=== PATIENT | male | born 1985 | race Caucasian/White ===

== ENCOUNTER 2023-02-24 07:27 | Outpatient (OUT) | payer MEDICAID, SELFPAY ==
[2023-02-24 08:08] LABS: Basophils Percent Auto 0.3 % (0.2-2.0); Eosinophils Absolute Auto 0.1 10^3/uL (0.0-0.7); Eosinophils Percent Auto 0.9 % (0.9-7.0); Hematocrit 47.4 % (42.0-54.0); Hemoglobin 15.7 g/dL (14.0-18.0); Immature Granulocytes Abs Auto 0.05 10^3/uL (0.00-0.03); Immature Granulocytes Pct Auto 0.5 % (0.0-0.5); Lymphocytes Absolute Auto 2.7 10^3/uL (1.2-3.8); Lymphocytes Percent Auto 25.6 % (20.5-60.0); Mean Corpuscular HGB Conc 33.1 g/dL (29.9-35.2); Mean Corpuscular Hemoglobin 29.2 pg (25.9-34.0); Mean Corpuscular Volume 88.3 fL (80.0-94.0); Mean Platelet Volume 9.2 fL (9.5-13.5); Monocytes Percent Auto 9.5 % (1.7-12.0); Neutrophils Absolute Auto 6.8 10^3/uL (1.4-6.5); Neutrophils Percent Auto 63.2 % (43.0-75.0); Platelet Count 420 10^3/uL (150-450); Red Blood Count 5.37 10^6/uL (4.70-6.10); White Blood Count 10.7 10^3/uL (4.0-11.0)
[2023-02-24 08:31] LABS: Estimated Average Glucose 183 mg/dL
[2023-02-24 08:49] LABS: Alanine Aminotransferase 56 U/L (16-63); Albumin Globulin Ratio 0.9; Albumin Level 3.7 g/dL (3.4-5.0); Alkaline Phosphatase 110 U/L (46-116); Anion Gap 10.1; Aspartate Amino Transferase 22 U/L (15-37); BUN Creatinine Ratio 10.9; Bilirubin Total 0.4 mg/dL (0.2-1.0); Carbon Dioxide 29.2 mmol/L (21.0-32.0); Chloride 100 mmol/L (98-107); Chol HDL Ratio 4.1; Cholesterol 218 mg/dL (<=200); Estimated GFR (African America >60 (>=60); Estimated GFR (Non-African Ame >60 (>=60); Free T3 3.12 pg/mL (2.18-3.98); Globulin 4.3 g/dL; Glucose 50 mg/dL (74-106); HDL Cholesterol 53 mg/dL (40-60); Potassium 3.3 mmol/L (3.5-5.1); Sodium 136 mmol/L (136-145); Thyroid Stimulating Hormone 2.456 uIU/mL (0.358-3.740); Triglycerides 91 mg/dL (<=150); VLDL CHOLESTEROL 18.2 mg/dL
[2023-02-24 09:54] LABS: Prostate Specific Antigen Scrn 0.89 ng/mL (<=4.00)
== END 2023-02-24 07:28 | disposition home or self-care (01) ==
LOC: LAB 07:30
PROVIDERS: PCP Family Medicine; Visit Provider Family Medicine
DX: Z00.00 Encounter for general adult medical examination without abnormal findings (principal); Z12.5 Encounter for screening for malignant neoplasm of prostate
CPT/HCPCS: 36415; 80053; 80061; 83036; 84436; 84443; 84481; 85025; G0103

== ENCOUNTER 2024-01-12 07:28 | Outpatient (OUT) | payer MEDICAID, SELFPAY ==
--- NOTE | 2024-01-12 07:30 | CA_ITS ---
Patient Name: ARIEL XIONG MR#: [id number] : 1985 Exam Date: 01/12/2024 Ordering Doctor: DR Erick Maldonado . ECHOCARDIOGRAM REPORT PROCEDURE: CA ECHO DOPPLER COMPLETE INDICATIONS: Cardiomyopathy COMPARISON: None. DESCRIPTION: COMPLETE ECHOCARDIOGRAM Real-time transthoracic echocardiography with 2D, M-mode, spectral and color flow Doppler performed. QUALITY: Technical quality was good. LEFT VENTRICLE: Normal chamber size. Normal left ventricular wall thickness. LV EF: Global left ventricular systolic function is hyperdynamic; visually estimated ejection fraction is 65 to 70%. No wall motion abnormalities. DIASTOLIC: Normal diastolic function. ATRIAL SEPTUM: Inadequately seen. LEFT ATRIUM: Normal chamber size. RIGHT ATRIUM: Normal chamber size. RIGHT VENTRICLE: Normal chamber size. Normal right ventricular systolic function. TRICUSPID VALVE: Normal mobility and thickness. No stenosis with trivial regurgitation. No evidence of pulmonary hypertension. RVSP 26mmHg MITRAL VALVE: Normal mobility and thickness. No evidence of mitral valve stenosis. There is no mitral annular calcification. No mitral regurgitation. AORTIC VALVE: Normal trileaflet appearance. No visible sclerosis. Normal leaflet mobility. No evidence of aortic valve stenosis. No aortic regurgitation. AORTIC ROOT: Normal diameter and appearance. PULMONIC VALVE: Normal thickness and mobility. No stenosis. No regurgitation. PERICARDIUM: Anterior free space; trivial effusion versus fat pad. IVC: Collapses with inspirations. Normal size. CONCLUSION: 1. Global left ventricular systolic function is hyperdynamic; visually estimated ejection fraction is 65 to 70% 2. Normal right ventricular size and systolic function 3. Normal diastolic function 4. The left atrium is normal in size 5. No significant valvular abnormalities 6. Anterior free space; trivial effusion versus fat pad Adult Echocardiography Procedure Report Left Ventricle LVEDD (3.7 - 5.6 cm): 3.98 cm LVESD (2.2 - 4.0 cm): 2.65 cm LVIVS thickness (0.6 - 1.2 cm): 1.17 cm LVPW thickness (0.5 - 1.0 cm): 1.19 cm e': 0.09 m/s E - e': 8.44 LVOT Max Gradient: 3.04 mm[Hg], 2.82 mm[Hg] LVOT Area (cm2): 0.86 m/s Peak Velocity (LVOT): 0.87 m/s, 0.84 m/s Mean Velocity (LVOT): 0.60 m/s LVOT Diameter 1.88 cm Left Ventricular Ejection Fraction: 65.31 % Left Atrium LA Volume Index (2D A2C): 13.60 ml/m2 Left Atrium Systolic Dimension: 3.29 cm Mitral Valve MV E to A Ratio: 0.78 Mitral Valve A-Wave Peak Velocity: 0.99 m/s Mitral Valve E-Wave Peak Velocity: 0.78 m/s Right Ventricle RV Internal Diastolic Dimension: 2.30 cm Aorta AO Root Diam: 2.64 cm Ascending Ao Diam: 2.38 cm Aortic Valve AoV Area (Peak Umer): 2.08 cm2, 2.06 cm2, 2.07 cm2 AoV Area (VTI): 1.96 cm2, 2.00 cm2, 1.89 cm2 Peak Velocity(Antegrade Flow): 1.17 m/s, 1.13 m/s, 1.13 m/s Peak Gradient(Antegrade Flow): 5.49 mm[Hg], 5.08 mm[Hg], 5.08 mm[Hg] Mean Velocity(Antegrade Flow): 0.83 m/s, 0.79 m/s, 0.81 m/s Mean Gradient(Antegrade Flow): 3.14 mm[Hg], 2.86 mm[Hg], 2.92 mm[Hg] Velocity Time Integral: 19.85 cm, 19.36 cm, 19.02 cm Tricuspid Valve Peak Velocity (Regurgitant Flow): 2.40 m/s, 1.87 m/s Pulmonic Valve Mean Gradient: 3.14 mm[Hg], 2.84 mm[Hg] Mean Velocity: 0.86 m/s, 0.79 m/s Peak Velocity: 1.09 m/s Peak Gradient: 4.76 mm[Hg], 4.76 mm[Hg] Right Atrium Right Atrium Systolic Pressure: 21.79 ml, 21.79 ml Dictated by: Pablito Rodgers M.D. on 01/12/2024 at 17:21 Approved by: Pablito Rodgers M.D. on 01/12/2024 at 17:25
== END 2024-01-12 07:29 | disposition home or self-care (01) ==
LOC: CARD 07:28
PROVIDERS: PCP Family Medicine; Visit Provider Family Medicine
DX: I42.9 Cardiomyopathy, unspecified (principal)
CPT/HCPCS: 93306

== ENCOUNTER 2024-02-19 12:06 | Outpatient (OUT) | payer MEDICAID, SELFPAY ==
--- OUTSIDE RECORDS SUMMARY | 2024-02-19 12:14 | XMS_ITS | CCD ---
Author Organization [facility] Care Team Providers Care Surgical Consultant Name Role Phone MD Irish Maldonado Primary Care Provider DO Ariel Perry Emergency Provider MD Bonilla Luke Admit Provider MD Bonilla Hall Attending Provider MD Charles Owen Other Provider [phone] MAURICIO, DR COBURN Primary Care Unavailable HOY, DR COBURN Admitting Unavailable HOY, DR COBURN Attending Unavailable HOY, DR COBURN Consulting Unavailable HOY, DR COBURN Consulting Unavailable HOY, DR COBURN Primary Care Unavailable HOY, DR COBURN Admitting Unavailable HOY, DR COBURN Attending Unavailable HOY, DR COBURN Primary Care Unavailable REQUEST, DR MASON LISTED Attending Unavaila ble REQUEST, DR MASON LISTED Consulting Unavaila ble REQUEST, DR MASON LISTED Admitting Unavaila ble HOY, DR COBURN Primary Care Unavailable SUZANNEY, DR COBURN Admitting Unavailable MAURICIO, DR COBURN Attending Unavailable MAURICIO, DR COBURN Consulting Unavailable Irish Maldonado Primary Care Unavailable Ariel Perry Admitting Unavailable Ariel Perry Attending Unavailable Irish Maldonado Primary Care Unavailable Charles Owen Consulting Unavailable Bonilla Hall Attending Unavailable Bonilla Hall Admitting Unavailable Medications Current Medications Medication Drug Class(es) Dates Sig (Normalized) Sig (Original) aspirin 325 mg delayed release oral tablet (2 sources) Platelet Aggregation Inhibitor, Nonsteroidal Anti-inflammatory Drug Start: 06-19-2018 take 325 mg by mouth once daily Aspirin Active 325 MG PO Daily June 19, 2018 1:00am citalopram 20 mg oral tablet (2 sources) Serotonin Reuptake Inhibitor Start: 06-19-2018 take 1 tablet by mouth once daily at bedtime Citalopram (Celexa) 20 mg tablet Active 20 MG PO Daily at bedtime June 19, 2018 1:00am insulin aspart, human (2 sources) Insulin Analog Start: 06-19-2018 Insulin Aspart U-100 Active 0 .ROUTE .COMPLEX June 19, 2018 1:00am SLIDING SCALE 3 ml insulin glargine 100 unt/ml pen injector (2 sources) Insulin Analog Start: 06-19-2018 inject 45 [IU] by subcutaneous injection once daily at bedtime Insulin Glargine Active 45 UNIT SUBCUT Daily at bedtime June 19, 2018 1:00am nitroglycerin 0.4 mg sublingual tablet (2 sources) Nitrate Vasodilator Start: 06-22-2018 Nitroglycerin Active 0.4 MG SUBLINGUAL Q5M June 22, 2018 1:00am Completed/Discontinued Medications Medication Drug Class(es) Dates Sig (Normalized) Sig (Original) atorvastatin 20 mg oral tablet (2 sources) HMG-CoA Reductase Inhibitor Start: 06-22-2018 End: 06-17-2019 take 20 mg by mouth once daily in the evening Atorvastatin Discontinued 20 MG PO Every evening June 22, 2018 1:00am June 17, 2019 1:07am ergocalciferol 1.25 mg oral capsule (2 sources) Provitamin D2 Compound Start: 06-20-2018 End: 01-26-2022 take 1 capsule by mouth every week, then take 1 capsule by mouth every month Ergocalciferol (Vitamin D2) Discontinued 77126 UNIT PO As Directed June 20, 2018 1:00am January 26, 2022 1:04pm take one cap every week for 8 weeks, then one cap every months after that. lisinopril 5 mg oral tablet (2 sources) Angiotensin Converting Enzyme Inhibitor Start: 06-22-2018 End: 06-17-2019 take 5 mg by mouth once daily Lisinopril Discontinued 5 MG PO Daily June 22, 2018 1:00am June 17, 2019 1:03am 24 hr nicotine 0.875 mg/hr transdermal system (2 sources) Cholinergic Nicotinic Agonist Start: 06-22-2018 End: 09-14-2018 apply 1 dose transdermal route every twenty-four hours Nicotine Discontinued 1 PATCH TRANSDERML Q24H 21 42 June 22, 2018 1:00am September 14, 2018 12:02am Problems Active Problems Problem Classification Problem Date Documented Da te Episodic/Chronic Coronary atherosclerosis and other heart disease (6 sources) Preinfarction syndrome; Translations: [Unstable angina] 01-26-2022 Chronic Diabetes mellitus with complications (2 sources) Retinopathy due to diabetes mellitus; Translations: [Type 2 diabetes mellitus with unspecified diabetic retinopathy without macular edema] 06-20-2018 Chronic Diabetes mellitus without complication (7 sources) Latent autoimmune diabetes mellitus in adult; Translations: [Other specified diabetes mellitus without complications] Onset: 01-26-2022 06-20-2018 Chronic Disorders of lipid metabolism (2 sources) Dyslipidemia; Translations: [Hyperlipidemia, unspecified] 06-20-2018 Chronic Mood disorders (2 sources) Depressive disorder; Translations: [Depressive disorder] 06-20-2018 Chronic Nutritional deficiencies (2 sources) Vitamin D deficiency; Translations: [Vitamin D deficiency, unspecified] 06-20-2018 Chronic Other lower respiratory disease (3 sources) Dyspnea; Translations: [Shortness of breath] Onset: 02-25-2022 06-20-2018 Episodic Other lower respiratory disease (3 sources) Shortness of breath; Translations: [SHORTNESS OF BREATH] Onset: 03-02-2022 Episodic Other screening for suspected conditions (not mental disorders or infectious disease) (1 source) Abnormal result of other cardiovascular function study; Translations: [ABNORM RESULT OTH CV FUNCTION STUDY] Onset: 03-02-2022 Episodic Residual codes; unclassified (2 sources) Tobacco user; Translations: [Tobacco use] 06-20-2018 Episodic Unclassified (3 sources) CONTACT W/AND (SUSP) EXPOS COVID-19; Translations: [CONTACT W/AND (SUSP) EXPOS COVID-19] Onset: 07-19-2021 Past or Other Problems Problem Classification Problem Date Documented Da te Episodic/Chronic Abdominal pain (1 source) Unspecified abdominal pain; Translations: [Unspecified abdominal pain] Onset: 08-02-2022 Episodic Nonspecific chest pain (13 sources) Chest pain; Translations: [Chest pain, unspecified] Onset: 01-26-2022 06-20-2018 Episodic Other upper respiratory infections (1 source) Acute recurrent frontal sinusitis; Translations: [ACUTE RECURRENT FRONTAL SINUSITIS] Onset: 05-24-2021 Episodic Unclassified (1 source) CONTACT W/AND (SUSP) EXPOS COVID-19; Translations: [CONTACT W/AND (SUSP) EXPOS COVID-19] Onset: 07-14-2021 Results Test Name Value Interpretation Reference Range Facility Blood Cultureon 08-03-2022 Bacteria identified Cx Nom (Bld) NO GROWTH 5 DAYS PERFORMED BY: [place] [address] PATHOLOGIST VACUUM WORKER ED FONSECA M.D. [facility] Comment on above: Performed By: #### S OFFRITZ, COVID-19 ASTON #### [address] abdomen pelvis w conon CT abdomen pelvis w con [facility] Main [place] [address] [place] [address] CT Scan Report Signed Patient: Ariel Ruvalcaba MR#: [id number] : 1985 Acct:[id number] Age/Sex: 37 / M ADM Date: 08/02/22 Loc: ER Room: Type: [facility] ER Attending Dr: Copies to: DO Ariel Mcfadden Mehreen DO Vicky Ordering Provider: Serge Barnes DO Date of Service: 08/02/22 CT/CT abdomen pelvis w con: Abdominal Pain CT ABDOMEN AND PELVIS WITH INTRAVENOUS CONTRAST: CLINICAL HISTORY: Right flank/right lower quadrant pain with nausea and vomiting COMPARISON: None TECHNIQUE: Spiral images were obtained through the abdomen and pelvis following the administration of intravenous contrast. This CT exam was performed using one or more following dose reduction techniques: Automated exposure control, adjustment of the mA and/or kV according to patient size, or use of iterative reconstruction technique. FINDINGS: Lung Bases: [No acute process.] Organs:Hepatic steatosis. Gallbladder spleen pancreas adrenal glands kidneys and aorta all appear unremarkable.[ GI: Stomach is grossly unremarkable. Small bowel appears nondilated. No acute colonic abnormality.[Append ix is normal. Pelvis:[Urinary bladder is grossly unremarkable. Prostate gland is normal size.] Peritoneum/Retroper itoneum:No free air, free fluid or lymphadenopathy.[ Abd wall/Bones:Abdomina l wall demonstrates no acute findings. Osseous structures demonstrates no acute findings.[ CT/CT abdomen pelvis w con IMPRESSION: No acute process. Impression dictated by: Nathen Saavedra Jr., D.O.08/03/2022 12:24 PM Dictation Location: [place] [address] Transcribed By: [facility] 08/03/22 1224 Dictated By: Nathen Saavedra Jr, DO 08/03/22 1210 Signed By: 08/03/22 1224 Normal [facility] Lactic Acidon 08-03-2022 Lactate [Moles/Vol] 1.4 mmol/L Normal 0.5-2.2 [facility] Comment on above: Result Comment: PERF ORMED BY: [facility] [address] [place] [address] PATHOLOGIST VACUUM WORKER ED FONSECA M.D. Performed By: #### S OFFRITZ COVID-19 ASTON #### [facility] [address] Basic Metabolic Panelon 07-17 Anion gap [Moles/Vol] 14.7 mmol/L Normal 6.0-15.0 [facility] Comment on above: Performed By: #### S OFFRITZ COVID-19 ASTON #### [facility] [address] [place] [address] [place] Calcium [Mass/Vol] 8.9 mg/dL Normal 8.2-10.2 [facility] Comment on above: Performed By: #### S OFFRITZ COVID-19 ASTON #### [facility] [address] [place] [address] [place] Chloride [Moles/Vol] 96 mmol/L Normal 95-114 [facility] Comment on above: Performed By: #### S OFFRITZ COVID-19 ASTON #### [facility] [address] [place] [address] [place] CO2 [Moles/Vol] 25.2 mmol/L Normal 22.0-30.0 [facility] Comment on above: Performed By: #### S OFIANEG COVID-19 ASTON #### [facility] [address] [place] [address] [place] Creatinine [Mass/Vol] 1.00 mg/dL Normal 0.64-1.27 [facility] Comment on above: Performed By: #### S CASPER FOX- ASTON #### [facility] [address] Creatinine Clr Calc Pharmacy 112.09 [facility] Comment on above: Performed By: #### S CASPER FOX- ASTON #### [facility] [address] [place] [address] Estimated GFR ( Yoselin > 60 [facility] Comment on above: Result Comment: GFR estimated reference range: According to KDOQI guidelines, <60 ml/min/1.73m2 is sufficient to diagnose a patient with chronic kidney disease. Performed By: #### S CASPER FOX- ASTON #### [address] Estimated GFR (Non- Am > 60 [facility] Comment on above: Performed By: #### S CASPER FOX- ASTON #### [address] Glucose [Mass/Vol] 297 mg/dL High 70-100 [facility] Comment on above: Result Comment: [place] om Glucose Reference Range is dependent on time and content of last meal. Glucose of more than 200 mg/dL in a nonstressed, ambulatory subject supports the diagnosis of Diabetes Mellitus. ADA recommended reference range Performed By: #### S CASPER FOX- ASTON #### [address] Potassium [Moles/Vol] 3.9 mmol/L Normal 3.5-5.1 [facility] Comment on above: Performed By: #### S CASPER FOX- ASTON #### [address] Sodium [Moles/Vol] 132 mmol/L Low 136-146 [facility] Comment on above: Performed By: #### S CASPER FOX- ASTON #### [facility] [address] [place] [address] Urea nitrogen [Mass/Vol] 10 mg/dL Normal 9-23 [facility] Comment on above: Performed By: #### S SHIMA FOXID-19 ASTON #### [address] Blood Cultureon 08-02-2022 Bacteria identified Cx Nom (Bld) NO GROWTH 5 DAYS PERFORMED BY: [place] [address] PATHOLOGIST VACUUM WORKER ED FONSECA M.D. Normal [facility] Comment on above: Performed By: #### S CASPER FOX-19 ASTON #### [address] Complete Blood Count Auto Di ffon 08-02-2022 Basophils (Bld) [#/Vol] 0.1 10*3/uL Normal 0.0-0.2 [facility] Comment on above: Result Comment: PERF ORMED BY: [place] [address] PATHOLOGIST VACUUM WORKER ED FONSECA M.D. Performed By: #### S SHIMA FOXID-19 ASTON #### [address] Basophils/100 WBC (Bld) 0.9 % Normal . [facility] Comment on above: Performed By: #### S SHIMA FOXID-19 ASTON #### [facility] [address] [place] [address] Eosinophils (Bld) [#/Vol] 0.1 10*3/uL Normal 0.0-0.45 [facility] Comment on above: Performed By: #### S SHIMA FOXID-19 ASTON #### [place] [address] [place] Eosinophils/100 WBC (Bld) 1.0 % Normal . [facility] Comment on above: Performed By: #### S SHIMA FOXID-19 ASTON #### [address] Erythrocyte distribution width (RBC) [Ratio] 13.3 % Normal 12.0-14.8 [facility] Comment on above: Performed By: #### S SCARLETTFRITZ COVID-19 ASTON #### [address] Hematocrit (Bld) [Volume fraction] 45.3 % Normal 38.8-50.0 [facility] Comment on above: Performed By: #### S OFFRITZ COVID-19 ASTON #### [address] Hemoglobin (Bld) [Mass/Vol] 15.0 g/dL Normal 13.0-17.0 [facility] Comment on above: Performed By: #### S OFFRITZ COVID-19 ASTON #### [address] Lymphocytes (Bld) [#/Vol] 2.8 10*3/uL Normal 1.00-4.8 [facility] Comment on above: Performed By: #### S OFFRITZ COVID-19 ASTON #### [address] Lymphocytes/100 WBC (Bld) 24.0 % Normal . [facility] Comment on above: Performed By: #### S OFFRITZ COVID-19 ASTON #### [address] MCH (RBC) [Entitic mass] 29.4 pg Normal 27.5-35.2 [facility] Comment on above: Performed By: #### S OFFRITZ COVID-19 ASTON #### [address] MCV (RBC) [Entitic vol] 89.0 fL Normal 83.5-101 F [facility] Comment on above: Performed By: #### S OFFRITZ COVID-19 ASTON #### [address] Mean Corpuscular HGB Conc 33.0 g/dL Normal 32.5-35.6 [facility] Comment on above: Performed By: #### S SCARLETTFRITZ COVID-19 ASTON #### [facility] [address] Monocytes (Bld) [#/Vol] 1.1 10*3/uL High 0.0-0.8 [facility] Comment on above: Performed By: #### S RUDDY COVID-19 ASTON #### [facility] [address] Monocytes/100 WBC (Bld) 17.09 % Normal 0.00-20.00 F [facility] Comment on above: Performed By: #### S OFFRITZ COVID-19 ASTON #### [facility] [address] Monocytes/100 WBC (Bld) 9.2 % Normal . F [facility] Comment on above: Performed By: #### S RUDDY COVID-19 ASTON #### [facility] [address] Neutrophils (Bld) [#/Vol] 7.7 10*3/uL Normal 1.8-7.7 [facility] Comment on above: Performed By: #### S SCARLETTFRITZ COVID-19 ASTON #### [facility] [address] [place] [address] [place] Neutrophils/100 WBC (Bld) 64.9 % Normal . [facility] Comment on above: Performed By: #### S RUDDY COVID-19 ASTON #### [facility] [address] [place] [address] [place] NRBC% 0.1 /100{WBC} Normal 0-0.5 [facility] Comment on above: Performed By: #### S OFFRITZ COVID-19 ASTON #### [facility] [address] Platelet mean volume (Bld) [Entitic vol] 7.6 fL Normal 6.6-10.1 [facility] Comment on above: Performed By: #### S JAMESJOHN COVID-19 ASTON #### [facility] [address] [place] [address] [place] Platelets (Bld) [#/Vol] 373 10*3/uL Normal 150-450 [facility] Comment on above: Performed By: #### S JAMESJOHN COVID-19 ASTON #### [facility] [address] [place] [address] [place] RBC (Bld) [#/Vol] 5.09 10*6/uL Normal 3.90-5.60 [facility] Comment on above: Performed By: #### S JAMESJOHN COVID-19 ASTON #### [facility] [address] [place] [address] [place] WBC (Bld) [#/Vol] 11.8 10*3/uL High 4.1-10.5 [facility] Comment on above: Performed By: #### S JAMESJOHN COVID-19 ASTON #### [facility] [address] [place] [address] [place] Dipstick and Microscopicon 0 08-02-2022 Appearance (U) Cloudy Critically abnormal Clear [facility] Comment on above: Order Comment: Name Collection Type:: Clean-Voided Midstream Performed By: #### A DDONUAPLUS #### [facility] [address] [place] [address] [place] Bacteria,Urine None Seen Normal None Seen [facility] Comment on above: Order Comment: Name Collection Type:: Clean-Voided Midstream Performed By: #### A DDONUAPLUS #### [facility] [address] [place] [address] [place] Bilirubin,Urine Negative Normal Negative [facility] Comment on above: Order Comment: Name Collection Type:: Clean-Voided Midstream Performed By: #### A DDONUAPLUS #### [facility] [address] [place] [address] [place] Color (U) Yellow Normal Yellow [facility] Comment on above: Order Comment: Name Collection Type:: Clean-Voided Midstream Performed By: #### A DDONUAPLUS #### [facility] [address] [place] [address] [place] Glucose Ql (U) >=1000 High Normal [facility] Comment on above: Order Comment: Name Collection Type:: Clean-Voided Midstream Performed By: #### A DDONUAPLUS #### [facility] [address] [place] [address] [place] Hyaline Casts,Urine 0-8 Normal 0-8 [facility] Comment on above: Order Comment: Name Collection Type:: Clean-Voided Midstream Result Comment: PERF ORMED BY: [place] [address] PATHOLOGIST VACUUM WORKER ED FONSECA M.D. Performed By: #### A DDONUAPLUS #### [facility] [address] [place] [address] Ketones Ql (U) Negative Normal Negative [facility] Comment on above: Order Comment: Name Collection Type:: Clean-Voided Midstream Performed By: #### A DDONUAPLUS #### [facility] [address] [place] [address] [place] Leukocyte esterase Test strip Ql (U) Negative Normal Negative [facility] Comment on above: Order Comment: Name Collection Type:: Clean-Voided Midstream Performed By: #### A DDONUAPLUS #### [facility] [address] [place] [address] [place] Nitrite,Urine Negative Normal Negative [facility] Comment on above: Order Comment: Name Collection Type:: Clean-Voided Midstream Performed By: #### A DDONUAPLUS #### [facility] [address] [place] [address] [place] Occult Blood,Urine Negative Normal Negative [facility] Comment on above: Order Comment: Name Collection Type:: Clean-Voided Midstream Result Comment: PERF ORMED BY: [place] [address] PATHOLOGIST VACUUM WORKER ED FONSECA M.D. Performed By: #### A DDONUAPLUS #### [address] pH (U) 5.5 [pH] Normal 5.0-9.0 [facility] Comment on above: Order Comment: Name Collection Type:: Clean-Voided Midstream Performed By: #### A DDONUAPLUS #### [address] Protein (U) [Mass/Vol] 30 mg/dL High Negative [facility] Comment on above: Order Comment: Name Collection Type:: Clean-Voided Midstream Performed By: #### A DDONUAPLUS #### [address] RBC LM.HPF (Urine sed) [#/Area] 0 /[HPF] Normal 0-4 [facility] Comment on above: Order Comment: Name Collection Type:: Clean-Voided Midstream Performed By: #### A DDONUAPLUS #### [address] Specificy [place],Urine 1.017 Normal 1.001-1.030 [facility] Comment on above: Order Comment: Name Collection Type:: Clean-Voided Midstream Performed By: #### A DDONUAPLUS #### [address] Squamous Epithelial Cell,Urine None Seen Normal 0-2 [facility] Comment on above: Order Comment: Name Collection Type:: Clean-Voided Midstream Performed By: #### A DDONUAPLUS #### [address] Urobilinogen,Urine Normal Normal Normal [facility] Comment on above: Order Comment: Name Collection Type:: Clean-Voided Midstream Performed By: #### A DDONUAPLUS #### [address] WBC,Urine None Seen Normal 0-4 [facility] Comment on above: Order Comment: Name Collection Type:: Clean-Voided Midstream Performed By: #### A DDONUAPLUS #### [address] [place] [address] [place] ECG 12 lead ECGon 08-02-2022 ECG 12 lead ECG [facility] [address] [place] [address] Electrocardiograph Report Signed Patient: Ariel Ruvalcaba MR#: [id number] : 1985 Acct:[id number] Age/Sex: 37 / M ADM Date: 08/02/22 Loc: ER Room: Type: [facility] ER Attending Dr: Ordering Provider: Serge Barnes DO Date of Service: 08/02/22 ECG/ECG 12 lead ECG: Abdominal Pain Copies to: Test Reason : Blood Pressure : 140/087 mmHG Vent. Rate : 121 BPM Atrial Rate : 121 BPM P-R Int : 132 ms QRS Dur : 084 ms QT Int : 320 ms P-R-T Axes : 075 098 040 degrees QTc Int : 454 ms Sinus tachycardia Rightward axis Confirmed by Serge BARNES DO ([id number]) on 08/03/2022 12:04:41 AM Referred By: Electronically Signed By:Serge BARENS DO Transcribed By: MUS Signed By Serge Barnes DO 0 08/03/22 0004 Normal [facility] Hepatic Panelon 08-02-2022 Albumin [Mass/Vol] 3.4 g/dL Normal 3.2-5.5 [facility] Comment on above: Performed By: #### S CASPER FOX-Kannan ASTON #### [facility] [address] [place] [address] [place] Albumin/Globulin [Mass ratio] 1.0 {ratio} Normal [facility] Comment on above: Performed By: #### S CASPER FOX-Kannan ASTON #### [facility] [address] [place] [id number] [place] ALP [Catalytic activity/Vol] 105 U/L High 32-92 [facility] Comment on above: Performed By: #### S SHIMA FOXID-19 ASTON #### [facility] [address] [place] [id number] [place] ALT [Catalytic activity/Vol] 28 U/L Normal 10-60 [facility] Comment on above: Performed By: #### S OFIANEG, COVID-19 ASTON #### [facility] [address] AST [Catalytic activity/Vol] 19 U/L Normal 10-42 [facility] Comment on above: Performed By: #### S OFIANEG, COVID-19 ASTON #### [facility] [address] Bilirubin [Mass/Vol] 0.4 mg/dL Normal 0.3-1.2 [facility] Comment on above: Performed By: #### S OFIANEG, COVID-19 ASTON #### [facility] [address] Bilirubin,Indirect Not performed Normal [facility] Comment on above: Performed By: #### S OFIANEG, COVID-19 ASTON #### [facility] [address] Bilirubin.indirect [Mass/Vol] mg/dL Normal 0.0-0.4 [facility] Comment on above: Performed By: #### S OFIANEG, COVID-19 ASTON #### [facility] [address] Globulin (S) [Mass/Vol] 3.4 g/dL Normal F [facility] Comment on above: Performed By: #### S OFIANEG, COVID-19 ASTON #### [facility] [address] [place] [address] Protein [Mass/Vol] 6.8 g/dL Normal 6.1-7.9 [facility] Comment on above: Performed By: #### S OFIANEG, COVID-19 ASTON #### [facility] [address] Lactic Acidon 08-02-2022 Lactate [Moles/Vol] 2.0 mmol/L Off scale high 0.5-2.2 F [facility] Comment on above: Result Comment: Resu lts called at 2225 on 08/02/22 PERFORMED BY: [place] [address] PATHOLOGIST VACUUM WORKER ED FONSECA M.D. Performed By: #### S CASPER FOX-19 ASTON #### [address] Lipaseon 08-02-2022 Lipase [Catalytic activity/Vol] 66.0 U/L High 22-51 [facility] Comment on above: Result Comment: PERF ORMED BY: [place] [address] PATHOLOGIST VACUUM WORKER ED FONSECA M.D. Performed By: #### S CASPER FOX-Kannan CLANCY #### [address] Partial Thromboplastin Timeo n 08-02-2022 aPTT Coag (Bld) [Time] 30.6 s Normal 25.1-36.5 [facility] Comment on above: Result Comment: PERF ORMED BY: [place] [address] PATHOLOGIST VACUUM WORKER ED FONSECA M.D. Performed By: #### S CASPER FOX-19 ASTON #### [address] Prothrombin Time INRon 08-02 INR Coag (PPP) [Relative time] 1.0 {INR} Normal [facility] Comment on above: Result Comment: INR Therapeutic Range A) Pre- and Peroperative OAT started two weeks before surgery. NOT HIP SURGERY: 1.5 - 2.5 HIP SURGERY: 2 - 3 B) Primary and secondary prevention of venous THROMBOSIS: 2 - 3 C) Active venous thrombosis, pulmonary embolism and prevention of recurrent venous thrombosis: 2 - 3 D) Prevention of arterial thromboembolism including patients with mechanical heart valves: 3 - 4.5 Performed By: #### S SHIMA FOXID-19 ASTON #### [facility] [address] [place] [address] PT Coag (PPP) [Time] 11.3 s Normal 9.0-12.9 [facility] Comment on above: Performed By: #### S CASPER FOX-19 ASTON #### [facility] [address] ECHOCARDIO M/2D COMPLETEon 0 02-25-2022 ECHOCARDIO M/2D COMPLETE Patient: ARIEL ALONZO Exam Date: 02/25/2022 : 1985 Gender:M Ordering : DR IRISH MALDONADO . Admission #: [id number] Family : Order #: [id number] CLICK HERE TO VIEW EXAM ECHOCARDIOGRAM REPORT PROCEDURE: CARDIO PULMONARY ECHOCARDIO M/2D COMP INDICATIONS: Shortness of breath, abnormal stress test COMPARISON: None. DESCRIPTION: COMPLETE ECHOCARDIOGRAM Real-time transthoracic echocardiography with 2D, M-mode, spectral and color flow Doppler performed. QUALITY: Technical quality was good. LEFT VENTRICLE: Normal chamber size. Normal left ventricular wall thickness. LV EF: Global left ventricular systolic function is normal. Calculated left ventricular ejection fraction is 64% DIASTOLIC: Normal diastolic function. ATRIAL SEPTUM: Inadequately seen. LEFT ATRIUM: Normal chamber size. RIGHT ATRIUM: Normal chamber size. RIGHT VENTRICLE: Normal chamber size. Normal right ventricular systolic function. TRICUSPID VALVE: Normal mobility and thickness. No stenosis with trivial regurgitation. Unable to assess right-sided pressures due to lack of measurable tricuspid regurgitation. MITRAL VALVE: Normal mobility and thickness. No mitral valve prolapse. No evidence of mitral valve stenosis. There is no mitral annular calcification. No mitral regurgitation. AORTIC VALVE: Normal trileaflet appearance. No visible sclerosis. Normal leaflet mobility. No evidence of aortic valve stenosis. No aortic regurgitation. AORTIC ROOT: Normal diameter and appearance. PULMONIC VALVE: Normal thickness and mobility. No stenosis. PERICARDIUM: Anterior free space; trivial effusion versus fat pad. IVC: Collapses with inspirations. Normal size CONCLUSION: Global left ventricular systolic function is normal; visually estimated ejection fraction 60 to 65%. No significant wall motion abnormalities. Normal diastolic function. The right ventricle is normal in size and systolic function. No significant valvular abnormalities. Anterior free space; trivial effusion versus fat pad. Adult Echocardiography Procedure Report Left Ventricle LVEDD (3.7 - 5.6 cm): 3.76 cm LVESD (2.2 - 4.0 cm): 2.56 cm LVIVS thickness (0.6 - 1.2 cm): 0.81 cm LVPW thickness (0.5 - 1.0 cm): 0.90 cm LVOT Max Umer (1.5 m per sec): 0.87 m/s Left Ventricular Ejection Fraction: 60.76 %, 60.76 % Left Ventricular Ejection Fraction (A2C): 60.60 % Left Ventricular Ejection Fraction (A4C): 68.39 % Left Atrium Mitral Valve MV E to A Ratio: 0.80 Right Ventricle RV Internal Diastolic Dimension: 2.66 cm Aorta Aorta (2.1 - 3.5 cm): 2.41 cm AO Root Diam: 2.55 cm Ascending Ao Diam: 2.24 cm Aortic Valve Peak Velocity (Antegrade Flow): 0.98 m/s, 0.98 m/s Tricuspid Valve Pulmonic Valve Mean Gradient: 2.69 mm[Hg] Mean Velocity: 0.80 m/s Right Atrium Dictated by: Pablito Rodgers M.D. on 02/26/2022 at 12:53 Approved by: Pablito Rodgers M.D. on 02/26/2022 at 12:57 Normal [facility] STRESS/REST MULTIon 02-07 MT STRESS/REST MULTI Patient: ARIEL RUVALCABA Exam Date: 02/07/2022 : 1985 Gender:M Ordering : DR IRISH MALDONADO . Admission #: [id number] Family : Order #: [id number] CLICK HERE TO VIEW EXAM RADIOLOGY REPORT PROCEDURE: RADIONUCLIDE IMAGING STRESS/REST MULTI COMPARISON: MT STRESS/REST MULTI, 06/18/2018. INDICATIONS: Chest pain TECHNIQUE: Exam Description: Stress/Rest one day protocol gated SPECT Rest Imagin.8 mCi Tc-99m Cardiolite IV on 02/07/2022 Stress Imaging 30.6 mCi Tc-99m Cardiolite IV on 02/07/2022 Exercise Protocol: 0.4 mg Lexiscan given IV Heart Rate (bpm): Rest: 121 Max: 144 PMHR: 78 Blood Pressure: Rest: 148/96 Max: 184/98 Symptoms: Rest and peak stress ECG findings were non-diagnostic and the exercise portion of the study was Non-diagnostic per attending physician Dr. Mercado . For more details please see separate cardiac stress test report. FINDINGS: QUALITY OF STUDY: Excellent. PERFUSION DEFECT: None. LOCATION: N/A SIZE: N/A. SEVERITY: N/A. TYPE: N/A. WALL MOTION: Normal. LV SIZE: Normal. 65 mL. TID / TCD: None; 0.9 LVEF: Abnormal. Calculated EF 54%. SUMMARY: Myocardial perfusion imaging study has ABNORMAL findings. CONCLUSION: 1. No acute or reversible ischemia. 2. Left ventricle ejection fraction falls just below lower limits of normal (below 55%). 3. Normal wall motion. Dictated by: Cruzito Ward M.D. on 02/08/2022 at 12:09 Approved by: Cruzito Ward M.D. on 02/08/2022 at 12:[address] [facility] Activated partial thrombopla stin time (aPTT) in platelet poor plasma by coagulation aOrdered By: Ariel Perry on 01-26-2022 aPTT Coag (PPP) [Time] 29.9 s 25.1-36.5 [facility] B-Type Natriuretic Peptideon 01-26-2022 Natriuretic peptide B (Bld) [Mass/Vol] pg/mL Low 5-100 [facility] Comment on above: Result Comment: PERF ORMED BY: [place] [address] PATHOLOGIST VACUUM WORKER ED FONSECA M.D. Performed By: #### S SHIMA FOXID-19 ASTON #### [address] Basic Metabolic Panelon 01-14 Calcium [Mass/Vol] 9.4 mg/dL Normal 8.2-10.2 [facility] Comment on above: Performed By: #### P TT, CBC, BNP, BMP, CK, CKMB, HS TROP, PT #### [address] Chloride [Moles/Vol] 100 mmol/L Normal 95-114 [facility] Comment on above: Performed By: #### P TT, CBC, BNP, BMP, CK, CKMB, HS TROP, PT #### [place] [address] [place] CO2 [Moles/Vol] 25.9 mmol/L Normal 22.0-30.0 [facility] Comment on above: Performed By: #### P TT, CBC, BNP, BMP, CK, CKMB, HS TROP, PT #### [facility] [address] Creatinine [Mass/Vol] 0.81 mg/dL Normal 0.64-1.27 [facility] Comment on above: Performed By: #### P TT, CBC, BNP, BMP, CK, CKMB, HS TROP, PT #### [facility] [address] Creatinine Clr Calc Pharmacy 139.01 [facility] Comment on above: Result Comment: PERF ORMED BY: [place] [address] PATHOLOGIST VACUUM WORKER ED FONSECA M.D. Performed By: #### P TT, CBC, BNP, BMP, CK, CKMB, HS TROP, PT #### [facility] [address] Estimated GFR ( Yoselin > 60 [facility] Comment on above: Result Comment: GFR estimated reference range: According to KDOQI guidelines, <60 ml/min/1.73m2 is sufficient to diagnose a patient with chronic kidney disease. Performed By: #### P TT, CBC, BNP, BMP, CK, CKMB, HS TROP, PT #### [facility] [address] Estimated GFR (Non- Am > 60 [facility] Comment on above: Performed By: #### P TT, CBC, BNP, BMP, CK, CKMB, HS TROP, PT #### [facility] [address] Glucose [Mass/Vol] 287 mg/dL High 70-100 [facility] Comment on above: Result Comment: [place] om Glucose Reference Range is dependent on time and content of last meal. Glucose of more than 200 mg/dL in a nonstressed, ambulatory subject supports the diagnosis of Diabetes Mellitus. ADA recommended reference range Performed By: #### P TT, CBC, BNP, BMP, CK, CKMB, HS TROP, PT #### [facility] [address] Potassium [Moles/Vol] 4.0 mmol/L Normal 3.5-5.1 [facility] Comment on above: Performed By: #### P TT, CBC, BNP, BMP, CK, CKMB, HS TROP, PT #### [facility] [address] Sodium [Moles/Vol] 137 mmol/L Normal 136-146 [facility] Comment on above: Performed By: #### P TT, CBC, BNP, BMP, CK, CKMB, HS TROP, PT #### [facility] [address] Urea nitrogen [Mass/Vol] 13 mg/dL Normal 9-23 [facility] Comment on above: Performed By: #### P TT, CBC, BNP, BMP, CK, CKMB, HS TROP, PT #### [facility] [address] Basophils Auto (Bld) [#/Vol] Ordered By: Ariel Perry on 01-26-2022 Basophils (Bld) [#/Vol] 0.1 10*3/uL 0.0-0.2 [facility] Basophils/100 WBC Auto (Bld) Ordered By: Ariel Perry on 01-26-2022 Basophils/100 WBC (Bld) 0.7 % . F [facility] Blood hemoglobin measurement (mass/volume)Ordered By: Ariel Perry on 01-26-2022 Hemoglobin (Bld) [Mass/Vol] 14.8 g/dL 13.0-17.0 [facility] Blood leukocytes automated c ount (number/volume)Ordered By: Ariel Perry on 01-26-2022 WBC (Bld) [#/Vol] 7.5 10*3/uL 4.5-11.0 [facility] COVID-19 Antigenon 2 COVID-19 Antigen Healthcare Worker?: N Reference Range: Negative Negative results, from patients with symptom onset beyond five days, should be treated as presumptive and confirmation with a molecular assay, if necessary, for patient management, may be performed. Negative results do not rule out COVID-19 and should not be used as the sole basis for treatment or patient management decisions, including infection control decisions. Negative results should be considered in the context of a patient's recent exposures, history and the presence of clinical signs and symptoms consistent with COVID-19. The Aston SARS Antigen VIKTOR does not differentiate between SARS-CoV and SARS-CoV-2. This test was developed and its performance characteristic determined by [employer] and validated at [facility]. This test has not been FDA cleared or approved. This test has been authorized by FDA under an Emergency Use Authorization (EUA). This test has been validated in accordance with the FDA's Guidance Document (Policy for Diagnostics Testing in Laboratories Certified to Perform High Complexity Testing under CLIA prior to Emergency Use Authorization for Coronavirus Disease-2019 during the Public Health Emergency) issued on September 16, 2019. This test is only authorized for the duration of time the declaration that circumstances exist justifying the authorization of the emergency use of in vitro diagnostic tests for detection of SARS-CoV-2 virus and/or diagnosis of COVID-19 infection under section 564(b)(1) of the Act, 21 U.S.C. 360bbb-3(b)(1), unless the authorization is terminated or revoked sooner. SARS-CoV+SARS-CoV-2 (COVID-19) Ag [Presence] in Respiratory specimen by Rapid immunoassay Negative for SARS Antigen by VIKTOR PERFORMED BY: [place] [address] PATHOLOGIST VACUUM WORKER ED FONSECA M.D. Normal [facility] Comment on above: Performed By: #### S RUDDY, COVID-19 ASTON #### [address] COVID-19 [facility] 01-26-2022 SARS-CoV-2 (COVID-19) RNA NIKKI+probe Ql (Unsp spec) Negative Normal Negative [facility] Comment on above: Order Comment: Healt hcare Worker?: N Result Comment: Testing for SARS-CoV-2 by RT-PCR This test was developed and its performance characteristics determined by [employer] ([employer] and validated at the [facility]. This test has not been FDA cleared or approved. This test has been authorized by FDA under an Emergency Use Authorization (EUA). This test has been validated in accordance with the FDA's Guidance Document (Policy for Diagnostics Testing in Laboratories Certified to Perform High Complexity Testing under CLIA prior to Emergency Use Authorization for Coronavirus Disease-2019 during the Public Health Emergency) issued on September 16, 2019. This test is only authorized for the duration of time the declaration that circumstances exist justifying the authorization of the emergency use of in vitro diagnostic tests for detection of SARS-CoV-2 virus and/or diagnosis of COVID-19 infection under section 564(b)(1) of the Act, 21 U.S.C. 360bbb-3(b)(1), unless the authorization is terminated or revoked sooner. PERFORMED BY: [facility] [address] [place] [address] PATHOLOGIST VACUUM WORKER ED FONSECA M.D. Performed By: #### S OFJEFFERY, COVID-19 ASTON #### [facility] [address] COVID-19 Positive/NegativeOr dered By: Ariel Perry on 01-26-2022 SARS-CoV-2 (COVID-19) N gene NIKKI+probe Ql (Resp) Negative Negative [facility] Comment on above: Testing for SARS-CoV -2 by RT-PCR This test was developed and its performance characteristics determined by [employer] ([employer] and validated at the [facility]. This test has not been FDA cleared or approved. This test has been authorized by FDA under an Emergency Use Authorization (EUA). This test has been validated in accordance with the FDA's Guidance Document (Policy for Diagnostics Testing in Laboratories Certified to Perform High Complexity Testing under CLIA prior to Emergency Use Authorization for Coronavirus Disease-2019 during the Public Health Emergency) issued on September 16, 2019. This test is only authorized for the duration of time the declaration that circumstances exist justifying the authorization of the emergency use of in vitro diagnostic tests for detection of SARS-CoV-2 virus and/or diagnosis of COVID-19 infection under section 564(b)(1) of the Act, 21 U.S.C. 360bbb-3(b)(1), unless the authorization is terminated or revoked sooner. COVID-19 SOFIAOrdered By: Kelli chidi Perry on 01-26-2022 SARS-CoV+SARS-CoV-2 (COVID-19) Ag IA.rapid Ql (Resp) Negative Negative [facility] Comment on above: This is a duplicate Aston SARS Antigen (VIKTOR) result to be used for statistical tracking purpose only. Complete Blood Count Auto Di ffon 01-26-2022 Basophils (Bld) [#/Vol] 0.1 10*3/uL Normal 0.0-0.2 [facility] Comment on above: Result Comment: PERF ORMED BY: [place] [address] PATHOLOGIST VACUUM WORKER ED FONSECA M.D. Performed By: #### P TT, CBC, BNP, BMP, CK, CKMB, HS TROP, PT #### [address] Basophils/100 WBC (Bld) 0.7 % Normal . [facility] Comment on above: Performed By: #### P TT, CBC, BNP, BMP, CK, CKMB, HS TROP, PT #### [address] Eosinophils (Bld) [#/Vol] 0.2 10*3/uL Normal 0.0-0.45 [facility] Comment on above: Performed By: #### P TT, CBC, BNP, BMP, CK, CKMB, HS TROP, PT #### [place] [address] [place] Eosinophils/100 WBC (Bld) 2.0 % Normal . [facility] Comment on above: Performed By: #### P TT, CBC, BNP, BMP, CK, CKMB, HS TROP, PT #### [address] Erythrocyte distribution width (RBC) [Ratio] 13.0 % Normal 12.0-14.8 [facility] Comment on above: Performed By: #### P TT, CBC, BNP, BMP, CK, CKMB, HS TROP, PT #### [address] Hematocrit (Bld) [Volume fraction] 44.3 % Normal 38.8-50.0 [facility] Comment on above: Performed By: #### P TT, CBC, BNP, BMP, CK, CKMB, HS TROP, PT #### [address] Hemoglobin (Bld) [Mass/Vol] 14.8 g/dL Normal 13.0-17.0 [facility] Comment on above: Performed By: #### P TT, CBC, BNP, BMP, CK, CKMB, HS TROP, PT #### [address] Lymphocytes (Bld) [#/Vol] 2.6 10*3/uL Normal 1.00-4.8 [facility] Comment on above: Performed By: #### P TT, CBC, BNP, BMP, CK, CKMB, HS TROP, PT #### [address] Lymphocytes/100 WBC (Bld) 34.4 % Normal . [facility] Comment on above: Performed By: #### P TT, CBC, BNP, BMP, CK, CKMB, HS TROP, PT #### [address] MCH (RBC) [Entitic mass] 30.2 pg Normal 27.5-35.2 [facility] Comment on above: Performed By: #### P TT, CBC, BNP, BMP, CK, CKMB, HS TROP, PT #### [address] MCV (RBC) [Entitic vol] 90.4 fL Normal 83.5-101 F [facility] Comment on above: Performed By: #### P TT, CBC, BNP, BMP, CK, CKMB, HS TROP, PT #### [facility] [address] Mean Corpuscular HGB Conc 33.4 g/dL Normal 32.5-35.6 [facility] Comment on above: Performed By: #### P TT, CBC, BNP, BMP, CK, CKMB, HS TROP, PT #### [facility] [address] [place] [address] [place] Monocytes (Bld) [#/Vol] 0.5 10*3/uL Normal 0.0-0.8 [facility] Comment on above: Performed By: #### P TT, CBC, BNP, BMP, CK, CKMB, HS TROP, PT #### [address] Monocytes/100 WBC (Bld) 6.7 % Normal . [facility] Comment on above: Performed By: #### P TT, CBC, BNP, BMP, CK, CKMB, HS TROP, PT #### [address] Neutrophils (Bld) [#/Vol] 4.2 10*3/uL Normal 1.8-7.7 [facility] Comment on above: Performed By: #### P TT, CBC, BNP, BMP, CK, CKMB, HS TROP, PT #### [address] Neutrophils/100 WBC (Bld) 56.2 % Normal . [facility] Comment on above: Performed By: #### P TT, CBC, BNP, BMP, CK, CKMB, HS TROP, PT #### [facility] [address] [place] [address] [place] Nucleated RBC/100 WBC (Bld) [Ratio] 0.0 % Normal 0-0.5 [facility] Comment on above: Performed By: #### P TT, CBC, BNP, BMP, CK, CKMB, HS TROP, PT #### [place] [address] [place] Platelet mean volume (Bld) [Entitic vol] 8.2 fL Normal 6.6-10.1 [facility] Comment on above: Performed By: #### P TT, CBC, BNP, BMP, CK, CKMB, HS TROP, PT #### [facility] [address] Platelets (Bld) [#/Vol] 358 10*3/uL Normal 150-450 [facility] Comment on above: Performed By: #### P TT, CBC, BNP, BMP, CK, CKMB, HS TROP, PT #### [facility] [address] RBC (Bld) [#/Vol] 4.90 10*6/uL Normal 3.90-5.60 [facility] Comment on above: Performed By: #### P TT, CBC, BNP, BMP, CK, CKMB, HS TROP, PT #### [facility] [address] WBC (Bld) [#/Vol] 7.5 10*3/uL Normal 4.5-11.0 [facility] Comment on above: Performed By: #### P TT, CBC, BNP, BMP, CK, CKMB, HS TROP, PT #### [facility] [address] [place] [address] Creatine Kinaseon 01-26-2022 CK [Catalytic activity/Vol] 108 U/L Normal 22-269 [facility] Comment on above: Performed By: #### P TT, CBC, BNP, BMP, CK, CKMB, HS TROP, PT #### [address] Creatine kinase [Enzymatic a ctivity/volume] in Serum or PlasmaOrdered By: Ariel Perry on 01-26-2022 CK [Catalytic activity/Vol] 108 U/L 22-269 [facility] Creatinine Kinase MBon 01-26 CK.MB [Mass/Vol] 1.9 ng/mL Normal 0.6-6.3 [facility] Comment on above: Performed By: #### S CASPER FOX-Kannan CLANCY #### [facility] [address] CKMB Relative Index 1.7 % Normal 0.00-2.50 [facility] Comment on above: Performed By: #### S CASPER FOX-19 ASTON #### [facility] [address] [place] [address] [place] Creatinine and Glomerular fi ltration rate.predicted panel (S/P/Bld)Ordered By: Ariel Perry on 01-26-2022 Creatinine [Mass/Vol] 0.81 mg/dL 0.64-1.27 [facility] ECG 12 lead ECGon 01-26-2022 ECG 12 lead ECG [facility] [address] [place] [address] [place] [address] Electrocardiograph Report Signed Patient: Ariel Ruvalcaba MR#: [id number] : 1985 Acct:[id number] Age/Sex: 36 / M ADM Date: 01/26/22 Loc: Room: [address] [place] [address] Type: DIS INOo Attending Dr: Bonilla Hall MD Ordering Provider: Ariel Perry DO Date of Service: 01/26/22 ECG/ECG 12 lead ECG: Chest Pain Copies to: Test Reason : Blood Pressure : 159/089 mmHG Vent. Rate : 101 BPM Atrial Rate : 101 BPM P-R Int : 138 ms QRS Dur : 082 ms QT Int : 342 ms P-R-T Axes : 081 097 061 degrees QTc Int : 443 ms Sinus tachycardia Confirmed by Ariel Perry DO ([id number]) on 01/26/2022 3:45:53 PM Referred By: Electronically Signed By:Ariel Perry DO Transcribed By: MUS Signed By Ariel Perry DO [id number] Normal [facility] Eosinophils Auto (Bld) [#/Vo l]Ordered By: Ariel Perry on 01-26-2022 Eosinophils (Bld) [#/Vol] 0.2 10*3/uL 0.0-0.45 [facility] Eosinophils/100 WBC Auto (Bl d)Ordered By: Ariel Perry on 01-26-2022 Eosinophils/100 WBC (Bld) 2.0 % . [facility] Erythrocyte distribution wid th Auto (RBC) [Ratio]Ordered By: Ariel Perry on 01-26-2022 Erythrocyte distribution width (RBC) [Ratio] 13.0 % 12.0-14.8 [facility] Estimated glomerular filtrat ion rate (GFR) non- AmericanOrdered By: Ariel Perry on 01-26-2022 GFR/1.73 sq M.predicted among non-blacks MDRD (S/P/Bld) [Vol rate/Area] > 60 mL/Min [facility] Glucose Glucometer (BldC) [M ass/Vol]Ordered By: Bonilla Hall on 01-26-2022 Glucose [Mass/Vol] 342 mg/dL [facility] Comment on above: Random Glucose Refer ence Range is dependent on time and content of last meal. Glucose of more than 200 mg/dL in a nonstressed, ambulatory subject supports the diagnosis of Diabetes Mellitus. Glucose Poct Glucometerson 0 01-26-2022 Glucose [Mass/Vol] 342 mg/dL Normal [facility] Comment on above: Result Comment: [place] om Glucose Reference Range is dependent on time and content of last meal. Glucose of more than 200 mg/dL in a nonstressed, ambulatory subject supports the diagnosis of Diabetes Mellitus. PERFORMED BY: [address] [place] [address] PATHOLOGIST VACUUM WORKER ED FONSECA M.D. Performed By: #### G MANNY #### Point of Care testing , Hematocrit Auto (Bld) [Volum e fraction]Ordered By: Ariel Perry on 01-26-2022 Hematocrit (Bld) [Volume fraction] 44.3 % 38.8-50.0 [facility] - Chemistry and C hemistry - challengeOrdered By: Ariel Perry on 01-26-2022 Natriuretic peptide B (Bld) [Mass/Vol] pg/mL 5-100 [facility] - CoagulationOrde red By: Ariel Perry on 01-26-2022 PT Coag (PPP) [Time] 9.3 s 9.0-12.9 [facility] - Hematology and Cell countsOrdered By: Ariel Perry on 01-26-2022 Nucleated RBC/100 WBC (Bld) [Ratio] 0.0 % 0-0.5 [facility] - Microbiology an d Antimicrobial susceptibilityOrdered By: Ariel Perry on 01-26-2022 SARS-CoV-2 (COVID-19) RNA NIKKI+probe Ql (Unsp spec) N/A [facility] Lymphocytes Auto (Bld) [#/Vo l]Ordered By: Ariel Perry on 01-26-2022 Lymphocytes (Bld) [#/Vol] 2.6 10*3/uL 1.00-4.8 [facility] Lymphocytes/100 WBC Auto (Bl d)Ordered By: Ariel Perry on 01-26-2022 Lymphocytes/100 WBC (Bld) 34.4 % . [facility] MCH Auto (RBC) [Entitic mass ]Ordered By: Ariel Perry on 01-26-2022 MCH (RBC) [Entitic mass] 30.2 pg 27.5-35.2 [facility] MCHC Auto (RBC) [Mass/Vol]Or dered By: Ariel Perry on 01-26-2022 MCHC (RBC) [Mass/Vol] 33.4 g/dL 32.5-35.6 [facility] MCV Auto (RBC) [Entitic vol] Ordered By: Ariel Perry on 01-26-2022 MCV (RBC) [Entitic vol] 90.4 fL 83.5-101 F [facility] Monocytes Auto (Bld) [#/Vol] Ordered By: Ariel Perry on 01-26-2022 Monocytes (Bld) [#/Vol] 0.5 10*3/uL 0.0-0.8 [facility] Monocytes/100 WBC Auto (Bld) Ordered By: Ariel Perry on 01-26-2022 Monocytes/100 WBC (Bld) 6.7 % . F [facility] Neutrophils Auto (Bld) [#/Vo l]Ordered By: Ariel Perry on 01-26-2022 Neutrophils (Bld) [#/Vol] 4.2 10*3/uL 1.8-7.7 [facility] Neutrophils/100 WBC Auto (Bl d)Ordered By: Ariel Perry on 01-26-2022 Neutrophils/100 WBC (Bld) 56.2 % . [facility] No Panel InformationOrdered By: Ariel Perry on 01-26-2022 Estimated GFR () > 60 mL/Min [facility] Comment on above: GFR estimated refere nce range: According to KDOQI guidelines, <60 ml/min/1.73m2 is sufficient to diagnose a patient with chronic kidney disease. Pharmacy Creatinine Clearance (Chem 139.01 [facility] SARS Antigen (LFIA) [facility] Partial Thromboplastin Timeo n 01-26-2022 aPTT Coag (Bld) [Time] 29.9 s Normal 25.1-36.5 [facility] Comment on above: Result Comment: PERF ORMED BY: [place] [address] PATHOLOGIST VACUUM WORKER ED FONSECA M.D. Performed By: #### P TT, CBC, BNP, BMP, CK, CKMB, HS TROP, PT #### [address] Platelet mean volume Auto (B ld) [Entitic vol]Ordered By: Ariel Perry on 01-26-2022 Platelet mean volume (Bld) [Entitic vol] 8.2 fL 6.6-10.1 [facility] Platelet poor plasma interna tional normalized ratio (INR) by coagulation assay (relatOrdered By: Ariel Perry on 01-26-2022 INR Coag (PPP) [Relative time] 0.8 {INR} [facility] Comment on above: INR Therapeutic Rang e A) Pre- and Peroperative OAT started two weeks before surgery. NOT HIP SURGERY: 1.5 - 2.5 HIP SURGERY: 2 - 3 B) Primary and secondary prevention of venous THROMBOSIS: 2 - 3 C) Active venous thrombosis, pulmonary embolism and prevention of recurrent venous thrombosis: 2 - 3 D) Prevention of arterial thromboembolism including patients with mechanical heart valves: 3 - 4.5 Platelets Auto (Bld) [#/Vol] Ordered By: Ariel Perry on 01-26-2022 Platelets (Bld) [#/Vol] 358 10*3/uL 150-450 [facility] Prothrombin Time INRon 01-26 INR Coag (PPP) [Relative time] 0.8 {INR} Normal [facility] Comment on above: Result Comment: INR Therapeutic Range A) Pre- and Peroperative OAT started two weeks before surgery. NOT HIP SURGERY: 1.5 - 2.5 HIP SURGERY: 2 - 3 B) Primary and secondary prevention of venous THROMBOSIS: 2 - 3 C) Active venous thrombosis, pulmonary embolism and prevention of recurrent venous thrombosis: 2 - 3 D) Prevention of arterial thromboembolism including patients with mechanical heart valves: 3 - 4.5 Performed By: #### P TT, CBC, BNP, BMP, CK, CKMB, HS TROP, PT #### [facility] [address] PT Coag (PPP) [Time] 9.3 s Normal 9.0-12.9 [facility] Comment on above: Performed By: #### P TT, CBC, BNP, BMP, CK, CKMB, HS TROP, PT #### [facility] [address] RBC Auto (Bld) [#/Vol]Ordere d By: Ariel Perry on 01-26-2022 RBC (Bld) [#/Vol] 4.90 10*6/uL 3.90-5.60 [facility] Serum or plasma calcium kelly urement (mass/volume)Ordered By: Ariel Perry on 01-26-2022 Calcium [Mass/Vol] 9.4 mg/dL 8.2-10.2 [facility] Serum or plasma chloride nancy surement (moles/volume)Ordered By: Ariel Perry on 01-26-2022 Chloride [Moles/Vol] 100 mmol/L 95-114 [facility] Serum or plasma creatine kin ase MB (CKMB)/total creatine kinase (CK) ratio by calculaOrdered By: Ariel Perry on 08-13-2022 CK.MB Calc [Catalytic fraction] 1.7 % 0.00-2.50 [facility] Serum or plasma creatine kin ase MB measurement (mass/volume)Ordered By: Ariel Perry on 01-26-2022 CK.MB [Mass/Vol] 1.9 ng/mL 0.6-6.3 [facility] Serum or plasma glucose kelly urement (mass/volume)Ordered By: Ariel Perry on 01-26-2022 Glucose [Mass/Vol] 287 mg/dL 70-100 [facility] Comment on above: ADA recommended refe rence range Random Glucose Reference Range is dependent on time and content of last meal. Glucose of more than 200 mg/dL in a nonstressed, ambulatory subject supports the diagnosis of Diabetes Mellitus. Serum or plasma potassium me asurement (moles/volume)Ordered By: Ariel Perry on 01-26-2022 Potassium [Moles/Vol] 4.0 mmol/L 3.5-5.1 [facility] Serum or plasma sodium measu rement (moles/volume)Ordered By: Ariel Perry on 01-26-2022 Sodium [Moles/Vol] 137 mmol/L 136-146 [facility] Serum or plasma total carbon dioxide measurement (moles/volume)Ordered By: Ariel Perry on 01-26-2022 CO2 [Moles/Vol] 25.9 mmol/L 22.0-30.0 [facility] Serum or plasma urea nitroge n measurement (mass/volume)Ordered By: Ariel Perry on 01-26-2022 Urea nitrogen [Mass/Vol] 13 mg/dL 9- [facility] Aston Ag Negativeon 01-27-20 22 Aston Ag Negative Negative Normal Negative [facility] Comment on above: Result Comment: This is a duplicate [place]ston SARS Antigen (VIKTOR) result to be used for statistical tracking purpose only. PERFORMED BY: [address] [id number] PATHOLOGIST VACUUM WORKER ED FONSECA M.D. Performed By: #### S CASPER FOX-19 ASTON #### [place] [id number] [place] Troponin I High Sensitivityo n 01-26-2022 Troponin I High Sensitivity 3 pg/mL Normal 0-20 [facility] Comment on above: Order Comment: PT GO ING TO 3T16 IN ER 1805 Result Comment: PERF ORMED BY: [place] [address] PATHOLOGIST VACUUM WORKER ED FONSECA M.D. Performed By: #### H S TROP #### [facility] [address] [place] [address] Troponin I High Sensitivity 3 pg/mL Normal 0-20 [facility] Comment on above: Result Comment: PERF ORMED BY: [place] [address] PATHOLOGIST VACUUM WORKER ED FONSECA M.D. Performed By: #### S OFIANEG, COVID-19 ASTON #### [facility] [address] [place] [address] Troponin I.cardiac [Mass/vol ume] in Serum or Plasma by High sensitivity methodOrdered By: Bonilla Hall on 01-26-2022 Troponin I.cardiac High sensitivity method [Mass/Vol] 3 pg/mL 0-20 [facility] XR chest 2V*on 01-26-2022 XR chest 2V* [facility] [place] [address] XRay Report Signed Patient: Ariel Ruvalcaba MR#: [id number] : 1985 Acct:[id number] Age/Sex: 36 / M ADM Date: 01/26/22 Loc: ER Room: Type: [facility] ER Attending Dr: Copies to: Ariel Perry DO Ordering Provider: Ariel Perry DO Date of Service: 01/26/22 XR/XR chest 2V*: Chest Pain PA AND LATERAL CHEST: CLINICAL HISTORY: Left-sided chest pain since yesterday and cough COMPARISON: 06/19/2018 There is no focal parenchymal consolidation, effusion or pneumothorax. The cardiac, hilar and mediastinal silhouettes are within normal limits. There is no vascular congestion. The visualized bony thorax is intact. XR/XR chest 2V* IMPRESSION: NO ACUTE CARDIOPULMONARY ABNORMALITY. Impression dictated by: Bernice Smith M.D.01/26/2022 2:20 PM Dictation Location: [place] [address] Transcribed By: [facility] 01/26/22 1420 Dictated By: Bernice Smith MD 01/26/22 1419 Signed By: 01/26/22 1420 [facility] COVID-19 ANTIGENon 2 EUA Statement SEE BELOW Normal [facility] Comment on above: Result Comment: This test has not been FDA cleared or approved, but has been authorized by the FDA under an Emergency Use Authorization (EUA) for use by authorized laboratories certified under CLIA that meet the requirements to perform moderate or high complexity testing. This test has been authorized only for the detection of proteins from SARS-CoV-2, not for any other viruses or pathogens. The emergency use of this test is authorized for the duration of the declaration that circumstances exist justifying the authorization of emergency use of in vitro diagnostic tests for detection and/or diagnosis of Covid-19 under section 564(b)(1) of the Act, 21 U.S.C. 360bbb-3(b)(1), unless the declaration is terminated or authorization is revoked sooner. Performed By: #### D ATCVAG #### [facility] [address] [place] [address] Dr. Kaylen Hall SARS-CoV-2 (COVID-19) RNA NIKKI+probe Ql (Unsp spec) Negative Normal NEGATIVE [facility] Comment on above: Result Comment: Nega tive results are presumptive. They do not preclude infection and should not be used as the sole basis for treatment decisions. Additional confirmatory testing by a molecular method should be considered. Performed By: #### D ATCVAG #### [facility] [address] [place] [address] Dr. Kaylen Hall [facility] SARS-CoV-2 (COVID-19) RNA NIKKI+probe Ql (Unsp spec) Not detected Normal NOT DETECTED [facility] Comment on above: Result Comment: This test is not yet approved or cleared by the [place] FDA. When there are no FDA-approved or cleared tests available, and other criteria are met, FDA can make tests available under an emergency access mechanism called an Emergency Use Authorization (EUA). The EUA for this test is supported by the [place] of Health and Human Service's (HHS's) declaration that circumstances exist to justify the emergency use of in vitro diagnostics for the detection and/or diagnosis of the virus that causes COVID-19. This EUA will remain in effect (meaning this test can be used) for the duration of the COVID-19 declaration justifying emergency of IVDs, unless it is terminated or revoked by FDA (after which the test may no longer be used). When diagnostic testing is negative, the possibility of a false negative should be considered in the context of a patient's recent exposures and the presence of clinical signs and symptoms consistent with SARS-CoV-2. Performed By: #### [facility] #### [facility] [address] [place] [address] Dr. Kaylen Hall Vital Signs Date Time Vital Sign Value Performing Clinician Faci lity 01-26-2022 19:50-0400 Body temperature 97.9 [degF] MD Irish Maldonado Work Phone: [facility] 01-26-2022 19:50-0400 Diastolic blood pressure 85 mm[Hg] MD Irish Maldonado Work Phone: [facility] 01-26-2022 19:50-0400 Heart rate 90 /min MD Irish Maldonado Work Phone: [facility] 01-26-2022 19:50-0400 Respiratory rate 16 /min MD Irish Maldonado Work Phone: [facility] 01-26-2022 19:50-0400 SaO2% (BldA) [Mass fraction] 96 % MD Irish Maldonado Work Phone: [facility] 01-26-2022 19:50-0400 Systolic blood pressure 140 mm[Hg] MD Irish Maldonado Work Phone: [facility] 01-26-2022 18:43-0400 Body height 170.18 cm MD Irish Maldonado Work Phone: [facility] 01-26-2022 18:43-0400 Body weight 90.5 kg MD Irish Maldonado Work Phone: [facility] Encounters Encounter Date Encounter Type Care Provider Facility Start: 08-02-2022 End: 08-03-2022 Emergency department patient visit Irish Maldonado Facility:[facility] Start: 02-25-2022 End: 02-26-[address] IRISH MALDONADO Facility:[facility] Start: 02-07-2022 End: 02-08-[address] IRISH MALDONADO Facility:[facility] Start: 01-26-2022 End: 01-26-2022 ambulatory Irish Maldonado Facility:[facility] Start: 01-26-2022 End: 01-26-2022 Evaluation and management of inpatient MD Irish Maldonado Work Phone: [facility] Start: 07-14-2021 End: 07-15-[address] IRISH MALDONADO Facility:[facility] Start: 05-18-2021 End: 05-18-[address] IRISH MALDONADO Facility:[facility] Procedures Date Procedure Procedure Detail Performing Clinician Start: 01-26-2022 Plain chest X-ray MD [place] Work Phone: SARS Antigen (LFIA) MD Tal Maldonado Work Phone: Plan of Treatment Date Care Activity Detail Author Start: 01-26-2022 Hospital admission [facility] Work Phone: Start: 01-26-2022 Referral to filler wiper [facility] Work Phone: Patient referral [facility] Work Phone: Payers Date Payer Category Payer Self-pay [id number] 2022 Unknown [id number] 2019 Unknown [id number] 1984 Unknown [id number] 1984 Unknown [id number] 1984 Unknown [id number] 1959 Self-pay [id number] 1959 Unknown [id number] Medicaid [facility] [id number] Unknown [id number] Unknown [id number] Unknown [id number] Social History Date Type Detail Facility Start: [facility] Start: 1985 Sex Assigned At Male F [facility] Goals Date Patient Goal Desired Activity /State History and physical note 01-26-2022 Note Date & Type Note Facility 01-26-2022 History and physical note Note Date/Time January 26, 2022 4:27pm [facility] [address] [place] [address] Hospitalist H&P Signed Patient: Ariel Ruvalcaba MR#: [id number] : 1985 Acct:[id number] Age/Sex: 36 / M Adm Date: 2 Loc: ER Room: Type: [facility] ER Attending Dr: Copies to: MD Ariel Sunshine DO Mazhar Rahman, MD~ HPI DATE OF EXAMINATION: 01/26/22 CHIEF COMPLAINT: Chest pain. HISTORY OF PRESENT ILLNESS: Patient is a pleasant 36-year-old male with history of type 1 diabetes being managed by his primary care provider and mild coronary disease as per cardiac cath done in 07/04 which showed mild plaque involving anterior descending artery not exceeding 20% normal LV function. Patient presented to ER with complaint ofchest pain. He mentioned having exertional chest pain for last couple of years mostly relieved by nitroglycerin. He mentioned after mowing or doing strenuous he gets chest pain but get relief after taking nitroglycerin. Yesterday after mowing the lawn he developed chest pain which was left-sided but got relief after taking nitroglycerin. This morning he woke up having left-sided chest pressure and tightness which continued to worsen while at work. He noticed the pain radiating to left arm and decided to call EMS. In the ER his labs did not show any significant abnormality with EKG negative for acute ischemic changes. Patient denies recent infection, fever, chills but mentioned having cough which is dry. He also mentioned having increased heartburn recently but denies weightloss, dysphagia and never had EGD done in the past. Review of Systems Review of Systems All other systems reviewed & are negative unless noted below or in HPI PMFSH Vaccinated for COVID-19?: No Medical History Heart disease Type 1 diabetes Surgical History No pertinent past surgical history Family History Other Cancer Social History Smoking Status: Former smoker Tobacco Type: cigarettes Substance Use Type: Alcohol Substance Abuse Comment: SOCIALLY Meds Medications and Allergies Allergies No Known Allergies Allergy (Verified 01/26/22 13:04) Home Medications aspirin 325 mg tablet,delayed release 325 mg PO DAILY 06/19/18 [History Confirmed 01/26/22] citalopram 20 mg tablet (Celexa) 20 mg PO DAILY 06/19/18 [History Confirmed 01/26/22] insulin aspart U-100 100 unit/mL (3 mL) subcutaneous pen See Rx Instructions .Route .COMPLEX 06/19/18 [History Confirmed 01/26/22] insulin glargine 100 unit/mL (3 mL) subcutaneous pen 45 unit subcut QHS 06/19/18[History Confirmed 01/26/22] nitroglycerin 0.4 mg sublingual tablet 0.4 mg sublingual Q5M PRN Chest Pain #30 tabs 06/22/18 [Rx Confirmed 01/26/22] Exam Physical Exam Vital Signs: Temp Pulse Resp BP Pulse Ox O2 Del Method 98.5 F 90 16 144/84 H 98 Room Air 01/26/22 13:05 01/26/22 16:20 01/26/22 16:20 01/26/22 16:20 01/26/22 16:20 01/26/22 16:20 Const General: cooperative Orientation: alert, awake and oriented x3 HEENT Head: normal to inspection, no palpable skull fracture, normocephalic and atraumatic Ears: hearing grossly normal bilaterally Nose: external nose normal Face and sinus: normal facial exam Eyes Pupils: PERRL EOM: EOM intact bilaterally and No nystagmus Neck Neck: normal visual inspection and full ROM Resp Effort & Inspection: normal respiratory effort and able to speak in complete sentences Auscultation: no rales, no rhonchi and no wheezes Cardio Rate: regular rate Rhythm: regular rhythm Heart Sounds: S1 normal and S2 normal GI Palpation: soft, not firm, no guarding and nontender Auscultation: normal bowel sounds Musc Cervical Spine: normal cervical lordosis Neuro General: patient alert, patient awake, patient oriented x3, moves all extremities and no focal motor deficits Cranial Nerves: CN's II-XII intact bilaterally Cognition: normal cognition Speech: speech normal Motor: muscle tone normal throughout and strength 5/5 throughout Extrem General: no clubbing, cyanosis or edema and no calf tenderness Psych Appearance: grossly normal SIMI Risk Score SIMI Risk Score Predictor Historical: 3 or more Risk Factors: FHx,HTN,elevated cholesterol,DM,active smoker and ASA use in Past 7 Days Presentation: Recent (>/=24hr) Angina Score Risk Score (0-7): 3 Results Lab Results Labs: Laboratory Last Values Corrected WBC 7.5 X10E3/uL (4.1-10.5) 01/26/22 13:08 Uncorrected WBC Count 7.5 x10E3/uL (4.5-11.0) 01/26/22 13:08 RBC 4.90 x10E6/uL (3.90-5.60) 01/26/22 13:08 Hgb 14.8 g/dL (13.0-17.0) 01/26/22 13:08 Hct 44.3 % (38.8-50.0) 01/26/22 13:08 MCV 90.4 fl (83.5-101) 01/26/22 13:08 MCH 30.2 pg (27.5-35.2) 01/26/22 13:08 MCHC 33.4 g/dL (32.5-35.6) 01/26/22 13:08 RDW 13.0 % (12.0-14.8) 01/26/22 13:08 Plt Count 358 x10E3/uL (150-450) 01/26/22 13:08 MPV 8.2 fl (6.6-10.1) 01/26/22 13:08 Neut % (Auto) 56.2 % (.) 01/26/22 13:08 Lymph % (Auto) 34.4 % (.) 01/26/22 13:08 Young % (Auto) 6.7 % (.) 01/26/22 13:08 Eos % (Auto) 2.0 % (.) 01/26/22 13:08 Baso % (Auto) 0.7 % (.) 01/26/22 13:08 Neut # (Auto) 4.2 x10E3/uL (1.8-7.7) 01/26/22 13:08 Lymph # (Auto) 2.6 x10E3/uL (1.00-4.8) 01/26/22 13:08 Young # (Auto) 0.5 x10E3/uL (0.0-0.8) 01/26/22 13:08 Eos # (Auto) 0.2 x10E3/uL (0.0-0.45) 01/26/22 13:08 Baso # (Auto) 0.1 x10E3/uL (0.0-0.2) 01/26/22 13:08 Nucleated RBC % (auto) 0.0 % (0-0.5) 01/26/22 13:08 PT 9.3 Seconds (9.0-12.9) 01/26/22 13:08 INR 0.8 01/26/22 13:08 APTT 29.9 Seconds (25.1-36.5) 01/26/22 13:08 PHA Creatinine Clear 139.01 01/26/22 13:08 Sodium 137 mmol/L (136-146) 01/26/22 13:08 Potassium 4.0 mmol/L (3.5-5.1) 01/26/22 13:08 Chloride 100 mmol/L (95-114) 01/26/22 13:08 Carbon Dioxide 25.9 mmol/L (22.0-30.0) 01/26/22 13:08 BUN 13 mg/dL (9-23) 01/26/22 13:08 Creatinine 0.81 mg/dL (0.64-1.27) 01/26/22 13:08 Est GFR ( Amer) > 60 mL/Min 01/26/22 13:08 Est GFR (Non-Af Amer) > 60 mL/Min 01/26/22 13:08 Glucose 287 mg/dL (70-100) H 01/26/22 13:08 Calcium 9.4 mg/dL (8.2-10.2) 01/26/22 13:08 Total Creatine Kinase 108 U/L (22-269) 01/26/22 13:08 CK-MB (CK-2) 1.9 ng/mL (0.6-6.3) 01/26/22 13:08 CK-MB (CK-2) Rel Index 1.7 % (0.00-2.50) 01/26/22 13:08 Troponin I High Sens 3 pg/mL (0-20) 01/26/22 13:08 B-Natriuretic Peptide < 5.0 pg/mL (5-100) L 01/26/22 13:08 SARS Antigen (LFIA) Negative (Negative) 01/26/22 13:55 Microbiology Results Micro: Microbiology - Results from entire visit 01/26/22 13:55 Nasal SARS Antigen (LFIA) - Final A&P - Hospitalist Assessment/Plan (1) Chest pain: (2) Diabetes mellitus: Plan Patient with history of type 1 diabetes and mild coronary disease as per cath done in 2019 presented to ER with current chest pain concerning for unstable angina. He mentioned having chronic exertional chest pain relieved by nitroglycerin but this morning he developed chest pain at rest which was left-sided and pressure-like feeling. He did mention having increased heartburn as well. Given his symptoms and history patient will be kept under observation to rule out acute coronary syndrome. Will consult cardiology. Obtain serial cardiac enzymes. Continue aspirin and will add KATEY inhibitor given his blood pressure on the higher side. DVT prophylaxis. Continue insulin with sliding scale coverage. Also add PPI Documented By: Bonilla Hall MD 01/26/22 1626 Signed By: <Electronically signed by Bonilla Hall MD> 01/26/22 1641 [facility] Work Phone: Evaluation note Note Date & Type Note Facility Evaluation note Diagnosis Onset Date Angina pectoris, unstable [place] Chest pain acute Diabetes mellitus chronic [facility] Work Phone: History and physical note Note Date & Type Note Facility History and physical note Note Date/Time January 26, 2022 4:27pm [facility] [address] [place] [address] Hospitalist H&P Signed Patient: Ariel Ruvalcaba MR#: [id number] : 1985 Acct:[id number] Age/Sex: 36 / M Adm Date: 2 Loc: ER Room: Type: [facility] ER Attending Dr: Copies to: MD Ariel Sunshine DO Mazhar Rahman, MD~ HPI DATE OF EXAMINATION: 01/26/22 CHIEF COMPLAINT: Chest pain. HISTORY OF PRESENT ILLNESS: Patient is a pleasant 36-year-old male with history of type 1 diabetes being managed by his primary care provider and mild coronary disease as per cardiac cath done in 07/04 which showed mild plaque involving anterior descending artery not exceeding 20% normal LV function. Patient presented to ER with complaint ofchest pain. He mentioned having exertional chest pain for last couple of years mostly relieved by nitroglycerin. He mentioned after mowing or doing strenuous he gets chest pain but get relief after taking nitroglycerin. Yesterday after mowing the lawn he developed chest pain which was left-sided but got relief after taking nitroglycerin. This morning he woke up having left-sided chest pressure and tightness which continued to worsen while at work. He noticed the pain radiating to left arm and decided to call EMS. In the ER his labs did not show any significant abnormality with EKG negative for acute ischemic changes. Patient denies recent infection, fever, chills but mentioned having cough which is dry. He also mentioned having increased heartburn recently but denies weightloss, dysphagia and never had EGD done in the past. Review of Systems Review of Systems All other systems reviewed & are negative unless noted below or in HPI PMFSH Vaccinated for COVID-19?: No Medical History Heart disease Type 1 diabetes Surgical History No pertinent past surgical history Family History Other Cancer Social History Smoking Status: Former smoker Tobacco Type: cigarettes Substance Use Type: Alcohol Substance Abuse Comment: SOCIALLY Meds Medications and Allergies Allergies No Known Allergies Allergy (Verified 01/26/22 13:04) Home Medications aspirin 325 mg tablet,delayed release 325 mg PO DAILY 06/19/18 [History Confirmed 01/26/22] citalopram 20 mg tablet (Celexa) 20 mg PO DAILY 06/19/18 [History Confirmed 01/26/22] insulin aspart U-100 100 unit/mL (3 mL) subcutaneous pen See Rx Instructions .Route .COMPLEX 06/19/18 [History Confirmed 01/26/22] insulin glargine 100 unit/mL (3 mL) subcutaneous pen 45 unit subcut QHS 06/19/18[History Confirmed 01/26/22] nitroglycerin 0.4 mg sublingual tablet 0.4 mg sublingual Q5M PRN Chest Pain #30 tabs 06/22/18 [Rx Confirmed 01/26/22] Exam Physical Exam Vital Signs: Temp Pulse Resp BP Pulse Ox O2 Del Method 98.5 F 90 16 144/84 H 98 Room Air 01/26/22 13:05 01/26/22 16:20 01/26/22 16:20 01/26/22 16:20 01/26/22 16:20 01/26/22 16:20 Const General: cooperative Orientation: alert, awake and oriented x3 HEENT Head: normal to inspection, no palpable skull fracture, normocephalic and atraumatic Ears: hearing grossly normal bilaterally Nose: external nose normal Face and sinus: normal facial exam Eyes Pupils: PERRL EOM: EOM intact bilaterally and No nystagmus Neck Neck: normal visual inspection and full ROM Resp Effort & Inspection: normal respiratory effort and able to speak in complete sentences Auscultation: no rales, no rhonchi and no wheezes Cardio Rate: regular rate Rhythm: regular rhythm Heart Sounds: S1 normal and S2 normal GI Palpation: soft, not firm, no guarding and nontender Auscultation: normal bowel sounds Musc Cervical Spine: normal cervical lordosis Neuro General: patient alert, patient awake, patient oriented x3, moves all extremities and no focal motor deficits Cranial Nerves: CN's II-XII intact bilaterally Cognition: normal cognition Speech: speech normal Motor: muscle tone normal throughout and strength 5/5 throughout Extrem General: no clubbing, cyanosis or edema and no calf tenderness Psych Appearance: grossly normal SIMI Risk Score SIMI Risk Score Predictor Historical: 3 or more Risk Factors: FHx,HTN,elevated cholesterol,DM,active smoker and ASA use in Past 7 Days Presentation: Recent (>/=24hr) Angina Score Risk Score (0-7): 3 Results Lab Results Labs: Laboratory Last Values Corrected WBC 7.5 X10E3/uL (4.1-10.5) 01/26/22 13:08 Uncorrected WBC Count 7.5 x10E3/uL (4.5-11.0) 01/26/22 13:08 RBC 4.90 x10E6/uL (3.90-5.60) 01/26/22 13:08 Hgb 14.8 g/dL (13.0-17.0) 01/26/22 13:08 Hct 44.3 % (38.8-50.0) 01/26/22 13:08 MCV 90.4 fl (83.5-101) 01/26/22 13:08 MCH 30.2 pg (27.5-35.2) 01/26/22 13:08 MCHC 33.4 g/dL (32.5-35.6) 01/26/22 13:08 RDW 13.0 % (12.0-14.8) 01/26/22 13:08 Plt Count 358 x10E3/uL (150-450) 01/26/22 13:08 MPV 8.2 fl (6.6-10.1) 01/26/22 13:08 Neut % (Auto) 56.2 % (.) 01/26/22 13:08 Lymph % (Auto) 34.4 % (.) 01/26/22 13:08 Young % (Auto) 6.7 % (.) 01/26/22 13:08 Eos % (Auto) 2.0 % (.) 01/26/22 13:08 Baso % (Auto) 0.7 % (.) 01/26/22 13:08 Neut # (Auto) 4.2 x10E3/uL (1.8-7.7) 01/26/22 13:08 Lymph # (Auto) 2.6 x10E3/uL (1.00-4.8) 01/26/22 13:08 Young # (Auto) 0.5 x10E3/uL (0.0-0.8) 01/26/22 13:08 Eos # (Auto) 0.2 x10E3/uL (0.0-0.45) 01/26/22 13:08 Baso # (Auto) 0.1 x10E3/uL (0.0-0.2) 01/26/22 13:08 Nucleated RBC % (auto) 0.0 % (0-0.5) 01/26/22 13:08 PT 9.3 Seconds (9.0-12.9) 01/26/22 13:08 INR 0.8 01/26/22 13:08 APTT 29.9 Seconds (25.1-36.5) 01/26/22 13:08 PHA Creatinine Clear 139.01 01/26/22 13:08 Sodium 137 mmol/L (136-146) 01/26/22 13:08 Potassium 4.0 mmol/L (3.5-5.1) 01/26/22 13:08 Chloride 100 mmol/L (95-114) 01/26/22 13:08 Carbon Dioxide 25.9 mmol/L (22.0-30.0) 01/26/22 13:08 BUN 13 mg/dL (9-23) 01/26/22 13:08 Creatinine 0.81 mg/dL (0.64-1.27) 01/26/22 13:08 Est GFR ( Amer) > 60 mL/Min 01/26/22 13:08 Est GFR (Non-Af Amer) > 60 mL/Min 01/26/22 13:08 Glucose 287 mg/dL (70-100) H 01/26/22 13:08 Calcium 9.4 mg/dL (8.2-10.2) 01/26/22 13:08 Total Creatine Kinase 108 U/L (22-269) 01/26/22 13:08 CK-MB (CK-2) 1.9 ng/mL (0.6-6.3) 01/26/22 13:08 CK-MB (CK-2) Rel Index 1.7 % (0.00-2.50) 01/26/22 13:08 Troponin I High Sens 3 pg/mL (0-20) 01/26/22 13:08 B-Natriuretic Peptide < 5.0 pg/mL (5-100) L 01/26/22 13:08 SARS Antigen (LFIA) Negative (Negative) 01/26/22 13:55 Microbiology Results Micro: Microbiology - Results from entire visit 01/26/22 13:55 Nasal SARS Antigen (LFIA) - Final A&P - Hospitalist Assessment/Plan (1) Chest pain: (2) Diabetes mellitus: Plan Patient with history of type 1 diabetes and mild coronary disease as per cath done in 2019 presented to ER with current chest pain concerning for unstable angina. He mentioned having chronic exertional chest pain relieved by nitroglycerin but this morning he developed chest pain at rest which was left-sided and pressure-like feeling. He did mention having increased heartburn as well. Given his symptoms and history patient will be kept under observation to rule out acute coronary syndrome. Will consult cardiology. Obtain serial cardiac enzymes. Continue aspirin and will add KATEY inhibitor given his blood pressure on the higher side. DVT prophylaxis. Continue insulin with sliding scale coverage. Also add PPI Documented By: Bonilla Hall MD 01/26/22 1626 Signed By: <Electronically signed by Bonilla Hall MD> 01/26/22 1641 [facility] Work Phone: Chief Complaint and Reason for Visit Chief Complaint chest pain Reason for Visit Angina pectoris, uns table Chest pain Diabetes mellitus Advance Directives No Advanced Directives Records Found Advance Directive Response Recorded Date/ Time Advance Directives No June 19, 2018 8:25pm Summary Purpose Family History No Family History Records Found Additional Source Comments Care Teams (unrecognized sec tion and content) Team Status: Inactive Member Role Status Dates Irish Maldonado MD Primary Care Provider Active Ariel Perry DO Emergency Provider Active Bonilla Hall MD Admit Provider, Attending Provider Active Charles Owen MD Other Provider Active Team Status: Active Member Role Status Dates Irish Maldonado MD Primary Care Provider Active (unrecognized sect ion and content) No Status Records FoundNo Status Records Found INFORMATION SOURCE (unrecogn ized section and content) DATE CREATED AUTHOR 03/16/2022 [facility] DATE CREATED AUTHOR AUTHOR'S ORGANIZ ATION 12/03/2022 [facility] FOR RECORDS PERTAINING TO PATIENTS WHO ARE OR HAVE BEEN ENROLLED IN A CHEMICAL DEPENDENCY/SUBSTANCEABUSE PROGRAM, SOME INFORMATION MAY BE OMITTED. This clinical summary was aggregated from multiple sources. Caution should be exercised in using it in the provision of clinical care. This summary normalizes information from multiple sources, and as a consequence, information in this document may materially change the coding, format and clinical context of patient data. In addition, data may be omitted in some cases. CLINICAL DECISIONS SHOULD BE BASED ON THE PRIMARY CLINICAL RECORDS. [employer] provides no warranty or guarantee of the accuracy or completeness of information in this document.
[2024-02-19 13:52] LABS: Thyroid Stimulating Hormone 1.516 uIU/mL (0.358-3.740)
[2024-02-20 11:10] LABS: Vitamin B12 590 pg/mL (232-1245)
[2024-02-20 14:09] LABS: Albumin 3.4 g/dL (2.9-4.4); Alpha-1-Globulin 0.2 g/dL (0.0-0.4); Alpha-2-Globulin 0.7 g/dL (0.4-1.0); Gamma Globulin 0.9 g/dL (0.4-1.8); Protein, Total 6.4 g/dL (6.0-8.5)
== END 2024-02-19 12:07 | disposition home or self-care (01) ==
LOC: LAB 12:07
PROVIDERS: PCP Family Medicine; Visit Provider Psychiatry & Neurology Neurology
DX: R20.0 Anesthesia of skin (principal); R20.2 Paresthesia of skin; M79.603 Pain in arm, unspecified
CPT/HCPCS: 36415; 82607; 82746; 84155; 84165; 84443

== ENCOUNTER 2024-02-19 16:31 | Outpatient (OUT) | payer MEDICAID, SELFPAY ==
--- OUTSIDE RECORDS SUMMARY | 2024-02-19 16:37 | XMS_ITS | CCD ---
Author Organization [facility] Care Team Providers Care Real Estate Subagent Name Role Phone MD Irish Maldonado Primary Care Provider DO Ariel Perry Emergency Provider MD Bonilla Luke Admit Provider MD Bonilla Hall Attending Provider [phone] MD Charles Owen Other Provider [phone] MAURICIO, DR COBURN Primary Care Unavailable [...] mouth every month Ergocalciferol (Vitamin D2) Discontinued [address] UNIT PO As Directed June 20, 2018 [...] (Bld) NO GROWTH 5 DAYS PERFORMED BY: [place] [address] PATHOLOGIST SHANK BURNISHER ED FONSECA M.D. [facility] Comment on above: Performed By: #### S OFFRITZ, COVID-19 ASTON #### [address] abdomen pelvis w conon CT abdomen pelvis w con [facility] Main [place] [address] [place] [address] CT Scan Report Signed Patient: Ariel Ruvalcaba MR#: [id number] : 1985 Acct:[id number] Age/Sex: 37 / M ADM Date: 08/02/22 Loc: ER Room: Type: [facility] ER Attending Dr: Copies to: DO [...] Saavedra Jr., D.O.08/03/2022 12:24 PM Dictation Location: [place] [address] Transcribed By: [facility] 08/03/22 1224 Dictated By: Nathen Saavedra Jr, DO 08/03/22 1210 Signed By: 08/03/22 1224 Normal [facility] Lactic Acidon 08-03-2022 Lactate [Moles/Vol] 1.4 mmol/L Normal 0.5-2.2 [facility] Comment on above: Result Comment: PERF ORMED BY: [facility] [address] [place] [address] PATHOLOGIST SHANK BURNISHER ED FONSECA M.D. Performed By: #### S OFFRITZ COVID-19 ASTON #### [facility] [address] Basic Metabolic Panelon 07-17 Anion gap [Moles/Vol] 14.7 mmol/L Normal 6.0-15.0 [facility] Comment on above: Performed By: #### S OFFRITZ COVID-19 ASTON #### [facility] [address] [place] [address] [place] Calcium [Mass/Vol] 8.9 mg/dL Normal 8.2-10.2 [facility] Comment on above: Performed By: #### S OFFRITZ COVID-19 ASTON #### [facility] [address] [place] [address] [place] Chloride [Moles/Vol] 96 mmol/L Normal 95-114 [facility] Comment on above: Performed By: #### S OFFRITZ COVID-19 ASTON #### [facility] [address] [place] [address] [place] CO2 [Moles/Vol] 25.2 mmol/L Normal 22.0-30.0 [facility] Comment on above: Performed By: #### S OFIANEG COVID-19 ASTON #### [facility] [address] [place] [address] [place] Creatinine [Mass/Vol] 1.00 mg/dL Normal 0.64-1.27 [facility] Comment on above: Performed By: #### S CASPER FOX- ASTON #### [facility] [address] Creatinine Clr Calc Pharmacy 112.09 [facility] Comment on above: Performed By: #### S CASPER FOX- ASTON #### [facility] [address] [place] [address] Estimated GFR ( Yoselin > 60 [facility] Comment on above: Result Comment: GFR estimated reference range: According to KDOQI guidelines, <60 ml/min/1.73m2 is sufficient to diagnose a patient with chronic kidney disease. Performed By: #### S CASPER FOX- ASTON #### [address] Estimated GFR (Non- Am > 60 [facility] Comment on above: Performed By: #### S CASPER FOX- ASTON #### [address] Glucose [Mass/Vol] 297 mg/dL High 70-100 [facility] Comment on above: Result Comment: [place] om Glucose Reference Range is dependent on time and content of last meal. Glucose of more than 200 mg/dL in a nonstressed, ambulatory subject supports the diagnosis of Diabetes Mellitus. ADA recommended reference range Performed By: #### S CASPER FOX- ASTON #### [address] Potassium [Moles/Vol] 3.9 mmol/L Normal 3.5-5.1 [facility] Comment on above: Performed By: #### S CASPER FOX- ASTON #### [address] Sodium [Moles/Vol] 132 mmol/L Low 136-146 [facility] Comment on above: Performed By: #### S CASPER FOX- ASTON #### [facility] [address] [place] [address] Urea nitrogen [Mass/Vol] 10 mg/dL Normal 9-23 [facility] Comment on above: Performed By: #### S SHIMA FOXID-19 ASTON #### [address] Blood Cultureon 08-02-2022 Bacteria identified Cx Nom (Bld) NO GROWTH 5 DAYS PERFORMED BY: [place] [address] PATHOLOGIST SHANK BURNISHER ED FONSECA M.D. Normal [facility] Comment on above: Performed By: #### S CASPER FOX-19 ASTON #### [address] Complete Blood Count Auto Di ffon 08-02-2022 Basophils (Bld) [#/Vol] 0.1 10*3/uL Normal 0.0-0.2 [facility] Comment on above: Result Comment: PERF ORMED BY: [place] [address] PATHOLOGIST SHANK BURNISHER ED FONSECA M.D. Performed By: #### S SHIMA FOXID-19 ASTON #### [address] Basophils/100 WBC (Bld) 0.9 % Normal . [facility] Comment on above: Performed By: #### S SHIMA FOXID-19 ASTON #### [facility] [address] [place] [address] Eosinophils (Bld) [#/Vol] 0.1 10*3/uL Normal 0.0-0.45 [facility] Comment on above: Performed By: #### S SHIMA FOXID-19 ASTON #### [place] [address] [place] Eosinophils/100 WBC (Bld) 1.0 % Normal . [facility] Comment on above: Performed By: #### S SHIMA FOXID-19 ASTON #### [address] Erythrocyte distribution width (RBC) [Ratio] 13.3 % Normal 12.0-14.8 [facility] Comment on above: Performed By: #### S SCARLETTFRITZ COVID-19 ASTON #### [address] Hematocrit (Bld) [Volume fraction] 45.3 % Normal 38.8-50.0 [facility] Comment on above: Performed By: #### S OFFRITZ COVID-19 ASTON #### [address] Hemoglobin (Bld) [Mass/Vol] 15.0 g/dL Normal 13.0-17.0 [facility] Comment on above: Performed By: #### S OFFRITZ COVID-19 ASTON #### [address] Lymphocytes (Bld) [#/Vol] 2.8 10*3/uL Normal 1.00-4.8 [facility] Comment on above: Performed By: #### S OFFRITZ COVID-19 ASTON #### [address] Lymphocytes/100 WBC (Bld) 24.0 % Normal . [facility] Comment on above: Performed By: #### S OFFRITZ COVID-19 ASTON #### [address] MCH (RBC) [Entitic mass] 29.4 pg Normal 27.5-35.2 [facility] Comment on above: Performed By: #### S OFFRITZ COVID-19 ASTON #### [address] MCV (RBC) [Entitic vol] 89.0 fL Normal 83.5-101 [facility] Comment on above: Performed By: #### S OFFRITZ COVID-19 ASTON #### [address] Mean Corpuscular HGB Conc 33.0 g/dL Normal 32.5-35.6 [facility] Comment on above: Performed By: #### S SCARLETTFRITZ COVID-19 ASTON #### [facility] [address] Monocytes (Bld) [#/Vol] 1.1 10*3/uL High 0.0-0.8 [facility] Comment on above: Performed By: #### S RUDDY COVID-19 ASTON #### [facility] [address] Monocytes/100 WBC (Bld) 17.09 % Normal 0.00-20.00 [facility] Comment on above: Performed By: #### S OFFRITZ COVID-19 ASTON #### [facility] [address] Monocytes/100 WBC (Bld) 9.2 % Normal . [facility] Comment on above: Performed By: #### S RUDDY COVID-19 ASTON #### [facility] [address] Neutrophils (Bld) [#/Vol] 7.7 10*3/uL Normal 1.8-7.7 [facility] Comment on above: Performed By: #### S SCARLETTFRITZ COVID-19 ASTON #### [facility] [address] [place] [address] [place] Neutrophils/100 WBC (Bld) 64.9 % Normal . [facility] Comment on above: Performed By: #### S RUDDY COVID-19 ASTON #### [facility] [address] [place] [address] [place] NRBC% 0.1 /100{WBC} Normal 0-0.5 [facility] Comment on above: Performed By: #### S OFFRITZ COVID-19 ASTON #### [facility] [address] Platelet mean volume (Bld) [Entitic vol] 7.6 fL Normal 6.6-10.1 [facility] Comment on above: Performed By: #### S JAMESJOHN COVID-19 ASTON #### [facility] [address] [place] [address] [place] Platelets (Bld) [#/Vol] 373 10*3/uL Normal 150-450 [facility] Comment on above: Performed By: #### S JAMESJOHN COVID-19 ASTON #### [facility] [address] [place] [address] [place] RBC (Bld) [#/Vol] 5.09 10*6/uL Normal 3.90-5.60 [facility] Comment on above: Performed By: #### S JAMESJOHN COVID-19 ASTON #### [facility] [address] [place] [address] [place] WBC (Bld) [#/Vol] 11.8 10*3/uL High 4.1-10.5 [facility] Comment on above: Performed By: #### S JAMESJOHN COVID-19 ASTON #### [facility] [address] [place] [address] [place] Dipstick and Microscopicon 0 08-02-2022 Appearance (U) Cloudy Critically abnormal Clear [facility] Comment on above: Order Comment: Name Collection Type:: Clean-Voided Midstream Performed By: #### A DDONUAPLUS #### [facility] [address] [place] [address] [place] Bacteria,Urine None Seen Normal None Seen [facility] Comment on above: Order Comment: Name Collection Type:: Clean-Voided Midstream Performed By: #### A DDONUAPLUS #### [facility] [address] [place] [address] [place] Bilirubin,Urine Negative Normal Negative [facility] Comment on above: Order Comment: Name Collection Type:: Clean-Voided Midstream Performed By: #### A DDONUAPLUS #### [facility] [address] [place] [address] [place] Color (U) Yellow Normal Yellow [facility] Comment on above: Order Comment: Name Collection Type:: Clean-Voided Midstream Performed By: #### A DDONUAPLUS #### [facility] [address] [place] [address] [place] Glucose Ql (U) >=1000 High Normal [facility] Comment on above: Order Comment: Name Collection Type:: Clean-Voided Midstream Performed By: #### A DDONUAPLUS #### [facility] [address] [place] [address] [place] Hyaline Casts,Urine 0-8 Normal 0-8 [facility] Comment on above: Order Comment: Name Collection Type:: Clean-Voided Midstream Result Comment: PERF ORMED BY: [place] [address] PATHOLOGIST SHANK BURNISHER ED FONSECA M.D. Performed By: #### A DDONUAPLUS #### [facility] [address] [place] [address] Ketones Ql (U) Negative Normal Negative [facility] Comment on above: Order Comment: Name Collection Type:: Clean-Voided Midstream Performed By: #### A DDONUAPLUS #### [facility] [address] [place] [address] [place] Leukocyte esterase Test strip Ql (U) Negative Normal Negative [facility] Comment on above: Order Comment: Name Collection Type:: Clean-Voided Midstream Performed By: #### A DDONUAPLUS #### [facility] [address] [place] [address] [place] Nitrite,Urine Negative Normal Negative [facility] Comment on above: Order Comment: Name Collection Type:: Clean-Voided Midstream Performed By: #### A DDONUAPLUS #### [facility] [address] [place] [address] [place] Occult Blood,Urine Negative Normal Negative [facility] Comment on above: Order Comment: Name Collection Type:: Clean-Voided Midstream Result Comment: PERF ORMED BY: [place] [address] PATHOLOGIST SHANK BURNISHER ED FONSECA M.D. Performed By: #### A DDONUAPLUS #### [address] pH (U) 5.5 [pH] Normal 5.0-9.0 [facility] Comment on above: Order Comment: Name Collection Type:: Clean-Voided Midstream Performed By: #### A DDONUAPLUS #### [address] Protein (U) [Mass/Vol] 30 mg/dL High Negative [facility] Comment on above: Order Comment: Name Collection Type:: Clean-Voided Midstream Performed By: #### A DDONUAPLUS #### [address] RBC LM.HPF (Urine sed) [#/Area] 0 /[HPF] Normal 0-4 [facility] Comment on above: Order Comment: Name Collection Type:: Clean-Voided Midstream Performed By: #### A DDONUAPLUS #### [address] Specificy [place],Urine 1.017 Normal 1.001-1.030 [facility] Comment on above: Order Comment: Name Collection Type:: Clean-Voided Midstream Performed By: #### A DDONUAPLUS #### [address] Squamous Epithelial Cell,Urine None Seen Normal 0-2 [facility] Comment on above: Order Comment: Name Collection Type:: Clean-Voided Midstream Performed By: #### A DDONUAPLUS #### [address] Urobilinogen,Urine Normal Normal Normal [facility] Comment on above: Order Comment: Name Collection Type:: Clean-Voided Midstream Performed By: #### A DDONUAPLUS #### [address] WBC,Urine None Seen Normal 0-4 [facility] Comment on above: Order Comment: Name Collection Type:: Clean-Voided Midstream Performed By: #### A DDONUAPLUS #### [address] [place] [address] [place] ECG 12 lead ECGon 08-02-2022 ECG 12 lead ECG [facility] Main [place] [address] [place] [address] Electrocardiograph Report Signed Patient: Ariel Ruvalcaba MR#: [id number] : 1985 Acct:[id number] Age/Sex: 37 / M ADM Date: 08/02/22 Loc: ER Room: Type: [facility] ER Attending Dr: Ordering Provider: Serge [...] Rightward axis Confirmed by Serge BARNES DO ([id number]) on 08/03/2022 12:04:41 AM Referred By: Electronically Signed By:Serge BARNES DO Transcribed By: MUS Signed By Serge Barnes DO 0 08/03/22 0004 Normal [facility] Hepatic Panelon 08-02-2022 Albumin [Mass/Vol] 3.4 g/dL Normal 3.2-5.5 [facility] Comment on above: Performed By: #### S CASPER FOX-Kannan ASTON #### [facility] [address] [place] [address] [place] Albumin/Globulin [Mass ratio] 1.0 {ratio} Normal [facility] Comment on above: Performed By: #### S CASPER FOX-Kannan ASTON #### [facility] [address] [place] [id number] [place] ALP [Catalytic activity/Vol] 105 U/L High 32-92 [facility] Comment on above: Performed By: #### S SHIMA FOXID-19 ASTON #### [facility] [address] [place] [id number] [place] ALT [Catalytic activity/Vol] 28 U/L Normal 10-60 [facility] Comment on above: Performed By: #### S OFIANEG, COVID-19 ASTON #### [facility] [address] AST [Catalytic activity/Vol] 19 U/L Normal 10-42 [facility] Comment on above: Performed By: #### S OFIANEG, COVID-19 ASTON #### [facility] [address] Bilirubin [Mass/Vol] 0.4 mg/dL Normal 0.3-1.2 [facility] Comment on above: Performed By: #### S OFIANEG, COVID-19 ASTON #### [facility] [address] Bilirubin,Indirect Not performed Normal [facility] Comment on above: Performed By: #### S OFIANEG, COVID-19 ASTON #### [facility] [address] Bilirubin.indirect [Mass/Vol] mg/dL Normal 0.0-0.4 [facility] Comment on above: Performed By: #### S OFIANEG, COVID-19 ASTON #### [facility] [address] Globulin (S) [Mass/Vol] 3.4 g/dL Normal [facility] Comment on above: Performed By: #### S OFIANEG, COVID-19 ASTON #### [facility] [address] [place] [address] Protein [Mass/Vol] 6.8 g/dL Normal 6.1-7.9 [facility] Comment on above: Performed By: #### S OFIANEG, COVID-19 ASTON #### [facility] [address] Lactic Acidon 08-02-2022 Lactate [Moles/Vol] 2.0 mmol/L Off scale high 0.5-2.2 [facility] Comment on above: Result Comment: Resu lts called at 2225 on 08/02/22 PERFORMED BY: [place] [address] PATHOLOGIST SHANK BURNISHER ED FONSECA M.D. Performed By: #### S CASPER FOX-19 ASTON #### [address] Lipaseon 08-02-2022 Lipase [Catalytic activity/Vol] 66.0 U/L High 22-51 [facility] Comment on above: Result Comment: PERF ORMED BY: [place] [address] PATHOLOGIST SHANK BURNISHER ED FONSECA M.D. Performed By: #### S CASPER FOX-Kannan CLANCY #### [address] Partial Thromboplastin Timeo n 08-02-2022 aPTT Coag (Bld) [Time] 30.6 s Normal 25.1-36.5 [facility] Comment on above: Result Comment: PERF ORMED BY: [place] [address] PATHOLOGIST SHANK BURNISHER ED FONSECA M.D. Performed By: #### S CASPER FOX-19 ASTON #### [address] Prothrombin Time INRon 08-02 INR Coag (PPP) [Relative time] 1.0 {INR} Normal [facility] Comment on above: Result Comment: INR Therapeutic [...] By: #### S SHIMA FOXID-19 ASTON #### [facility] [address] [place] [address] PT Coag (PPP) [Time] 11.3 s Normal 9.0-12.9 [facility] Comment on above: Performed By: #### S CASPER FOX-19 ASTON #### [facility] [address] ECHOCARDIO M/2D COMPLETEon 0 02-25-2022 ECHOCARDIO M/2D COMPLETE Patient: ARIEL ALONZO Exam Date: 02/25/2022 : 1985 Gender:M Ordering : DR IRISH MALDONADO . Admission #: [id number] Family : Order #: [id number] CLICK HERE TO VIEW EXAM ECHOCARDIOGRAM REPORT [...] on 02/26/2022 at 12:57 Normal [facility] STRESS/REST MULTIon 02-07 [place] STRESS/REST MULTI Patient: ARIEL RUVALCABA Exam Date: 02/07/2022 : 1985 Gender:M Ordering : DR IRISH MALDONADO . Admission #: [id number] Family : Order #: [id number] CLICK HERE TO VIEW EXAM RADIOLOGY REPORT PROCEDURE: RADIONUCLIDE IMAGING STRESS/REST MULTI COMPARISON: [place] STRESS/REST MULTI, 06/18/2018. INDICATIONS: Chest pain TECHNIQUE: [...] M.D. on 02/08/2022 at 12:12 Normal [facility] Activated partial thrombopla stin time (aPTT) in platelet poor plasma by coagulation aOrdered By: Ariel Perry on 01-26-2022 aPTT Coag (PPP) [Time] 29.9 s 25.1-36.5 [facility] B-Type Natriuretic Peptideon 01-26-2022 Natriuretic peptide B (Bld) [Mass/Vol] pg/mL Low 5-100 [facility] Comment on above: Result Comment: PERF ORMED BY: [place] [address] PATHOLOGIST SHANK BURNISHER ED FONSECA M.D. Performed By: #### S SHIMA FOXID-19 ASTON #### [address] Basic Metabolic Panelon 01-14 Calcium [Mass/Vol] 9.4 mg/dL Normal 8.2-10.2 [facility] Comment on above: Performed By: #### P TT, CBC, BNP, BMP, CK, CKMB, HS TROP, PT #### [address] Chloride [Moles/Vol] 100 mmol/L Normal 95-114 [facility] Comment on above: Performed By: #### P TT, CBC, BNP, BMP, CK, CKMB, HS TROP, PT #### [place] [address] [place] CO2 [Moles/Vol] 25.9 mmol/L Normal 22.0-30.0 [facility] Comment on above: Performed By: #### P TT, CBC, BNP, BMP, CK, CKMB, HS TROP, PT #### [facility] [address] Creatinine [Mass/Vol] 0.81 mg/dL Normal 0.64-1.27 [facility] Comment on above: Performed By: #### P TT, CBC, BNP, BMP, CK, CKMB, HS TROP, PT #### [facility] [address] Creatinine Clr Calc Pharmacy 139.01 [facility] Comment on above: Result Comment: PERF ORMED BY: [place] [address] PATHOLOGIST SHANK BURNISHER ED FONSECA M.D. Performed By: #### P TT, CBC, BNP, BMP, CK, CKMB, HS TROP, PT #### [facility] [address] Estimated GFR ( Yoselin > 60 [facility] Comment on above: Result Comment: GFR estimated reference range: According to KDOQI guidelines, <60 ml/min/1.73m2 is sufficient to diagnose a patient with chronic kidney disease. Performed By: #### P TT, CBC, BNP, BMP, CK, CKMB, HS TROP, PT #### [facility] [address] Estimated GFR (Non- Am > 60 [facility] Comment on above: Performed By: #### P TT, CBC, BNP, BMP, CK, CKMB, HS TROP, PT #### [facility] [address] Glucose [Mass/Vol] 287 mg/dL High 70-100 [facility] Comment on above: Result Comment: [place] om Glucose Reference Range is dependent on time and content of last meal. Glucose of more than 200 mg/dL in a nonstressed, ambulatory subject supports the diagnosis of Diabetes Mellitus. ADA recommended reference range Performed By: #### P TT, CBC, BNP, BMP, CK, CKMB, HS TROP, PT #### [facility] [address] Potassium [Moles/Vol] 4.0 mmol/L Normal 3.5-5.1 [facility] Comment on above: Performed By: #### P TT, CBC, BNP, BMP, CK, CKMB, HS TROP, PT #### [facility] [address] Sodium [Moles/Vol] 137 mmol/L Normal 136-146 [facility] Comment on above: Performed By: #### P TT, CBC, BNP, BMP, CK, CKMB, HS TROP, PT #### [facility] [address] Urea nitrogen [Mass/Vol] 13 mg/dL Normal 9-23 [facility] Comment on above: Performed By: #### P TT, CBC, BNP, BMP, CK, CKMB, HS TROP, PT #### [facility] [address] Basophils Auto (Bld) [#/Vol] Ordered By: Ariel Perry on 01-26-2022 Basophils (Bld) [#/Vol] 0.1 10*3/uL 0.0-0.2 [facility] Basophils/100 WBC Auto (Bld) Ordered By: Ariel Perry on 01-26-2022 Basophils/100 WBC (Bld) 0.7 % . [facility] Blood hemoglobin measurement (mass/volume)Ordered By: Ariel Perry on 01-26-2022 Hemoglobin (Bld) [Mass/Vol] 14.8 g/dL 13.0-17.0 [facility] Blood leukocytes automated c ount (number/volume)Ordered By: Ariel Perry on 01-26-2022 WBC (Bld) [#/Vol] 7.5 10*3/uL 4.5-11.0 [facility] COVID-19 Antigenon 2 COVID-19 Antigen Healthcare Worker?: [...] developed and its performance characteristic determined by [employer] and validated at [facility]. This test has not been FDA cleared [...] for SARS Antigen by [employer] PERFORMED BY: [place] [address] PATHOLOGIST SHANK BURNISHER ED FONSECA M.D. Normal [facility] Comment on above: Performed By: #### S RUDDY, COVID-19 ASTON #### [address] COVID-19 [facility] 01-26-2022 SARS-CoV-2 (COVID-19) RNA NIKKI+probe Ql (Unsp spec) Negative Normal Negative [facility] Comment on above: Order Comment: Healt hcare Worker?: N Result Comment: Testing for SARS-CoV-2 by RT-PCR This test was developed and its performance characteristics determined by [employer] and validated at the [facility]. This test has not been FDA cleared [...] is terminated or revoked sooner. PERFORMED BY: [facility] [address] [place] [address] PATHOLOGIST SHANK BURNISHER ED FONSECA M.D. Performed By: #### S OFJEFFERY, COVID-19 ASTON #### [facility] [address] COVID-19 Positive/NegativeOr dered By: Ariel Perry on 01-26-2022 SARS-CoV-2 (COVID-19) N gene NIKKI+probe Ql (Resp) Negative Negative [facility] Comment on above: Testing for SARS-CoV -2 by RT-PCR This test was developed and its performance characteristics determined by [employer] ([employer] and validated at the [facility]. This test has not been FDA cleared [...] (COVID-19) Ag IA.rapid Ql (Resp) Negative Negative [facility] Comment on above: This is a duplicate [place] SARS Antigen ([employer]) result to be used for statistical tracking purpose only. Complete Blood Count Auto Di ffon 01-26-2022 Basophils (Bld) [#/Vol] 0.1 10*3/uL Normal 0.0-0.2 [facility] Comment on above: Result Comment: PERF ORMED BY: [place] [address] PATHOLOGIST SHANK BURNISHER ED FONSECA M.D. Performed By: #### P TT, CBC, BNP, BMP, CK, CKMB, HS TROP, PT #### [address] Basophils/100 WBC (Bld) 0.7 % Normal . [facility] Comment on above: Performed By: #### P TT, CBC, BNP, BMP, CK, CKMB, HS TROP, PT #### [address] Eosinophils (Bld) [#/Vol] 0.2 10*3/uL Normal 0.0-0.45 [facility] Comment on above: Performed By: #### P TT, CBC, BNP, BMP, CK, CKMB, HS TROP, PT #### [place] [address] [place] Eosinophils/100 WBC (Bld) 2.0 % Normal . [facility] Comment on above: Performed By: #### P TT, CBC, BNP, BMP, CK, CKMB, HS TROP, PT #### [address] Erythrocyte distribution width (RBC) [Ratio] 13.0 % Normal 12.0-14.8 [facility] Comment on above: Performed By: #### P TT, CBC, BNP, BMP, CK, CKMB, HS TROP, PT #### [address] Hematocrit (Bld) [Volume fraction] 44.3 % Normal 38.8-50.0 [facility] Comment on above: Performed By: #### P TT, CBC, BNP, BMP, CK, CKMB, HS TROP, PT #### [address] Hemoglobin (Bld) [Mass/Vol] 14.8 g/dL Normal 13.0-17.0 [facility] Comment on above: Performed By: #### P TT, CBC, BNP, BMP, CK, CKMB, HS TROP, PT #### [address] Lymphocytes (Bld) [#/Vol] 2.6 10*3/uL Normal 1.00-4.8 [facility] Comment on above: Performed By: #### P TT, CBC, BNP, BMP, CK, CKMB, HS TROP, PT #### [address] Lymphocytes/100 WBC (Bld) 34.4 % Normal . [facility] Comment on above: Performed By: #### P TT, CBC, BNP, BMP, CK, CKMB, HS TROP, PT #### [address] MCH (RBC) [Entitic mass] 30.2 pg Normal 27.5-35.2 [facility] Comment on above: Performed By: #### P TT, CBC, BNP, BMP, CK, CKMB, HS TROP, PT #### [address] MCV (RBC) [Entitic vol] 90.4 fL Normal 83.5-101 [facility] Comment on above: Performed By: #### P TT, CBC, BNP, BMP, CK, CKMB, HS TROP, PT #### [facility] [address] Mean Corpuscular HGB Conc 33.4 g/dL Normal 32.5-35.6 [facility] Comment on above: Performed By: #### P TT, CBC, BNP, BMP, CK, CKMB, HS TROP, PT #### [facility] [address] [place] [address] [place] Monocytes (Bld) [#/Vol] 0.5 10*3/uL Normal 0.0-0.8 [facility] Comment on above: Performed By: #### P TT, CBC, BNP, BMP, CK, CKMB, HS TROP, PT #### [address] Monocytes/100 WBC (Bld) 6.7 % Normal . [facility] Comment on above: Performed By: #### P TT, CBC, BNP, BMP, CK, CKMB, HS TROP, PT #### [address] Neutrophils (Bld) [#/Vol] 4.2 10*3/uL Normal 1.8-7.7 [facility] Comment on above: Performed By: #### P TT, CBC, BNP, BMP, CK, CKMB, HS TROP, PT #### [address] Neutrophils/100 WBC (Bld) 56.2 % Normal . [facility] Comment on above: Performed By: #### P TT, CBC, BNP, BMP, CK, CKMB, HS TROP, PT #### [facility] [address] [place] [address] [place] Nucleated RBC/100 WBC (Bld) [Ratio] 0.0 % Normal 0-0.5 [facility] Comment on above: Performed By: #### P TT, CBC, BNP, BMP, CK, CKMB, HS TROP, PT #### [place] [address] [place] Platelet mean volume (Bld) [Entitic vol] 8.2 fL Normal 6.6-10.1 [facility] Comment on above: Performed By: #### P TT, CBC, BNP, BMP, CK, CKMB, HS TROP, PT #### [facility] [address] Platelets (Bld) [#/Vol] 358 10*3/uL Normal 150-450 [facility] Comment on above: Performed By: #### P TT, CBC, BNP, BMP, CK, CKMB, HS TROP, PT #### [facility] [address] RBC (Bld) [#/Vol] 4.90 10*6/uL Normal 3.90-5.60 [facility] Comment on above: Performed By: #### P TT, CBC, BNP, BMP, CK, CKMB, HS TROP, PT #### [facility] [address] WBC (Bld) [#/Vol] 7.5 10*3/uL Normal 4.5-11.0 [facility] Comment on above: Performed By: #### P TT, CBC, BNP, BMP, CK, CKMB, HS TROP, PT #### [facility] [address] [place] [address] Creatine Kinaseon 01-26-2022 CK [Catalytic activity/Vol] 108 U/L Normal 22-269 [facility] Comment on above: Performed By: #### P TT, CBC, BNP, BMP, CK, CKMB, HS TROP, PT #### [address] Creatine kinase [Enzymatic a ctivity/volume] in Serum or PlasmaOrdered By: Ariel Perry on 01-26-2022 CK [Catalytic activity/Vol] 108 U/L 22-269 [facility] Creatinine Kinase MBon 01-26 CK.MB [Mass/Vol] 1.9 ng/mL Normal 0.6-6.3 [facility] Comment on above: Performed By: #### S CASPER FOX-Kannan CLANCY #### [facility] [address] CKMB Relative Index 1.7 % Normal 0.00-2.50 [facility] Comment on above: Performed By: #### S CASPER FOX-19 ASTON #### [facility] [address] [place] [address] [place] Creatinine and Glomerular fi ltration rate.predicted panel (S/P/Bld)Ordered By: Ariel Perry on 01-26-2022 Creatinine [Mass/Vol] 0.81 mg/dL 0.64-1.27 [facility] ECG 12 lead ECGon 01-26-2022 ECG 12 lead ECG [facility] [place] [address] [place] [address] Electrocardiograph Report Signed Patient: Ariel Ruvalcaba MR#: [id number] : 1985 Acct:[id number] Age/Sex: 36 / M ADM Date: 01/26/22 Loc: Room: [address] [place] [address] Type: DIS INOo Attending Dr: Bonilla Hall [...] Sinus tachycardia Confirmed by Ariel Perry DO ([id number]) on 01/26/2022 3:45:53 PM Referred By: Electronically Signed By:Ariel Perry DO Transcribed By: MUS Signed By Ariel Perry DO 1545 Normal [facility] Eosinophils Auto (Bld) [#/Vo l]Ordered By: Ariel Perry on 01-26-2022 Eosinophils (Bld) [#/Vol] 0.2 10*3/uL 0.0-0.45 [facility] Eosinophils/100 WBC Auto (Bl d)Ordered By: Ariel Perry on 01-26-2022 Eosinophils/100 WBC (Bld) 2.0 % . [facility] Erythrocyte distribution wid th Auto (RBC) [Ratio]Ordered By: Ariel Perry on 01-26-2022 Erythrocyte distribution width (RBC) [Ratio] 13.0 % 12.0-14.8 [facility] Estimated glomerular filtrat ion rate (GFR) non- AmericanOrdered By: Ariel Perry on 01-26-2022 GFR/1.73 sq M.predicted among non-blacks MDRD (S/P/Bld) [Vol rate/Area] > 60 mL/Min [facility] Glucose Glucometer (BldC) [M ass/Vol]Ordered By: Bonilla Hall on 01-26-2022 Glucose [Mass/Vol] 342 mg/dL [facility] Comment on above: Random Glucose Refer ence Range is dependent on time and content of last meal. Glucose of more than 200 mg/dL in a nonstressed, ambulatory subject supports the diagnosis of Diabetes Mellitus. Glucose Poct Glucometerson 0 01-26-2022 Glucose [Mass/Vol] 342 mg/dL Normal [facility] Comment on above: Result Comment: [place] om Glucose Reference Range is dependent on time and content of last meal. Glucose of more than 200 mg/dL in a nonstressed, ambulatory subject supports the diagnosis of Diabetes Mellitus. PERFORMED BY: [address] [place] [address] PATHOLOGIST SHANK BURNISHER ED FONSECA M.D. Performed By: #### G MANNY #### Point of Care testing , Hematocrit Auto (Bld) [Volum e fraction]Ordered By: Ariel Perry on 01-26-2022 Hematocrit (Bld) [Volume fraction] 44.3 % 38.8-50.0 [facility] Laboratory - Chemistry and C hemistry - challengeOrdered By: Ariel Perry on 01-26-2022 Natriuretic peptide B (Bld) [Mass/Vol] pg/mL 5-100 [facility] Laboratory - CoagulationOrde red By: Ariel Perry on 01-26-2022 PT Coag (PPP) [Time] 9.3 s 9.0-12.9 [facility] Laboratory - Hematology and Cell countsOrdered By: Ariel Perry on 01-26-2022 Nucleated RBC/100 WBC (Bld) [Ratio] 0.0 % 0-0.5 [facility] - Microbiology an d Antimicrobial susceptibilityOrdered By: Ariel Perry on 01-26-2022 SARS-CoV-2 (COVID-19) RNA NIKKI+probe Ql (Unsp spec) N/A [facility] Lymphocytes Auto (Bld) [#/Vo l]Ordered By: Ariel Perry on 01-26-2022 Lymphocytes (Bld) [#/Vol] 2.6 10*3/uL 1.00-4.8 [facility] Lymphocytes/100 WBC Auto (Bl d)Ordered By: Ariel Perry on 01-26-2022 Lymphocytes/100 WBC (Bld) 34.4 % . [facility] MCH Auto (RBC) [Entitic mass ]Ordered By: Ariel Perry on 01-26-2022 MCH (RBC) [Entitic mass] 30.2 pg 27.5-35.2 [facility] MCHC Auto (RBC) [Mass/Vol]Or dered By: Ariel Perry on 01-26-2022 MCHC (RBC) [Mass/Vol] 33.4 g/dL 32.5-35.6 [facility] MCV Auto (RBC) [Entitic vol] Ordered By: Ariel Perry on 01-26-2022 MCV (RBC) [Entitic vol] 90.4 fL 83.5-101 [facility] Monocytes Auto (Bld) [#/Vol] Ordered By: Ariel Perry on 01-26-2022 Monocytes (Bld) [#/Vol] 0.5 10*3/uL 0.0-0.8 [facility] Monocytes/100 WBC Auto (Bld) Ordered By: Ariel Perry on 01-26-2022 Monocytes/100 WBC (Bld) 6.7 % . [facility] Neutrophils Auto (Bld) [#/Vo l]Ordered By: Ariel Perry on 01-26-2022 Neutrophils (Bld) [#/Vol] 4.2 10*3/uL 1.8-7.7 [facility] Neutrophils/100 WBC Auto (Bl d)Ordered By: Ariel Perry on 01-26-2022 Neutrophils/100 WBC (Bld) 56.2 % . [facility] No Panel InformationOrdered By: Ariel Perry on 01-26-2022 Estimated GFR () > 60 mL/Min [facility] Comment on above: GFR estimated refere nce range: According to KDOQI guidelines, <60 ml/min/1.73m2 is sufficient to diagnose a patient with chronic kidney disease. Pharmacy Creatinine Clearance (Chem 139.01 [facility] SARS Antigen (LFIA) [facility] Partial Thromboplastin Timeo n 01-26-2022 aPTT Coag (Bld) [Time] 29.9 s Normal 25.1-36.5 Fi [facility] Comment on above: Result Comment: PERF ORMED BY: [place] [address] PATHOLOGIST SHANK BURNISHER ED FONSECA M.D. Performed By: #### P TT, CBC, BNP, BMP, CK, CKMB, HS TROP, PT #### [address] Platelet mean volume Auto (B ld) [Entitic vol]Ordered By: Ariel Perry on 01-26-2022 Platelet mean volume (Bld) [Entitic vol] 8.2 fL 6.6-10.1 [facility] Platelet poor plasma interna tional normalized ratio (INR) by coagulation assay (relatOrdered By: Ariel Perry on 01-26-2022 INR Coag (PPP) [Relative time] 0.8 {INR} [facility] Comment on above: INR Therapeutic Rang e [...] 01-26-2022 Platelets (Bld) [#/Vol] 358 10*3/uL 150-450 [facility] Prothrombin Time INRon 01-26 INR Coag (PPP) [Relative time] 0.8 {INR} Normal [facility] Comment on above: Result Comment: INR Therapeutic [...] BMP, CK, CKMB, HS TROP, PT #### [facility] [address] PT Coag (PPP) [Time] 9.3 s Normal 9.0-12.9 [facility] Comment on above: Performed By: #### P TT, CBC, BNP, BMP, CK, CKMB, HS TROP, PT #### [facility] [address] RBC Auto (Bld) [#/Vol]Ordere d By: Ariel Perry on 01-26-2022 RBC (Bld) [#/Vol] 4.90 10*6/uL 3.90-5.60 [facility] Serum or plasma calcium kelly urement (mass/volume)Ordered By: Ariel Perry on 01-26-2022 Calcium [Mass/Vol] 9.4 mg/dL 8.2-10.2 [facility] Serum or plasma chloride nancy surement (moles/volume)Ordered By: Ariel Perry on 01-26-2022 Chloride [Moles/Vol] 100 mmol/L 95-114 [facility] Serum or plasma creatine kin ase MB (CKMB)/total creatine kinase (CK) ratio by calculaOrdered By: Ariel Perry on 08-13-2022 CK.MB Calc [Catalytic fraction] 1.7 % 0.00-2.50 [facility] Serum or plasma creatine kin ase MB measurement (mass/volume)Ordered By: Ariel Perry on 01-26-2022 CK.MB [Mass/Vol] 1.9 ng/mL 0.6-6.3 [facility] Serum or plasma glucose kelly urement (mass/volume)Ordered By: Ariel Perry on 01-26-2022 Glucose [Mass/Vol] 287 mg/dL 70-100 [facility] Comment on above: ADA recommended refe rence range Random Glucose Reference Range is dependent on time and content of last meal. Glucose of more than 200 mg/dL in a nonstressed, ambulatory subject supports the diagnosis of Diabetes Mellitus. Serum or plasma potassium me asurement (moles/volume)Ordered By: Ariel Perry on 01-26-2022 Potassium [Moles/Vol] 4.0 mmol/L 3.5-5.1 [facility] Serum or plasma sodium measu rement (moles/volume)Ordered By: Ariel Perry on 01-26-2022 Sodium [Moles/Vol] 137 mmol/L 136-146 [facility] Serum or plasma total carbon dioxide measurement (moles/volume)Ordered By: Ariel Perry on 01-26-2022 CO2 [Moles/Vol] 25.9 mmol/L 22.0-30.0 [facility] Serum or plasma urea nitroge n measurement (mass/volume)Ordered By: Ariel Perry on 01-26-2022 Urea nitrogen [Mass/Vol] 13 mg/dL 9- [facility] Aston Ag Negativeon 01-27-20 22 [place] Ag Negative Negative Normal Negative [facility] Comment on above: Result Comment: This is a duplicate [place] SARS Antigen (VIKTOR) result to be used for statistical tracking purpose only. PERFORMED BY: [address] [address] PATHOLOGIST SHANK BURNISHER ED FONSECA M.D. Performed By: #### S CASPER FOX-19 ASTON #### [place] [id number] [place] Troponin I High Sensitivityo n 01-26-2022 Troponin I High Sensitivity 3 pg/mL Normal 0-20 [facility] Comment on above: Order Comment: PT GO ING TO 3T16 IN ER 1805 Result Comment: PERF ORMED BY: [place] [address] PATHOLOGIST SHANK BURNISHER ED FONSECA M.D. Performed By: #### H S TROP #### [facility] [address] [place] [address] Troponin I High Sensitivity 3 pg/mL Normal 0-20 [facility] Comment on above: Result Comment: PERF ORMED BY: [place] [address] PATHOLOGIST SHANK BURNISHER ED FONSECA M.D. Performed By: #### S OFIANEG, COVID-19 ASTON #### [facility] [address] [place] [address] Troponin I.cardiac [Mass/vol ume] in Serum or Plasma by High sensitivity methodOrdered By: Bonilla Hall on 01-26-2022 Troponin I.cardiac High sensitivity method [Mass/Vol] 3 pg/mL 0-20 [facility] XR chest 2V*on 01-26-2022 XR chest 2V* [place] [address] XRay Report Signed Patient: Ariel Ruvalcaba MR#: [id number] : 1985 Acct:[id number] Age/Sex: 36 / M ADM Date: 01/26/22 Loc: ER Room: Type: [facility] ER Attending Dr: Copies to: Ariel [...] Bernice Smith M.D.01/26/2022 2:20 PM Dictation Location: [place] [address] Transcribed By: [facility] 01/26/22 1420 Dictated By: Bernice Smith MD 01/26/22 1419 Signed By: 01/26/22 1420 [facility] COVID-19 ANTIGENon 2 EUA Statement SEE BELOW Normal [facility] Comment on above: Result Comment: This test [...] sooner. Performed By: #### D ATCVAG #### [facility] [address] [place] [address] Dr. Kaylen Hall SARS-CoV-2 (COVID-19) RNA NIKKI+probe Ql (Unsp spec) Negative Normal NEGATIVE [facility] Comment on above: Result Comment: Nega tive results are presumptive. They do not preclude infection and should not be used as the sole basis for treatment decisions. Additional confirmatory testing by a molecular method should be considered. Performed By: #### D ATCVAG #### [facility] [address] [place] [address] Dr. Kaylen Hall [facility]on SARS-CoV-2 (COVID-19) RNA NIKKI+probe Ql (Unsp spec) Not detected Normal NOT DETECTED [facility] Comment on above: Result Comment: This test is not yet approved or cleared by the [place] FDA. When there are no FDA-approved or cleared tests available, and other criteria are met, FDA can make tests available under an emergency access mechanism called an Emergency Use Authorization (EUA). The EUA for this test is supported by the [place] of Health and Human Service's (HHS's) declaration [...] consistent with SARS-CoV-2. Performed By: #### C [facility] #### [facility] [address] [place] [address] Dr. Kaylen Hall Vital Signs Date Time Vital Sign Value Performing Clinician Faci lity 01-26-2022 19:50-0400 Body temperature 97.9 [degF] MD Irish Maldonado Work Phone: [facility] 01-26-2022 19:50-0400 Diastolic blood pressure 85 mm[Hg] MD Irish Maldonado Work Phone: [facility] 01-26-2022 19:50-0400 Heart rate 90 /min MD Irish Maldonado Work Phone: [facility] 01-26-2022 19:50-0400 Respiratory rate 16 /min MD Irish Maldonado Work Phone: [facility] 01-26-2022 19:50-0400 SaO2% (BldA) [Mass fraction] 96 % MD Irish Maldonado Work Phone: [facility] 01-26-2022 19:50-0400 Systolic blood pressure 140 mm[Hg] MD Irish Maldonado Work Phone: [facility] 01-26-2022 18:43-0400 Body height 170.18 cm MD Irish Maldonado Work Phone: [facility] 01-26-2022 18:43-0400 Body weight 90.5 kg MD Irish Maldonado Work Phone: [facility] Encounters Encounter Date Encounter Type Care Provider Facility Start: 08-02-2022 End: 08-03-2022 Emergency department patient visit Irish Maldonado Facility:[facility] Start: 02-25-2022 End: 02-26-[address] IRISH MALDONADO Facility:[facility] Start: 02-07-2022 End: 02-08-[address] IRISH MALDONADO Facility:[facility] Start: 01-26-2022 End: 01-26-2022 ambulatory Irish Maldonado Facility:[facility] Start: 01-26-2022 End: 01-26-2022 Evaluation and management of inpatient MD Irish Maldonado Work Phone: [facility] Start: 07-14-2021 End: 07-15-[address] IRISH MALDONADO Facility:[facility] Start: 05-18-2021 End: 05-18-[address] IRSIH MALDONADO Facility:[facility] Procedures Date Procedure Procedure Detail Performing Clinician Start: 01-26-2022 Plain chest X-ray MD [place] Work Phone: SARS Antigen (LFIA) MD Tal Maldonado Work Phone: Plan of Treatment Date Care Activity Detail Author Start: 01-26-2022 Hospital admission [facility] Work Phone: Start: 01-26-2022 Referral to shellfish manager [facility] Work Phone: Patient referral [facility] Work Phone: Payers Date Payer Category Payer Self-pay [id number] 2022 Unknown [id number] 2019 Unknown [id number] 1985 Unknown [id number] 1984 Unknown [id number] 1984 Unknown [id number] 1959 Self-pay [id number] 1959 Unknown [id number] Medicaid [facility] 102 [id number] Unknown [id number] Unknown [id number] Unknown [id number] Social History Date Type Detail Facility Start: 01-26-2022 [facility] Start: 1985 Sex Assigned At Male [facility] Goals Date Patient Goal Desired Activity /State History and physical note 01-26-2022 Note Date & Type Note Facility 01-26-2022 History and physical note Note Date/Time January 26, 2022 4:27pm [facility] [address] [place] [address] Hospitalist H&P Signed Patient: Ariel Ruvalcaba MR#: [id number] : 1985 Acct:[id number] Age/Sex: 36 / M Adm Date: 2 Loc: ER Room: Type: [facility] ER Attending Dr: Copies to: MD [...] % (Auto) 34.4 % (.) 01/26/22 13:08 [place] % (Auto) 6.7 % (.) 01/26/22 13:08 Eos % (Auto) 2.0 % (.) 01/26/22 13:08 Baso % (Auto) 0.7 % (.) 01/26/22 13:08 Neut # (Auto) 4.2 x10E3/uL (1.8-7.7) 01/26/22 13:08 Lymph # (Auto) 2.6 x10E3/uL (1.00-4.8) 01/26/22 13:08 [place] # (Auto) 0.5 x10E3/uL (0.0-0.8) 01/26/22 13:08 [...] signed by Bonilla Hall MD> 01/26/22 1641 [facility] Work Phone: Evaluation note Note Date & Type Note Facility Evaluation note Diagnosis Onset Date Angina pectoris, unstable ac [place] Chest pain acute Diabetes mellitus chronic [facility] Work Phone: History and physical note Note Date & Type Note Facility History and physical note Note Date/Time January 26, 2022 4:27pm [facility] [address] [place] [address] Hospitalist H&P Signed Patient: Ariel Ruvalcaba MR#: [id number] : 1985 Acct:[id number] Age/Sex: 36 / M Adm Date: 2 Loc: ER Room: Type: [facility] ER Attending Dr: Copies to: MD [...] % (Auto) 34.4 % (.) 01/26/22 13:08 [place] % (Auto) 6.7 % (.) 01/26/22 13:08 Eos % (Auto) 2.0 % (.) 01/26/22 13:08 Baso % (Auto) 0.7 % (.) 01/26/22 13:08 Neut # (Auto) 4.2 x10E3/uL (1.8-7.7) 01/26/22 13:08 Lymph # (Auto) 2.6 x10E3/uL (1.00-4.8) 01/26/22 13:08 [place] # (Auto) 0.5 x10E3/uL (0.0-0.8) 01/26/22 13:08 [...] signed by Bonilla Hall MD> 01/26/22 1641 [facility] Work Phone: Chief Complaint and [...] and content) DATE CREATED AUTHOR 03/16/2022 [facility] DATE CREATED AUTHOR AUTHOR'S ORGANIZ ATION 12/03/2022 [facility] FOR RECORDS PERTAINING TO PATIENTS WHO ARE [...] BE BASED ON THE PRIMARY CLINICAL RECORDS. [employer] provides no warranty or guarantee of the accuracy or completeness of information in this document.
[2024-02-19 17:21] LABS: Basophils Absolute Auto 0.1 10^3/uL (0.0-0.1); Basophils Percent Auto 0.5 % (0.2-2.0); Eosinophils Absolute Auto 0.3 10^3/uL (0.0-0.7); Eosinophils Percent Auto 2.7 % (0.9-7.0); Hemoglobin 13.8 g/dL (14.0-18.0); Immature Granulocytes Abs Auto 0.03 10^3/uL (0.00-0.03); Immature Granulocytes Pct Auto 0.3 % (0.0-0.5); Lymphocytes Absolute Auto 3.5 10^3/uL (1.2-3.8); Mean Corpuscular HGB Conc 34.5 g/dL (29.9-35.2); Mean Corpuscular Hemoglobin 29.8 pg (25.9-34.0); Mean Corpuscular Volume 86.4 fL (80.0-94.0); Mean Platelet Volume 9.9 fL (9.5-13.5); Monocytes Absolute Auto 0.8 10^3/uL (0.3-0.8); Monocytes Percent Auto 8.2 % (1.7-12.0); Neutrophils Absolute Auto 4.8 10^3/uL (1.4-6.5); Neutrophils Percent Auto 51.3 % (43.0-75.0); Platelet Count 404 10^3/uL (150-450); Red Blood Count 4.63 10^6/uL (4.70-6.10); Red Cell Distribution Width 12.6 % (11.0-15.0); White Blood Count 9.4 10^3/uL (4.0-11.0)
[2024-02-19 17:56] LABS: Alanine Aminotransferase 74 U/L (16-63); Albumin Globulin Ratio 0.9; Albumin Level 3.4 g/dL (3.4-5.0); Alkaline Phosphatase 103 U/L (46-116); Amylase 37 U/L (25-115); Anion Gap 11.6; Aspartate Amino Transferase 25 U/L (15-37); BUN Creatinine Ratio 20.4; Bilirubin Total 0.3 mg/dL (0.2-1.0); C Reactive Protein 0.89 mg/dL (<=0.50); Calcium 9.1 mg/dL (8.5-10.1); Carbon Dioxide 30.2 mmol/L (21.0-32.0); Chloride 98 mmol/L (98-107); Estimated GFR (African America >60 (>=60); Estimated GFR (Non-African Ame >60 (>=60); Globulin 3.7 g/dL; Glucose 123 mg/dL (74-106); Potassium 3.8 mmol/L (3.5-5.1); Sodium 136 mmol/L (136-145); Total Protein 7.1 g/dL (6.4-8.2)
[2024-02-19 18:27] LABS: Erythrocyte Sedimentation Rate 48 mm/hr (<=15)
== END 2024-02-19 16:32 | disposition home or self-care (01) ==
PROVIDERS: PCP Family Medicine; Visit Provider Family Medicine
DX: R20.0 Anesthesia of skin (principal); R20.2 Paresthesia of skin; M79.603 Pain in arm, unspecified; R10.9 Unspecified abdominal pain
CPT/HCPCS: 36415; 80053; 82150; 82607; 82746; 83690; 84155; 84165; 84443; 85025; 85652; 86140

== ENCOUNTER 2024-02-24 15:23 | Emergency (ER) | payer MEDICAID, SELFPAY ==
[2024-02-24 15:42] VITALS: BP 156/97; PULSE 108; TEMP 36.7; O2SAT 97; BMI 33.7
--- OUTSIDE RECORDS SUMMARY | 2024-02-24 16:31 | XMS_ITS | CCD ---
Author Organization [facility] Care Team Providers Care Retail Loan Originator Assistant Name Role Phone MD Irish Maldonado Primary Care Provider [phone] DO Ariel Perry Emergency Provider MD Bonilla Luke Admit Provider MD Bonilla Hall Attending Provider MD Charles Owen Other Provider [phone] MAURICIO, DR COBURN Primary Care Unavailable [...] mouth every month Ergocalciferol (Vitamin D2) Discontinued 50803 UNIT PO As Directed June 20, 2018 [...] (Bld) NO GROWTH 5 DAYS PERFORMED BY: [place] [address] PATHOLOGIST PRODUCT ADVISOR ED FONSECA M.D. [facility] Comment on above: Performed By: #### S OFFRITZ, COVID-19 ASTON #### [address] abdomen pelvis w conon CT abdomen pelvis w con [facility] Main [place] [address] [place] [address] CT Scan Report Signed Patient: Ariel Ruvalcaba MR#: [id number] : 1985 Acct:[id number] Age/Sex: 37 / M ADM Date: 08/02/22 Loc: ER Room: Type: [facility] ER Attending Dr: Copies to: DO Ariel [...] Saavedra Jr., D.O.08/03/2022 12:24 PM Dictation Location: [place] [address] Transcribed By: [facility] 08/03/22 1224 Dictated By: Nathen Saavedra Jr, DO 08/03/22 1210 Signed By: 08/03/22 1224 Normal [facility] Lactic Acidon 08-03-2022 Lactate [Moles/Vol] 1.4 mmol/L Normal 0.5-2.2 [facility] Comment on above: Result Comment: PERF ORMED BY: [facility] [address] [place] [address] PATHOLOGIST PRODUCT ADVISOR ED FONSECA M.D. Performed By: #### S OFFRITZ COVID-19 ASTON #### [facility] [address] Basic Metabolic Panelon 07-17 Anion gap [Moles/Vol] 14.7 mmol/L Normal 6.0-15.0 [facility] Comment on above: Performed By: #### S OFFRITZ COVID-19 ASTON #### [facility] [address] [place] [address] [place] Calcium [Mass/Vol] 8.9 mg/dL Normal 8.2-10.2 [facility] Comment on above: Performed By: #### S OFFRITZ COVID-19 ASTON #### [facility] [address] [place] [address] [place] Chloride [Moles/Vol] 96 mmol/L Normal 95-114 [facility] Comment on above: Performed By: #### S OFFRITZ COVID-19 ASTON #### [facility] [address] [place] [address] [place] CO2 [Moles/Vol] 25.2 mmol/L Normal 22.0-30.0 [facility] Comment on above: Performed By: #### S OFIANEG COVID-19 ASTON #### [facility] [address] [place] [address] [place] Creatinine [Mass/Vol] 1.00 mg/dL Normal 0.64-1.27 [facility] Comment on above: Performed By: #### S CASPER FOX- ASTON #### [facility] [address] Creatinine Clr Calc Pharmacy 112.09 [facility] Comment on above: Performed By: #### S CASPER FOX- ASTON #### [facility] [address] [place] [address] Estimated GFR ( Yoselin > 60 [facility] Comment on above: Result Comment: GFR estimated reference range: According to KDOQI guidelines, <60 ml/min/1.73m2 is sufficient to diagnose a patient with chronic kidney disease. Performed By: #### S CASPER FOX- ASTON #### [address] Estimated GFR (Non- Am > 60 [facility] Comment on above: Performed By: #### S CASPER FOX- ASTON #### [address] Glucose [Mass/Vol] 297 mg/dL High 70-100 [facility] Comment on above: Result Comment: [place] om Glucose Reference Range is dependent on time and content of last meal. Glucose of more than 200 mg/dL in a nonstressed, ambulatory subject supports the diagnosis of Diabetes Mellitus. ADA recommended reference range Performed By: #### S CASPER FOX- ASTON #### [address] Potassium [Moles/Vol] 3.9 mmol/L Normal 3.5-5.1 [facility] Comment on above: Performed By: #### S CASPER FOX- ASTON #### [address] Sodium [Moles/Vol] 132 mmol/L Low 136-146 [facility] Comment on above: Performed By: #### S CASPER FOX- ASTON #### [facility] [address] [place] [address] Urea nitrogen [Mass/Vol] 10 mg/dL Normal 9-23 [facility] Comment on above: Performed By: #### S SHIMA FOXID-19 ASTON #### [address] Blood Cultureon 08-02-2022 Bacteria identified Cx Nom (Bld) NO GROWTH 5 DAYS PERFORMED BY: [place] [address] PATHOLOGIST PRODUCT ADVISOR ED FONSECA M.D. Normal [facility] Comment on above: Performed By: #### S CASPER FOX-19 ASTON #### [address] Complete Blood Count Auto Di ffon 08-02-2022 Basophils (Bld) [#/Vol] 0.1 10*3/uL Normal 0.0-0.2 [facility] Comment on above: Result Comment: PERF ORMED BY: [place] [address] PATHOLOGIST PRODUCT ADVISOR ED FONSECA M.D. Performed By: #### S SHIMA FOXID-19 ASTON #### [address] Basophils/100 WBC (Bld) 0.9 % Normal . [facility] Comment on above: Performed By: #### S SHIMA FOXID-19 ASTON #### [facility] [address] [place] [address] Eosinophils (Bld) [#/Vol] 0.1 10*3/uL Normal 0.0-0.45 [facility] Comment on above: Performed By: #### S SHIMA FOXID-19 ASTON #### [place] [address] [place] Eosinophils/100 WBC (Bld) 1.0 % Normal . [facility] Comment on above: Performed By: #### S SHIMA FOXID-19 ASTON #### [address] Erythrocyte distribution width (RBC) [Ratio] 13.3 % Normal 12.0-14.8 [facility] Comment on above: Performed By: #### S SCARLETTFRITZ COVID-19 ASTON #### [address] Hematocrit (Bld) [Volume fraction] 45.3 % Normal 38.8-50.0 [facility] Comment on above: Performed By: #### S OFFRITZ COVID-19 ASTON #### [address] Hemoglobin (Bld) [Mass/Vol] 15.0 g/dL Normal 13.0-17.0 [facility] Comment on above: Performed By: #### S OFFRITZ COVID-19 ASTON #### [address] Lymphocytes (Bld) [#/Vol] 2.8 10*3/uL Normal 1.00-4.8 [facility] Comment on above: Performed By: #### S OFFRITZ COVID-19 ASTON #### [address] Lymphocytes/100 WBC (Bld) 24.0 % Normal . [facility] Comment on above: Performed By: #### S OFFRITZ COVID-19 ASTON #### [address] MCH (RBC) [Entitic mass] 29.4 pg Normal 27.5-35.2 [facility] Comment on above: Performed By: #### S OFFRITZ COVID-19 ASTON #### [address] MCV (RBC) [Entitic vol] 89.0 fL Normal 83.5-101 [facility] Comment on above: Performed By: #### S OFFRITZ COVID-19 ASTON #### [address] Mean Corpuscular HGB Conc 33.0 g/dL Normal 32.5-35.6 [facility] Comment on above: Performed By: #### S SCARLETTFRITZ COVID-19 ATSON #### [facility] [address] Monocytes (Bld) [#/Vol] 1.1 10*3/uL High 0.0-0.8 [facility] Comment on above: Performed By: #### S RUDDY COVID-19 ASTON #### [facility] [address] Monocytes/100 WBC (Bld) 17.09 % Normal 0.00-20.00 [facility] Comment on above: Performed By: #### S OFFRITZ COVID-19 ASTON #### [facility] [address] Monocytes/100 WBC (Bld) 9.2 % Normal . [facility] Comment on above: Performed By: #### S RUDDY COVID-19 ASTON #### [facility] [address] Neutrophils (Bld) [#/Vol] 7.7 10*3/uL Normal 1.8-7.7 [facility] Comment on above: Performed By: #### S SCARLETTFRITZ COVID-19 ASTON #### [facility] [address] [place] [address] [place] Neutrophils/100 WBC (Bld) 64.9 % Normal . [facility] Comment on above: Performed By: #### S RUDDY COVID-19 ASTON #### [facility] [address] [place] [address] [place] NRBC% 0.1 /100{WBC} Normal 0-0.5 [facility] Comment on above: Performed By: #### S OFFRITZ COVID-19 ASTON #### [facility] [address] Platelet mean volume (Bld) [Entitic vol] 7.6 fL Normal 6.6-10.1 [facility] Comment on above: Performed By: #### S JAMESJOHN COVID-19 ASTON #### [facility] [address] [place] [address] [place] Platelets (Bld) [#/Vol] 373 10*3/uL Normal 150-450 [facility] Comment on above: Performed By: #### S JAMESJOHN COVID-19 ASTON #### [facility] [address] [place] [address] [place] RBC (Bld) [#/Vol] 5.09 10*6/uL Normal 3.90-5.60 [facility] Comment on above: Performed By: #### S JAMESJOHN COVID-19 ASTON #### [facility] [address] [place] [address] [place] WBC (Bld) [#/Vol] 11.8 10*3/uL High 4.1-10.5 [facility] Comment on above: Performed By: #### S JAMESJOHN COVID-19 ASTON #### [facility] [address] [place] [address] [place] Dipstick and Microscopicon 0 08-02-2022 Appearance (U) Cloudy Critically abnormal Clear [facility] Comment on above: Order Comment: Name Collection Type:: Clean-Voided Midstream Performed By: #### A DDONUAPLUS #### [facility] [address] [place] [address] [place] Bacteria,Urine None Seen Normal None Seen [facility] Comment on above: Order Comment: Name Collection Type:: Clean-Voided Midstream Performed By: #### A DDONUAPLUS #### [facility] [address] [place] [address] [place] Bilirubin,Urine Negative Normal Negative [facility] Comment on above: Order Comment: Name Collection Type:: Clean-Voided Midstream Performed By: #### A DDONUAPLUS #### [facility] [address] [place] [address] [place] Color (U) Yellow Normal Yellow [facility] Comment on above: Order Comment: Name Collection Type:: Clean-Voided Midstream Performed By: #### A DDONUAPLUS #### [facility] [address] [place] [address] [place] Glucose Ql (U) >=1000 High Normal [facility] Comment on above: Order Comment: Name Collection Type:: Clean-Voided Midstream Performed By: #### A DDONUAPLUS #### [facility] [address] [place] [address] [place] Hyaline Casts,Urine 0-8 Normal 0-8 [facility] Comment on above: Order Comment: Name Collection Type:: Clean-Voided Midstream Result Comment: PERF ORMED BY: [place] [address] PATHOLOGIST PRODUCT ADVISOR ED FONSECA M.D. Performed By: #### A DDONUAPLUS #### [facility] [address] [place] [address] Ketones Ql (U) Negative Normal Negative [facility] Comment on above: Order Comment: Name Collection Type:: Clean-Voided Midstream Performed By: #### A DDONUAPLUS #### [facility] [address] [place] [address] [place] Leukocyte esterase Test strip Ql (U) Negative Normal Negative [facility] Comment on above: Order Comment: Name Collection Type:: Clean-Voided Midstream Performed By: #### A DDONUAPLUS #### [facility] [address] [place] [address] [place] Nitrite,Urine Negative Normal Negative [facility] Comment on above: Order Comment: Name Collection Type:: Clean-Voided Midstream Performed By: #### A DDONUAPLUS #### [facility] [address] [place] [address] [place] Occult Blood,Urine Negative Normal Negative [facility] Comment on above: Order Comment: Name Collection Type:: Clean-Voided Midstream Result Comment: PERF ORMED BY: [place] [address] PATHOLOGIST PRODUCT ADVISOR ED FONSECA M.D. Performed By: #### A DDONUAPLUS #### [address] pH (U) 5.5 [pH] Normal 5.0-9.0 [facility] Comment on above: Order Comment: Name Collection Type:: Clean-Voided Midstream Performed By: #### A DDONUAPLUS #### [address] Protein (U) [Mass/Vol] 30 mg/dL High Negative [facility] Comment on above: Order Comment: Name Collection Type:: Clean-Voided Midstream Performed By: #### A DDONUAPLUS #### [address] RBC LM.HPF (Urine sed) [#/Area] 0 /[HPF] Normal 0-4 [facility] Comment on above: Order Comment: Name Collection Type:: Clean-Voided Midstream Performed By: #### A DDONUAPLUS #### [address] Specificy [place],Urine 1.017 Normal 1.001-1.030 [facility] Comment on above: Order Comment: Name Collection Type:: Clean-Voided Midstream Performed By: #### A DDONUAPLUS #### [address] Squamous Epithelial Cell,Urine None Seen Normal 0-2 [facility] Comment on above: Order Comment: Name Collection Type:: Clean-Voided Midstream Performed By: #### A DDONUAPLUS #### [address] Urobilinogen,Urine Normal Normal Normal [facility] Comment on above: Order Comment: Name Collection Type:: Clean-Voided Midstream Performed By: #### A DDONUAPLUS #### [address] WBC,Urine None Seen Normal 0-4 [facility] Comment on above: Order Comment: Name Collection Type:: Clean-Voided Midstream Performed By: #### A DDONUAPLUS #### [address] [place] [address] [place] ECG 12 lead ECGon 08-02-2022 ECG 12 lead ECG [facility] Main [place] [address] [place] [address] Electrocardiograph Report Signed Patient: Ariel Ruvalcaba MR#: [id number] : 1985 Acct:[id number] Age/Sex: 37 / M ADM Date: 08/02/22 Loc: ER Room: Type: [facility] ER Attending Dr: Ordering Provider: Serge Barnes [...] Rightward axis Confirmed by Serge BARNES DO ([id number]) on 08/03/2022 12:04:41 AM Referred By: Electronically Signed By:Serge BARNES DO Transcribed By: MUS Signed By Serge Barnes DO 0 08/03/22 0004 Normal [facility] Hepatic Panelon 08-02-2022 Albumin [Mass/Vol] 3.4 g/dL Normal 3.2-5.5 [facility] Comment on above: Performed By: #### S CASPER FOX-Kannan ASTON #### [facility] [address] [place] [address] [place] Albumin/Globulin [Mass ratio] 1.0 {ratio} Normal [facility] Comment on above: Performed By: #### S CASPER FOX-Kannan ASTON #### [facility] [address] [place] [id number] [place] ALP [Catalytic activity/Vol] 105 U/L High 32-92 [facility] Comment on above: Performed By: #### S SHIMA FOXID-19 ASTON #### [facility] [address] [place] [id number] [place] ALT [Catalytic activity/Vol] 28 U/L Normal 10-60 [facility] Comment on above: Performed By: #### S OFIANEG, COVID-19 ASTON #### [facility] [address] AST [Catalytic activity/Vol] 19 U/L Normal 10-42 [facility] Comment on above: Performed By: #### S OFIANEG, COVID-19 ASTON #### [facility] [address] Bilirubin [Mass/Vol] 0.4 mg/dL Normal 0.3-1.2 [facility] Comment on above: Performed By: #### S OFIANEG, COVID-19 ASTON #### [facility] [address] Bilirubin,Indirect Not performed Normal [facility] Comment on above: Performed By: #### S OFIANEG, COVID-19 ASTON #### [facility] [address] Bilirubin.indirect [Mass/Vol] mg/dL Normal 0.0-0.4 [facility] Comment on above: Performed By: #### S OFIANEG, COVID-19 ASTON #### [facility] [address] Globulin (S) [Mass/Vol] 3.4 g/dL Normal [facility] Comment on above: Performed By: #### S OFIANEG, COVID-19 ASTON #### [facility] [address] [place] [address] Protein [Mass/Vol] 6.8 g/dL Normal 6.1-7.9 [facility] Comment on above: Performed By: #### S OFIANEG, COVID-19 ASTON #### [facility] [address] Lactic Acidon 08-02-2022 Lactate [Moles/Vol] 2.0 mmol/L Off scale high 0.5-2.2 [facility] Comment on above: Result Comment: Resu lts called at 2225 on 08/02/22 PERFORMED BY: [place] [address] PATHOLOGIST PRODUCT ADVISOR ED FONSECA M.D. Performed By: #### S CASPER FOX-19 ASTON #### [address] Lipaseon 08-02-2022 Lipase [Catalytic activity/Vol] 66.0 U/L High 22-51 [facility] Comment on above: Result Comment: PERF ORMED BY: [place] [address] PATHOLOGIST PRODUCT ADVISOR ED FONSECA M.D. Performed By: #### S CASPER FOX-Kannan CLANCY #### [address] Partial Thromboplastin Timeo n 08-02-2022 aPTT Coag (Bld) [Time] 30.6 s Normal 25.1-36.5 [facility] Comment on above: Result Comment: PERF ORMED BY: [place] [address] PATHOLOGIST PRODUCT ADVISOR ED FONSECA M.D. Performed By: #### S CASPER FOX-19 ASTON #### [address] Prothrombin Time INRon 08-02 INR Coag (PPP) [Relative time] 1.0 {INR} Normal [facility] Comment on above: Result Comment: INR Therapeutic [...] By: #### S SHIMA FOXID-19 ASTON #### [facility] [address] [place] [address] PT Coag (PPP) [Time] 11.3 s Normal 9.0-12.9 [facility] Comment on above: Performed By: #### S CASPER FOX-19 ASTON #### [facility] [address] ECHOCARDIO M/2D COMPLETEon 0 02-25-2022 ECHOCARDIO M/2D COMPLETE Patient: ARIEL ALONZO Exam Date: 02/25/2022 : 1985 Gender:M Ordering : DR IRISH MALDONADO . Admission #: [id number] Family : Order #: [id number] CLICK HERE TO VIEW EXAM ECHOCARDIOGRAM REPORT [...] Rodgers M.D. on 02/26/2022 at 12:57 Normal [facility] STRESS/REST MULTIon 02-07 [place] STRESS/REST MULTI Patient: ARIEL RUVALCABA Exam Date: 02/07/2022 : 1985 Gender:M Ordering : DR IRISH MALDONADO . Admission #: [id number] Family : Order #: [id number] CLICK HERE TO VIEW EXAM RADIOLOGY REPORT PROCEDURE: RADIONUCLIDE IMAGING STRESS/REST MULTI COMPARISON: [place] STRESS/REST MULTI, 06/18/2018. INDICATIONS: Chest pain TECHNIQUE: [...] M.D. on 02/08/2022 at 12:12 Normal [facility] Activated partial thrombopla stin time (aPTT) in platelet poor plasma by coagulation aOrdered By: Ariel Perry on 01-26-2022 aPTT Coag (PPP) [Time] 29.9 s 25.1-36.5 [facility] B-Type Natriuretic Peptideon 01-26-2022 Natriuretic peptide B (Bld) [Mass/Vol] pg/mL Low 5-100 [facility] Comment on above: Result Comment: PERF ORMED BY: [place] [address] PATHOLOGIST PRODUCT ADVISOR ED FONSECA M.D. Performed By: #### S SHIMA FOXID-19 ASTON #### [address] Basic Metabolic Panelon 01-14 Calcium [Mass/Vol] 9.4 mg/dL Normal 8.2-10.2 [facility] Comment on above: Performed By: #### P TT, CBC, BNP, BMP, CK, CKMB, HS TROP, PT #### [address] Chloride [Moles/Vol] 100 mmol/L Normal 95-114 [facility] Comment on above: Performed By: #### P TT, CBC, BNP, BMP, CK, CKMB, HS TROP, PT #### [place] [address] [place] CO2 [Moles/Vol] 25.9 mmol/L Normal 22.0-30.0 [facility] Comment on above: Performed By: #### P TT, CBC, BNP, BMP, CK, CKMB, HS TROP, PT #### [facility] [address] Creatinine [Mass/Vol] 0.81 mg/dL Normal 0.64-1.27 [facility] Comment on above: Performed By: #### P TT, CBC, BNP, BMP, CK, CKMB, HS TROP, PT #### [facility] [address] Creatinine Clr Calc Pharmacy 139.01 [facility] Comment on above: Result Comment: PERF ORMED BY: [place] [address] PATHOLOGIST PRODUCT ADVISOR ED FONSECA M.D. Performed By: #### P TT, CBC, BNP, BMP, CK, CKMB, HS TROP, PT #### [facility] [address] Estimated GFR ( Yoselin > 60 [facility] Comment on above: Result Comment: GFR estimated reference range: According to KDOQI guidelines, <60 ml/min/1.73m2 is sufficient to diagnose a patient with chronic kidney disease. Performed By: #### P TT, CBC, BNP, BMP, CK, CKMB, HS TROP, PT #### [facility] [address] Estimated GFR (Non- Am > 60 [facility] Comment on above: Performed By: #### P TT, CBC, BNP, BMP, CK, CKMB, HS TROP, PT #### [facility] [address] Glucose [Mass/Vol] 287 mg/dL High 70-100 [facility] Comment on above: Result Comment: [place] om Glucose Reference Range is dependent on time and content of last meal. Glucose of more than 200 mg/dL in a nonstressed, ambulatory subject supports the diagnosis of Diabetes Mellitus. ADA recommended reference range Performed By: #### P TT, CBC, BNP, BMP, CK, CKMB, HS TROP, PT #### [facility] [address] Potassium [Moles/Vol] 4.0 mmol/L Normal 3.5-5.1 [facility] Comment on above: Performed By: #### P TT, CBC, BNP, BMP, CK, CKMB, HS TROP, PT #### [facility] [address] Sodium [Moles/Vol] 137 mmol/L Normal 136-146 [facility] Comment on above: Performed By: #### P TT, CBC, BNP, BMP, CK, CKMB, HS TROP, PT #### [facility] [address] Urea nitrogen [Mass/Vol] 13 mg/dL Normal 9-23 [facility] Comment on above: Performed By: #### P TT, CBC, BNP, BMP, CK, CKMB, HS TROP, PT #### [facility] [address] Basophils Auto (Bld) [#/Vol] Ordered By: Ariel Perry on 01-26-2022 Basophils (Bld) [#/Vol] 0.1 10*3/uL 0.0-0.2 [facility] Basophils/100 WBC Auto (Bld) Ordered By: Ariel Perry on 01-26-2022 Basophils/100 WBC (Bld) 0.7 % . [facility] Blood hemoglobin measurement (mass/volume)Ordered By: Ariel Perry on 01-26-2022 Hemoglobin (Bld) [Mass/Vol] 14.8 g/dL 13.0-17.0 [facility] Blood leukocytes automated c ount (number/volume)Ordered By: Ariel Perry on 01-26-2022 WBC (Bld) [#/Vol] 7.5 10*3/uL 4.5-11.0 [facility] COVID-19 Antigenon 2 COVID-19 Antigen Healthcare Worker?: [...] developed and its performance characteristic determined by [employer] and validated at [facility]. This test has not been FDA cleared [...] for SARS Antigen by [employer] PERFORMED BY: [place] [address] PATHOLOGIST PRODUCT ADVISOR ED FONSECA M.D. Normal [facility] Comment on above: Performed By: #### S RUDDY, COVID-19 ASTON #### [address] COVID-19 [facility] 01-26-2022 SARS-CoV-2 (COVID-19) RNA NIKKI+probe Ql (Unsp spec) Negative Normal Negative [facility] Comment on above: Order Comment: Healt hcare Worker?: N Result Comment: Testing for SARS-CoV-2 by RT-PCR This test was developed and its performance characteristics determined by [employer] and validated at the [facility]. This test has not been FDA cleared [...] is terminated or revoked sooner. PERFORMED BY: [facility] [address] [place] [address] PATHOLOGIST PRODUCT ADVISOR ED FONSECA M.D. Performed By: #### S OFJEFFERY, COVID-19 ASTON #### [facility] [address] COVID-19 Positive/NegativeOr dered By: Ariel Perry on 01-26-2022 SARS-CoV-2 (COVID-19) N gene NIKKI+probe Ql (Resp) Negative Negative [facility] Comment on above: Testing for SARS-CoV -2 by RT-PCR This test was developed and its performance characteristics determined by [employer] ([employer]) and validated at the [facility]. This test has not been FDA cleared [...] (COVID-19) Ag IA.rapid Ql (Resp) Negative Negative [facility] Comment on above: This is a duplicate [place] SARS Antigen ([employer]) result to be used for statistical tracking purpose only. Complete Blood Count Auto Di ffon 01-26-2022 Basophils (Bld) [#/Vol] 0.1 10*3/uL Normal 0.0-0.2 [facility] Comment on above: Result Comment: PERF ORMED BY: [place] [address] PATHOLOGIST PRODUCT ADVISOR ED FONSECA M.D. Performed By: #### P TT, CBC, BNP, BMP, CK, CKMB, HS TROP, PT #### [address] Basophils/100 WBC (Bld) 0.7 % Normal . [facility] Comment on above: Performed By: #### P TT, CBC, BNP, BMP, CK, CKMB, HS TROP, PT #### [address] Eosinophils (Bld) [#/Vol] 0.2 10*3/uL Normal 0.0-0.45 [facility] Comment on above: Performed By: #### P TT, CBC, BNP, BMP, CK, CKMB, HS TROP, PT #### [place] [address] [place] Eosinophils/100 WBC (Bld) 2.0 % Normal . [facility] Comment on above: Performed By: #### P TT, CBC, BNP, BMP, CK, CKMB, HS TROP, PT #### [address] Erythrocyte distribution width (RBC) [Ratio] 13.0 % Normal 12.0-14.8 [facility] Comment on above: Performed By: #### P TT, CBC, BNP, BMP, CK, CKMB, HS TROP, PT #### [address] Hematocrit (Bld) [Volume fraction] 44.3 % Normal 38.8-50.0 [facility] Comment on above: Performed By: #### P TT, CBC, BNP, BMP, CK, CKMB, HS TROP, PT #### [address] Hemoglobin (Bld) [Mass/Vol] 14.8 g/dL Normal 13.0-17.0 [facility] Comment on above: Performed By: #### P TT, CBC, BNP, BMP, CK, CKMB, HS TROP, PT #### [address] Lymphocytes (Bld) [#/Vol] 2.6 10*3/uL Normal 1.00-4.8 [facility] Comment on above: Performed By: #### P TT, CBC, BNP, BMP, CK, CKMB, HS TROP, PT #### [address] Lymphocytes/100 WBC (Bld) 34.4 % Normal . [facility] Comment on above: Performed By: #### P TT, CBC, BNP, BMP, CK, CKMB, HS TROP, PT #### [address] MCH (RBC) [Entitic mass] 30.2 pg Normal 27.5-35.2 [facility] Comment on above: Performed By: #### P TT, CBC, BNP, BMP, CK, CKMB, HS TROP, PT #### [address] MCV (RBC) [Entitic vol] 90.4 fL Normal 83.5-101 [facility] Comment on above: Performed By: #### P TT, CBC, BNP, BMP, CK, CKMB, HS TROP, PT #### [facility] [address] Mean Corpuscular HGB Conc 33.4 g/dL Normal 32.5-35.6 [facility] Comment on above: Performed By: #### P TT, CBC, BNP, BMP, CK, CKMB, HS TROP, PT #### [facility] [address] [place] [address] [place] Monocytes (Bld) [#/Vol] 0.5 10*3/uL Normal 0.0-0.8 [facility] Comment on above: Performed By: #### P TT, CBC, BNP, BMP, CK, CKMB, HS TROP, PT #### [address] Monocytes/100 WBC (Bld) 6.7 % Normal . [facility] Comment on above: Performed By: #### P TT, CBC, BNP, BMP, CK, CKMB, HS TROP, PT #### [address] Neutrophils (Bld) [#/Vol] 4.2 10*3/uL Normal 1.8-7.7 [facility] Comment on above: Performed By: #### P TT, CBC, BNP, BMP, CK, CKMB, HS TROP, PT #### [address] Neutrophils/100 WBC (Bld) 56.2 % Normal . [facility] Comment on above: Performed By: #### P TT, CBC, BNP, BMP, CK, CKMB, HS TROP, PT #### [facility] [address] [place] [address] [place] Nucleated RBC/100 WBC (Bld) [Ratio] 0.0 % Normal 0-0.5 [facility] Comment on above: Performed By: #### P TT, CBC, BNP, BMP, CK, CKMB, HS TROP, PT #### [place] [address] [place] Platelet mean volume (Bld) [Entitic vol] 8.2 fL Normal 6.6-10.1 [facility] Comment on above: Performed By: #### P TT, CBC, BNP, BMP, CK, CKMB, HS TROP, PT #### [facility] [address] Platelets (Bld) [#/Vol] 358 10*3/uL Normal 150-450 [facility] Comment on above: Performed By: #### P TT, CBC, BNP, BMP, CK, CKMB, HS TROP, PT #### [facility] [address] RBC (Bld) [#/Vol] 4.90 10*6/uL Normal 3.90-5.60 [facility] Comment on above: Performed By: #### P TT, CBC, BNP, BMP, CK, CKMB, HS TROP, PT #### [facility] [address] WBC (Bld) [#/Vol] 7.5 10*3/uL Normal 4.5-11.0 [facility] Comment on above: Performed By: #### P TT, CBC, BNP, BMP, CK, CKMB, HS TROP, PT #### [facility] [address] [place] [address] Creatine Kinaseon 01-26-2022 CK [Catalytic activity/Vol] 108 U/L Normal 22-269 [facility] Comment on above: Performed By: #### P TT, CBC, BNP, BMP, CK, CKMB, HS TROP, PT #### [address] Creatine kinase [Enzymatic a ctivity/volume] in Serum or PlasmaOrdered By: Ariel Perry on 01-26-2022 CK [Catalytic activity/Vol] 108 U/L 22-269 [facility] Creatinine Kinase MBon 01-26 CK.MB [Mass/Vol] 1.9 ng/mL Normal 0.6-6.3 [facility] Comment on above: Performed By: #### S CASPER FOX-Kannan CLANCY #### [facility] [address] CKMB Relative Index 1.7 % Normal 0.00-2.50 [facility] Comment on above: Performed By: #### S CASPER FOX-19 ASTON #### [facility] [address] [place] [address] [place] Creatinine and Glomerular fi ltration rate.predicted panel (S/P/Bld)Ordered By: Ariel Perry on 01-26-2022 Creatinine [Mass/Vol] 0.81 mg/dL 0.64-1.27 [facility] ECG 12 lead ECGon 01-26-2022 ECG 12 lead ECG [facility] Main [place] [address] [place] [address] Electrocardiograph Report Signed Patient: Ariel Ruvalcaba MR#: [id number] : 1985 Acct:[id number] Age/Sex: 36 / M ADM Date: 01/26/22 Loc: Room: [address] [place] [address] Type: DIS INOo Attending Dr: Bonilla Hall [...] Sinus tachycardia Confirmed by Ariel Perry DO ([id number]) on 01/26/2022 3:45:53 PM Referred By: Electronically Signed By:Ariel Perry DO Transcribed By: MUS Signed By Ariel Perry DO 1545 Normal [facility] Eosinophils Auto (Bld) [#/Vo l]Ordered By: Ariel Perry on 01-26-2022 Eosinophils (Bld) [#/Vol] 0.2 10*3/uL 0.0-0.45 [facility] Eosinophils/100 WBC Auto (Bl d)Ordered By: Ariel Perry on 01-26-2022 Eosinophils/100 WBC (Bld) 2.0 % . [facility] Erythrocyte distribution wid th Auto (RBC) [Ratio]Ordered By: Ariel Perry on 01-26-2022 Erythrocyte distribution width (RBC) [Ratio] 13.0 % 12.0-14.8 [facility] Estimated glomerular filtrat ion rate (GFR) non- AmericanOrdered By: Ariel Perry on 01-26-2022 GFR/1.73 sq M.predicted among non-blacks MDRD (S/P/Bld) [Vol rate/Area] > 60 mL/Min [facility] Glucose Glucometer (BldC) [M ass/Vol]Ordered By: Bonilla Hall on 01-26-2022 Glucose [Mass/Vol] 342 mg/dL [facility] Comment on above: Random Glucose Refer ence Range is dependent on time and content of last meal. Glucose of more than 200 mg/dL in a nonstressed, ambulatory subject supports the diagnosis of Diabetes Mellitus. Glucose Poct Glucometerson 0 01-26-2022 Glucose [Mass/Vol] 342 mg/dL Normal [facility] Comment on above: Result Comment: [place] om Glucose Reference Range is dependent on time and content of last meal. Glucose of more than 200 mg/dL in a nonstressed, ambulatory subject supports the diagnosis of Diabetes Mellitus. PERFORMED BY: [address] [place] [address] PATHOLOGIST PRODUCT ADVISOR ED FONSECA M.D. Performed By: #### G MANNY #### Point of Care testing , Hematocrit Auto (Bld) [Volum e fraction]Ordered By: Ariel Perry on 01-26-2022 Hematocrit (Bld) [Volume fraction] 44.3 % 38.8-50.0 [facility] - Chemistry and C hemistry - challengeOrdered By: Ariel Perry on 01-26-2022 Natriuretic peptide B (Bld) [Mass/Vol] pg/mL 5-100 [facility] Laboratory - CoagulationOrde red By: Ariel Perry on 01-26-2022 PT Coag (PPP) [Time] 9.3 s 9.0-12.9 [facility] Laboratory - Hematology and Cell countsOrdered By: Ariel Perry on 01-26-2022 Nucleated RBC/100 WBC (Bld) [Ratio] 0.0 % 0-0.5 [facility] - Microbiology an d Antimicrobial susceptibilityOrdered By: Ariel Perry on 01-26-2022 SARS-CoV-2 (COVID-19) RNA NIKKI+probe Ql (Unsp spec) N/A [facility] Lymphocytes Auto (Bld) [#/Vo l]Ordered By: Ariel Perry on 01-26-2022 Lymphocytes (Bld) [#/Vol] 2.6 10*3/uL 1.00-4.8 [facility] Lymphocytes/100 WBC Auto (Bl d)Ordered By: Ariel Perry on 01-26-2022 Lymphocytes/100 WBC (Bld) 34.4 % . [facility] MCH Auto (RBC) [Entitic mass ]Ordered By: Ariel Perry on 01-26-2022 MCH (RBC) [Entitic mass] 30.2 pg 27.5-35.2 [facility] MCHC Auto (RBC) [Mass/Vol]Or dered By: Ariel Perry on 01-26-2022 MCHC (RBC) [Mass/Vol] 33.4 g/dL 32.5-35.6 [facility] MCV Auto (RBC) [Entitic vol] Ordered By: Ariel Perry on 01-26-2022 MCV (RBC) [Entitic vol] 90.4 fL 83.5-101 [facility] Monocytes Auto (Bld) [#/Vol] Ordered By: Ariel Perry on 01-26-2022 Monocytes (Bld) [#/Vol] 0.5 10*3/uL 0.0-0.8 [facility] Monocytes/100 WBC Auto (Bld) Ordered By: Ariel Perry on 01-26-2022 Monocytes/100 WBC (Bld) 6.7 % . [facility] Neutrophils Auto (Bld) [#/Vo l]Ordered By: Ariel Perry on 01-26-2022 Neutrophils (Bld) [#/Vol] 4.2 10*3/uL 1.8-7.7 [facility] Neutrophils/100 WBC Auto (Bl d)Ordered By: Ariel Perry on 01-26-2022 Neutrophils/100 WBC (Bld) 56.2 % . [facility] No Panel InformationOrdered By: Ariel Perry on 01-26-2022 Estimated GFR () > 60 mL/Min [facility] Comment on above: GFR estimated refere nce range: According to KDOQI guidelines, <60 ml/min/1.73m2 is sufficient to diagnose a patient with chronic kidney disease. Pharmacy Creatinine Clearance (Chem 139.01 [facility] SARS Antigen (LFIA) [facility] Partial Thromboplastin Timeo n 01-26-2022 aPTT Coag (Bld) [Time] 29.9 s Normal 25.1-36.5 [facility] Comment on above: Result Comment: PERF ORMED BY: [place] [address] PATHOLOGIST PRODUCT ADVISOR ED FONSECA M.D. Performed By: #### P TT, CBC, BNP, BMP, CK, CKMB, HS TROP, PT #### [address] Platelet mean volume Auto (B ld) [Entitic vol]Ordered By: Ariel Perry on 01-26-2022 Platelet mean volume (Bld) [Entitic vol] 8.2 fL 6.6-10.1 [facility] Platelet poor plasma interna tional normalized ratio (INR) by coagulation assay (relatOrdered By: Ariel Perry on 01-26-2022 INR Coag (PPP) [Relative time] 0.8 {INR} [facility] Comment on above: INR Therapeutic Rang e [...] 01-26-2022 Platelets (Bld) [#/Vol] 358 10*3/uL 150-450 [facility] Prothrombin Time INRon 01-26 INR Coag (PPP) [Relative time] 0.8 {INR} Normal [facility] Comment on above: Result Comment: INR Therapeutic [...] BMP, CK, CKMB, HS TROP, PT #### [facility] [address] PT Coag (PPP) [Time] 9.3 s Normal 9.0-12.9 [facility] Comment on above: Performed By: #### P TT, CBC, BNP, BMP, CK, CKMB, HS TROP, PT #### [facility] [address] RBC Auto (Bld) [#/Vol]Ordere d By: Ariel Perry on 01-26-2022 RBC (Bld) [#/Vol] 4.90 10*6/uL 3.90-5.60 [facility] Serum or plasma calcium kelly urement (mass/volume)Ordered By: Ariel Perry on 01-26-2022 Calcium [Mass/Vol] 9.4 mg/dL 8.2-10.2 [facility] Serum or plasma chloride nancy surement (moles/volume)Ordered By: Ariel Perry on 01-26-2022 Chloride [Moles/Vol] 100 mmol/L 95-114 [facility] Serum or plasma creatine kin ase MB (CKMB)/total creatine kinase (CK) ratio by calculaOrdered By: Ariel Perry on 08-13-2022 CK.MB Calc [Catalytic fraction] 1.7 % 0.00-2.50 [facility] Serum or plasma creatine kin ase MB measurement (mass/volume)Ordered By: Ariel Perry on 01-26-2022 CK.MB [Mass/Vol] 1.9 ng/mL 0.6-6.3 [facility] Serum or plasma glucose kelly urement (mass/volume)Ordered By: Ariel Perry on 01-26-2022 Glucose [Mass/Vol] 287 mg/dL 70-100 [facility] Comment on above: ADA recommended refe rence range Random Glucose Reference Range is dependent on time and content of last meal. Glucose of more than 200 mg/dL in a nonstressed, ambulatory subject supports the diagnosis of Diabetes Mellitus. Serum or plasma potassium me asurement (moles/volume)Ordered By: Ariel Perry on 01-26-2022 Potassium [Moles/Vol] 4.0 mmol/L 3.5-5.1 [facility] Serum or plasma sodium measu rement (moles/volume)Ordered By: Ariel Perry on 01-26-2022 Sodium [Moles/Vol] 137 mmol/L 136-146 [facility] Serum or plasma total carbon dioxide measurement (moles/volume)Ordered By: Ariel Perry on 01-26-2022 CO2 [Moles/Vol] 25.9 mmol/L 22.0-30.0 [facility] Serum or plasma urea nitroge n measurement (mass/volume)Ordered By: Ariel Perry on 01-26-2022 Urea nitrogen [Mass/Vol] 13 mg/dL 9- [facility] [place] Ag Negativeon 01-27-20 22 [place] Ag Negative Negative Normal Negative [facility] Comment on above: Result Comment: This is a duplicate [place] SARS Antigen (VIKTOR) result to be used for statistical tracking purpose only. PERFORMED BY: [address] [address] PATHOLOGIST PRODUCT ADVISOR ED FONSECA M.D. Performed By: #### S CASPER FOX-19 ASTON #### [place] [id number] [place] Troponin I High Sensitivityo n 01-26-2022 Troponin I High Sensitivity 3 pg/mL Normal 0-20 [facility] Comment on above: Order Comment: PT GO ING TO 3T16 IN ER 1805 Result Comment: PERF ORMED BY: [place] [address] PATHOLOGIST PRODUCT ADVISOR ED FONSECA M.D. Performed By: #### H S TROP #### [facility] [address] [place] [address] Troponin I High Sensitivity 3 pg/mL Normal 0-20 [facility] Comment on above: Result Comment: PERF ORMED BY: [place] [address] PATHOLOGIST PRODUCT ADVISOR ED FONSECA M.D. Performed By: #### S OFIANEG, COVID-19 ASTON #### [facility] [address] [place] [address] Troponin I.cardiac [Mass/vol ume] in Serum or Plasma by High sensitivity methodOrdered By: Bonilla Hall on 01-26-2022 Troponin I.cardiac High sensitivity method [Mass/Vol] 3 pg/mL 0-20 [facility] XR chest 2V*on 01-26-2022 XR chest 2V* [facility] [place] [place] [address] XRay Report Signed Patient: Ariel Ruvalcaba MR#: [id number] : 1985 Acct:[id number] Age/Sex: 36 / M ADM Date: 01/26/22 Loc: ER Room: Type: [facility] ER Attending Dr: Copies to: Ariel Perry [...] Bernice Smith M.D.01/26/2022 2:20 PM Dictation Location: [place] [address] Transcribed By: [facility] 01/26/22 1420 Dictated By: Bernice Smith MD 01/26/22 1419 Signed By: 01/26/22 1420 [facility] COVID-19 ANTIGENon 2 EUA Statement SEE BELOW Normal [facility] Comment on above: Result Comment: This [...] sooner. Performed By: #### D ATCVAG #### [facility] [address] [place] [address] Dr. Kaylen Hall SARS-CoV-2 (COVID-19) RNA NIKKI+probe Ql (Unsp spec) Negative Normal NEGATIVE [facility] Comment on above: Result Comment: Nega tive results are presumptive. They do not preclude infection and should not be used as the sole basis for treatment decisions. Additional confirmatory testing by a molecular method should be considered. Performed By: #### D ATCVAG #### [facility] [address] [place] [address] Dr. Kaylen Hall [facility]on SARS-CoV-2 (COVID-19) RNA NIKKI+probe Ql (Unsp spec) Not detected Normal NOT DETECTED [facility] Comment on above: Result Comment: This test is not yet approved or cleared by the [place] FDA. When there are no FDA-approved or cleared tests available, and other criteria are met, FDA can make tests available under an emergency access mechanism called an Emergency Use Authorization (EUA). The EUA for this test is supported by the [employer] Analyst of Health and Human Service's (HHS's) declaration [...] consistent with SARS-CoV-2. Performed By: #### C [facility] #### [facility] [address] [place] [address] Dr. Kaylen Hall Vital Signs Date Time Vital Sign Value Performing Clinician Faci lity 01-26-2022 19:50-0400 Body temperature 97.9 [degF] MD Irish Maldonado Work Phone: [facility] 01-26-2022 19:50-0400 Diastolic blood pressure 85 mm[Hg] MD Irish Maldonado Work Phone: [facility] 01-26-2022 19:50-0400 Heart rate 90 /min MD Irish Maldonado Work Phone: [facility] 01-26-2022 19:50-0400 Respiratory rate 16 /min MD Irish Maldonado Work Phone: [facility] 01-26-2022 19:50-0400 SaO2% (BldA) [Mass fraction] 96 % MD Irish Maldonado Work Phone: [facility] 01-26-2022 19:50-0400 Systolic blood pressure 140 mm[Hg] MD Irish Maldonado Work Phone: [facility] 01-26-2022 18:43-0400 Body height 170.18 cm MD Irish Maldonado Work Phone: [facility] 01-26-2022 18:43-0400 Body weight 90.5 kg MD Irish Maldonado Work Phone: [facility] Encounters Encounter Date Encounter Type Care Provider Facility Start: 08-02-2022 End: 08-03-2022 Emergency department patient visit Irish Maldonado Facility:[facility] Start: 02-25-2022 End: 02-26-[address] IRISH MALDONADO Facility:[facility] Start: 02-07-2022 End: 02-08-[address] IRISH MALDONADO Facility:[facility] Start: 01-26-2022 End: 01-26-2022 ambulatory Irish Maldonado Facility:[facility] Start: 01-26-2022 End: 01-26-2022 Evaluation and management of inpatient MD Irish Maldonado Work Phone: [facility] [place] [facility] Start: 07-14-2021 End: 07-15-[address] IRISH MALDONADO Facility:[facility] Start: 05-18-2021 End: 05-18-[address] IRISH MALDONADO Facility:[facility] Procedures Date Procedure Procedure Detail Performing Clinician Start: 01-26-2022 Plain chest X-ray MD [place] Work Phone: SARS Antigen (LFIA) MD Tal Maldonado Work Phone: Plan of Treatment Date Care Activity Detail Author Start: 01-26-2022 Hospital admission [facility] Work Phone: Start: 01-26-2022 Referral to cook frozen dessert [facility] Work Phone: Patient referral [facility] Work Phone: Payers Date Payer Category Payer Self-pay [id number] 2022 Unknown [id number] 2019 Unknown [id number] 1985 Unknown [id number] 1985 Unknown [id number] 1984 Unknown [id number] 1960 Self-pay [id number] 1959 Unknown [id number] Medicaid [facility] [id number] Unknown [id number] Unknown [id number] Unknown [id number] Social History Date Type Detail Facility Start: 01-26-2022 Tobacco smoking stat RUSTIS Ex-smoker (finding) [facility] Start: 1985 Sex Assigned At Male [facility] Goals Date Patient Goal Desired Activity /State History and physical note 01-26-2022 Note Date & Type Note Facility 01-26-2022 History and physical note Note Date/Time January 26, 2022 4:27pm [facility] [address] [place] [address] Hospitalist H&P Signed Patient: Ariel Ruvalcaba MR#: [id number] : 1985 Acct:[id number] Age/Sex: 36 / M Adm Date: 2 Loc: ER Room: Type: [facility] ER Attending Dr: Copies to: MD Ariel [...] % (Auto) 34.4 % (.) 01/26/22 13:08 [place] % (Auto) 6.7 % (.) 01/26/22 13:08 Eos % (Auto) 2.0 % (.) 01/26/22 13:08 Baso % (Auto) 0.7 % (.) 01/26/22 13:08 Neut # (Auto) 4.2 x10E3/uL (1.8-7.7) 01/26/22 13:08 Lymph # (Auto) 2.6 x10E3/uL (1.00-4.8) 01/26/22 13:08 [place] # (Auto) 0.5 x10E3/uL (0.0-0.8) 01/26/22 13:08 [...] signed by Bonilla Hall MD> 01/26/22 1641 [facility] Work Phone: Evaluation note Note Date & Type Note Facility Evaluation note Diagnosis Onset Date Angina pectoris, unstable ac rhianna Chest pain acute Diabetes mellitus chronic [facility] Work Phone: History and physical note Note Date & Type Note Facility History and physical note Note Date/Time January 26, 2022 4:27pm [facility] [address] [place] [address] Hospitalist H&P Signed Patient: Ariel Ruvalcaba MR#: [id number] : 1985 Acct:[id number] Age/Sex: 36 / M Adm Date: 2 Loc: ER Room: Type: [facility] ER Attending Dr: Copies to: MD Ariel [...] % (Auto) 34.4 % (.) 01/26/22 13:08 [place] % (Auto) 6.7 % (.) 01/26/22 13:08 Eos % (Auto) 2.0 % (.) 01/26/22 13:08 Baso % (Auto) 0.7 % (.) 01/26/22 13:08 Neut # (Auto) 4.2 x10E3/uL (1.8-7.7) 01/26/22 13:08 Lymph # (Auto) 2.6 x10E3/uL (1.00-4.8) 01/26/22 13:08 [place] # (Auto) 0.5 x10E3/uL (0.0-0.8) 01/26/22 13:08 [...] signed by Bonilla Hall MD> 01/26/22 1641 [facility] Work Phone: Chief Complaint and [...] and content) DATE CREATED AUTHOR 03/16/2022 [facility] DATE CREATED AUTHOR AUTHOR'S ORGANIZ ATION 12/03/2022 [facility] FOR RECORDS PERTAINING TO PATIENTS [...] BE BASED ON THE PRIMARY CLINICAL RECORDS. [employer] provides no warranty or guarantee of the accuracy or completeness of information in this document.
--- NOTE | 2024-02-24 16:50 | ED.ABDPAIN1 ---
HPI - Abdominal Pain General Chief Complaint: Abdominal Pain Stated Complaint: Abdominal Pain Time Seen by Provider: 02/24/24 16:33 Source: patient and family Mode of arrival: walk-in Limitations: no limitations History of Present Illness HPI narrative: This patient is here complaining of abdominal pain. He started having it last week and actually saw his primary care doctor. He was scheduled to have a CT scan but did not get a chance to follow-up on that. Currently his bowel movements are not black or bloody. He took a stool softener yesterday and had a bowel movement today. He is not had any vomiting but he does have some nausea. Sometimes shortly after or even during meals he develops discomfort. He states that his mother had her gallbladder out. He has never had any previous diagnostic studies. His bowel movements are normal color and the stool is normal color. He is not fever. He has no history of peptic ulcer disease pancreatitis are all negative. He uses small amounts of alcohol. He has never had a colonoscopy or upper endoscopy or any previous surgery. Sometimes the pain radiates between his back area. He has no urinary symptoms such as frequency urgency or dysuria. The pain is not in the lower abdomen. Related Data Home Medications ?Medication ?Instructions ?Recorded ?Confirmed diclofenac sodium 75 mg mg PO 02/24/24 tablet,delayed release hydrochlorothiazide 25 mg tablet mg 02/24/24 insulin aspart U-100 100 unit/mL subcut 02/24/24 (3 mL) subcutaneous pen (Novolog FlexPen U-100 Insulin aspart) insulin glargine 100 unit/mL (3 unit subcut 02/24/24 mL) subcutaneous pen (Lantus Solostar U-100 Insulin) insulin lispro 100 unit/mL subcut 02/24/24 subcutaneous pen (Humalog KwikPen (U-100) Insulin) irbesartan 150 mg tablet mg 02/24/24 metformin 500 mg tablet mg 02/24/24 pantoprazole 40 mg tablet,delayed mg PO 02/24/24 release Allergies Allergy/AdvReac Type Severity Reaction Status Date / Time lisinopril AdvReac Mild Cough Verified 02/24/24 15:40 Exam Narrative Exam Narrative: 1 week pleasant states his pain at its worst is a 7 but is not quite that made bad at this time. HEENT shows no evidence of scleral icterus or jaundice or anemia. He is somewhat overweight. His bowel sounds shows mild tenderness in the epigastric to deep palpation and same in the right upper quadrant. There is no peritoneal findings noted. There is good bowel sounds noted. His extremities show no evidence of DVT phlebitis or edema. Heart and lung examination essentially normal. Constitutional Vital Signs, click to edit/add: Last Vital Signs Temp 98.1 F 02/24/24 15:42 Pulse 108 H 02/24/24 15:42 Resp 16 02/24/24 15:42 BP 156/97 H 02/24/24 15:42 Pulse Ox 97 02/24/24 15:42 O2 Del Method Room Air 02/24/24 15:42 Course Vital Signs Vital signs: Vital Signs Temperature 98.1 F 02/24/24 15:42 Pulse Rate 108 H 02/24/24 15:42 Respiratory Rate 16 02/24/24 15:42 Blood Pressure 156/97 H 02/24/24 15:42 Pulse Oximetry 97 02/24/24 15:42 Oxygen Delivery Method Room Air 02/24/24 15:42 Temperature 98.1 F 02/24/24 15:42 Pulse Rate 108 H 02/24/24 15:42 Respiratory Rate 16 02/24/24 15:42 Blood Pressure 156/97 H 02/24/24 15:42 Pulse Oximetry 97 02/24/24 15:42 Oxygen Delivery Method Room Air 02/24/24 15:42 MDM - Abdominal Pain MDM Narrative Medical decision making narrative: This patient had a salad at noon and the medical technician said that they should be out to get good studies. We want to get a right upper quadrant ultrasound and a CT scan. The cell phone repair technician tells me she does not see any inflammation or dilation on the ultrasound but did see multiple shadowing which is consistent with the CT study that shows stones. There is no elevation of the total bilirubin or lipase. His white count is normal. The family has a relationship with Dr. Marrufo the surgeon. They can speak with Dr. Maldonado for referral or call the surgeon directly for outpatient management. Dietary discretion was discussed in detail he will be given analgesics. He should return should he develop fever or worse pain Discharge Plan Discharge Chief Complaint: Abdominal Pain Clinical Impression: Cholelithiasis Patient Disposition: Home, Self-Care Time of Disposition Decision: 18:41 Prescriptions / Home Meds: No Action metformin 500 mg tablet pantoprazole 40 mg tablet,delayed release (DR/EC) PO diclofenac sodium 75 mg tablet,delayed release (DR/EC) PO hydrochlorothiazide 25 mg tablet irbesartan 150 mg tablet insulin lispro [Humalog KwikPen Insulin] 100 unit/mL insulin pen SUBCUT insulin aspart U-100 [Novolog FlexPen U-100 Insulin] 100 unit/mL (3 mL) insulin pen SUBCUT insulin glargine [Lantus Solostar U-100 Insulin] 100 unit/mL (3 mL) insulin pen SUBCUT Print Language: Hungarian Additional Instructions: Avoid fatty foods. Follow-up with surgery as discussed. [place] as needed for pain Referrals: Erick Maldonado MD [Primary Care Provider] - 1 week
--- NOTE | 2024-02-24 16:52 | CT_ITS ---
The [address] [address] Patient Name: ARIEL XIONG MRN: [id number] date: 1985 Sex: M Assigned Patient Location: ER Current Patient Location: ER Accession/Order Number: [id number] Exam Date: 02/24/2024 17:27 Report Date: 02/24/2024 18:13 At the request of: FRIDA LOPEZ Procedure: CT abdomen pelvis w con EXAM: CT abdomen pelvis w con HISTORY: Epigastric/right upper quadrant pain. Vomiting. Dizziness. COMPARISON: None. TECHNIQUE: Enhanced helical acquisition obtained through the abdomen and the pelvis. FINDINGS: The visualized lung bases and the pleural spaces are clear. Severe hepatic steatosis. Cholelithiasis. No significant biliary ductal dilatation. The spleen, pancreas, adrenal glands and the kidneys are unremarkable. No enlarged lymph nodes within the abdomen or the pelvis. Normal appendix. Moderate stool burden. No ascites or focal intraperitoneal fluid collections. CT/CT abdomen pelvis w con IMPRESSION: 1. Normal appendix. No inflammatory changes within the abdomen or the pelvis. 2. Cholelithiasis. No significant biliary ductal dilatation. 3. Severe hepatic steatosis. Electronically authenticated by: PARTICK ZHANG Date: 02/24/2024 18:13
--- NOTE | 2024-02-24 16:53 | US_ITS ---
The [address] [address] Patient Name: ARIEL XIONG MRN: [id number] date: 1985 Sex: M Assigned Patient Location: ED.MAIN Current Patient Location: Accession/Order Number: [id number] Exam Date: 02/24/2024 17:55 Report Date: 02/24/2024 19:27 At the request of: FRIDA LOPEZ Procedure: US right upper quadrant Ultrasound abdomen right upper quadrant HISTORY: Right upper quadrant pain COMPARISON: None. TECHNIQUE: Dedicated transabdominal right upper quadrant ultrasound was performed. FINDINGS: The gallbladder is nondistended and without focal wall abnormality. There are layering gallstones. Small amount of gallbladder sludge. The gallbladder wall measures 2 mm in thickness. No pericholecystic fluid is seen, and the sonographic Gasca's sign is negative. The proximal common bile duct measures 5 mm in diameter. There is no intrahepatic bile duct dilatation. Significant increased echogenicity and coarsened echotexture throughout the liver. Liver measures 18 cm. The pancreas is not well seen. The right kidney measures 11.8 x 6.7 x 6.5 cm. There is no hydronephrosis in the right kidney. There is no fluid in the right upper quadrant. US/US right upper quadrant IMPRESSION: 1. Cholelithiasis with small stones adnexa with sludge. No sonographic evidence of acute cholecystitis. 2. Borderline hepatomegaly with fatty infiltration of the liver. 3. Normal caliber common bile duct at 5 mm. 4. Right kidney without hydronephrosis. Electronically authenticated by: SAYRA SULLIVAN Date: 02/24/2024 19:27
[2024-02-24] MEDS: 0.9 % SODIUM CHLORIDE 1,000 ML 999 ML IV (17:19)
[2024-02-24 17:27] LABS: Basophils Percent Auto 0.3 % (0.2-2.0); Eosinophils Absolute Auto 0.3 10^3/uL (0.0-0.7); Eosinophils Percent Auto 3.1 % (0.9-7.0); Hematocrit 39.9 % (42.0-54.0); Hemoglobin 13.7 g/dL (14.0-18.0); Immature Granulocytes Abs Auto 0.04 10^3/uL (0.00-0.03); Immature Granulocytes Pct Auto 0.5 % (0.0-0.5); Lymphocytes Absolute Auto 2.4 10^3/uL (1.2-3.8); Lymphocytes Percent Auto 27.8 % (20.5-60.0); Mean Corpuscular HGB Conc 34.3 g/dL (29.9-35.2); Mean Corpuscular Hemoglobin 29.7 pg (25.9-34.0); Mean Corpuscular Volume 86.4 fL (80.0-94.0); Mean Platelet Volume 9.7 fL (9.5-13.5); Monocytes Absolute Auto 0.7 10^3/uL (0.3-0.8); Monocytes Percent Auto 7.8 % (1.7-12.0); Neutrophils Absolute Auto 5.3 10^3/uL (1.4-6.5); Neutrophils Percent Auto 60.5 % (43.0-75.0); Platelet Count 360 10^3/uL (150-450); Red Blood Count 4.62 10^6/uL (4.70-6.10); Red Cell Distribution Width 12.7 % (11.0-15.0); White Blood Count 8.7 10^3/uL (4.0-11.0)
[2024-02-24 17:52] LABS: Alanine Aminotransferase 75 U/L (16-63); Albumin Globulin Ratio 0.9; Albumin Level 3.1 g/dL (3.4-5.0); Alkaline Phosphatase 89 U/L (46-116); Anion Gap 11.9; Aspartate Amino Transferase 29 U/L (15-37); Bilirubin Total 0.3 mg/dL (0.2-1.0); Calcium 8.8 mg/dL (8.5-10.1); Carbon Dioxide 28.2 mmol/L (21.0-32.0); Chloride 99 mmol/L (98-107); Estimated GFR (African America >60 (>=60); Estimated GFR (Non-African Ame >60 (>=60); Globulin 3.5 g/dL; Glucose 198 mg/dL (74-106); Potassium 4.1 mmol/L (3.5-5.1); Sodium 135 mmol/L (136-145); Total Protein 6.6 g/dL (6.4-8.2)
[2024-02-24 18:58] VITALS: BP 157/84; PULSE 73; O2SAT 99
== END 2024-02-24 18:58 | disposition home or self-care (01) ==
PROVIDERS: Emergency Provider Emergency Medicine Emergency Medical Services; PCP Family Medicine
DX: K80.20 Calculus of gallbladder without cholecystitis without obstruction (principal)
CPT/HCPCS: 36415; 74177; 76705; 80053; 83690; 85025; 99285; Q9967

== ENCOUNTER 2024-03-02 15:24 | Emergency (ER) | payer MEDICAID, SELFPAY ==
[2024-03-02] VITALS (27 sets, daily range): BP systolic 103–145; BP diastolic 58–87; PULSE 100–147; TEMP 36.8; O2SAT 93–100; BMI 38.0
--- NOTE | 2024-03-02 15:48 | US_ITS ---
The [address] [address] Patient Name: ARIEL XIONG MRN: [id number] date: 1985 Sex: M Assigned Patient Location: ER Current Patient Location: Accession/Order Number: [id number] Exam Date: 03/02/2024 16:49 Report Date: 03/02/2024 19:21 At the request of: DENA CALVILLO Procedure: US right upper quadrant EXAM: US right upper quadrant HISTORY: 38 years old Male presenting with cholecystitis and vomiting. TECHNIQUE: Ultrasound of the right upper quadrant abdomen. COMPARISON: Prior quadrant ultrasound dated 02/24/2024. FINDINGS: Liver: There is severe diffuse hepatic steatosis. The contour the liver is within normal limits as is the size. No suspicious hepatic masses or intrahepatic ductal dilation is present. Gallbladder: Again noted is layering sludge in the gallbladder without stones, gallbladder wall thickening or pericholecystic fluid. The patient did not experience a positive sonographic Gasca's sign. Common bile duct: Normal in diameter, measuring 5.0 mm. Right kidney: Normal in size and echogenicity measuring 10.6 x 5.7 x 5.7 cm. No hydronephrosis or renal calculus. Miscellaneous:Pancreas is obscured from bowel gas interference. No free fluid is present in the right upper quadrant. US/US right upper quadrant IMPRESSION: 1. Similar layering sludge in the gallbladder without sonographic evidence of acute cholecystitis. 2. Similar severe diffuse hepatic steatosis. Electronically authenticated by: YAHIR WHYTE Date: 03/02/2024 19:21
--- NOTE | 2024-03-02 15:49 | ED_ITS ---
HPI - Abdominal Pain General Chief Complaint: Abdominal Pain Stated Complaint: vomiting Time Seen by Provider: 03/02/24 15:26 Source: patient Mode of arrival: walk-in Limitations: no limitations History of Present Illness HPI narrative: Patient is a 38-year-old male with a history of insulin-dependent diabetes who presents to the emergency department for a 1 day history of vomiting. He was seen in this emergency department 1 week ago related to abdominal pain, he had an ultrasound of the right upper quadrant and CT scan showing gallstones with no other acute process. He has an upcoming appointment next week with general surgery. He states he had 4 episodes of emesis this morning and his primary care office referred him to the emergency department for dehydration. He has had no objective fevers. He states his blood sugar this morning was 350. He has not had any diarrhea, he states he had 5 bowel movements today, however he has been constipated for the last 3 days. He reports diffuse pain in the epigastrium and bilateral upper quadrants of the abdomen, he states this has been ongoing pain for several weeks which prompted his visit last week. No flank or back pain. He denies any urinary symptoms. Related Data Home Medications ?Medication ?Instructions ?Recorded ?Confirmed diclofenac sodium 75 mg mg PO 02/24/24 tablet,delayed release hydrochlorothiazide 25 mg tablet mg 02/24/24 insulin aspart U-100 100 unit/mL subcut 02/24/24 (3 mL) subcutaneous pen (Novolog FlexPen U-100 Insulin aspart) insulin glargine 100 unit/mL (3 unit subcut 02/24/24 mL) subcutaneous pen (Lantus Solostar U-100 Insulin) insulin lispro 100 unit/mL subcut 02/24/24 subcutaneous pen (Humalog KwikPen (U-100) Insulin) irbesartan 150 mg tablet mg 02/24/24 metformin 500 mg tablet mg 02/24/24 pantoprazole 40 mg tablet,delayed mg PO 02/24/24 release Previous Rx's ?Medication ?Instructions ?Recorded dicyclomine 20 mg tablet 20 mg PO QID PRN abdominal pain 03/02/24 #12 tabs ondansetron 4 mg disintegrating 4 mg PO Q6H PRN nausea and 03/02/24 tablet vomiting #12 tabs ondansetron 4 mg disintegrating 4 mg PO Q6H PRN nausea and 03/02/24 tablet vomiting #12 tabs Allergies Allergy/AdvReac Type Severity Reaction Status Date / Time lisinopril AdvReac Mild Cough Verified 02/24/24 15:40 Review of Systems ROS Constitutional Denies: fever or chills Ears, nose, mouth, and throat Denies: throat pain or nasal congestion Respiratory Denies: shortness of breath Gastrointestinal Reports: abdominal pain, nausea and vomiting; Denies: diarrhea Musculoskeletal Denies: back pain Integumentary/Breast Denies: rash Hematologic/Lymphatic Denies: easy bruising or easy bleeding PFSH PFSH Social History Little interest or pleasure in doing things: not at all Feeling down, depressed, or hopeless: not at all Exam Narrative Exam Narrative: Gen.: Awake, alert, in no distress Head: Normocephalic, atraumatic ENT: Moist mucous membranes Respiratory: No respiratory distress, lungs clear bilaterally Cardio: Tachycardia Gastrointestinal: Abdomen is soft, nondistended and diffusely mild tenderness to palpation with no McBurney's tenderness, no guarding or rebound, no pain out of proportion on exam Extremities: Moves extremities equally Psych: Normal mood and affect Neuro: No focal neuro deficit Skin: Warm, dry, intact Constitutional Vital Signs, click to edit/add: Last Vital Signs Temp 98.2 F 03/02/24 15:31 Pulse 102 H 03/02/24 19:10 Resp 17 03/02/24 19:10 BP 134/83 03/02/24 19:00 Pulse Ox 98 03/02/24 19:10 O2 Del Method Room Air 03/02/24 15:31 Course Vital Signs Vital signs: Vital Signs Temperature 98.2 F 03/02/24 15:31 Pulse Rate 124 H 03/02/24 15:31 Respiratory Rate 18 03/02/24 15:31 Blood Pressure 135/82 03/02/24 15:31 Pulse Oximetry 98 03/02/24 15:31 Oxygen Delivery Method Room Air 03/02/24 15:31 Temperature 98.2 F 03/02/24 15:31 Pulse Rate 102 H 03/02/24 19:10 Respiratory Rate 17 03/02/24 19:10 Blood Pressure 134/83 03/02/24 19:00 Pulse Oximetry 98 03/02/24 19:10 Oxygen Delivery Method Room Air 03/02/24 15:31 MDM - Abdominal Pain MDM Narrative Medical decision making narrative: This patient was treated with IV fluids, 2 L. He was also given Zofran, Levsin, Pepcid. He had no episodes of emesis in the emergency department. Abdomen is soft and benign. Laboratory studies are stable although the patient has minimal leukocytosis today, no evidence of DKA. Repeat ultrasound of the right upper quadrant with stable gallbladder wall and common bile duct. I discussed the case with Dr. Marrufo who stated that the patient does not require any acute surgical intervention, however if the patient was unable to go home due to his symptoms that he could be seen as a surgical consult. This patient was reevaluated by Dr. Bradley who discussed admission versus outpatient management with the patient and his , the patient prefers to go home with outpatient management. He is discharged with Bentyl, Zofran, Pepcid. He has an appointment next week with general surgery and should follow closely with his [facility] care provider. Return to the ER if symptoms change or worsen. SHARED APC VISIT, PHYSICIAN ATTESTATION: [id number] I performed a substantive part of the MDM during the patient?s E/M visit. I personally evaluated and examined the patient. I personally made or approved the documented management plan and acknowledge its risk of complications. ? Medical Records Attestation: I reviewed the patient's medical records. Lab Data Attestation: I reviewed the patient's lab results. Labs: Lab Results 03/02/24 03/02/24 Range/Units 15:48 15:50 WBC 12.9 H (4.0-11.0) 10^3/uL RBC 5.19 (4.70-6.10) 10^6/uL Hgb 15.5 (14.0-18.0) g/dL Hct 44.5 (42.0-54.0) % MCV 85.7 (80.0-94.0) fL MCH 29.9 (25.9-34.0) pg MCHC 34.8 (29.9-35.2) g/dL RDW 12.6 (11.0-15.0) % Plt Count 379 (150-450) 10^3/uL MPV 9.9 (9.5-13.5) fL Neut % (Auto) 74.3 (43.0-75.0) % Lymph % (Auto) 15.6 L (20.5-60.0) % [place] % (Auto) 9.0 (1.7-12.0) % Eos % (Auto) 0.5 L (0.9-7.0) % Baso % (Auto) 0.3 (0.2-2.0) % Neut # (Auto) 9.6 H (1.4-6.5) 10^3/uL Lymph # (Auto) 2.0 (1.2-3.8) 10^3/uL [place] # (Auto) 1.2 H (0.3-0.8) 10^3/uL Eos # (Auto) 0.1 (0.0-0.7) 10^3/uL Baso # (Auto) 0.0 (0.0-0.1) 10^3/uL Abs Immat Gran (auto) 0.04 H (0.00-0.03) 10^3/uL Imm/Tot Granulo (auto) 0.3 (0.0-0.5) % VBG pH 7.420 (7.330-7.430) VBG pCO2 44.5 (40.0-52.0) mmHg Sodium 131 L (136-145) mmol/L Potassium 4.1 (3.5-5.1) mmol/L Chloride 96 L (98-107) mmol/L Carbon Dioxide 30.4 (21.0-32.0) mmol/L Anion Gap 8.7 BUN 25.0 H (7.0-18.0) mg/dL Creatinine 1.17 (0.70-1.30) mg/dL Est GFR ( Amer) >60 (>=60) Est GFR (Non-Af Amer) >60 (>=60) BUN/Creatinine Ratio 21.4 Glucose 155 H (74-106) mg/dL Lactate 1.2 (0.4-2.0) mmol/L Calcium 9.3 (8.5-10.1) mg/dL Total Bilirubin 1.0 (0.2-1.0) mg/dL AST 33 (15-37) U/L ALT 72 H (16-63) U/L Alkaline Phosphatase 97 (46-116) U/L Troponin I High Sens 7.0 (4.0-76.1) pg/mL Total Protein 7.5 (6.4-8.2) g/dL Albumin 3.5 (3.4-5.0) g/dL Globulin 4.0 g/dL Albumin/Globulin Ratio 0.9 Lipase 12.0 L (16.0-77.0) U/L Urine Color Yellow (YELLOW) Urine Clarity Clear (CLEAR) Urine pH 6.0 (5.0-9.0) Ur Specific [place] 1.015 (1.005-1.025) Urine Protein Trace (NEG/TRACE) mg/dL Urine Glucose (UA) 250 A (NEGATIVE) mg/dL Urine Ketones Trace A (NEGATIVE) mg/dL Urine Occult Blood Negative (NEGATIVE) Urine Nitrite Negative (NEGATIVE) Urine Bilirubin Negative (NEGATIVE) Urine Urobilinogen 1.0 (0.2-1.0) EU/dL Ur Leukocyte Esterase Negative (NEGATIVE) Acetone, Qual Negative (NEGATIVE) Imaging Data US - abdomen: Attestation: I have reviewed the pertinent imaging results. Radiologist's impression: ITS Impressions Upper Quadrant Ultrasound 03/02/24 15:48 IMPRESSION: 1. Similar layering sludge in the gallbladder without sonographic evidence of acute cholecystitis. 2. Similar severe diffuse hepatic steatosis. Electronically authenticated by: YAHIR WHYTE Date: 03/02/2024 19:21 ECG Data Attestation: I personally reviewed and interpreted this ECG as follows: (Sinus tachycardia at a rate of 117, no acute ST elevation or ectopy. EKG reviewed by attending physician) Discharge Plan Discharge Chief Complaint: Abdominal Pain Clinical Impression: Cholelithiasis, Abdominal pain, Nausea & vomiting Patient Disposition: Home, Self-Care Time of Disposition Decision: 18:59 Condition: Good Prescriptions / Home Meds: New dicyclomine 20 mg tablet 20 mg PO QID PRN (Reason: abdominal pain) Qty: 12 0RF ondansetron 4 mg tablet,disintegrating 4 mg PO Q6H PRN (Reason: nausea and vomiting) Qty: 12 0RF ondansetron 4 mg tablet,disintegrating 4 mg PO Q6H PRN (Reason: nausea and vomiting) Qty: 12 0RF No Action metformin 500 mg tablet pantoprazole 40 mg tablet,delayed release (DR/EC) PO diclofenac sodium 75 mg tablet,delayed release (DR/EC) PO hydrochlorothiazide 25 mg tablet irbesartan 150 mg tablet insulin lispro [Humalog KwikPen Insulin] 100 unit/mL insulin pen SUBCUT insulin aspart U-100 [Novolog FlexPen U-100 Insulin] 100 unit/mL (3 mL) insulin pen SUBCUT insulin glargine [Lantus Solostar U-100 Insulin] 100 unit/mL (3 mL) insulin pen SUBCUT Print Language: Martiniquais Instructions: Gallstones (ED), Acute Nausea and Vomiting (ED), Acute Abdominal Pain (ED) Referrals: Erick Maldonado MD [Primary Care Provider] - 1 week Judah Marrufo MD [Physician] - 1 week Discharge Date/Time: 03/02/24 19:16
--- NOTE | 2024-03-02 15:53 | ECG_ITS ---
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
[2024-03-02] MEDS: ONDANSETRON PF 4 MG/2 ML VIAL IV (15:57)
[2024-03-02] MEDS: HYOSCYAMINE SULFATE 0.125 MG TAB.SUBL SL (15:57)
[2024-03-02] MEDS: FAMOTIDINE/PF 20 MG/2 ML VIAL IV (15:57)
[2024-03-02] MEDS: 0.9 % SODIUM CHLORIDE 1,000 ML 1000 ML IV ×2 (15:57→18:09)
[2024-03-02 16:01] LABS: Basophils Percent Auto 0.3 % (0.2-2.0); Eosinophils Absolute Auto 0.1 10^3/uL (0.0-0.7); Eosinophils Percent Auto 0.5 % (0.9-7.0); Hematocrit 44.5 % (42.0-54.0); Hemoglobin 15.5 g/dL (14.0-18.0); Immature Granulocytes Abs Auto 0.04 10^3/uL (0.00-0.03); Immature Granulocytes Pct Auto 0.3 % (0.0-0.5); Lymphocytes Percent Auto 15.6 % (20.5-60.0); Mean Corpuscular HGB Conc 34.8 g/dL (29.9-35.2); Mean Corpuscular Hemoglobin 29.9 pg (25.9-34.0); Mean Corpuscular Volume 85.7 fL (80.0-94.0); Mean Platelet Volume 9.9 fL (9.5-13.5); Monocytes Absolute Auto 1.2 10^3/uL (0.3-0.8); Neutrophils Absolute Auto 9.6 10^3/uL (1.4-6.5); Neutrophils Percent Auto 74.3 % (43.0-75.0); Platelet Count 379 10^3/uL (150-450); Red Blood Count 5.19 10^6/uL (4.70-6.10); Red Cell Distribution Width 12.6 % (11.0-15.0); White Blood Count 12.9 10^3/uL (4.0-11.0)
[2024-03-02 16:02] LABS: PCO2 VBG 44.5 mmHg (40.0-52.0)
[2024-03-02 16:04] LABS: Bilirubin Urine NEGATIVE (NEGATIVE); Blood Urine NEGATIVE (NEGATIVE); Clarity Urine CLEAR (CLEAR); Color Urine YELLOW (YELLOW); Glucose Urine UA 250 mg/dL (NEGATIVE); Ketones Urine TRACE mg/dL (NEGATIVE); Leukocyte Esterase Urine NEGATIVE (NEGATIVE); Nitrite Urine NEGATIVE (NEGATIVE); Protein Urine TRACE mg/dL (NEG/TRACE); Specific Gravity Urine 1.015 (1.005-1.025)
[2024-03-02 16:05] LABS: Urine Microscopic Indicated NO
[2024-03-02 16:22] LABS: Acetone NEGATIVE (NEGATIVE)
[2024-03-02 16:24] LABS: Alanine Aminotransferase 72 U/L (16-63); Albumin Globulin Ratio 0.9; Albumin Level 3.5 g/dL (3.4-5.0); Alkaline Phosphatase 97 U/L (46-116); Anion Gap 8.7; Aspartate Amino Transferase 33 U/L (15-37); BUN Creatinine Ratio 21.4; Calcium 9.3 mg/dL (8.5-10.1); Carbon Dioxide 30.4 mmol/L (21.0-32.0); Chloride 96 mmol/L (98-107); Estimated GFR (African America >60 (>=60); Estimated GFR (Non-African Ame >60 (>=60); Glucose 155 mg/dL (74-106); Potassium 4.1 mmol/L (3.5-5.1); Sodium 131 mmol/L (136-145); Total Protein 7.5 g/dL (6.4-8.2)
[2024-03-02 16:26] LABS: Lactate/Lactic Acid 1.2 mmol/L (0.4-2.0)
== END 2024-03-02 19:16 | disposition home or self-care (01) ==
PROVIDERS: Physician Assistant; Emergency Provider Emergency Medicine; PCP Family Medicine
DX: R10.9 Unspecified abdominal pain (principal); R11.2 Nausea with vomiting, unspecified; K80.20 Calculus of gallbladder without cholecystitis without obstruction; E11.9 Type 2 diabetes mellitus without complications; Z79.4 Long term (current) use of insulin
CPT/HCPCS: 36415; 76705; 80053; 81003; 82009; 82800; 83605; 83690; 84484; 85025; 93005; 96361; 96374; 96375; 99285; J2405

== ENCOUNTER 2024-03-16 14:35 | Outpatient (OUT) | payer MEDICAID, SELFPAY ==
--- OUTSIDE RECORDS SUMMARY | 2024-03-16 14:41 | XMS_ITS | CCD ---
Author Organization [facility] Care Team Providers Care Mailhouse Operator Name Role Phone MD Irish Maldonado Primary Care Provider [phone] DO Ariel Perry Emergency Provider MD Bonilla Luke Admit Provider MD Bonilla Hall Attending Provider MD Charles Owen Other Provider MAURICIO, DR COBURN Primary Care Unavailable SUZANNEY, DR COBURN Admitting Unavailable HOY, DR COBURN [...] ble HOY, DR COBURN Primary Care Unavailable MAURICIO, DR COBURN Admitting Unavailable MAURICIO, DR COBURN Attending Unavailable MAURICIO, DR COBURN Consulting Unavailable Irish Maldonado Primary Care Physician Judah WHITAKER Attending Unavailable Irish Maldonado Referring Unavailable Ariel Perry Attending Unavailable Ariel Perry Admitting Unavailable Irish Maldonado Primary Care Unavailable Allergies Allergy Classification Reported Allergen(s) Allergy Type Date of Onset Reaction(s) Facility (2 sources) Lisinopril; Translations: [lisinopril] Drug Allergy Cough (finding) [facility] [place] Medications Current Medications Medication Drug Class(es) Dates [...] Daily at bedtime June 19, 2018 1:00am diclofenac sodium 75 mg delayed release oral tablet (1 source) Nonsteroidal Anti-inflammatory Drug Start: 03-03-2024 take 1 tablet by mouth twice daily diclofenac sodium 75 mg Oral EC Tab 75 mg = 1 tab(s), Oral, BID, Refills(s) 0 Start Date: 03/03/24 Status: Ordered duloxetine 60 mg Cap-DR (1 source) Start: 03-03-2024 take 1 capsule by mouth once daily duloxetine 60 mg Cap-DR = 1 cap(s), Oral, Daily, Refills(s) 0 Start Date: 03/03/24 Status: Ordered famotidine 40 mg oral tablet (1 source) Histamine-2 Receptor Antagonist Start: 03-03-2024 take 1 tablet by mouth once daily Pepcid 40 mg Tab 40 mg = 1 tab(s), Oral, Daily, Refills(s) 0 Start Date: 03/03/24 Status: Ordered insulin aspart, human 100 unt/ml injectable solution (3 sources) Insulin Analog Start: 03-03-2024 NovoLOG 100 units/mL injectable solution as directed, Refills(s) 0 Start Date: 03/03/24 Status: Ordered Start: 06-19-2018 Insulin Aspart U-100 Active 0 .ROUTE .COMPLEX June 19, 2018 1:00am SLIDING SCALE 3 ml insulin glargine 100 unt/ml pen injector (3 sources) Insulin Analog Start: 03-03-2024 Lantus Solosta r Pen 100 units/mL subcutaneous solution 36 unit(s), SubCutaneous, BID, Refills(s) 0 Start Date: 03/03/24 Status: Ordered Start: 06-19-2018 inject 45 [IU] by osman bcutaneous injection once daily at bedtime Insulin Glargine Active 45 UNIT SUBCUT Daily at bedtime June 19, 2018 1:00am irbesartan 150 mg oral tablet (1 source) Angiotensin 2 Receptor Kristin Start: 03-03-2024 take 1 tablet by mouth once daily irbesartan 150 mg Tab 150 mg = 1 tab(s), Oral, Daily, Refills(s) 0 Start Date: 03/03/24 Status: Ordered metFORMIN hydrochloride 500 mg oral tablet (1 source) Biguanide Start: 03-03-2024 take 1 tablet by mouth twice daily metformin 500 mg Tab 500 mg = 1 tab(s), Oral, BID, Refills(s) 0 Start Date: 03/03/24 Status: Ordered nitroglycerin 0.4 mg sublingual tablet (2 sources) Nitrate Vasodilator Start: 06-22-2018 Nitroglycerin Active 0.4 MG SUBLINGUAL Q5M June 22, 2018 1:00am ondansetron 4 mg disintegrating oral tablet (1 source) Serotonin-3 Receptor Antagonist Start: 03-03-2024 take 1 tablet by mouth every eight hours as needed for nausea ondansetron 4 mg Dis Tab 4 mg = 1 tab(s), Oral, q8hr, PRN Nausea/Vomiting, Refills(s) 0 Start Date: 03/03/24 Status: Ordered Completed/Discontinued Medications Medication Drug Class(es) Dates Sig [...] mouth every month Ergocalciferol (Vitamin D2) Discontinued 74730 UNIT PO As Directed June 20, 2018 [...] Active Problems Problem Classification Problem Date Documented Date Episodic/Chronic Anxiety disorders (1 source) Anxiety 03-03-2024 Chronic Biliary tract disease (2 sources) Cholelithiasis without obstruction; Translations: [Calculus of gallbladder without cholecystitis without obstruction] Onset: 03-09-2024 Episodic Cardiac dysrhythmias (2 sources) Tachyarrhythmia ; Translations: [Tachycardia, unspecified] Onset: 03-09-2024 Episodic Coronary atherosclerosis and other heart disease (6 sources) Preinfarction syndrome; Translations: [Unstable angina] 01-26-2022 Chronic Diabetes mellitus with complications (3 sources) Retinopathy due to diabetes mellitus; Translations: [Type 2 diabetes mellitus with unspecified diabetic retinopathy without macular edema] 06-20-2018 Chronic Diabetes mellitus without complication (7 sources) Latent autoimmune diabetes mellitus in adult; Translations: [Other specified diabetes mellitus without complications] 06-20-2018 Chronic Disorders of lipid metabolism (3 sources) Dyslipidemia; Translations: [Hyperlipidemia, unspecified] 06-20-2018 Chronic Esophageal disorders (3 sources) Gastroesophageal reflux disease without esophagitis; Translations: [Gastro-esophageal reflux disease without esophagitis] Onset: 03-09-2024 Chronic Essential hypertension (1 source) Hypertensive disorder 03-03-2024 Chronic Headache; including migraine (1 source) Migraine 03-03-2024 Chronic Mood disorders (3 sources) Depressive disorder; Translations: [Depressive disorder] 06-20-2018 Chronic Nausea and vomiting (2 sources) Nausea and vomiting; Translations: [Nausea with vomiting, unspecified] Onset: 03-09-2024 Episodic Nonspecific chest pain (12 sources) Chest pain; Translations: [Chest pain, unspecified] Onset: 02-07-2022 06-20-2018 Episodic Nutritional deficiencies (3 sources) Vitamin D deficiency; Translations: [Vitamin D deficiency, unspecified] 06-20-2018 Chronic Other liver diseases (1 source) Steatosis of liver 03-03-2024 Chronic Other lower respiratory disease (3 sources) Dyspnea; Translations: [Shortness of breath] Onset: 02-25-2022 06-20-2018 Episodic Other lower respiratory disease (3 sources) Shortness of breath; Translations: [SHORTNESS OF BREATH] Onset: 03-02-2022 Episodic Other nutritional; endocrine; and metabolic disorders (1 source) Body mass index 30+ - obesity 03-09-2024 Chronic Other nutritional; endocrine; and metabolic disorders (1 source) Obesity caused by energy imbalance 03-03-2024 Chronic Other screening for suspected conditions (not mental disorders or infectious disease) (1 source) Abnormal result of other cardiovascular function study; Translations: [ABNORM RESULT OT CV FUNCTION STUDY] Onset: 03-02-2022 Episodic Gisselle-; endo-; and myocarditis; cardiomyopathy (except that caused by tuberculosis or sexually transmitted disease) (2 sources) Cardiomyopathy; Translations: [Cardiomyopathy, unspecified] Onset: 03-09-2024 Chronic Residual codes; unclassified (2 sources) Tobacco user; Translations: [Tobacco use] 06-20-2018 Episodic Retinal detachments; defects; vascular occlusion; and retinopathy (1 source) 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 Unclassified (3 sources) CONTACT W/AND (SUSP) EXPOS COVID-19; Translations: [CONTACT W/AND (SUSP) EXPOS COVID-19] Onset: 07-19-2021 Past or Other Problems Problem Classification Problem Date Documented Da te Episodic/Chronic Abdominal pain (3 sources) Epigastric pain; Translations: [Epigastric pain] Onset: 08-02-2022 Episodic Other upper respiratory infections (1 source) Acute recurrent frontal sinusitis; Translations: [ACUTE RECURRENT FRONTAL SINUSITIS] Onset: 05-24-2021 Episodic Unclassified (1 source) CONTACT W/AND (SUSP) EXPOS COVID-19; Translations: [CONTACT W/AND (SUSP) EXPOS COVID-19] Onset: 07-14-2021 Results Test Name Value Interpretation Reference Range Facility Ambulatory Visit Summaryon 0 03-09-2024 Ambulatory Visit Summary Ambulatory Visi t Summary ARIEL RUVALCABA :1985 Visit Date:03/09/2024 Ambulatory Visit Instructions Your Care Team Attending Physician - JULIANNE MCARTHUR, Judah De La Fuente Primary Care Physician - Irish Maldonado MD Referring Physician - Irish Maldonado MD This Is Your Medications List Contact prescribing physician if questions or concerns diclofenac (diclofenac sodium 75 mg Oral EC Tab) duloxetine (duloxetine 60 mg Cap-DR) famotidine (Pepcid 40 mg Tab) insulin aspart (NovoLOG 100 units/mL injectable solution) insulin glargine (Lantus Solostar Pen 100 units/mL subcutaneous solution) irbesartan (irbesartan 150 mg Tab) metformin (metformin 500 mg Tab) ondansetron (ondansetron 4 mg Dis Tab) Procedures Performed Arthroscopy of knee, Cardiac catheterization, Eye surgery. Discharge Vitals Heart Rate (Peripheral) 120 Respiratory Rate 16 Blood Pressure 136/85 Height 175.2 cm Height 69 in Weight 100.6 kg Weight 221.32 lb BMI 32.77 Medications What How Much When Instructions Unchanged diclofenac (diclofenac sodium 75 mg Oral EC Tab) 1 Tablets By Mouth 2 times a day Contact prescribing physician if questions or concerns Unchanged duloxetine (duloxetine 60 mg Cap-DR) 1 Capsules By Mouth Every day Contact prescribing physician if questions or concerns Unchanged famotidine (Pepcid 40 mg Tab) 1 Tablets By Mouth Every day Contact prescribing physician if questions or concerns Unchanged insulin aspart (NovoLOG 100 units/ mL injectable solution) as directed Contact prescribing physician if questions or concerns Unchanged insulin glargine (Lantus Solostar Pen 100 units/ mL subcutaneous solution) 36 Units Subcutaneous 2 times a day Contact prescribing physician if questions or concerns Unchanged irbesartan (irbesartan 150 mg Tab) 1 Tablets By Mouth Every day Contact prescribing physician if questions or concerns Unchanged metformin (metformin 500 mg Tab) 1 Tablets By Mouth 2 times a day Contact prescribing physician if questions or concerns Unchanged ondansetron (ondansetron 4 mg Dis Tab) 1 Tablets By Mouth Every 8 hours as needed for Nausea/Vomiting Contact prescribing physician if questions or concerns Allergies lisinopril (Cough) Problems Ongoing - Any problem that you are currently receiving treatment for. Anxiety BMI 32.0-32.9,adult Cardiomyopathy Cholelithiasis Depressive disorder Dyslipidemia Fatty liver GERD (gastroesophageal reflux disease) Hypertension Macular edema Migraines Obesity due to excess calories Retinopathy due to diabetes mellitus Type 1 diabetes Vitamin D deficiency Patient Survey You may receive a survey via text or e-mail asking about your office visit. Please share your experience with us by completing your survey. We appreciate your feedback and thank you for choosing us for your care. Normal [facility] ECHOCARDIO M/2D COMPLETEon 0 02-25-2022 ECHOCARDIO M/2D COMPLETE Patient: ARIEL ALONZO Exam Date: 02/25/2022 : 1985 Gender:M Ordering : DR IRISH MALDONADO . Admission #: [id number] Family : Order #: [id number] CLICK HERE TO VIEW EXAM ECHOCARDIOGRAM REPORT [...] Rodgers M.D. on 02/26/2022 at 12:57 Normal [facility] NM STRESS/REST MULTIon 02-07 NM STRESS/REST MULTI Patient: ARIEL RUVALCABA Exam Date: 02/07/2022 : 1985 Gender:M Ordering : DR IRISH MALDONADO . Admission #: [id number] Family : Order #: [id number] CLICK HERE TO VIEW EXAM RADIOLOGY REPORT PROCEDURE: RADIONUCLIDE IMAGING STRESS/REST MULTI COMPARISON: [place] STRESS/REST MULTI, 06/18/2018. INDICATIONS: Chest pain TECHNIQUE: [...] M.D. on 02/08/2022 at 12:12 Normal [facility] Activated partial thrombopla stin time (aPTT) in platelet poor plasma by coagulation aOrdered By: Ariel Perry on 01-26-2022 aPTT Coag (PPP) [Time] 29.9 s 25.1-36.5 [facility] Basophils Auto (Bld) [#/Vol] Ordered By: Ariel Perry on 01-26-2022 Basophils (Bld) [#/Vol] 0.1 10*3/uL 0.0-0.2 [facility] Basophils/100 WBC Auto (Bld) Ordered By: Ariel Perry on 01-26-2022 Basophils/100 WBC (Bld) 0.7 % . [facility] Blood hemoglobin measurement (mass/volume)Ordered By: Ariel Perry on 01-26-2022 Hemoglobin (Bld) [Mass/Vol] 14.8 g/dL 13.0-17.0 [facility] Blood leukocytes automated c ount (number/volume)Ordered By: Ariel Perry on 01-26-2022 WBC (Bld) [#/Vol] 7.5 10*3/uL 4.5-11.[address] [facility] COVID-19 Positive/NegativeOr dered By: Ariel Perry on 01-26-2022 SARS-CoV-2 (COVID-19) N gene NIKKI+probe Ql (Resp) Negative Negative [facility] Comment on above: Testing for SARS-CoV -2 by RT-PCR This test was developed and its performance characteristics determined by [employer] ([employer]) and validated at the [facility]. This test has not been FDA [...] or revoked sooner. COVID-19 SOFIAOrdered By: Kelli Perry on 01-26-2022 SARS-CoV+SARS-CoV-2 (COVID-19) Ag IA.rapid Ql (Resp) Negative Negative [facility] Comment on above: This is a duplicate Shirley SARS Antigen (VIKTOR) result to be used for statistical tracking purpose only. Creatine kinase [Enzymatic a ctivity/volume] in Serum or PlasmaOrdered By: Ariel Perry on 01-26-2022 CK [Catalytic activity/Vol] 108 U/L 22-269 [facility] Creatinine and Glomerular fi ltration rate.predicted panel (S/P/Bld)Ordered By: Ariel Perry on 01-26-2022 Creatinine [Mass/Vol] 0.81 mg/dL 0.64-1.27 [facility] Eosinophils Auto (Bld) [#/Vo l]Ordered By: Ariel Perry on 01-26-2022 Eosinophils (Bld) [#/Vol] 0.2 10*3/uL 0.0-0.45 [facility] Eosinophils/100 WBC Auto (Bl d)Ordered By: Ariel Perry on 01-26-2022 Eosinophils/100 WBC (Bld) 2.0 % . [facility] Erythrocyte distribution wid th Auto (RBC) [Ratio]Ordered By: Ariel Perry on 01-26-2022 Erythrocyte distribution width (RBC) [Ratio] 13.0 % 12.0-14.8 [facility] Estimated glomerular filtrat ion rate (GFR) non- AmericanOrdered By: Ariel Perry on 01-26-2022 GFR/1.73 sq M.predicted among non-blacks MDRD (S/P/Bld) [Vol rate/Area] > 60 mL/Min [facility] Glucose Glucometer (BldC) [M ass/Vol]Ordered By: Bonilla Hall on 01-26-2022 Glucose [Mass/Vol] 342 mg/dL [facility] Comment on above: Random Glucose Refer ence Range is dependent on time and content of last meal. Glucose of more than 200 mg/dL in a nonstressed, ambulatory subject supports the diagnosis of Diabetes Mellitus. Hematocrit Auto (Bld) [Volum e fraction]Ordered By: Ariel Perry on 01-26-2022 Hematocrit (Bld) [Volume fraction] 44.3 % 38.8-50.0 [facility] - Chemistry and C hemistry - challengeOrdered By: Ariel Perry on 01-26-2022 Natriuretic peptide B (Bld) [Mass/Vol] pg/mL 5-100 [facility] - CoagulationOrde red By: Ariel Perry on 01-26-2022 PT Coag (PPP) [Time] 9.3 s 9.0-12.9 [facility] - Hematology and Cell countsOrdered By: Ariel Perry on 01-26-2022 Nucleated RBC/100 WBC (Bld) [Ratio] 0.0 % 0-0.5 [facility] - Microbiology an d Antimicrobial susceptibilityOrdered By: Ariel Perry on 01-26-2022 SARS-CoV-2 (COVID-19) RNA NIKKI+probe Ql (Unsp spec) N/A [facility] Lymphocytes Auto (Bld) [#/Vo l]Ordered By: Ariel Perry on 01-26-2022 Lymphocytes (Bld) [#/Vol] 2.6 10*3/uL 1.00-4.8 [facility] Lymphocytes/100 WBC Auto (Bl d)Ordered By: Ariel Perry on 01-26-2022 Lymphocytes/100 WBC (Bld) 34.4 % . [facility] MCH Auto (RBC) [Entitic mass ]Ordered By: Ariel Perry on 01-26-2022 MCH (RBC) [Entitic mass] 30.2 pg 27.5-35.2 [facility] MCHC Auto (RBC) [Mass/Vol]Or dered By: Ariel Perry on 01-26-2022 MCHC (RBC) [Mass/Vol] 33.4 g/dL 32.5-35.6 [facility] MCV Auto (RBC) [Entitic vol] Ordered By: Ariel Perry on 01-26-2022 MCV (RBC) [Entitic vol] 90.4 fL 83.5-101 [facility] Monocytes Auto (Bld) [#/Vol] Ordered By: Ariel Perry on 01-26-2022 Monocytes (Bld) [#/Vol] 0.5 10*3/uL 0.0-0.8 [facility] Monocytes/100 WBC Auto (Bld) Ordered By: Ariel Perry on 01-26-2022 Monocytes/100 WBC (Bld) 6.7 % . [facility] Neutrophils Auto (Bld) [#/Vo l]Ordered By: Ariel Perry on 01-26-2022 Neutrophils (Bld) [#/Vol] 4.2 10*3/uL 1.8-7.7 [facility] Neutrophils/100 WBC Auto (Bl d)Ordered By: Ariel Perry on 01-26-2022 Neutrophils/100 WBC (Bld) 56.2 % . [facility] No Panel InformationOrdered By: Ariel Perry on 01-26-2022 Estimated GFR () > 60 mL/Min [facility] Comment on above: GFR estimated refere nce range: According to KDOQI guidelines, <60 ml/min/1.73m2 is sufficient to diagnose a patient with chronic kidney disease. Pharmacy Creatinine Clearance (Chem 139.01 [facility] SARS Antigen (LFIA) [facility] Platelet mean volume Auto (B ld) [Entitic vol]Ordered By: Ariel Perry on 01-26-2022 Platelet mean volume (Bld) [Entitic vol] 8.2 fL 6.6-10.1 [facility] Platelet poor plasma interna tional normalized ratio (INR) by coagulation assay (relatOrdered By: Ariel Perry on 01-26-2022 INR Coag (PPP) [Relative time] 0.8 {INR} [facility] Comment on above: INR Therapeutic Rang [...] 01-26-2022 Platelets (Bld) [#/Vol] 358 10*3/uL 150-450 [facility] RBC Auto (Bld) [#/Vol]Ordere d By: Ariel Perry on 01-26-2022 RBC (Bld) [#/Vol] 4.90 10*6/uL 3.90-5.60 [facility] Serum or plasma calcium kelly urement (mass/volume)Ordered By: Ariel Perry on 01-26-2022 Calcium [Mass/Vol] 9.4 mg/dL 8.2-10.[address] [facility] Serum or plasma chloride nancy surement (moles/volume)Ordered By: Ariel Perry on 01-26-2022 Chloride [Moles/Vol] 100 mmol/L 95-114 [facility] Serum or plasma creatine kin ase MB (CKMB)/total creatine kinase (CK) ratio by calculaOrdered By: Ariel Perry on 01-26-2022 CK.MB Calc [Catalytic fraction] 1.7 % 0.00-2.50 [facility] Serum or plasma creatine kin ase MB measurement (mass/volume)Ordered By: Ariel ePrry on 01-26-2022 CK.MB [Mass/Vol] 1.9 ng/mL 0.6-6.3 [facility] Serum or plasma glucose kelly urement (mass/volume)Ordered By: Ariel Perry on 01-26-2022 Glucose [Mass/Vol] 287 mg/dL 70-[address] [facility] Comment on above: ADA recommended refe rence range Random Glucose Reference Range is dependent on time and content of last meal. Glucose of more than 200 mg/dL in a nonstressed, ambulatory subject supports the diagnosis of Diabetes Mellitus. Serum or plasma potassium me asurement (moles/volume)Ordered By: Ariel Perry on 01-26-2022 Potassium [Moles/Vol] 4.0 mmol/L 3.5-5.1 [facility] Serum or plasma sodium measu rement (moles/volume)Ordered By: Ariel Perry on 01-26-2022 Sodium [Moles/Vol] 137 mmol/L 136-[address] [facility] Serum or plasma total carbon dioxide measurement (moles/volume)Ordered By: Ariel Perry on 01-26-2022 CO2 [Moles/Vol] 25.9 mmol/L 22.0-30.0 [facility] Serum or plasma urea nitroge n measurement (mass/volume)Ordered By: Ariel Perry on 01-26-2022 Urea nitrogen [Mass/Vol] 13 mg/dL 9-23 [facility] Troponin I.cardiac [Mass/vol ume] in Serum or Plasma by High sensitivity methodOrdered By: Bonilla Hall on 01-26-2022 Troponin I.cardiac High sensitivity method [Mass/Vol] 3 pg/mL 0-20 [facility] COVID-19 ANTIGENon 2 EUA Statement SEE BELOW Normal [facility] Comment on above: Result Comment: This [...] sooner. Performed By: #### D ATCVAG #### [facility] [address] [place] [id number] Kaylen Hall SARS-CoV-2 (COVID-19) RNA NIKKI+probe Ql (Unsp spec) Negative Normal NEGATIVE [facility] Comment on above: Result Comment: Nega tive results are presumptive. They do not preclude infection and should not be used as the sole basis for treatment decisions. Additional confirmatory testing by a molecular method should be considered. Performed By: #### D ATCVAG #### [facility] [address] [place], [place] [address] Dr. Kaylen Hall Covid-19 PCR (CVDTB)on SARS-CoV-2 (COVID-19) RNA NIKKI+probe Ql (Unsp spec) Not detected Normal NOT DETECTED [facility] Comment on above: Result Comment: This test is not yet approved or cleared by the [place] FDA. When there are no FDA-approved or cleared tests available, and other criteria are met, FDA can make tests available under an emergency access mechanism called an Emergency Use Authorization (EUA). The EUA for this test is supported by the [place] of Health and Human Service's (HHS's) declaration [...] consistent with SARS-CoV-2. Performed By: #### C VDTBH #### [facility] [address] [place] [id number] Kaylen Hall Vital Signs Date Time Vital Sign Value Performing Clinician Rosalinda corral 03-09-2024 08:55-0400 Blood Pressure Location Judah GREGORYDesiree [facility] [place] 03-09-2024 08:55-0400 Diastolic blood pressure 85 mm[Hg] Judah NILL [facility] [place] 03-09-2024 08:55-0400 Heart rate 120 /min Judah NILL [facility] [place] 03-09-2024 08:55-0400 Respiratory rate 16 /min Judah NILL [facility] [place] 03-09-2024 08:55-0400 Systolic blood pressure 136 mm[Hg] Judah NILL [facility] [place] 01-26-2022 19:50-0400 Body temperature 97.9 [degF] MD Irish Maldonado Work Phone: [facility] 01-26-2022 19:50-0400 Diastolic blood pressure 85 mm[Hg] MD Irish Maldonado Work Phone: [facility] 01-26-2022 19:50-0400 Heart rate 90 /min MD Irish Maldonado Work Phone: [facility] 01-26-2022 19:50-0400 Respiratory rate 16 /min MD Irish Maldonado Work Phone: [facility] 01-26-2022 19:50-0400 SaO2% (BldA) [Mass fraction] 96 % MD Irish Maldonado Work Phone: [facility] 01-26-2022 19:50-0400 Systolic blood pressure 140 mm[Hg] MD Irish Maldonado Work Phone: [facility] 01-26-2022 18:43-0400 Body height 170.18 cm MD Irish Maldonado Work Phone: [facility] 01-26-2022 18:43-0400 Body weight 90.5 kg MD Irish Maldonado Work Phone: [facility] Encounters Encounter Date Encounter Type Care Provider Facility Start: 03-09-2024 End: 03-09-2024 ambulatory Judah De La Fuente BRIDesiree Facility:[facility] Start: 03-09-2024 End: 03-09-2024 Patient encounter procedure Judah De La Fuente JULIANNE [facility] [place] Start: 03-02-2024 ambulatory Judah JULIANNE Facility:[facility] Start: 02-27-2024 ambulatory Judah JULIANNE Facility:[facility] Start: 08-02-2022 End: 08-03-2022 Emergency department patient visit Ariel Mehreen Perry Facility:[facility] Start: 02-25-2022 End: 02-26-[address] IRISH MALDONADO Facility: Start: 02-07-2022 End: 02-08-[address] IRISH MALDONADO Facility:[facility] Start: 01-26-2022 End: 01-26-2022 Evaluation and management of inpatient MD Irish Maldonado Work Phone: [facility] [place] [facility] Start: 07-14-2021 End: 07-15-[address] IRISH MALDONADO Facility:[facility] Start: 05-18-2021 End: 05-18-[address] IRISH MALDONADO Facility: Procedures Date Procedure Procedure Detail Performing Clinician Start: 01-26-2022 Plain chest X-ray MD [place] Work Phone: Arthroscopy of knee Judah WHITAKER Cardiac catheterization Russ WHITAKER Ophthalmic surgery (qualifier value) Judah WHITAKER SARS Antigen (LFIA) MD Tal Maldonado Work Phone: Plan of Treatment Date Care Activity Detail Author Start: 01-26-2022 Hospital admission [facility] Work Phone: Start: 01-26-2022 Referral to skein yarn dyer [facility] Work Phone: Patient referral [facility] Work Phone: Payers Date Payer Category Payer Medicaid [id number] 2022 Self-pay [id number] 2019 Unknown [id number] 1985 Unknown [id number] 2.16.84 [id number] 1985 Unknown [id number] 2.16.84 [id number] 1985 Unknown [id number] 2.16.84 [id number] 1985 Unknown [id number] 2.16.8 [id number] 1960 Self-pay [id number] 1960 Unknown [id number] Unknown [place] [employer]/[place] [id number] Unknown [id number] 2.16.84 [id number] Unknown [id number] 2.16.8 [id number] Social History Date Type Detail Facility Start: 01-26-2022 End: 03-09-2024 Tobacco smoking status NHIS Ex-smoker (finding) [facility] Start: 1985 Sex Assigned At Male [facility] Tobacco smoking status Former sm okeless tobacco user, quit more than 30 days ago [facility] [place] Sex Assigned At Male [facility] Goals Date Patient Goal Desired Activity /State Functional Status Date Assessment Result Facility 03-09-2024 Functional Status N/A [facility] [place] Evaluation + Plan note 03-09-2024 Radiology Note Date & Type Note Facility 03-09-2024 Evaluation + Plan note Future Scheduled TestsMRI Cholangiogram Pancreatography (mrcp) 03/09/24 [facility] [place] Clinical Note 03-09-2024 Note Date & Type Note Facility 03-09-2024 Note General Surgery Offi ce/Clinic Note Chief Complaint consultation for abdominal pain, N/V HPI Staff 38 year old male presents on consultation from Dr. Maldonado for epigastric pain, nausea and vomiting. Reports 2 month history of generalized abdominal pain with intermittent nausea and vomiting as well as bloating. Reports symptoms are primarily postprandial. Denies bowel changes. Denies rectal pain or bleeding. Presented to [facility] 02/23 with complaint of ABD pain. RUQ US with cholelithiasis. CT ABD/pelvis with cholelithiasis and hepatic steatosis. Patient is taking Pepcid. Tried Protonix and Carafate without relief. History of Present Illness 38 yo male with h/o type I DM, htn, hyperlipidemia, GERD, cardiomyopathy, depression/anxiety, migraines, referred for upper abd pain; patient reports 2 month h/o intermittent epigastric pain, bloating, nausea, worse with eating, can occur at time of eating, any foods; seen in ED 02/24/24, abd/pelvic ct scan negative for acute problems, normal labs; RUQ US with sludge/small stones, fatty liver; back to ED 03/02/24 due to frequent nausea and vomiting; US unchanged, labs wnl; emesis now improved, no fevers, no h/o jaundice or pancreatitis; no wt loss; pain improved with lying down; also some intermittent lower abd pain; started on Duloxetine 3 weeks ago; no abd operations, no previous EGD; on Diclofenac daily, no asa; no tobacco or marijuana use; no fmhx of GI malignancy or IBD. Review of Systems PHQ Score Initial Depression Screen Score: 0 SCORE ROS - Provider Constitutional: no fever, no sweats, no weight loss. Eyes: no glasses, no blurred vision, no visual loss. ENMT: no dentures, no hoarseness, no swallowing difficulties, no hearing loss, no ear infection(s), no nose bleeds. Cardiovascular: normal blood pressure, no chest pain, regular heartbeat, no heart murmur. Respiratory: no shortness of breath, no cough, no asthma, no wheezing. Gastrointestinal: no nausea, no vomiting, no diarrhea, no constipation, no blood in stool, no change in bowel habits, no abdominal pain, no hepatitis. Genitourinary: no kidney stones, no urine infection, no dysuria. Musculoskeletal: no pain, no weakness. Skin: no changing moles, no rash, no skin lumps. Neurologic: no seizures, no epilepsy, no headache. Psychiatric: no emotional or psychiatric problem. Heme/Lymph: no bleeding problems, no anemia, no blood clots, no transfusions. Allergy/Immunologic: no swollen lymph nodes/glands, no IV drug abuse. Other: Additional ROS info: Except as noted in the above Review of Systems and in the History of Present Illness, all other systems have been reviewed and are negative or noncontributory. Physical Exam Vitals & Measurements HR: 120(Peripheral) RR: 16 BP: 136/85 HT: 69 in HT: 175.2 cm WT: 100.6 kg WT: 221.32 lb BMI: 32.77 HEENT: normal conjunctiva, sclera clear, no scleral icterus, EOM intact, PERRLA, oral mucosa moist without lesions. Neck: trachea midline, no mass, symmetric, no thyromegaly or nodules, no adenopathy Respiratory: lungs CTA, respirations non labored. Cardiovascular: regular rate and rhythm, no murmur, no pedal edema or varicosities. Gastrointestinal: obese, soft, non distended, mild tenderness, epigastrium and mid abd, no peritoneal signs no masses, no palpable hernias, diastasis recti no, no hepatosplenomegaly; normal bs Lymphatic: no cervical adenopathy, no supraclavicular adenopathy. Musculoskeletal: normal gait, digits and nails without infection, nodes, cyanosis, clubbing. Skin: no rashes, no lesions, no ulcers, no subcutaneous nodules, induration. Psychiatric/Neuro: oriented to time, place, person, judgement normal, affect appropriate for age, insight intact, no focal deficits. Tests: labs reviewed, x-rays reviewed, review of old records completed , Discussed surgical options, risks, and possible complications with patient. Assessment/Plan 1. Epigastric pain (R10.13: Epigastric pain) plan EGD under anesthesia for further evaluation, recommend low fat diet; will need cardiac evaluation prior to anesthesia due to h/o cardiomyopathy and long standing tachycardia; obtain MRCP to evaluate for choledocholithiasis, further evaluate gallbladder; will call patient with results; call sooner if problems/questions. Ordered: MRI Cholangiogram Pancreatography (mrcp) 2. Nausea and vomiting in adult (R11.2: Nausea with vomiting, unspecified) see # 1 Ordered: MRI Cholangiogram Pancreatography (mrcp) 3. Chronic GERD (K21.9: Gastro-esophageal reflux disease without esophagitis) see # 1 Ordered: MRI Cholangiogram Pancreatography (mrcp) 4. Cholelithiasis (K80.20: Calculus of gallbladder without cholecystitis without obstruction) see # 1 Ordered: MRI Cholangiogram Pancreatography (mrcp) 5. Cardiomyopathy (I42.9: Cardiomyopathy, unspecified) cardiology evaluation Ordered: [facility] External Ambulatory Referral 6. Tachycardia (R00.0: Tachycardia, unspecified) cardiology eval (more content not included)... [facility] Comment on above: Result Comment: Elec tronically Signed By: JULIANNE MCARTHUR, Judah De La Fuente\.jammie\Date and Time Signed: 03/09/24 09:44 EDT History and physical note 01-26-2022 Note Date & Type Note Facility 01-26-2022 History and physical note Note Date/Time January 26, 2022 4:27pm [facility] [address] [place] [address] Hospitalist H&P Signed Patient: Ariel Ruvalcaba MR#: [id number] : 1985 Acct:[id number] Age/Sex: 36 / M Adm Date: 2 Loc: ER Room: Type: [facility] ER Attending Dr: Copies to: MD [...] % (Auto) 34.4 % (.) 01/26/22 13:08 Norton % (Auto) 6.7 % (.) 01/26/22 13:08 Eos % (Auto) 2.0 % (.) 01/26/22 13:08 Baso % (Auto) 0.7 % (.) 01/26/22 13:08 Neut # (Auto) 4.2 x10E3/uL (1.8-7.7) 01/26/22 13:08 Lymph # (Auto) 2.6 x10E3/uL (1.00-4.8) 01/26/22 13:08 Norton # (Auto) 0.5 x10E3/uL (0.0-0.8) 01/26/22 13:08 [...] signed by Bonilla Hall MD> 01/26/22 1641 [facility] Work Phone: Evaluation note Note Date & Type Note Facility Evaluation note Diagnosis Onset Date Angina pectoris, unstable ac rhianna Chest pain acute Diabetes mellitus chronic [facility] Work Phone: History and physical note Note Date & Type Note Facility History and physical note Note Date/Time January 26, 2022 4:27pm [facility] [address] [place] [address] Hospitalist H&P Signed Patient: Ariel Ruvalcaba MR#: [id number] : 1985 Acct:[id number] Age/Sex: 36 / M Adm Date: 2 Loc: ER Room: Type: [facility] ER Attending Dr: Copies to: MD [...] % (Auto) 34.4 % (.) 01/26/22 13:08 Norton % (Auto) 6.7 % (.) 01/26/22 13:08 Eos % (Auto) 2.0 % (.) 01/26/22 13:08 Baso % (Auto) 0.7 % (.) 01/26/22 13:08 Neut # (Auto) 4.2 x10E3/uL (1.8-7.7) 01/26/22 13:08 Lymph # (Auto) 2.6 x10E3/uL (1.00-4.8) 01/26/22 13:08 Norton # (Auto) 0.5 x10E3/uL (0.0-0.8) 01/26/22 13:08 [...] scale coverage. Also add PPI Documented By: Bonlila Hall MD 01/26/22 1626 Signed By: <Electronically signed by Bonilla Hall MD> 01/26/22 1641 [facility] Work Phone: Hospital course Narrative Note Date & Type Note Facility Hospital course Narrative No data available for this section [facility] [place] [facility] Discharge instructions Note Date & Type Note Facility Hospital Discharge instructions No data available for this section [facility] [place] Progress note Note Date & Type Note Facility Progress note No data available for this section [facility] [place] Reason for referral (narrative) Note Date & Type Note Facility Reason for referral (narrative) Referred by: JULIANNE MCARTHUR, Judah De La Fuente [facility] [place] Chief Complaint and Reason for Visit Chief [...] content) No Status Records FoundNo Status Records FoundNo Status Records Found INFORMATION SOURCE (unrecogn ized section and content) DATE CREATED AUTHOR 03/16/2022 [facility] DATE CREATED AUTHOR AUTHOR'S ORGANIZ ATION 03/11/2024 [facility] DATE CREATED AUTHOR AUTHOR'S ORGANIZ ATION 03/13/2024 [facility] FOR RECORDS PERTAINING TO PATIENTS WHO ARE [...] BE BASED ON THE PRIMARY CLINICAL RECORDS. [employer] provides no warranty or guarantee of the accuracy or completeness of information in this document.
== END 2024-03-16 14:36 | disposition home or self-care (01) ==
LOC: PST 14:36
PROVIDERS: PCP Family Medicine; Visit Provider Surgery
DX: Z01.818 Encounter for other preprocedural examination (principal); K21.9 Gastro-esophageal reflux disease without esophagitis; R11.10 Vomiting, unspecified; R10.13 Epigastric pain

== ENCOUNTER 2024-04-14 08:51 | Outpatient (OUT) | payer MEDICAID, SELFPAY ==
--- NOTE | 2024-04-14 | NM_ITS ---
Patient Name: ARIEL XIONG MR#: [id number] : 1985 Exam Date: 04/14/2024 Ordering Doctor: TREMAINE ROUSE M.D. RADIOLOGY REPORT PROCEDURE: NM JUAN PERF SPECT REST STR COMPARISON: None. INDICATIONS: Chest pain, atherosclerotic heart disease TECHNIQUE: Exam Description: Stress/Rest one day protocol gated SPECT Rest Imagin.5 mCi Tc-99m Cardiolite IV on 04/14/2024 Stress Imaging 31.5 mCi Tc-99m Cardiolite IV on 04/14/2024 Exercise Protocol: 0.4 mg Lexiscan given IV Heart Rate (bpm): Rest: 115 Max: 134 PMHR: 74 Blood Pressure: Rest: 132/78 Max: 132/78 Symptoms: Rest and peak stress ECG findings were pending and the exercise portion of the study was pending per attending physician Dr. PEDERSON . For more details please see separate cardiac stress test report. FINDINGS: QUALITY OF STUDY: Good. PERFUSION DEFECT: None. LOCATION: N/A SIZE: N/A. SEVERITY: N/A. TYPE: N/A. WALL MOTION: Normal. LV SIZE: Normal. 65 mL. TID / TCD: None; 1.1 LVEF: Normal. Calculated EF 58%. SUMMARY: Myocardial perfusion imaging study is NORMAL. CONCLUSION: 1. Normal myocardial perfusion scan 2. Pending exercise test results Dictated by: Aníbal Coyle MD on 04/15/2024 at 12:57 Approved by: Aníbal Coyle MD on 04/15/2024 at 13:01
--- NOTE | 2024-04-14 | PCN_ITS ---
CARDIAC STRESS TEST Requesting Physician: Candis Guzmán M.D. Procedure Date: 04/14/2024 LEXISCAN STRESS TEST INDICATION FOR THE TEST: Chest pain. Patient?s resting heart rate 115 beats per minute. Resting blood pressure 132/78 mm/Hg. Patient received 0.4 mg of IV Lexiscan injection. His vital signs and EKG were monitored. Patient did not report any symptoms. Max heart rate 134 beats per minute, representing 74% of age predicted maximum heart rate. Peak blood pressure 132/78 mm/Hg. Resting EKG showed sinus tachycardia, heart rate 113 beats per minute, right axis deviation, no significant T or ST changes. EKG during and after Lexiscan injection did not show significant ST changes. No specific T-wave abnormalities were noted. No arrhythmia. CONCLUSION: 1. Negative Lexiscan EKG stress test for ischemia. 2. The nuclear perfusion images results will be reported separately by Radiology. [facility]
--- OUTSIDE RECORDS SUMMARY | 2024-04-14 09:12 | XMS_ITS | CCD ---
Author Organization [facility] Care Team Providers Care Document 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 Name Role Phone MD Irish Maldonado Primary Care Provider [phone] DO Ariel Perry Emergency Provider MD Bonilla Luke Admit Provider MD Bonilla Hall Attending Provider MD Charles Owen Other Provider MAURICIO, DR COBURN Primary Care Unavailable SUZANNEY, DR COBURN Admitting Unavailable HOY, DR COBURN Attending Unavailable HOY, DR COBURN Consulting Unavailable HOY, DR COBURN Consulting Unavailable SUZANNEY, DR COBURN Primary Care Unavailable HOY, DR [...] Admitting Unavailable Irish Maldonado Primary Care Unavailable TREMAINE ROUSE Attending Unavailable Irish Maldonado MD Primary Care Provider [phone] Allergies Allergy Classification Reported Allergen(s) Allergy Type Date of Onset Reaction(s) Facility (4 sources) Lisinopril; Translations: [lisinopril] Drug Allergy 4 Cough (finding) [facility] [place] (2 sources) Lisinopril Propensity to adverse reactions Cough [facility] Medications Current Medications Medication Drug Class(es) Dates Sig (Normalized) Sig (Original) aspirin 81 mg chewable tablet (4 sources) Platelet Aggregation Inhibitor, Nonsteroidal Anti-inflammatory Drug Start: 03-15-2024 End: 03-15-2025 aspirin 81 MG chewable tablet Chew 81 mg 03/15/2024 03/15/2025 Active Start: 06-19-2018 take 325 mg by mouth once brett y Aspirin Active 325 MG PO Daily June 19, 2018 1:00am diclofenac sodium 75 mg delayed release oral tablet (5 sources) Nonsteroidal Anti-inflammatory Drug Start: 02-18-2024 End: 04-06-2024 take 1 tablet by mouth twice daily diclofenac sodium 75 mg Oral EC Tab 75 mg = 1 tab(s), Oral, BID, Refills(s) 0 Start Date: 03/03/24 Status: Ordered DULoxetine 60 mg delayed release oral capsule (2 sources) Serotonin and Norepinephrine Reuptake Inhibitor take 2 capsules by mouth once daily DULoxetine (Cymbalta) [address] capsule Take 120 mg by mouth Daily Active duloxetine 60 mg Cap-DR (2 sources) Start: 03-03-2024 take 1 capsule by mouth once daily duloxetine 60 mg Cap-DR = 1 cap(s), Oral, Daily, Refills(s) 0 Start Date: 03/03/24 Status: Ordered famotidine 40 mg oral tablet (4 sources) Histamine-2 Receptor Antagonist Start: 03-03-2024 take 1 tablet by mouth once daily Pepcid 40 mg Tab 40 mg = 1 tab(s), Oral, Daily, Refills(s) 0 Start Date: 03/03/24 Status: Ordered gabapentin 100 mg oral capsule (2 sources) Anti-epileptic Agent Start: 04-06-2024 End: 04-06-2025 take 1 capsule by mouth in the morning, then take 1 capsule by mouth in the evening, then take 1 capsule by mouth at bedtime gabapentin (Neurontin) 100 MG capsule Indications: Polyneuropathy Take 1 capsule (100 mg) by mouth in the morning and 1 capsule (100 mg) in the evening and 1 capsule (100 mg) before bedtime. 30 capsule 2 04/06/2024 04/06/2025 Active hydroCHLOROthiazide 25 mg oral tablet (2 sources) Thiazide Diuretic take 1 tablet by mouth in the morning hydroCHLOROthiazide (HYDRODiuril) 25 MG tablet Take 25 mg by mouth in the morning. Active insulin aspart, human 100 unt/ml injectable solution (7 sources) Insulin Analog Start: 03-03-2024 NovoLOG 100 units/mL injectable solution as directed, Refills(s) 0 Start Date: 03/03/24 Status: Ordered Start: 02-09-2024 NovoLOG FlexPe n ReliOn 100 UNIT/ML pen INJECT 15 UNITS SUBCUTANEOUSLY 4 TIMES DAILY, 1 UNIT PER 15 CARBS PLUS 1 UNIT FOR EVERY 50 OVER 150. MAX DAILY USE OF 120 UNITS PER DAY 02/09/2024 Active Start: 06-19-2018 Insulin Aspart U-100 Active 0 .ROUTE .COMPLEX June 19, 2018 1:00am SLIDING SCALE 3 ml insulin glargine 100 unt/ml pen injector (7 sources) Insulin Analog Start: 03-03-2024 Lantus Solosta r Pen 100 units/mL subcutaneous solution 36 unit(s), SubCutaneous, BID, Refills(s) 0 Start Date: 03/03/24 Status: Ordered Start: 02-25-2023 Lantus SoloSta r 100 UNIT/ML pen every 12 (twelve) hours 02/25/2023 Active Start: 06-19-2018 inject 45 [IU] by osman bcutaneous injection once daily at bedtime Insulin Glargine Active 45 UNIT SUBCUT Daily at bedtime June 19, 2018 1:00am irbesartan 150 mg oral tablet (5 sources) Angiotensin 2 Receptor Kristin Start: 02-08-2024 take 1 tablet by mouth once daily irbesartan 150 mg Tab 150 mg = 1 tab(s), Oral, Daily, Refills(s) 0 Start Date: 03/03/24 Status: Ordered metFORMIN hydrochloride 500 mg oral tablet (5 sources) Biguanide Start: 01-28-2024 take 1 tablet by mouth twice daily metformin 500 mg Tab 500 mg = 1 tab(s), Oral, BID, Refills(s) 0 Start Date: 03/03/24 Status: Ordered 24 hr metoprolol succinate 50 mg extended release oral tablet (2 sources) beta-Adrenergic Kristin Start: 03-15-2024 End: 03-15-2025 take 1 tablet by mouth every twenty-four hours metoprolol succinate XL (Toprol-XL) 50 MG 24 hr tablet Take 50 mg by mouth 03/15/2024 03/15/2025 Active nitroglycerin 0.4 mg sublingual tablet (2 sources) Nitrate Vasodilator Start: 06-22-2018 Nitroglycerin Active 0.4 MG SUBLINGUAL Q5M June 22, 2018 1:00am ondansetron 4 mg disintegrating oral tablet (2 sources) Serotonin-3 Receptor Antagonist Start: 03-03-2024 take 1 tablet by mouth every eight hours as needed for nausea ondansetron 4 mg Dis Tab 4 mg = 1 tab(s), Oral, q8hr, PRN Nausea/Vomiting, Refills(s) 0 Start Date: 03/03/24 Status: Ordered pantoprazole 40 mg delayed release oral tablet (3 sources) Proton Pump Inhibitor Start: 02-09-2024 take 1 tablet by mouth once daily pantoprazole (ProtoNix) 40 MG EC tablet TAKE 1 TABLET BY MOUTH ONCE DAILY FOR 30 DAYS 02/09/2024 Active rosuvastatin calcium 20 mg oral tablet (2 sources) HMG-CoA Reductase Inhibitor Start: 03-15-2024 End: 03-15-2025 take 1 tablet by mouth at bedtime rosuvastatin (Crestor) 20 MG tablet Take 20 mg by mouth at bedtime 03/15/2024 03/15/2025 Active Completed/Discontinued Medications Medication Drug Class(es) Dates Sig (Normalized) Sig (Original) amitriptyline hydrochloride 50 mg oral tablet (3 sources) Tricyclic Antidepressant Start: 08-04-2023 End: 04-06-2024 take 1 tablet by mouth at bedtime amitriptyline (Elavil) 50 MG tablet Take 50 mg by mouth at bedtime 08/04/2023 04/06/2024 Discontinued (Therapy completed) atorvastatin 20 mg oral tablet (2 sources) HMG-CoA Reductase Inhibitor Start: 06-22-2018 End: 06-17-2019 take 20 mg by mouth once daily in the evening Atorvastatin Discontinued 20 MG PO Every evening June 22, 2018 1:00am June 17, 2019 1:07am citalopram 20 mg oral tablet (5 sources) Serotonin Reuptake Inhibitor Start: 12-06-2023 End: 04-06-2024 take 1 tablet by mouth once daily citalopram (CeleXA) 20 MG tablet Take 20 mg by mouth Daily 12/06/2023 04/06/2024 Discontinued (Therapy completed) Start: 06-19-2018 take 1 tablet by lew th once daily at bedtime Citalopram (Celexa) 20 mg tablet Active 20 MG PO Daily at bedtime June 19, 2018 1:00am ergocalciferol 1.25 mg oral capsule (2 sources) Provitamin D2 Compound Start: 06-20-2018 End: 01-26-2022 take 1 capsule by mouth every week, then take 1 capsule by mouth every month Ergocalciferol (Vitamin D2) Discontinued [id number] UNIT PO As Directed June 20, 2018 1:00am January 26, 2022 1:04pm take one cap every week for 8 weeks, then one cap every months after that. hyoscyamine sulfate 0.125 mg oral tablet (3 sources) Start: 06-18-2023 End: 04-06-2024 hyoscyamine (Anaspaz,Levsin) 0.125 MG tablet TAKE 1 TABLET BY MOUTH NEEDED BEFORE MEAL(S) AND AT BEDTIME 06/18/2023 04/06/2024 Discontinued (Therapy completed) lisinopril 5 mg oral tablet (2 sources) [...] Problem Classification Problem Date Documented Date Episodic/Chronic Abdominal pain (4 sources) Epigastric pain; Translations: [Epigastric pain] Onset: 08-02-2022 Episodic Anxiety disorders (2 sources) Anxiety 03-03-2024 Chronic Biliary tract disease (3 sources) Cholelithiasis without obstruction; Translations: [Calculus of gallbladder without cholecystitis without obstruction] Onset: 03-09-2024 Episodic Cardiac dysrhythmias (5 sources) Tachyarrhythmia ; Translations: [Tachycardia, unspecified] Onset: 03-09-2024 Episodic Coronary atherosclerosis and other heart disease (8 sources) Preinfarction syndrome; Translations: [Unstable angina] Onset: 03-15-2024 01-26-2022 Chronic Diabetes mellitus with complications (4 sources) Retinopathy due to diabetes mellitus; Translations: [Type 2 diabetes mellitus with unspecified diabetic retinopathy without macular edema] 06-20-2018 Chronic Diabetes mellitus without complication (8 sources) Latent autoimmune diabetes mellitus in adult; Translations: [Other specified diabetes mellitus without complications] 06-20-2018 Chronic Disorders of lipid metabolism (4 sources) Dyslipidemia; Translations: [Hyperlipidemia, unspecified] 06-20-2018 Chronic Esophageal disorders (5 sources) Gastroesophageal reflux disease without esophagitis; Translations: [Gastro-esophageal reflux disease without esophagitis] Onset: 03-09-2024 Chronic Essential hypertension (2 sources) Hypertensive disorder 03-03-2024 Chronic Headache; including migraine (2 sources) Migraine 03-03-2024 Chronic Mood disorders (4 sources) Depressive disorder; Translations: [Depressive disorder] 06-20-2018 Chronic Nausea and vomiting (3 sources) Nausea and vomiting; Translations: [Nausea with vomiting, unspecified] Onset: 03-09-2024 Episodic Nonspecific chest pain (14 sources) Chest pain; Translations: [Chest pain, unspecified] Onset: 02-07-2022 06-20-2018 Episodic Nutritional deficiencies (4 sources) Vitamin D deficiency; Translations: [Vitamin D deficiency, unspecified] 06-20-2018 Chronic Other connective tissue disease (5 sources) Other symptoms and signs involving the musculoskeletal system; Translations: [Other musculoskeletal symptoms referable to limbs] Onset: 02-24-2024 02-24-2024 Episodic Other liver diseases (2 sources) Steatosis of liver 03-03-2024 Chronic Other lower respiratory disease (3 sources) Dyspnea; Translations: [Shortness of breath] Onset: 02-25-2022 06-20-2018 Episodic Other lower respiratory disease (3 sources) Shortness of breath; Translations: [SHORTNESS OF BREATH] Onset: 03-02-2022 Episodic Other nervous system disorders (2 sources) Polyneuropathy; Translations: [Polyneuropathy, unspecified] 04-06-2024 Chronic Other nervous system disorders (3 sources) Numbness; Translations: [Anesthesia of skin] Onset: 02-24-2024 02-24-2024 Episodic Other nervous system disorders (2 sources) Paresthesia; Translations: [Paresthesia of skin] 04-06-2024 Episodic Other nutritional; endocrine; and metabolic disorders (2 sources) Body mass index 30+ - obesity 03-09-2024 Chronic Other nutritional; endocrine; and metabolic disorders (2 sources) Obesity caused by energy imbalance 03-03-2024 Chronic Other screening for suspected conditions (not mental disorders or infectious disease) (1 source) Abnormal result of other cardiovascular function study; Translations: [ABNORM RESULT OT CV FUNCTION STUDY] Onset: 03-02-2022 Episodic Gisselle-; endo-; and myocarditis; cardiomyopathy (except that caused by tuberculosis or sexually transmitted disease) (3 sources) Cardiomyopathy; Translations: [Cardiomyopathy, unspecified] Onset: 03-09-2024 Chronic Residual codes; unclassified (2 sources) Tobacco user; Translations: [Tobacco use] 06-20-2018 Episodic Retinal detachments; defects; vascular occlusion; and retinopathy (2 sources) 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 Spondylosis; intervertebral disc disorders; other back problems (2 sources) Lumbosacral radiculopathy; Translations: [Radiculopathy, lumbosacral region] 04-06-2024 Episodic Unclassified (3 sources) CONTACT W/AND (SUSP) EXPOS COVID-19; Translations: [CONTACT W/AND (SUSP) EXPOS COVID-19] Onset: 07-19-2021 Past or Other Problems Problem Classification Problem Date Documented Da te Episodic/Chronic Other upper respiratory infections (1 source) Acute recurrent frontal sinusitis; Translations: [ACUTE RECURRENT FRONTAL SINUSITIS] Onset: 05-24-2021 Episodic Unclassified (1 source) CONTACT W/AND (SUSP) EXPOS COVID-19; Translations: [CONTACT W/AND (SUSP) EXPOS COVID-19] Onset: 07-14-2021 Results Test Name Value Interpretation Reference Range Facility Office Visiton 03-15-2024 Follow-up visit [id number] Ariel Ruvalcaba 1985 M Date Provider Department Center 03/15/2024 [id number]-TREMAINE ROUSE [facility] Family History Problem Relation Age of Onset No Known Problems Mother No Known Problems Father Family Status - Relation Status Age at Mother Father Level of Service:88874 [place] OFFICE/OUTPATIENT NEW MODERATE MDM 45 MINUTES Normal [facility] Ambulatory Visit Summaryon 0 03-09-2024 Ambulatory Visit [...] for choosing us for your care. Normal [facility] ECHOCARDIO M/2D COMPLETEon 0 02-25-2022 ECHOCARDIO M/2D COMPLETE Patient: ARIEL ALONZO Exam Date: 02/25/2022 : 1985 Gender:M Ordering : DR IRISH MALDONADO . Admission #: [id number] Family : Order #: [id number] CLICK HERE TO VIEW EXAM ECHOCARDIOGRAM REPORT [...] on 02/26/2022 at 12:53 Approved by: Pablito Rodgesr M.D. on 02/26/2022 at 12:57 Normal [facility] STRESS/REST MULTIon 02-07 NM STRESS/REST MULTI Patient: ARIEL RUVALCABA Exam Date: 02/07/2022 : 1985 Gender:M Ordering : DR IRISH MALDONADO . Admission #: [id number] Family : Order #: [id number] CLICK HERE TO VIEW EXAM RADIOLOGY REPORT PROCEDURE: RADIONUCLIDE IMAGING STRESS/REST MULTI COMPARISON: NM STRESS/REST MULTI, 06/18/2018. INDICATIONS: Chest pain TECHNIQUE: [...] M.D. on 02/08/2022 at 12:12 Normal [facility] Activated partial thrombopla stin time (aPTT) in platelet poor plasma by coagulation aOrdered By: Airel Perry on 01-26-2022 aPTT Coag (PPP) [Time] 29.9 s 25.1-36.5 [facility] Basophils Auto (Bld) [#/Vol] Ordered By: Ariel Perry on 01-26-2022 Basophils (Bld) [#/Vol] 0.1 10*3/uL 0.0-0.2 [facility] Basophils/100 WBC Auto (Bld) Ordered By: Ariel Perry on 01-26-2022 Basophils/100 WBC (Bld) 0.7 % . [facility] Blood hemoglobin measurement (mass/volume)Ordered By: Ariel Perry on 01-26-2022 Hemoglobin (Bld) [Mass/Vol] 14.8 g/dL 13.0-17.0 [facility] Blood leukocytes automated c ount (number/volume)Ordered By: Ariel Perry on 01-26-2022 WBC (Bld) [#/Vol] 7.5 10*3/uL 4.5-11.0 [facility] COVID-19 Positive/NegativeOr dered By: Ariel Perry on 01-26-2022 SARS-CoV-2 (COVID-19) N gene NIKKI+probe Ql (Resp) Negative Negative [facility] Comment on above: Testing for SARS-CoV -2 by RT-PCR This test was developed and its performance characteristics determined by [employer] ([employer]) and validated at the [facility]. This test has not been FDA [...] (COVID-19) Ag IA.rapid Ql (Resp) Negative Negative [facility] Comment on above: This is a duplicate Shirley SARS Antigen (VIKTOR) result to be used for statistical tracking purpose only. Creatine kinase [Enzymatic a ctivity/volume] in Serum or PlasmaOrdered By: Ariel Perry on 01-26-2022 CK [Catalytic activity/Vol] 108 U/L 22-269 [facility] Creatinine and Glomerular fi ltration rate.predicted panel (S/P/Bld)Ordered By: Ariel Perry on 01-26-2022 Creatinine [Mass/Vol] 0.81 mg/dL 0.64-1.27 [facility] Eosinophils Auto (Bld) [#/Vo l]Ordered By: Ariel Perry on 01-26-2022 Eosinophils (Bld) [#/Vol] 0.2 10*3/uL 0.0-0.45 [facility] Eosinophils/100 WBC Auto (Bl d)Ordered By: Ariel Perry on 01-26-2022 Eosinophils/100 WBC (Bld) 2.0 % . [facility] Erythrocyte distribution wid th Auto (RBC) [Ratio]Ordered By: Ariel Perry on 01-26-2022 Erythrocyte distribution width (RBC) [Ratio] 13.0 % 12.0-14.8 [facility] Estimated glomerular filtrat ion rate (GFR) non- AmericanOrdered By: Ariel Perry on 01-26-2022 GFR/1.73 sq M.predicted among non-blacks MDRD (S/P/Bld) [Vol rate/Area] > 60 mL/Min [facility] Glucose Glucometer (BldC) [M ass/Vol]Ordered By: Bonilla Hall on 01-26-2022 Glucose [Mass/Vol] 342 mg/dL [facility] Comment on above: Random Glucose Refer ence Range is dependent on time and content of last meal. Glucose of more than 200 mg/dL in a nonstressed, ambulatory subject supports the diagnosis of Diabetes Mellitus. Hematocrit Auto (Bld) [Volum e fraction]Ordered By: Ariel Perry on 01-26-2022 Hematocrit (Bld) [Volume fraction] 44.3 % 38.8-50.0 [facility] - Chemistry and C hemistry - challengeOrdered By: Ariel Perry on 01-26-2022 Natriuretic peptide B (Bld) [Mass/Vol] pg/mL 5-100 [facility] - CoagulationOrde red By: Ariel Perry on 01-26-2022 PT Coag (PPP) [Time] 9.3 s 9.0-12.9 [facility] - Hematology and Cell countsOrdered By: Ariel Perry on 01-26-2022 Nucleated RBC/100 WBC (Bld) [Ratio] 0.0 % 0-0.5 [facility] - Microbiology an d Antimicrobial susceptibilityOrdered By: Ariel Perry on 01-26-2022 SARS-CoV-2 (COVID-19) RNA NIKKI+probe Ql (Unsp spec) N/A [facility] Lymphocytes Auto (Bld) [#/Vo l]Ordered By: Ariel Perry on 01-26-2022 Lymphocytes (Bld) [#/Vol] 2.6 10*3/uL 1.00-4.8 [facility] Lymphocytes/100 WBC Auto (Bl d)Ordered By: Ariel Perry on 01-26-2022 Lymphocytes/100 WBC (Bld) 34.4 % . [facility] MCH Auto (RBC) [Entitic mass ]Ordered By: Ariel Perry on 01-26-2022 MCH (RBC) [Entitic mass] 30.2 pg 27.5-35.2 [facility] MCHC Auto (RBC) [Mass/Vol]Or dered By: Ariel Perry on 01-26-2022 MCHC (RBC) [Mass/Vol] 33.4 g/dL 32.5-35.[address] [facility] MCV Auto (RBC) [Entitic vol] Ordered By: Ariel Perry on 01-26-2022 MCV (RBC) [Entitic vol] 90.4 fL 83.5-101 [facility] Monocytes Auto (Bld) [#/Vol] Ordered By: Ariel Perry on 01-26-2022 Monocytes (Bld) [#/Vol] 0.5 10*3/uL 0.0-0.8 [facility] Monocytes/100 WBC Auto (Bld) Ordered By: Ariel Perry on 01-26-2022 Monocytes/100 WBC (Bld) 6.7 % . [facility] Neutrophils Auto (Bld) [#/Vo l]Ordered By: Ariel Perry on 01-26-2022 Neutrophils (Bld) [#/Vol] 4.2 10*3/uL 1.8-7.7 [facility] Neutrophils/100 WBC Auto (Bl d)Ordered By: Ariel Perry on 01-26-2022 Neutrophils/100 WBC (Bld) 56.2 % . [facility] No Panel InformationOrdered By: Ariel Perry on 01-26-2022 Estimated GFR () > 60 mL/Min [facility] Comment on above: GFR estimated refere nce range: According to KDOQI guidelines, <60 ml/min/1.73m2 is sufficient to diagnose a patient with chronic kidney disease. Pharmacy Creatinine Clearance (Chem 139.01 [facility] SARS Antigen (LFIA) [facility] Platelet mean volume Auto (B ld) [Entitic vol]Ordered By: Ariel Perry on 01-26-2022 Platelet mean volume (Bld) [Entitic vol] 8.2 fL 6.6-10.1 [facility] Platelet poor plasma interna tional normalized ratio (INR) by coagulation assay (relatOrdered By: Ariel Perry on 01-26-2022 INR Coag (PPP) [Relative time] 0.8 {INR} [facility] Comment on above: INR Therapeutic Rang [...] 01-26-2022 Platelets (Bld) [#/Vol] 358 10*3/uL 150-450 [facility] RBC Auto (Bld) [#/Vol]Ordere d By: Ariel Perry on 01-26-2022 RBC (Bld) [#/Vol] 4.90 10*6/uL 3.90-5.60 [facility] Serum or plasma calcium kelly urement (mass/volume)Ordered By: Ariel Perry on 01-26-2022 Calcium [Mass/Vol] 9.4 mg/dL 8.2-10.2 [facility] Serum or plasma chloride nancy surement (moles/volume)Ordered By: Ariel Perry on 01-26-2022 Chloride [Moles/Vol] 100 mmol/L 95-114 [facility] Serum or plasma creatine kin ase MB (CKMB)/total creatine kinase (CK) ratio by calculaOrdered By: Ariel Perry on 01-26-2022 CK.MB Calc [Catalytic fraction] 1.7 % 0.00-2.50 [facility] Serum or plasma creatine kin ase MB measurement (mass/volume)Ordered By: Ariel Perry on 01-26-2022 CK.MB [Mass/Vol] 1.9 ng/mL 0.6-6.3 [facility] Serum or plasma glucose kelly urement (mass/volume)Ordered By: Ariel Perry on 01-26-2022 Glucose [Mass/Vol] 287 mg/dL 70-100 [facility] Comment on above: ADA recommended refe rence range Random Glucose Reference Range is dependent on time and content of last meal. Glucose of more than 200 mg/dL in a nonstressed, ambulatory subject supports the diagnosis of Diabetes Mellitus. Serum or plasma potassium me asurement (moles/volume)Ordered By: Ariel Perry on 01-26-2022 Potassium [Moles/Vol] 4.0 mmol/L 3.5-5.1 [facility] Serum or plasma sodium measu rement (moles/volume)Ordered By: Ariel Perry on 01-26-2022 Sodium [Moles/Vol] 137 mmol/L 136-146 [facility] Serum or plasma total carbon dioxide measurement (moles/volume)Ordered By: Ariel Perry on 01-26-2022 CO2 [Moles/Vol] 25.9 mmol/L 22.0-30.0 [facility] Serum or plasma urea nitroge n measurement (mass/volume)Ordered By: Ariel Perry on 01-26-2022 Urea nitrogen [Mass/Vol] 13 mg/dL 9-23 [facility] Troponin I.cardiac [Mass/vol ume] in Serum or Plasma by High sensitivity methodOrdered By: Bonilla Hall on 01-26-2022 Troponin I.cardiac High sensitivity method [Mass/Vol] 3 pg/mL 0-20 [facility] COVID-19 ANTIGENon 2 EUA Statement SEE BELOW Normal [facility] Comment on above: Result Comment: This test [...] sooner. Performed By: #### D ATCVAG #### [facility] [address] [place] [address] Dr. Kaylen Hall SARS-CoV-2 (COVID-19) RNA NIKKI+probe Ql (Unsp spec) Negative Normal NEGATIVE [facility] Comment on above: Result Comment: Nega tive results are presumptive. They do not preclude infection and should not be used as the sole basis for treatment decisions. Additional confirmatory testing by a molecular method should be considered. Performed By: #### D ATCVAG #### [facility] [address] [place] [address] Dr. Kaylen Hall [facility]on SARS-CoV-2 (COVID-19) RNA NIKKI+probe Ql (Unsp spec) Not detected Normal NOT DETECTED [facility] Comment on above: Result Comment: This test is not yet approved or cleared by the [place] FDA. When there are no FDA-approved or cleared tests available, and other criteria are met, FDA can make tests available under an emergency access mechanism called an Emergency Use Authorization (EUA). The EUA for this test is supported by the [employer]itting [employer] Operator of Health and Human Service's (HHS's) declaration [...] with SARS-CoV-2. Performed By: #### C [facility] #### [facility] [address] [place] [address] Dr. Kaylen Hall Vital Signs Date Time Vital Sign Value Performing Clinician Facility 04-06-2024 15:57-0400 Body height 175.3 cm Vanna Shelbymor DRAG DOWN Work Phone: [facility] 04-06-2024 15:57-0400 Body mass index (BMI) [Ratio] 33.97 kg/m2 Vanna Gillmor DRAG [employer] Work Phone: [facility] 04-06-2024 15:57-0400 Body weight 104.33 kg Vanna Gillmor DRAG DOWN Work Phone: [facility] 04-06-2024 15:57-0400 Diastolic blood pressure 82 mm[Hg] Vanna Gillmor DRAG DOWN Work Phone: [facility] 04-06-2024 15:57-0400 Systolic blood pressure 124 mm[Hg] Vanna Gillmor DRAG DOWN Work Phone: [facility] 03-09-2024 08:55-0400 Blood Pressure Location Judah NILL [facility] 03-09-2024 08:55-0400 Diastolic blood pressure 85 mm[Hg] Judah NILL [facility] 03-09-2024 08:55-0400 Heart rate 120 /min Judah NILL [facility] 03-09-2024 08:55-0400 Respiratory rate 16 /min Judah NILL [facility] 03-09-2024 08:55-0400 Systolic blood pressure 136 mm[Hg] Judah NILL [facility] 01-26-2022 19:50-0400 Body temperature 97.9 [degF] MD Irish Maldonado Work Phone: [facility] 01-26-2022 19:50-0400 Diastolic blood pressure 85 mm[Hg] MD Irish Maldonado Work Phone: [facility] 01-26-2022 19:50-0400 Heart rate 90 /min MD Irish Maldonado Work Phone: [facility] 01-26-2022 19:50-0400 Respiratory rate 16 /min MD Irish Maldonado Work Phone: [facility] 01-26-2022 19:50-0400 SaO2% (BldA) [Mass fraction] 96 % MD Irish Maldonado Work Phone: [facility] 01-26-2022 19:50-0400 Systolic blood pressure 140 mm[Hg] MD Irish Maldonado Work Phone: [facility] 01-26-2022 18:43-0400 Body height 170.18 cm MD Irish Maldonado Work Phone: [facility] 01-26-2022 18:43-0400 Body weight 90.5 kg MD Irish Maldonado Work Phone: [facility] Encounters Encounter Date Encounter Type Care Provider Facility Start: 04-06-2024 End: 04-06-2024 Office outpatient visit 25 minutes Vanna Patiño DRAG DOWN Work Phone: [facility] [employer] [facility] Comment on above: Polyneuropathy (Prim jane Dx); Lumbosacral radiculopathy; Right arm weakness; Paresthesias Start: 04-06-2024 End: 04-06-2024 Bamboo flowsheet Vanna Patiño DRAG DOWN Work Phone: [facility] Start: 04-06-2024 End: 04-06-2024 Bamboo flowsheet Vanna Patiño DRAG DOWN Work Phone: [facility] Start: 03-18-2024 End: 04-06-2024 Pre-admission assessment Judah WHITAKER [facility] Start: 03-15-2024 End: 03-15-2024 ambulatory [facility] Start: 03-15-2024 End: 03-15-2024 Encounter for other preprocedural examination [facility] Start: 03-09-2024 End: 03-09-2024 ambulatory Judah Leisa JULIANNE Facility:[facility] Start: 03-09-2024 End: 03-09-2024 Patient encounter procedure Judah De La Fuente JULIANNE [facility] Start: 03-02-2024 ambulatory Judah WHITAKER Facility:[facility] Start: 02-27-2024 ambulatory Judah WHITAKER Facility:[facility] Start: 08-02-2022 End: 08-03-2022 Emergency department patient visit Ariel Perry Facility:[facility] Start: 02-25-2022 End: 02-26-[address] IRISH MALDONADO Facility:[facility] Start: 02-07-2022 End: 02-08-[address] IRISH MALDONADO Facility:[facility] Start: 01-26-2022 End: 01-26-2022 Evaluation and management of inpatient MD Irish Maldonado Work Phone: [facility] Start: 07-14-2021 End: 07-15-[address] IRISH MALDONADO Facility:[facility] Start: 05-18-2021 End: 05-18-[address] IRISH MALDONADO Facility:[facility] Procedures Date Procedure Procedure Detail Performing Clinician Start: 01-26-2022 Plain chest X-ray MD [place] Work Phone: Arthroscopy of knee Judah WHITAKER Cardiac catheterization Russ aedeb WHITAKER Ophthalmic surgery (qualifier value) Judah WHITAKER SARS Antigen (LFIA) MD Tal Maldonado Work Phone: Plan of Treatment Date Care Activity Detail Author Start: 07-13-2024 End: 07-13-2024 Patient encounter procedure 07/13/2024 9:40 AM EST Office Visit [facility] [address] [facility] [address] [place] [address] Vanna Patiño NP [address] [place], [place] [facility] Start: 04-06-2024 End: 04-06-2024 Patient encounter procedure 04/06/2024 4:00 PM EDT Office Visit [facility] [address] [facility] [place] [phone] Vanna Patiño NP [address] [place], [place] [facility] on [facility]: Arrived Start: 01-26-2022 Hospital admission [facility] Work Phone: Start: 01-26-2022 Referral to platform inspector [facility] Work Phone: Patient referral [facility] Work Phone: Payers Date Payer Category Payer Medicaid [facility] [id number] 2023 Medicaid [id number] 2022 Self-pay [id number] 2019 Unknown [id number] 1984 Unknown [id number] 1984 Unknown [id number] 1984 Unknown [id number] 1984 Unknown [id number] 1959 Self-pay [id number] 1959 Unknown [id number] Unknown Ramon BC/BS [id number] Unknown [id number] Unknown [id number] Social History Date Type Detail Facility Start: 01-26-2022 End: 04-06-2024 Tobacco smoking status AZIS Ex-smoker (finding) [facility] Start: 1985 Sex Assigned At Male [facility] Tobacco smoking status Former sm okeless tobacco user, quit more than 30 days ago [facility] [place] Start: 02-19-2024 End: 04-06-2024 Sex Assigned At Male [facility] History of tobacco use Current smoker [facility] History of tobacco use Cigarette Smoker [facility] Start: 02-19-2024 End: 04-06-2024 Tobacco use and exposure Smokeless tobacco non-user [facility] Start: 02-19-2024 End: 04-06-2024 History of Social function [facility] Start: 01-19-2024 Gender identity Identifies as male gender (finding) [facility] Start: 01-19-2024 Sexual orientation Choose not to dis close [facility] Start: 04-06-2024 Alcoholic beverage intake Lifetime non-drinker (finding) [facility] Goals Date Patient Goal Desired Activity /State Functional Status Date Assessment Result Facility 03-09-2024 Functional Status N/A [facility] [place] Clinical Notes 01-26-2022 to 03-15-2024 Radiology Note Date & Type Note Facility 03-15-2024 Note Cardiology Clinic No te Chief Complaint: perioperative risk stratification HPI: Ariel Ruvalcaba is a 38 y.o. male Medical history of nonobstructive CAD, hypertension, hyperlipidemia, diabetes mellitus. Patient presents to cardiology for perioperative risk stratification. Patient reports episodes of atypical chest pain. Chest pain can be sharp in nature, and occur with rest and or exertion, does not seem to be worse with exertion. Patient had a cardiac cath several years ago. At the time, he was noted to have nonobstructive disease of the LAD. Additional cardiac complaints or concerns. Denies any shortness of breath. No lower extreme edema, orthopnea, or paroxysmal nocturnal dyspnea. Was completed recently and was unremarkable. Normal EF, no significant valvular dysfunction. ROS 10 point ROS is performed and is negative unless otherwise specified in HPI Past Medical History He has no past medical history on file. Surgical History He has a past surgical history that includes Knee surgery and Cardiac catheterization. Social History He reports that he has quit smoking. His smoking use included cigarettes. He has a 40.00 pack-year smoking history. He has quit using smokeless tobacco. His smokeless tobacco use included chew. He reports that he does not drink alcohol. No history on file for drug use. Family History Family History Problem Relation Name Age of Onset No Known Problems Mother No Known Problems Father Medications Current Outpatient Medications on File Prior to Visit Medication Sig Dispense Refill DULoxetine (Cymbalta) [address] capsule Take 120 mg by mouth two times daily. hydroCHLOROthiazide (HYDRODiuril) 25 mg tablet 25 mg. insulin aspart (NovoLOG U-100 Insulin aspart) 100 unit/mL injection vial as directed, Refills(s) 0 irbesartan (Avapro) 150 mg tablet 150 mg. Lantus Solostar U-100 Insulin 100 unit/mL (3 mL) injection pen Inject under the skin two times daily. metFORMIN (Glucophage) 500 mg tablet Take 500 mg by mouth. No current facility-administered medications on file prior to visit. Allergies Lisinopril Physical Exam VITAL SIGNS: BP (!) 143/91 Pulse (!) 115 Ht 1.753 m (5' 9 ) Wt 99.3 kg (219 lb) SpO2 96% BMI 32.34 kg/m??? Constitutional: Well developed, Well nourished, No acute distress, Non-toxic appearance. HENT: Normocephalic, Atraumatic, Bilateral external ears have normal appearance, Nose appears normal, nares are patent. Eyes: PERRLA, EOMI, Conjunctiva normal, No discharge. Neck: Normal range of motion, No tenderness, Supple, No stridor. No cervical lymphadenopathy noted. Cardiovascular: Normal heart rate, Normal rhythm, No murmurs, No rubs, No gallops. Thorax & Lungs: Normal breath sounds, No respiratory distress, No wheezing, No chest tenderness to palpation. Abdomen: Bowel sounds normal, Soft, Nontender, No masses, No pulsatile masses. Skin: Warm, Dry, No erythema, No rash. Back: No tenderness, No CVA tenderness. Extremities: Intact distal pulses, No edema, No tenderness, No cyanosis, No clubbing. Musculoskeletal: Grossly normal strength in extremities Neurologic: Alert & oriented x 3, no gross focal neurological deficits Psychiatric: Affect normal, Judgment normal, Mood normal. EKG results: No results found for this or any previous visit (from the past 4464 hour(s)). Echo results: No echocardiogram results found for the past 12 months Radiology: No image results found. Assessment/Plan: Ariel Ruvalcaba is a 38 y.o. male with Sinus tachycardia Other chest pain Pre-op evaluation Coronary artery disease, unspecified vessel or lesion type, unspecified whether angina present, unspecified whether [place] or transplanted heart Diagnoses and all orders for this visit: Sinus tachycardia - ECG 12 lead - metoprolol succinate XL (Toprol-XL) 50 mg 24 hr tablet; Take 1 tablet (50 mg) by mouth once daily as directed. Do not crush or chew. Other chest pain - Treadmill Stress Myocardial Perfusion Imaging; Future Pre-op evaluation - Treadmill Stress Myocardial Perfusion Imaging; Future Coronary artery disease, unspecified vessel or lesion type, unspecified whether angina present, unspecified whether [place] or transplanted heart - Treadmill Stress Myocardial Perfusion Imaging; Future - aspirin 81 mg chewable tablet; Chew 1 tablet (81 mg) once daily as directed. - rosuvastatin (Crestor) 20 mg tablet; Take 1 tablet (20 mg) by mouth at bedtime. Optimize medical management Aggressive risk factor modification Plan of care discussed with patient. All questions were answered. Patient voices understanding and is agreeable with current plan. Patient was educated on red flag symptoms. Strict return precautions were provided. Patient verbalizes understanding Follow-up in cardiology clinic in 3 months, or sooner as needed Thank you for allowing us to participate in the care of your patient. Please do (more content not included)... [facility] 03-09-2024 Evaluation + Plan note Future Scheduled TestsMRI Cholangiogram Pancreatography (mrcp) 03/09/24 [facility] [place] 03-09-2024 Note General Surgery Offi ce/Clinic Note [...] Denies rectal pain or bleeding. Presented to [facility] ED 02/23 with complaint of ABD pain. [...] Cardiomyopathy (I42.9: Cardiomyopathy, unspecified) cardiology evaluation Ordered: [facility] External Ambulatory Referral 6. Tachycardia (R00.0: Tachycardia, unspecified) cardiology eval (more content not included)... [facility] Comment on above: Result Comment: Elec tronically Signed By: JULIANNE MCARTHUR, Judah Ceron\Date and Time Signed: 03/09/24 09:44 EDT 01-26-2022 History and physical note Note Date/Time January 26, 2022 4:27pm [facility] [address] [place] [address] Hospitalist H&P Signed Patient: Ariel Ruvalcaba MR#: [id number] : 1985 Acct:[id number] Age/Sex: 36 / M Adm Date: 2 Loc: ER Room: Type: [facility] ER Attending Dr: Copies to: IrishMD Ariel Houston DO Mazhar Rahman, MD~ HPI DATE OF [...] % (Auto) 34.4 % (.) 01/26/22 13:08 [place] % (Auto) 6.7 % (.) 01/26/22 13:08 Eos % (Auto) 2.0 % (.) 01/26/22 13:08 Baso % (Auto) 0.7 % (.) 01/26/22 13:08 Neut # (Auto) 4.2 x10E3/uL (1.8-7.7) 01/26/22 13:08 Lymph # (Auto) 2.6 x10E3/uL (1.00-4.8) 01/26/22 13:08 [place] # (Auto) 0.5 x10E3/uL (0.0-0.8) 01/26/22 13:08 [...] signed by Bonilla Hall MD> 01/26/22 1641 [facility] Work Phone: Evaluation note* Diagnosis Onset Date Resolution Status Angina pectoris, unstable ac alutiiq Chest pain acute Diabetes mellitus chronic [facility] Work Phone: Evaluation note* Diagnosis Polyneuropathy- Primary Unspecified hereditary and idiopathic peripheral neuropathy Lumbosacral radiculopathy Thoracic or lumbosacral neuritis or radiculitis, unspecified Right arm weakness Other musculoskeletal symptoms referable to limbs Paresthesias Disturbance of skin sensation documented in this encounter [facility] Author Bonilla Hall [facility] January 26, 2022 4:41pm Note Date/Time January 26, 2022 4: 27pm [facility] [address] [place] [address] Hospitalist H&P Signed Patient: Ariel Ruvalcaba MR#: [id number] : 1985 Acct:[id number] Age/Sex: 36 / M Adm Date: 2 Loc: ER Room: Type: [facility] ER Attending Dr: Copies to: MD [...] % (Auto) 34.4 % (.) 01/26/22 13:08 [place] % (Auto) 6.7 % (.) 01/26/22 13:08 Eos % (Auto) 2.0 % (.) 01/26/22 13:08 Baso % (Auto) 0.7 % (.) 01/26/22 13:08 Neut # (Auto) 4.2 x10E3/uL (1.8-7.7) 01/26/22 13:08 Lymph # (Auto) 2.6 x10E3/uL (1.00-4.8) 01/26/22 13:08 [place] # (Auto) 0.5 x10E3/uL (0.0-0.8) 01/26/22 13:08 [...] signed by Bonilla Hall MD> 01/26/22 1641 [facility] Work Phone: Hospital course Narrative No data available for this section [facility] Discharge instructions No data available for this section [facility] [place] Progress note No data available for this section [facility] [place] Reason for referral (narrative) Referred by: JULIANNE MCARTHUR, Judah De La Fuente [facility] [place] Chief Complaint and Reason for Visit Chief Complaint chest pain Reason for Visit Angina pectoris, uns table Chest pain Diabetes mellitus Advance Directives Advance Directive Response Recorded Date/ Time Advance [...] Irish Maldonado MD Primary Care Provider Active Document 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 Specialty Start Date End Date Irish Maldonado MD [address] [place] [address] PCP - General Family Medicine 01/26/24 Document 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 Specialty Start Date End Date Irish Maldonado MD [address] [place] [address] PCP - General Family Medicine 8/12/24 (unrecognized sect ion and content) No Status Records FoundNo Status Records FoundNo Status Records FoundNo Status Records Found INFORMATION SOURCE (unrecogn ized section and content) DATE CREATED AUTHOR 03/16/2022 [facility] DATE CREATED AUTHOR AUTHOR'S ORGANIZ ATION 03/11/2024 [facility] DATE CREATED AUTHOR AUTHOR'S ORGANIZ ATION 03/13/2024 [facility] DATE CREATED AUTHOR AUTHOR'S ORGANIZ ATION 03/21/2024 [facility] Reason for Visit (unrecogniz ed section and content) Reason Comments Numbness Weakness, Gen BUE FOR RECORDS PERTAINING TO PATIENTS WHO ARE [...] BE BASED ON THE PRIMARY CLINICAL RECORDS. [facility]. provides no warranty or guarantee of the accuracy or completeness of information in this document.
--- NOTE | 2024-04-14 09:57 | PC.NURSE ---
Nursing Note Cardiac Stress Test Reviewed: Medication, allergies and patient history reviewed. Stress Test: [ x] Patient tolerated stress test well. [ ] Patient unable to tolerate walking on treadmill. Switched to Lexiscan stress test. [ x] No chest pain noted per patient [ ] Chest pain that resolved prior to leaving stress lab. [x ] No dyspnea noted. [ ] Dyspnea that resolved prior to leaving stress lab. [ x] Patient left stress lab asymptomatic and hemodynamically stable. [ ] Patient taken to the Emergency Room due to non-resolving symptoms following stress test. [ ] Patient achieved target heart rate. [ ] Patient unable to achieve target heart rate. [ ] Aminophylline administered as reversal agent to Lexiscan (Regadenoson). [ ] Nitro administered. Nursing Comments: Patient switched to lexiscan due to being blind and not feeling safe walking on a treadmill. Patient was back to baseline prior to leaving the stress lab. Patient Iv removed and catheter intact
[2024-04-14] MEDS: REGADENOSON 0.4 MG/5 ML SYRINGE IV (09:58)
== END 2024-04-14 08:52 | disposition home or self-care (01) ==
LOC: NM 08:52
PROVIDERS: PCP Family Medicine; Visit Provider Internal Medicine Cardiovascular Disease
DX: R07.89 Other chest pain (principal); Z01.818 Encounter for other preprocedural examination; I25.10 Atherosclerotic heart disease of native coronary artery without angina pectoris
CPT/HCPCS: 78452; 93017; A9500; J2785

== ENCOUNTER 2024-04-19 13:32 | Observation (INO) | payer MEDICAID, SELFPAY ==
[2024-04-19] VITALS (26 sets, daily range): BP systolic 123–164; BP diastolic 66–98; PULSE 112–143; TEMP 36.2–37.1; O2SAT 90–97; BMI 20.5; BMI 33.9
[2024-04-19 13:53] LABS: Basophils Percent Auto 0.2 % (0.2-2.0); Eosinophils Percent Auto 0.1 % (0.9-7.0); Hematocrit 40.2 % (42.0-54.0); Hemoglobin 13.8 g/dL (14.0-18.0); Immature Granulocytes Abs Auto 0.09 10^3/uL (0.00-0.03); Immature Granulocytes Pct Auto 0.4 % (0.0-0.5); Lymphocytes Absolute Auto 1.4 10^3/uL (1.2-3.8); Lymphocytes Percent Auto 6.4 % (20.5-60.0); Mean Corpuscular HGB Conc 34.3 g/dL (29.9-35.2); Mean Corpuscular Hemoglobin 29.9 pg (25.9-34.0); Mean Platelet Volume 9.4 fL (9.5-13.5); Monocytes Absolute Auto 1.6 10^3/uL (0.3-0.8); Monocytes Percent Auto 7.6 % (1.7-12.0); Neutrophils Absolute Auto 18.1 10^3/uL (1.4-6.5); Neutrophils Percent Auto 85.3 % (43.0-75.0); Platelet Count 378 10^3/uL (150-450); Red Blood Count 4.62 10^6/uL (4.70-6.10); Red Cell Distribution Width 12.1 % (11.0-15.0); White Blood Count 21.2 10^3/uL (4.0-11.0)
[2024-04-19 14:07] LABS: Alanine Aminotransferase 45 U/L (16-63); Albumin Globulin Ratio 0.9; Albumin Level 3.3 g/dL (3.4-5.0); Alkaline Phosphatase 97 U/L (46-116); Anion Gap 16.2; Aspartate Amino Transferase 22 U/L (15-37); BUN Creatinine Ratio 9.6; Bilirubin Total 0.9 mg/dL (0.2-1.0); Calcium 8.9 mg/dL (8.5-10.1); Chloride 101 mmol/L (98-107); Estimated GFR (African America >60 (>=60 mL/min/1.73m^2); Estimated GFR (Non-African Ame >60 (>=60 mL/min/1.73m^2); Globulin 3.7 g/dL; Glucose 196 mg/dL (74-106); Potassium 4.2 mmol/L (3.5-5.1); Sodium 137 mmol/L (136-145)
--- NOTE | 2024-04-19 14:27 | ECG_ITS ---
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
[2024-04-19 14:45] LABS: Troponin I High Sensitivity <4.0 pg/mL (4.0-76.1)
[2024-04-19] MEDS: MORPHINE SULFATE 4 MG/ML VIAL IV ×2 (15:47→18:31)
[2024-04-19] MEDS: ONDANSETRON PF 4 MG/2 ML VIAL IV (15:47)
--- NOTE | 2024-04-19 16:04 | CT_ITS ---
[address] [place], [place] [address] Patient Name: ARIEL XIONG MRN: [id number] date: 1985 Sex: M Assigned Patient Location: ER Current Patient Location: [facility] Accession/Order Number: [id number] Exam Date: 04/19/2024 16:30 Report Date: 04/19/2024 18:07 At the request of: NAJMA HANSON Procedure: CT abdomen pelvis w con EXAM: CT abdomen pelvis w con HISTORY: RLQ pain COMPARISON: 02/24/2024 TECHNIQUE: Axial CT imaging was performed through the abdomen and pelvis with intravenous contrast. Multiplanar reformats were performed. Dose reduction techniques were achieved by using automated exposure control and/or adjustment of mA and/or kV according to patient size and/or use of iterative reconstruction technique. FINDINGS: Lung bases: Lung bases are clear. No pleural effusion. GI upper: Unremarkable. Liver: Hepatic steatosis. Normal size and contour. Gallbladder: No significant abnormality. No cholelithiasis. Biliary system: No intra or extrahepatic biliary ductal dilatation. Spleen: Normal size. Pancreas: Unremarkable. Adrenal glands: Normal adrenal glands. Kidneys/ureters: Normal contours. No hydronephrosis. No nephrolithiasis or ureterolithiasis. Vessels: No aneurysm. Lymph Nodes: No lymphadenopathy. Small bowel: No wall thickening or dilatation. Colon: No wall thickening or dilatation. Moderate volume stool burden. Appendix: No findings of appendicitis. Peritoneal cavity: No free fluid or pneumoperitoneum. Lower : Unremarkable. Bones: No acute bony abnormality. Soft tissues: No acute finding. Additional findings: None. CT/CT abdomen pelvis w con IMPRESSION: No acute abnormality to explain right lower abdominal pain. Severe hepatic steatosis. Electronically authenticated by: ANGELA DOVE Date: 04/19/2024 18:07
[2024-04-19 16:35] LABS: Bilirubin Urine NEGATIVE (NEGATIVE); Blood Urine NEGATIVE (NEGATIVE); Clarity Urine CLEAR (CLEAR); Color Urine YELLOW (YELLOW); Glucose Urine UA 500 mg/dL (NEGATIVE); Ketones Urine 15 mg/dL (NEGATIVE); Leukocyte Esterase Urine NEGATIVE (NEGATIVE); Nitrite Urine NEGATIVE (NEGATIVE); Protein Urine 30 mg/dL (NEG/TRACE); Specific Gravity Urine 1.015 (1.005-1.025); pH Urine 7.5 (5.0-9.0)
[2024-04-19 16:49] LABS: Bacteria Urine TRACE #/HPF (NONE SEEN); Cast Seen? NONE SEEN #/LPF (NONE SEEN); Crystals Seen? None Seen #/HPF (None Seen); Mucus Urine TRACE (NONE SEEN); RBC Urine 0-2 #/HPF (0-2); Squamous Epithelial Cell Urine RARE #/LPF (NONE/RARE); WBC Urine NONE SEEN #/HPF (NONE SEEN)
--- NOTE | 2024-04-19 17:12 | ED.GENADUL1 ---
HPI HPI - General Adult General Chief complaint: Abdominal Pain Stated complaint: NAUSEA Time Seen by Provider: 04/19/24 15:18 History of Present Illness HPI narrative: 38-year-old male to the emergency department chief complaint of right lower quadrant pain. Reports that the pain started over the last day. It is sharp in nature. Travels into his back. He reports some nausea and vomiting. He denies any fever, sweats, chills. He has never had pain like this before. No history of kidney stones. No testicular pain or swelling. Related Data Home Medications ?Medication ?Instructions ?Recorded ?Confirmed hydrochlorothiazide 25 mg tablet 25 mg PO DAILY 02/24/24 03/16/24 insulin aspart U-100 100 unit/mL 1 sliding scale dose subcut QID 02/24/24 03/16/24 (3 mL) subcutaneous pen (Novolog FlexPen U-100 Insulin aspart) insulin glargine 100 unit/mL (3 36 unit subcut BID 02/24/24 03/16/24 mL) subcutaneous pen (Lantus Solostar U-100 Insulin) irbesartan 150 mg tablet 150 mg PO DAILY 02/24/24 03/16/24 metformin 500 mg tablet 500 mg PO BID 02/24/24 03/16/24 aspirin 81 mg capsule 81 mg PO DAILY 03/16/24 03/16/24 duloxetine 60 mg capsule,delayed 120 mg PO DAILY 03/16/24 03/16/24 release famotidine 40 mg tablet 40 mg PO DAILY 03/16/24 03/16/24 metoprolol succinate 50 mg 50 mg PO DAILY 03/16/24 03/16/24 tablet,extended release 24 hr rosuvastatin 20 mg tablet 20 mg PO DAILY 03/16/24 03/16/24 Previous Rx's ?Medication ?Instructions ?Recorded ondansetron 4 mg disintegrating 4 mg PO Q6H PRN nausea and 03/02/24 tablet vomiting #12 tabs Allergies Allergy/AdvReac Type Severity Reaction Status Date / Time lisinopril AdvReac Mild Cough Verified 04/19/24 13:39 Opioid HPI Opioid Management Most Recent Opioid Data: Last Pain Scale 8 04/19/24 15:47 04/19/24 Last MAR Pain Assessment 04/19/24 15:47 Review of Systems ROS Status of ROS 10 or more systems reviewed and unremarkable except as noted in history and below PFSH PFSH Medical History (Updated 04/19/24 @ 17:16 by Marin Bradford MD) Vitamin D deficiency ?E55.9 - Vitamin D deficiency, unspecified (ICD-10) Diabetes ?E11.9 - Type 2 diabetes mellitus without complications (ICD-10) Tachycardia ?R00.0 - Tachycardia, unspecified (ICD-10) Retinopathy ?H35.00 - Unspecified background retinopathy (ICD-10) Obesity ?E66.9 - Obesity, unspecified (ICD-10) Migraines ?G43.909 - Migraine, unspecified, not intractable, without status migrainosus (ICD-10) Macular edema ?H35.81 - Retinal edema (ICD-10) Hypertension ?I10 - Essential (primary) hypertension (ICD-10) Dyslipidemia ?E78.5 - Hyperlipidemia, unspecified (ICD-10) Fatty liver ?K76.0 - Fatty (change of) liver, not elsewhere classified (ICD-10) Depressive disorder ?F32.A - Depression, unspecified (ICD-10) Cardiomyopathy ?I42.9 - Cardiomyopathy, unspecified (ICD-10) Anxiety ?F41.9 - Anxiety disorder, unspecified (ICD-10) GERD (gastroesophageal reflux disease) ?K21.9 - Gastro-esophageal reflux disease without esophagitis (ICD-10) Cholelithiasis ?K80.20 - Calculus of gallbladder without cholecystitis without obstruction (ICD-10) Abdominal pain ?R10.9 - Unspecified abdominal pain (ICD-10) Nausea & vomiting ?R11.2 - Nausea with vomiting, unspecified (ICD-10) Surgical History (Updated 03/16/24 @ 13:46 by Abbey Beauchamp RN) H/O eye surgery ?Z98.890 - Other specified postprocedural states (ICD-10) History of cardiac cath ?Z98.890 - Other specified postprocedural states (ICD-10) H/O arthroscopic knee surgery ?Z98.890 - Other specified postprocedural states (ICD-10) Family History (Updated 03/16/24 @ 13:47 by Abbey Beauchamp, RN) Other Family history of diabetes mellitus Social History (Updated 03/16/24 @ 13:59 by Abbey Beauchamp RN) Within the past year, how often did you have a drink containing alcohol: never Score interpretation: A score less than 4 is consistent with normal alcohol consumption. Smoking status: Former smoker Second hand tobacco smoke exposure: No Non-prescribed substance use: denies use Highest level of school completed/degree received: some college, no degree Little interest or pleasure in doing things: not at all Feeling down, depressed, or hopeless: not at all Exam Narrative Exam Narrative: VITALS: I have reviewed the triage vital signs. GENERAL: Well developed, well appearing adult in no acute distress. NEURO: Alert and oriented. Moves all extremities. Face is symmetric and expressive. EYES: PERRL. No scleral icterus or conjunctival injection. No discharge. HENT: Normocephalic, atraumatic. Hearing is grossly intact. Nares grossly patent and without discharge. Mucous membranes moist. NECK: No JVD. Patient moves neck without restriction. CARDIO: Rhythm regular. Normal rate. No murmur, rub, or gallop. Pulses equal bilaterally in the upper and lower extremity. No lower extremity edema. PULM: Lungs clear to auscultation in all murdock. No wheezes, rales, or rhonchi. No conversational dyspnea. No splinting, stridor, or accessory muscle use. GI/: Abdomen is soft. Tenderness in the right lower quadrant. Normoactive bowel sounds. EXTREMITIES: Symmetric muscle bulk. No joint swelling. No clubbing, cyanosis, or deformity. SKIN: Warm and dry. Normal turgor. No rash or lesions appreciated. PSYCH: Mood, affect, and interaction is appropriate to the setting. Constitutional Vital Signs, click to edit/add: Last Vital Signs Temp 98.5 F 04/19/24 13:34 Pulse 127 H 04/19/24 16:43 Resp 24 H 04/19/24 16:43 BP 127/71 04/19/24 16:00 Pulse Ox 97 04/19/24 16:43 O2 Del Method Room Air 04/19/24 13:34 Course Vital Signs Vital signs: Vital Signs Temperature 98.5 F 04/19/24 13:34 Pulse Rate 120 H 04/19/24 13:34 Respiratory Rate 20 04/19/24 13:34 Blood Pressure 132/93 H 04/19/24 13:34 Pulse Oximetry 97 04/19/24 13:34 Oxygen Delivery Method Room Air 04/19/24 13:34 Temperature 98.5 F 04/19/24 13:34 Pulse Rate 127 H 04/19/24 16:43 Respiratory Rate 24 H 04/19/24 16:43 Blood Pressure 127/71 04/19/24 16:00 Pulse Oximetry 97 04/19/24 16:43 Oxygen Delivery Method Room Air 04/19/24 13:34 Medical Decision Making MDM Narrative Medical decision making narrative: 38-year-old male to the emergency department chief complaint of abdominal pain. He is tender in the right lower quadrant. He is tachycardic, otherwise stable vitals. Pain medication, Zofran, fluids. CT scan is ordered. Lab work ordered. Patient agrees with this plan. Medical Records Medical records reviewed: Yes I reviewed the patient's medical records Lab Data Lab results reviewed: Yes I reviewed the patient's lab results Labs: Lab Results 04/19/24 04/19/24 Range/Units 13:44 16:10 WBC 21.2 H (4.0-11.0) 10^3/uL RBC 4.62 L (4.70-6.10) 10^6/uL Hgb 13.8 L (14.0-18.0) g/dL Hct 40.2 L (42.0-54.0) % MCV 87.0 (80.0-94.0) fL MCH 29.9 (25.9-34.0) pg MCHC 34.3 (29.9-35.2) g/dL RDW 12.1 (11.0-15.0) % Plt Count 378 (150-450) 10^3/uL MPV 9.4 L (9.5-13.5) fL Neut % (Auto) 85.3 H (43.0-75.0) % Lymph % (Auto) 6.4 L (20.5-60.0) % [place] % (Auto) 7.6 (1.7-12.0) % Eos % (Auto) 0.1 L (0.9-7.0) % Baso % (Auto) 0.2 (0.2-2.0) % Neut # (Auto) 18.1 H (1.4-6.5) 10^3/uL Lymph # (Auto) 1.4 (1.2-3.8) 10^3/uL [place] # (Auto) 1.6 H (0.3-0.8) 10^3/uL Eos # (Auto) 0.0 (0.0-0.7) 10^3/uL Baso # (Auto) 0.0 (0.0-0.1) 10^3/uL Abs Immat Gran (auto) 0.09 H (0.00-0.03) 10^3/uL Imm/Tot Granulo (auto) 0.4 (0.0-0.5) % Sodium 137 (136-145) mmol/L Potassium 4.2 (3.5-5.1) mmol/L Chloride 101 (98-107) mmol/L Carbon Dioxide 24.0 (21.0-32.0) mmol/L Anion Gap 16.2 BUN 10.0 (7.0-18.0) mg/dL Creatinine 1.04 (0.70-1.30) mg/dL Est GFR ( Amer) >60 (>=60 mL/min/1.73m^2) Est GFR (Non-Af Amer) >60 (>=60 mL/min/1.73m^2) BUN/Creatinine Ratio 9.6 Glucose 196 H (74-106) mg/dL Calcium 8.9 (8.5-10.1) mg/dL Total Bilirubin 0.9 (0.2-1.0) mg/dL AST 22 (15-37) U/L ALT 45 (16-63) U/L Alkaline Phosphatase 97 (46-116) U/L Troponin I High Sens <4.0 L (4.0-76.1) pg/mL Total Protein 7.0 (6.4-8.2) g/dL Albumin 3.3 L (3.4-5.0) g/dL Globulin 3.7 g/dL Albumin/Globulin Ratio 0.9 Lipase 12.0 L (16.0-77.0) U/L Urine Color Yellow (YELLOW) Urine Clarity Clear (CLEAR) Urine pH 7.5 (5.0-9.0) Ur Specific [place] 1.015 (1.005-1.025) Urine Protein 30 A (NEG/TRACE) mg/dL Urine Glucose (UA) 500 A (NEGATIVE) mg/dL Urine Ketones 15 A (NEGATIVE) mg/dL Urine Occult Blood Negative (NEGATIVE) Urine Nitrite Negative (NEGATIVE) Urine Bilirubin Negative (NEGATIVE) Urine Urobilinogen 2.0 A (0.2-1.0) EU/dL Ur Leukocyte Esterase Negative (NEGATIVE) Urine RBC 0-2 (0-2) #/HPF Urine WBC None seen (NONE SEEN) #/HPF Ur Squamous Epith Cells Rare (NONE/RARE) #/LPF Urine Crystals None seen (None Seen) #/HPF Urine Bacteria Trace A (NONE SEEN) #/HPF Urine Casts None seen (NONE SEEN) #/LPF Urine Mucus Trace A (NONE SEEN) ECG Data Attestation: I personally reviewed and interpreted this ECG as follows: (Normal sinus rhythm at a rate of 142. No STEMI. Normal QTc.) Discharge Plan Discharge Chief Complaint: Abdominal Pain Clinical Impression: Abdominal pain, RLQ Patient Disposition: Still a Patient Time of Disposition Decision: 17:14 Condition: Good Prescriptions / Home Meds: No Action metformin 500 mg tablet 500 mg PO BID hydrochlorothiazide 25 mg tablet 25 mg PO DAILY irbesartan 150 mg tablet 150 mg PO DAILY insulin aspart U-100 [Novolog FlexPen U-100 Insulin] 100 unit/mL (3 mL) insulin pen 1 sliding scale dose SUBCUT QID insulin glargine [Lantus Solostar U-100 Insulin] 100 unit/mL (3 mL) insulin pen 36 unit SUBCUT BID ondansetron 4 mg tablet,disintegrating 4 mg PO Q6H PRN (Reason: nausea and vomiting) Qty: 12 0RF duloxetine 60 mg capsule,delayed release(DR/EC) 120 mg PO DAILY famotidine 40 mg tablet 40 mg PO DAILY aspirin 81 mg capsule 81 mg PO DAILY metoprolol succinate 50 mg tablet extended release 24 hr 50 mg PO DAILY rosuvastatin 20 mg tablet 20 mg PO DAILY Print Language: Montenegrin Referrals: Erick Maldonado MD [Primary Care Provider] - 1 week
[2024-04-19] MEDS: 0.9 % SODIUM CHLORIDE 1,000 ML 1000 ML IV (17:18)
[2024-04-19] MEDS: DICYCLOMINE HCL 20 MG/2 ML VIAL IM (17:18)
[2024-04-19] MEDS: MORPHINE SULFATE 2 MG/ML SYRINGE IV (17:18)
[2024-04-19] MEDS: CEFTRIAXONE 1,000 MG in 0.9 % SODIUM CHLORIDE 50 ML 100 MG IV (18:31)
[2024-04-19 19:08] LABS: Lactate/Lactic Acid 1.5 mmol/L (0.4-2.0)
--- NOTE | 2024-04-19 19:17 | P.GSCN_ITS ---
History of Present Illness Consult details Consult date: 04/19/24 Reason for consult: abdominal pain Requesting physician: Marin Bradford Narrative: Miller Ruvalcaba is a 38-year-old male who presented to the ED with his with complaints of acute abdominal pain beginning last evening after he ate some mashed potatoes. Admits to nausea and vomiting was found to have a white blood count of 21,000 and the ED physician called me stating that he thought the patient had right lower quadrant pain indicative of acute appendicitis but CT is negative for appendicitis. Patient was in the ER 2 months ago February 2024 and was worked up with an outpatient ultrasound which showed sludge but no gallbladder wall thickening or stones. Patient saw Dr. Marrufo another general surgeon as an outpatient who recommended he be taken off of his diclofenac and he had been fine after that was discontinued until now. He denies any hematemesis melena or hematochezia. He has never had upper or lower endoscopy. He is legally blind from his diabetes. He has insulin-dependent diabetes mellitus. He admits to GERD and reflux disease but is on high-dose Pepcid at this time. Denies any fevers or but has had chills. His tachycardia according to his has been present for about 5 years and he sees cardiology here at the [facility] who has worked him up with a cardiac catheterization in 2019 which was okay. He is on medication for the tac hycardia but he continues to be tachycardic. He denies any chest pains or shortness of breath. Review of Systems ROS Status of ROS 10 or more systems reviewed and unremark able except as noted in history and below [facility] Medical History (Updated 04/19/24 @ 19:29 by Judah Fuentes MD) Vitamin D deficiency ?E55.9 - Vitamin D deficiency, unspecified (ICD-10) Diabetes ?E11.9 - Type 2 diabetes mellitus without complications (ICD-10) Tachycardia ?R00.0 - Tachycardia, unspecified (ICD-10) Retinopathy ?H35.00 - Unspecified background retinopathy (ICD-10) Obesity ?E66.9 - Obesity, unspecified (ICD-10) Migraines ?G43.909 - Migraine, unspecified, not intractable, without status migrainosus (ICD-10) Macular edema ?H35.81 - Retinal edema (ICD-10) Hypertension ?I10 - Essential (primary) hypertension (ICD-10) Dyslipidemia ?E78.5 - Hyperlipidemia, unspecified (ICD-10) Fatty liver ?K76.0 - Fatty (change of) liver, not elsewhere classified (ICD-10) Depressive disorder ?F32.A - Depression, unspecified (ICD-10) Cardiomyopathy ?I42.9 - Cardiomyopathy, unspecified (ICD-10) Anxiety ?F41.9 - Anxiety disorder, unspecified (ICD-10) GERD (gastroesophageal reflux disease) ?K21.9 - Gastro-esophageal reflux disease without esophagitis (ICD-10) Cholelithiasis ?K80.20 - Calculus of gallbladder without cholecystitis without obstruction (ICD-10) Abdominal pain ?R10.9 - Unspecified abdominal pain (ICD-10) Nausea & vomiting ?R11.2 - Nausea with vomiting, unspecified (ICD-10) Surgical History H/O eye surgery ?Z98.890 - Other specified postprocedural states (ICD-10) History of cardiac cath ?Z98.890 - Other specified postprocedural states (ICD-10) H/O arthroscopic knee surgery ?Z98.890 - Other specified postprocedural states (ICD-10) Family History Other Family history of diabetes mellitus Social History Within the past year, how often did you have a drink containing alcohol: never Score interpretation: A score less than 4 is consistent with normal alcohol consumption. Smoking status: Former smoker Second hand tobacco smoke exposure: No Non-prescribed substance use: denies use Highest level of school completed/degree received: some college, no degree Little interest or pleasure in doing things: not at all Feeling down, depressed, or hopeless: not at all Meds Home Medications and Allergies Home Medications ?Medication ?Instructions ?Recorded ?Confirmed ?Type hydrochlorothiazide 25 mg tablet 25 mg PO DAILY 02/24/24 03/16/24 History insulin aspart U-100 100 unit/mL 1 sliding scale dose subcut QID 02/24/24 03/16/24 History (3 mL) subcutaneous pen (Novolog FlexPen U-100 Insulin aspart) insulin glargine 100 unit/mL (3 36 unit subcut BID 02/24/24 03/16/24 History mL) subcutaneous pen (Lantus Solostar U-100 Insulin) irbesartan 150 mg tablet 150 mg PO DAILY 02/24/24 03/16/24 History metformin 500 mg tablet 500 mg PO BID 02/24/24 03/16/24 History ondansetron 4 mg disintegrating 4 mg PO Q6H PRN nausea and 03/02/24 03/16/24 Rx tablet vomiting #12 tabs aspirin 81 mg capsule 81 mg PO DAILY 03/16/24 03/16/24 History duloxetine 60 mg capsule,delayed 120 mg PO DAILY 03/16/24 03/16/24 History release famotidine 40 mg tablet 40 mg PO DAILY 03/16/24 03/16/24 History metoprolol succinate 50 mg 50 mg PO DAILY 03/16/24 03/16/24 History tablet,extended release 24 hr rosuvastatin 20 mg tablet 20 mg PO DAILY 03/16/24 03/16/24 History Allergies Allergy/AdvReac Type Severity Reaction Status Date / Time lisinopril AdvReac Mild Cough Verified 04/19/24 13:39 Exam Constitutional Vital Signs, click to edit/add: Last Vital Signs Temp 98.5 F 04/19/24 13:34 Pulse 127 H 04/19/24 16:43 Resp 24 H 04/19/24 16:43 BP 127/71 04/19/24 16:00 Pulse Ox 97 04/19/24 16:43 O2 Del Method Room Air 04/19/24 13:34 Documenting provider has reviewed patient's vital signs: yes Common normals: oriented x3, healthy appearing, alert and well nourished General appearance: in distress and ill appearing Nutritional appearance: obese Orientation/consciousness: Yes awake, Yes oriented to person, Yes oriented to place and Yes oriented to time HENMT Common normals: normocephalic, head/scalp atraumatic, hearing grossly normal b ilaterally, external ears normal, EACs normal, TMs normal bilaterally, external nose normal, nasal mucous membranes and turbinates normal, moist oral mucous membranes, oropharynx normal, dentition normal and gingiva normal Respiratory Common normals: normal respiratory effort, no use of accessory muscles and clear to auscultation bilaterally Cardio Common normals: regular rate and regular rhythm GI Common normals: Normal to inspection, nondistended, normoactive bowel sounds present Inspection: central obesity Palpation: tender Details: RLQ, RUQ and Gasca's sign Extremity Common normals: normal to inspection Neuro Common normals: oriented x3, CN's II-XII intact bilaterally, moves all extremities and no focal motor deficits Results Labs Labs: Abnormal lab results 04/19/24 04/19/24 Range/Units 13:44 16:10 WBC 21.2 H (4.0-11.0) 10^3/uL RBC 4.62 L (4.70-6.10) 10^6/uL Hgb 13.8 L (14.0-18.0) g/dL Hct 40.2 L (42.0-54.0) % MPV 9.4 L (9.5-13.5) fL Neut % (Auto) 85.3 H (43.0-75.0) % Lymph % (Auto) 6.4 L (20.5-60.0) % Eos % (Auto) 0.1 L (0.9-7.0) % Neut # (Auto) 18.1 H (1.4-6.5) 10^3/uL [place] # (Auto) 1.6 H (0.3-0.8) 10^3/uL Abs Immat Gran (auto) 0.09 H (0.00-0.03) 10^3/uL Glucose 196 H (74-106) mg/dL Troponin I High Sens <4.0 L (4.0-76.1) pg/mL Albumin 3.3 L (3.4-5.0) g/dL Lipase 12.0 L (16.0-77.0) U/L Urine Protein 30 A (NEG/TRACE) mg/dL Urine Glucose (UA) 500 A (NEGATIVE) mg/dL Urine Ketones 15 A (NEGATIVE) mg/dL Urine Urobilinogen 2.0 A (0.2-1.0) EU/dL Urine Bacteria Trace A (NONE SEEN) #/HPF Urine Mucus Trace A (NONE SEEN) Diabetes panel 04/19/24 Range/Units 13:44 Sodium 137 (136-145) mmol/L Potassium 4.2 (3.5-5.1) mmol/L Chloride 101 (98-107) mmol/L Carbon Dioxide 24.0 (21.0-32.0) mmol/L BUN 10.0 (7.0-18.0) mg/dL Creatinine 1.04 (0.70-1.30) mg/dL Glucose 196 H (74-106) mg/dL Calcium 8.9 (8.5-10.1) mg/dL AST 22 (15-37) U/L ALT 45 (16-63) U/L Alkaline Phosphatase 97 (46-116) U/L Total Protein 7.0 (6.4-8.2) g/dL Albumin 3.3 L (3.4-5.0) g/dL Calcium panel 04/19/24 Range/Units 13:44 Calcium 8.9 (8.5-10.1) mg/dL Albumin 3.3 L (3.4-5.0) g/dL Pituitary panel 04/19/24 Range/Units 13:44 Sodium 137 (136-145) mmol/L Potassium 4.2 (3.5-5.1) mmol/L Chloride 101 (98-107) mmol/L Carbon Dioxide 24.0 (21.0-32.0) mmol/L BUN 10.0 (7.0-18.0) mg/dL Creatinine 1.04 (0.70-1.30) mg/dL Glucose 196 H (74-106) mg/dL Calcium 8.9 (8.5-10.1) mg/dL Adrenal panel 04/19/24 Range/Units 13:44 Sodium 137 (136-145) mmol/L Potassium 4.2 (3.5-5.1) mmol/L Chloride 101 (98-107) mmol/L Carbon Dioxide 24.0 (21.0-32.0) mmol/L BUN 10.0 (7.0-18.0) mg/dL Creatinine 1.04 (0.70-1.30) mg/dL Glucose 196 H (74-106) mg/dL Calcium 8.9 (8.5-10.1) mg/dL Total Bilirubin 0.9 (0.2-1.0) mg/dL AST 22 (15-37) U/L ALT 45 (16-63) U/L Alkaline Phosphatase 97 (46-116) U/L Total Protein 7.0 (6.4-8.2) g/dL Albumin 3.3 L (3.4-5.0) g/dL All other labs normal. Imaging Abdomen CT scan report/results: report reviewed and image reviewed Abdominal ultrasound report/results: report reviewed Assessment and Plan Assessment and Plan (1) Cholecystitis, acute: (2) Obesity: (3) Retinopathy: (4) Hypertension: (5) Dyslipidemia: (6) Fatty liver: (7) Cardiomyopathy: (8) GERD (gastroesophageal reflux disease): (9) Cholelithiasis: (10) Abdominal pain: (11) H/O eye surgery: (12) History of cardiac cath: Plan Robotic cholecystectomy with possible open cholecystectomy and possible appendectomy depending on gross findings. Risks benefits and alternatives of surgery could include infection, bleeding, bile duct injury, blood clots to legs or lungs, pneumonia, heart attack, stroke, and/or . He and his understand all the above and wished to proceed.
[2024-04-19] MEDS: METRONIDAZOLE/SODIUM CHLORIDE 500 MG/100 ML PREMIX 100 MG IV (19:20)
[2024-04-19] MEDS: INDOCYANINE GREEN 25 MG VIAL INJ (19:21)
[2024-04-19 19:43] LABS: Glucometer 196 mg/dL (74-106)
[2024-04-19] MEDS: LACTATED RINGER'S SOLUTION 1,000 ML 50 ML IV (20:22)
--- NOTE | 2024-04-19 21:29 | P.GSPRC_ITS ---
Date of procedure: 04/19/24 Indications for Procedure: Acute cholecystitis with sludge Pre-op diagnosis: Acute cholecystitis with sludge/ Post-op diagnosis: other (Hydrops of the gallbladder with acute cholecystitis and sludge) Procedure: Robotic cholecystectomy with ICGreen Findings: Hydrops of the gallbladder and acute cholecystitis Anesthesia: GLADYS Surgeon: Judah Fuentes Procedure Summary: After again explaining the risks and benefits of the procedure in the preoperative care unit consent was obtained. ?The patient was taken back to the operative room and placed on the operative room table. General endotracheal anesthesia was induced and preoperative antibiotics were given. ?Appropriate time-out was performed. ?Right arm was?tucked at the side. ?Then the bed was positioned appropriately. ?The abdomen was prepped and draped in normal sterile fashion. A periumbilical incision was made. ?Dissection was carried down to the fascia. ?Fascia was elevated with mini clamps and entered sharply. A 12 mm port was placed into the abdomen and the abdomen was insufflated, there were no complications with insufflation. ?The scope and camera was brought in and then 3 more ports were placed. An 8?mm port was placed in the right lateral position. Two additional?8 mm Davinci ports were placed, 8 cm to the left and one to the right of the umbilicus. ?The patient was then placed in reverse Trendelenburg position and slightly turned to the left. The Davinci robot was docked. The appendix was searched for in the right lower quadrant but not visible but there was no acute inflammation seen there. The 4th arm was used to grasp the dome of the gallbladder superiorly. The gallbladder had to be pierced in order to decompress it and to be able to grab it. Suction was used to suction the bile. ?The peritoneal attachments were taken down with meticulous dissection laterally and medially from the gallbladder. ?At this point the infundibular gallbladder was retracted laterally and a critical view was obtained. Gallbladder was taken down in retrograde fashion and there was much edema around the gallbladder. ?With the cystic duct inferiorly cystic artery medially and the liver posteriorly. ?The last 2 structures pain where the cystic duct and the cystic artery. Two clips were placed on the patient side and 1 on the specimen side of both the cystic duct and the cystic artery. ?These were then excised. ?The remainder of the gallbladder was taken off of the gallbladder fossa using electrocautery. The gallbladder was then removed through the umbilical port using Endo-Catch bag. ?The gallbladder fossa was visualized again to confirm no bleeding and no leak from the cystic duct. The area was irrigated with a liter of sterile saline and aspirated along with the bile. The robot was undocked from the patient. The abdomen was deinsufflated.? The umbilical incision fascia was closed with a [id number] 0 Vicryl. The skin was closed at all the incisions with 4 0 Monocryl. All incisions and underlying muscle was anesthetized with local anesthetic.? Steri-Strips were then placed over the incisions. The patient was extubated and had no immediate postoperative complications. Patient was taken to the PACU in stable condition. Market Sales Manager: LORENZO Sharp Estimated blood loss (mL): 2 Specimens: Gallbladder Complications: No Condition: stable Disposition: PACU
[2024-04-19] MEDS: BUPIVACAINE HCL 0.5% PF 50 MG/10 ML VIAL 20 ML INJ (21:38)
[2024-04-19 21:54] LABS: Glucometer 223 mg/dL (74-106)
[2024-04-19 23:02] LABS: Glucometer 248 mg/dL (74-106)
[2024-04-19] MEDS: OXYCODONE HCL/ACETAMINOPHEN 5MG/325MG 1 TAB PO (23:29)
[2024-04-19] MEDS: INSULIN ASPART 300 UNIT/3 ML PEN SUBQ (23:30)
[2024-04-19] MEDS: PANTOPRAZOLE SODIUM 40 MG VIAL IV (23:30)
[2024-04-20] VITALS (13 sets, daily range): BP systolic 118–134; BP diastolic 68–76; PULSE 110–123; TEMP 36.6–37.2; O2SAT 92–96
[2024-04-20] MEDS: OXYCODONE HCL/ACETAMINOPHEN 5MG/325MG 1 TAB PO ×2 (06:01→12:21)
[2024-04-20 06:03] LABS: Basophils Percent Auto 0.3 % (0.2-2.0); Eosinophils Percent Auto 0.1 % (0.9-7.0); Hematocrit 38.2 % (42.0-54.0); Hemoglobin 12.7 g/dL (14.0-18.0); Immature Granulocytes Abs Auto 0.03 10^3/uL (0.00-0.03); Immature Granulocytes Pct Auto 0.2 % (0.0-0.5); Lymphocytes Absolute Auto 2.6 10^3/uL (1.2-3.8); Lymphocytes Percent Auto 19.1 % (20.5-60.0); Mean Corpuscular HGB Conc 33.2 g/dL (29.9-35.2); Mean Corpuscular Volume 90.3 fL (80.0-94.0); Mean Platelet Volume 9.6 fL (9.5-13.5); Monocytes Absolute Auto 1.4 10^3/uL (0.3-0.8); Monocytes Percent Auto 10.4 % (1.7-12.0); Neutrophils Absolute Auto 9.3 10^3/uL (1.4-6.5); Neutrophils Percent Auto 69.9 % (43.0-75.0); Platelet Count 315 10^3/uL (150-450); Red Blood Count 4.23 10^6/uL (4.70-6.10); Red Cell Distribution Width 12.5 % (11.0-15.0); White Blood Count 13.4 10^3/uL (4.0-11.0)
[2024-04-20 06:20] LABS: Alanine Aminotransferase 129 U/L (16-63); Albumin Globulin Ratio 0.7; Albumin Level 2.7 g/dL (3.4-5.0); Alkaline Phosphatase 93 U/L (46-116); Anion Gap 14.6; Aspartate Amino Transferase 89 U/L (15-37); BUN Creatinine Ratio 8.4; Bilirubin Total 1.1 mg/dL (0.2-1.0); Calcium 8.2 mg/dL (8.5-10.1); Carbon Dioxide 25.4 mmol/L (21.0-32.0); Chloride 103 mmol/L (98-107); Estimated GFR (African America >60 (>=60 mL/min/1.73m^2); Estimated GFR (Non-African Ame >60 (>=60 mL/min/1.73m^2); Globulin 3.7 g/dL; Glucose 228 mg/dL (74-106); Sodium 139 mmol/L (136-145); Total Protein 6.4 g/dL (6.4-8.2)
--- NOTE | 2024-04-20 06:45 | P.HP_ITS ---
HPI H&P: HPI History of Present Illness Chief complaint: NAUSEA Narrative: Patient presented to emergency room with increasing abdominal pain. He describes the pain is more right lower quadrant. CT scan not consistent with acute appendicitis. Does have a history of acute cholecystitis. General surgery was consulted for evaluation. General surgery's review of the CT scan and the patient felt not consistent with acute appendicitis and patient was taken to the operating room for acute cholecystitis. Findings confirmed with surgery When I saw patient up on the medical surgical floor, resting comfortably in bed, does have some abdominal pain but not more than expected with just having surgery, no shortness of breath Opioid HPI Opioid Management Most Recent Pain and Opioid Data: Last Pain Scale 4 04/20/24 06:50 04/20/24 Last Pain Assessment 04/20/24 06:00 Last MAR Pain Assessment 04/20/24 06:50 Last ORT Total Score 2 04/19/24 22:45 04/19/24 Last ORT Risk Category Low Risk 04/19/24 22:45 04/19/24 Review of Systems ROS Status of ROS 10 or more systems reviewed and unremark able except as noted in history and below PFSH PFS Medical History (Updated 04/19/24 @ 23:50 by Vikki Mack RN) Diabetes ?E11.9 - Type 2 diabetes mellitus without complications (ICD-10) Tachycardia ?R00.0 - Tachycardia, unspecified (ICD-10) Retinopathy ?H35.00 - Unspecified background retinopathy (ICD-10) Obesity ?E66.9 - Obesity, unspecified (ICD-10) Migraines ?G43.909 - Migraine, unspecified, not intractable, without status migrainosus (ICD-10) Macular edema ?H35.81 - Retinal edema (ICD-10) Hypertension ?I10 - Essential (primary) hypertension (ICD-10) Dyslipidemia ?E78.5 - Hyperlipidemia, unspecified (ICD-10) Fatty liver ?K76.0 - Fatty (change of) liver, not elsewhere classified (ICD-10) Depressive disorder ?F32.A - Depression, unspecified (ICD-10) Cardiomyopathy ?I42.9 - Cardiomyopathy, unspecified (ICD-10) Anxiety ?F41.9 - Anxiety disorder, unspecified (ICD-10) GERD (gastroesophageal reflux disease) ?K21.9 - Gastro-esophageal reflux disease without esophagitis (ICD-10) Cholelithiasis ?K80.20 - Calculus of gallbladder without cholecystitis without obstruction (ICD-10) Abdominal pain ?R10.9 - Unspecified abdominal pain (ICD-10) Nausea & vomiting ?R11.2 - Nausea with vomiting, unspecified (ICD-10) Surgical History H/O eye surgery ?Z98.890 - Other specified postprocedural states (ICD-10) History of cardiac cath ?Z98.890 - Other specified postprocedural states (ICD-10) H/O arthroscopic knee surgery ?Z98.890 - Other specified postprocedural states (ICD-10) Family History Other Family history of diabetes mellitus Social History Within the past year, how often did you have a drink containing alcohol: never Score interpretation: A score less than 4 is consistent with normal alcohol consumption. Smoking status: Former smoker Second hand tobacco smoke exposure: No Non-prescribed substance use: denies use Highest level of school completed/degree received: some college, no degree Little interest or pleasure in doing things: not at all Feeling down, depressed, or hopeless: not at all Meds Home Medications and Allergies Home Medications ?Medication ?Instructions ?Recorded ?Confirmed ?Type hydrochlorothiazide 25 mg tablet 25 mg PO DAILY 02/24/24 04/19/24 History insulin aspart U-100 100 unit/mL 1 sliding scale dose subcut QID 02/24/24 04/19/24 History (3 mL) subcutaneous pen (Novolog FlexPen U-100 Insulin aspart) insulin glargine 100 unit/mL (3 36 unit subcut BID 02/24/24 04/19/24 History mL) subcutaneous pen (Lantus Solostar U-100 Insulin) irbesartan 150 mg tablet 150 mg PO DAILY 02/24/24 04/19/24 History metformin 500 mg tablet 500 mg PO BID 02/24/24 04/19/24 History ondansetron 4 mg disintegrating 4 mg PO Q6H PRN nausea and 03/02/24 04/19/24 Rx tablet vomiting #12 tabs aspirin 81 mg capsule 81 mg PO DAILY 03/16/24 04/19/24 History duloxetine 60 mg capsule,delayed 120 mg PO DAILY 03/16/24 04/19/24 History release famotidine 40 mg tablet 40 mg PO DAILY 03/16/24 04/19/24 History metoprolol succinate 50 mg 50 mg PO DAILY 03/16/24 04/19/24 History tablet,extended release 24 hr rosuvastatin 20 mg tablet 20 mg PO DAILY 03/16/24 04/19/24 History Allergies Allergy/AdvReac Type Severity Reaction Status Date / Time lisinopril AdvReac Mild Cough Verified 04/19/24 13:39 Exam Constitutional Vital Signs, click to edit/add: Last Vital Signs Temp 99 F 04/20/24 02:00 Pulse 111 H 04/20/24 06:00 Resp 18 04/20/24 02:00 BP 134/76 04/20/24 02:00 Pulse Ox 96 04/20/24 02:00 O2 Del Method Nasal Cannula 04/20/24 02:00 O2 Flow Rate 3 04/20/24 02:00 Documenting provider has reviewed patient's vital signs: yes Common normals: no apparent distress Chest Common normals: inspection of chest normal Respiratory Common normals: normal respiratory effort and no retractions Cardio Common normals: regular rhythm; irregular rate Rate: tachycardic GI Common normals: Normal to inspection, nondistended, normoactive bowel sounds present and soft to palpation; tender (Mild diffuse tenderness) Results Labs Labs: Short CBC 04/19/24 04/20/24 Range/Units 13:44 05:53 WBC 21.2 H 13.4 H (4.0-11.0) 10^3/uL Hgb 13.8 L 12.7 L (14.0-18.0) g/dL Hct 40.2 L 38.2 L (42.0-54.0) % Plt Count 378 315 (150-450) 10^3/uL BMP 04/19/24 04/20/24 13:44 05:53 Sodium 137 139 Potassium 4.2 4.0 Chloride 101 103 Carbon Dioxide 24.0 25.4 BUN 10.0 10.0 Creatinine 1.04 1.19 Glucose 196 H 228 H Calcium 8.9 8.2 L Liver Function 04/19/24 04/20/24 Range/Units 13:44 05:53 Total Bilirubin 0.9 1.1 H (0.2-1.0) mg/dL AST 22 89 H (15-37) U/L ALT 45 129 H (16-63) U/L Alkaline Phosphatase 97 93 (46-116) U/L Albumin 3.3 L 2.7 L (3.4-5.0) g/dL Urine 04/19/24 Range/Units 16:10 Urine Color Yellow (YELLOW) Urine Clarity Clear (CLEAR) Urine pH 7.5 (5.0-9.0) Ur Specific [place] 1.015 (1.005-1.025) Urine Protein 30 A (NEG/TRACE) mg/dL Urine Glucose (UA) 500 A (NEGATIVE) mg/dL Assessment and Plan Assessment and Plan (1) Cholecystitis, acute: (2) Obesity: (3) Retinopathy: (4) Hypertension: (5) Dyslipidemia: (6) Fatty liver: (7) Cardiomyopathy: (8) GERD (gastroesophageal reflux disease): (9) Cholelithiasis: (10) Abdominal pain: (11) H/O eye surgery: (12) History of cardiac cath: Plan Admission findings: Sinus tachycardia, respiratory distress, uncontrolled hypertension, patient was admitted with acute right sided abdominal pain. On exam is more right upper quadrant pain and findings consistent with acute cholecystitis. Patient was taken the operating room and confirmed acute cholecystitis and underwent laparoscopic cholecystectomy last evening Acute cholecystitis with leukocytosis-plan per general surgery, leukocytosis is improved-reevaluate later today if continues to improve possible discharge IDDM-sugars have been inconsistently controlled by the patient. Placed on insulin sliding scale and home regiment. Sinus tachycardia-he has a history of this, workup in the past including heart cath was all unremarkable. Iron deficiency anemia-monitor daily Elevated liver function test-as expected after cholecystectomy. No significant findings consistent with obstruction Uncontrolled [id number] with home medications Respiratory distress on admission-improved Depression-continue with home medications GERD-patient on Protonix Hypercholesterolemia-continue with home medications Admission status: Patient with acute cholecystitis underwent cholecystectomy- inpatient status
--- NOTE | 2024-04-20 07:34 | P.DS_ITS ---
DS: Providers Provider Date of admission: 04/19/24 21:17 Primary care physician: Erick Maldonado MD Consults: 04/19/24 Consult to [employer] Routine Reason for consult:: Advanced Directives DS: Diagnosis Discharge Diagnosis (1) Cholecystitis, acute: (2) Obesity: (3) Retinopathy: (4) Hypertension: (5) Dyslipidemia: (6) Fatty liver: (7) Cardiomyopathy: (8) GERD (gastroesophageal reflux disease): (9) Cholelithiasis: (10) Abdominal pain: (11) H/O eye surgery: (12) History of cardiac cath: Plan Admission findings: Sinus tachycardia, respiratory distress, uncontrolled hypertension, patient was admitted with acute right sided abdominal pain. On exam is more right upper quadrant pain and findings consistent with acute cholecystitis. Patient was taken the operating room and confirmed acute cholecystitis and underwent laparoscopic cholecystectomy last evening Acute cholecystitis with leukocytosis-improving at the time of discharge Acute post operative hypoxia (O2 sat 90% on 3 L)-improving at the time of discharge IDDM-improving at the time of discharge Sinus tachycardia-improving at the time of discharge Iron deficiency anemia-down slightly at discharge after surgery Elevated liver function test-as expected after cholecystectomy. Uncontrolled hypertension-improving at the time of discharge Respiratory distress on admission-improving at the time of discharge Depression-continue with home medications GERD-improving at the time of discharge Hypercholesterolemia-continue with home medications Admission status: Patient with acute cholecystitis underwent cholecystectomy- inpatient status DS: Summary Hospital Course Hospital Course: Patient presented to the emergency with increasing abdominal pain. He was describing pain is more right lower quadrant that may be consistent with acute appendicitis, but on exam by general surgery patient had pain more right upper quadrant and CT findings in the past consistent with acute cholecystitis. Patient was taken to the operating room last night and is status postcholecystectomy laparoscopically. This morning patient does feel overall improved. Has an appetite. Will see how eating breakfast and lunch goes, if doing well with that and ambulating well likely discharge to home in improving condition. Medications see list. Follow-up with me later this week or next and general surgery per protocol Status at Discharge Overall status at discharge: patient is not back to baseline Time Spent with Patient Time attestation: Total time spent providing and/or coordinating discharge services: Time spent: greater than 30 minutes Exam Constitutional Vital Signs, click to edit/add: Last Vital Signs Temp 99 F 04/20/24 02:00 Pulse 111 H 04/20/24 06:00 Resp 18 04/20/24 02:00 BP 134/76 04/20/24 02:00 Pulse Ox 96 04/20/24 02:00 O2 Del Method Nasal Cannula 04/20/24 02:00 O2 Flow Rate 3 04/20/24 02:00 Documenting provider has reviewed patient's vital signs: yes Common normals: no apparent distress Chest Common normals: inspection of chest normal Respiratory Common normals: normal respiratory effort and no retractions Cardio Common normals: regular rhythm; irregular rate Rate: tachycardic GI Common normals: Normal to inspection, nondistended, normoactive bowel sounds present and soft to palpation; tender (Mild diffuse tenderness) DS: Data Data Completed and Pending Labs on day of discharge: Labs from last 24 hours 04/20/24 04/19/24 04/19/24 05:53 23:01 21:53 WBC 13.4 H RBC 4.23 L Hgb 12.7 L Hct 38.2 L MCV 90.3 MCH 30.0 MCHC 33.2 RDW 12.5 Plt Count 315 MPV 9.6 Neut % (Auto) 69.9 Lymph % (Auto) 19.1 L [place] % (Auto) 10.4 Eos % (Auto) 0.1 L Baso % (Auto) 0.3 Neut # (Auto) 9.3 H Lymph # (Auto) 2.6 [place] # (Auto) 1.4 H Eos # (Auto) 0.0 Baso # (Auto) 0.0 Abs Immat Gran (auto) 0.03 Imm/Tot Granulo (auto) 0.2 Sodium 139 Potassium 4.0 Chloride 103 Carbon Dioxide 25.4 Anion Gap 14.6 BUN 10.0 Creatinine 1.19 Est GFR ( Amer) >60 Est GFR (Non-Af Amer) >60 BUN/Creatinine Ratio 8.4 Glucose 228 H Lactate Calcium 8.2 L Total Bilirubin 1.1 H AST 89 H ALT 129 H Alkaline Phosphatase 93 Troponin I High Sens Total Protein 6.4 Albumin 2.7 L Globulin 3.7 Albumin/Globulin Ratio 0.7 Lipase Urine Color Urine Clarity Urine pH Ur Specific [place] Urine Protein Urine Glucose (UA) Urine Ketones Urine Occult Blood Urine Nitrite Urine Bilirubin Urine Urobilinogen Ur Leukocyte Esterase Urine RBC Urine WBC Ur Squamous Epith Cells Urine Crystals Urine Bacteria Urine Casts Urine Mucus POC Glucose 248 H 223 H 04/19/24 04/19/24 04/19/24 19:42 18:44 16:10 WBC RBC Hgb Hct MCV MCH MCHC RDW Plt Count MPV Neut % (Auto) Lymph % (Auto) [place] % (Auto) Eos % (Auto) Baso % (Auto) Neut # (Auto) Lymph # (Auto) [place] # (Auto) Eos # (Auto) Baso # (Auto) Abs Immat Gran (auto) Imm/Tot Granulo (auto) Sodium Potassium Chloride Carbon Dioxide Anion Gap BUN Creatinine Est GFR ( Amer) Est GFR (Non-Af Amer) BUN/Creatinine Ratio Glucose Lactate 1.5 Calcium Total Bilirubin AST ALT Alkaline Phosphatase Troponin I High Sens Total Protein Albumin Globulin Albumin/Globulin Ratio Lipase Urine Color Yellow Urine Clarity Clear Urine pH 7.5 Ur Specific [place] 1.015 Urine Protein 30 A Urine Glucose (UA) 500 A Urine Ketones 15 A Urine Occult Blood Negative Urine Nitrite Negative Urine Bilirubin Negative Urine Urobilinogen 2.0 A Ur Leukocyte Esterase Negative Urine RBC 0-2 Urine WBC None seen Ur Squamous Epith Cells Rare Urine Crystals None seen Urine Bacteria Trace A Urine Casts None seen Urine Mucus Trace A POC Glucose 196 H 04/19/24 13:44 WBC 21.2 H RBC 4.62 L Hgb 13.8 L Hct 40.2 L MCV 87.0 MCH 29.9 MCHC 34.3 RDW 12.1 Plt Count 378 MPV 9.4 L Neut % (Auto) 85.3 H Lymph % (Auto) 6.4 L [place] % (Auto) 7.6 Eos % (Auto) 0.1 L Baso % (Auto) 0.2 Neut # (Auto) 18.1 H Lymph # (Auto) 1.4 [place] # (Auto) 1.6 H Eos # (Auto) 0.0 Baso # (Auto) 0.0 Abs Immat Gran (auto) 0.09 H Imm/Tot Granulo (auto) 0.4 Sodium 137 Potassium 4.2 Chloride 101 Carbon Dioxide 24.0 Anion Gap 16.2 BUN 10.0 Creatinine 1.04 Est GFR ( Amer) >60 Est GFR (Non-Af Amer) >60 BUN/Creatinine Ratio 9.6 Glucose 196 H Lactate Calcium 8.9 Total Bilirubin 0.9 AST 22 ALT 45 Alkaline Phosphatase 97 Troponin I High Sens <4.0 L Total Protein 7.0 Albumin 3.3 L Globulin 3.7 Albumin/Globulin Ratio 0.9 Lipase 12.0 L Urine Color Urine Clarity Urine pH Ur Specific [place] Urine Protein Urine Glucose (UA) Urine Ketones Urine Occult Blood Urine Nitrite Urine Bilirubin Urine Urobilinogen Ur Leukocyte Esterase Urine RBC Urine WBC Ur Squamous Epith Cells Urine Crystals Urine Bacteria Urine Casts Urine Mucus POC Glucose Discharge Plan Discharge Disposition: Home, Self-Care Condition: Good Discharge Medications: New ciprofloxacin HCl [Cipro] 500 mg tablet 500 mg PO BID Qty: 20 0RF metronidazole 500 mg tablet 500 mg PO Q8H Qty: 30 0RF Continued metformin 500 mg tablet 500 mg PO BID hydrochlorothiazide 25 mg tablet 25 mg PO DAILY irbesartan 150 mg tablet 150 mg PO DAILY insulin aspart U-100 [Novolog FlexPen U-100 Insulin] 100 unit/mL (3 mL) insulin pen 1 sliding scale dose SUBCUT QID insulin glargine [Lantus Solostar U-100 Insulin] 100 unit/mL (3 mL) insulin pen 36 unit SUBCUT BID ondansetron 4 mg tablet,disintegrating 4 mg PO Q6H PRN (Reason: nausea and vomiting) Qty: 12 0RF duloxetine 60 mg capsule,delayed release(DR/EC) 120 mg PO DAILY famotidine 40 mg tablet 40 mg PO DAILY aspirin 81 mg capsule 81 mg PO DAILY metoprolol succinate 50 mg tablet extended release 24 hr 50 mg PO DAILY rosuvastatin 20 mg tablet 20 mg PO DAILY Print Language: Sami Forms: Portal Instructions
[2024-04-20] MEDS: INSULIN ASPART 300 UNIT/3 ML PEN SUBQ ×2 (08:53→11:40)
[2024-04-20] MEDS: INSULIN GLARGINE 300 UNIT/3 ML INSULN.PEN 36 UNIT SQ (08:54)
[2024-04-20] MEDS: METRONIDAZOLE 250 MG TABLET 500 MG PO (08:56)
[2024-04-20] MEDS: CIPROFLOXACIN HCL 500 MG TABLET PO (08:56)
[2024-04-20] MEDS: DULOXETINE HCL 60 MG CAPSULE.DR 120 MG PO (08:56)
[2024-04-20] MEDS: LOSARTAN POTASSIUM 50 MG TABLET PO (08:56)
[2024-04-20] MEDS: ASPIRIN 81 MG TAB.CHEW PO (08:56)
[2024-04-20] MEDS: ONDANSETRON PF 4 MG/2 ML VIAL IV (09:09)
[2024-04-20] MEDS: ACETAMINOPHEN 500 MG TABLET 1000 MG PO (10:02)
[2024-04-20 11:38] LABS: Glucometer 146 mg/dL (74-106)
--- NOTE | 2024-04-20 13:47 | PM.GSPN ---
Progress Note: A&P Assessment and Plan (1) Cholecystitis, acute: (2) Obesity: (3) Retinopathy: (4) Hypertension: (5) Dyslipidemia: (6) Fatty liver: (7) Cardiomyopathy: (8) GERD (gastroesophageal reflux disease): (9) Cholelithiasis: (10) Abdominal pain: (11) H/O eye surgery: (12) History of cardiac cath: Plan d/c home and f/u with me in 1 week. Subjective Subjective Patient reports: no new complaints, feels better, tolerating a regular diet and flatus Interval history: pod #1 robotic tino ;up in chair eating and passing flatus Exam Constitutional Vital Signs, click to edit/add: Last Vital Signs Temp 97.9 F 04/20/24 11:27 Pulse 123 H 04/20/24 11:53 Resp 18 04/20/24 11:27 BP 118/68 04/20/24 11:27 Pulse Ox 92 L 04/20/24 11:27 O2 Del Method Room Air 04/20/24 11:27 O2 Flow Rate 2 04/20/24 07:37 GI Palpation: soft and other (wounds clean dry and intact) Date and Time Date and Time of Service Date of service: 04/20/24 Time: 01:00
--- NOTE | 2024-04-20 14:24 | SWNOTE1 ---
Pt was discharged prior to SW speaking with him about Advanced Directives.
--- OUTSIDE RECORDS SUMMARY | 2024-04-21 11:23 | XMS_ITS | CCD ---
Author Organization [facility] Care Team Providers Care Single Stayer Operator Name Role Phone MD Irish Maldonado Primary Care Provider [phone] DO Ariel Perry Emergency Provider MD Bonilla [...] Consulting Unavailable Irish Maldonado Primary Care Physician [phone] Judah WHITAKER Attending Unavailable Irish Maldonado Referring Unavailable Ariel Perry Attending Unavailable Ariel Perry Admitting Unavailable Irish Maldonado Primary Care Unavailable TREMAINE ROUSE Attending Unavailable Irish Maldonado MD Primary Care Provider [phone] Allergies Allergy Classification Reported Allergen(s) Allergy Type Date of Onset Reaction(s) Facility (4 sources) Lisinopril; Translations: [lisinopril] Drug Allergy 4 Cough (finding) [facility] [place] (2 sources) Lisinopril Propensity to adverse reactions [...] mouth every month Ergocalciferol (Vitamin D2) Discontinued [address] UN[address] As Directed June 20, 2018 [...] Range Facility Office Visiton 03-15-2024 Follow-up visit [id number] Arile Ruvalcaba 1985 M Date Provider Department Center 03/15/2024 3848-TREMAINE ROUSE [facility] Family History Problem Relation Age of Onset No Known Problems Mother No Known Problems Father Family Status - Relation Status Age at Mother Father Level of Service:75531 RI OFFICE/OUTPATIENT NEW MODERATE MDM 45 MINUTES Normal [facility] Ambulatory Visit Summaryon 0 03-09-2024 Ambulatory [...] choosing us for your care. Normal [facility] ECHOCARDIO M/2D COMPLETEon 0 02-25-2022 ECHOCARDIO M/2D COMPLETE Patient: ARIEL ALONZO Exam Date: 02/25/2022 : 1985 Gender:M Ordering : DR IRISH MALODNADO . Admission #: [id number] Family : Order #: [id number] CLICK HERE TO VIEW EXAM ECHOCARDIOGRAM REPORT [...] Rodgers M.D. on 02/26/2022 at 12:57 Normal [facility] STRESS/REST MULTIon 02-07 NM STRESS/REST MULTI Patient: ARIEL RUVALCABA Exam Date: 02/07/2022 : 1985 Gender:M Ordering : DR IRISH MALDONADO . Admission #: [id number] Family : Order #: [id number] CLICK HERE TO VIEW EXAM RADIOLOGY REPORT [...] M.D. on 02/08/2022 at 12:12 Normal [facility] Activated partial thrombopla stin time (aPTT) in platelet poor plasma by coagulation aOrdered By: Ariel Perry on 01-26-2022 aPTT Coag (PPP) [Time] 29.9 s 25.1-36.5 [facility] Basophils Auto (Bld) [#/Vol] Ordered By: Ariel Perry on 01-26-2022 Basophils (Bld) [#/Vol] 0.1 10*3/uL 0.0-0.2 [facility] Basophils/100 WBC Auto (Bld) Ordered By: Ariel Perry on 01-26-2022 Basophils/100 WBC (Bld) 0.7 % . [facility] Blood hemoglobin measurement (mass/volume)Ordered By: Ariel Perry on 01-26-2022 Hemoglobin (Bld) [Mass/Vol] 14.8 g/dL 13.0-17.0 [facility] Blood leukocytes automated c ount (number/volume)Ordered By: Ariel Perry on 01-26-2022 WBC (Bld) [#/Vol] 7.5 10*3/uL 4.5-11.0 [facility] COVID-19 Positive/NegativeOr dered By: Ariel Perry on 01-26-2022 SARS-CoV-2 (COVID-19) N gene NIKKI+probe Ql (Resp) Negative Negative [facility] Comment on above: Testing for SARS-CoV -2 by RT-PCR This test was developed and its performance characteristics determined by [employer] ([employer]) and validated at the [facility]. This test has not been FDA [...] (COVID-19) Ag IA.rapid Ql (Resp) Negative Negative [facility] Comment on above: This is a duplicate Shirley SARS Antigen (VIKTOR) result to be used for statistical tracking purpose only. Creatine kinase [Enzymatic a ctivity/volume] in Serum or PlasmaOrdered By: Ariel Perry on 01-26-2022 CK [Catalytic activity/Vol] 108 U/L 22-269 [facility] Creatinine and Glomerular fi ltration rate.predicted panel (S/P/Bld)Ordered By: Ariel Perry on 01-26-2022 Creatinine [Mass/Vol] 0.81 mg/dL 0.64-1.27 [facility] Eosinophils Auto (Bld) [#/Vo l]Ordered By: Ariel Perry on 01-26-2022 Eosinophils (Bld) [#/Vol] 0.2 10*3/uL 0.0-0.45 [facility] Eosinophils/100 WBC Auto (Bl d)Ordered By: Ariel Perry on 01-26-2022 Eosinophils/100 WBC (Bld) 2.0 % . [facility] Erythrocyte distribution wid th Auto (RBC) [Ratio]Ordered By: Ariel Perry on 01-26-2022 Erythrocyte distribution width (RBC) [Ratio] 13.0 % 12.0-14.8 [facility] Estimated glomerular filtrat ion rate (GFR) non- AmericanOrdered By: Ariel Perry on 01-26-2022 GFR/1.73 sq M.predicted among non-blacks MDRD (S/P/Bld) [Vol rate/Area] > 60 mL/Min [facility] Glucose Glucometer (BldC) [M ass/Vol]Ordered By: Bonilla Hall on 01-26-2022 Glucose [Mass/Vol] 342 mg/dL [facility] Comment on above: Random Glucose Refer ence Range is dependent on time and content of last meal. Glucose of more than 200 mg/dL in a nonstressed, ambulatory subject supports the diagnosis of Diabetes Mellitus. Hematocrit Auto (Bld) [Volum e fraction]Ordered By: Ariel Perry on 01-26-2022 Hematocrit (Bld) [Volume fraction] 44.3 % 38.8-50.0 [facility] - Chemistry and C hemistry - challengeOrdered By: Ariel Perry on 01-26-2022 Natriuretic peptide B (Bld) [Mass/Vol] pg/mL 5-100 [facility] - CoagulationOrde red By: Ariel Perry on 01-26-2022 PT Coag (PPP) [Time] 9.3 s 9.0-12.9 [facility] - Hematology and Cell countsOrdered By: Ariel Perry on 01-26-2022 Nucleated RBC/100 WBC (Bld) [Ratio] 0.0 % 0-0.5 [facility] - Microbiology an d Antimicrobial susceptibilityOrdered By: Ariel Perry on 01-26-2022 SARS-CoV-2 (COVID-19) RNA NIKKI+probe Ql (Unsp spec) N/A [facility] Lymphocytes Auto (Bld) [#/Vo l]Ordered By: Ariel Perry on 01-26-2022 Lymphocytes (Bld) [#/Vol] 2.6 10*3/uL 1.00-4.8 [facility] Lymphocytes/100 WBC Auto (Bl d)Ordered By: Ariel Perry on 01-26-2022 Lymphocytes/100 WBC (Bld) 34.4 % . [facility] MCH Auto (RBC) [Entitic mass ]Ordered By: Ariel Perry on 01-26-2022 MCH (RBC) [Entitic mass] 30.2 pg 27.5-35.2 [facility] MCHC Auto (RBC) [Mass/Vol]Or dered By: Ariel Perry on 01-26-2022 MCHC (RBC) [Mass/Vol] 33.4 g/dL 32.5-35.6 [facility] MCV Auto (RBC) [Entitic vol] Ordered By: Ariel Perry on 01-26-2022 MCV (RBC) [Entitic vol] 90.4 fL 83.5-101 [facility] Monocytes Auto (Bld) [#/Vol] Ordered By: Ariel Perry on 01-26-2022 Monocytes (Bld) [#/Vol] 0.5 10*3/uL 0.0-0.8 [facility] Monocytes/100 WBC Auto (Bld) Ordered By: Ariel Perry on 01-26-2022 Monocytes/100 WBC (Bld) 6.7 % . [facility] Neutrophils Auto (Bld) [#/Vo l]Ordered By: Ariel Perry on 01-26-2022 Neutrophils (Bld) [#/Vol] 4.2 10*3/uL 1.8-7.7 [facility] Neutrophils/100 WBC Auto (Bl d)Ordered By: Ariel Perry on 01-26-2022 Neutrophils/100 WBC (Bld) 56.2 % . [facility] No Panel InformationOrdered By: Ariel Perry on 01-26-2022 Estimated GFR () > 60 mL/Min [facility] Comment on above: GFR estimated refere nce range: According to KDOQI guidelines, <60 ml/min/1.73m2 is sufficient to diagnose a patient with chronic kidney disease. Pharmacy Creatinine Clearance (Chem 139.01 [facility] SARS Antigen (LFIA) [facility] Platelet mean volume Auto (B ld) [Entitic vol]Ordered By: Ariel Perry on 01-26-2022 Platelet mean volume (Bld) [Entitic vol] 8.2 fL 6.6-10.1 [facility] Platelet poor plasma interna tional normalized ratio (INR) by coagulation assay (relatOrdered By: Ariel Perry on 01-26-2022 INR Coag (PPP) [Relative time] 0.8 {INR} [facility] Comment on above: INR Therapeutic Rang [...] 01-26-2022 Platelets (Bld) [#/Vol] 358 10*3/uL 150-450 [facility] RBC Auto (Bld) [#/Vol]Ordere d By: Ariel Perry on 01-26-2022 RBC (Bld) [#/Vol] 4.90 10*6/uL 3.90-5.60 [facility] Serum or plasma calcium kelly urement (mass/volume)Ordered By: Ariel Perry on 01-26-2022 Calcium [Mass/Vol] 9.4 mg/dL 8.2-10.2 [facility] Serum or plasma chloride nancy surement (moles/volume)Ordered By: Ariel Perry on 01-26-2022 Chloride [Moles/Vol] 100 mmol/L 95-114 [facility] Serum or plasma creatine kin ase MB (CKMB)/total creatine kinase (CK) ratio by calculaOrdered By: Ariel Perry on 01-26-2022 CK.MB Calc [Catalytic fraction] 1.7 % 0.00-2.50 [facility] Serum or plasma creatine kin ase MB measurement (mass/volume)Ordered By: Ariel Perry on 01-26-2022 CK.MB [Mass/Vol] 1.9 ng/mL 0.6-6.3 [facility] Serum or plasma glucose kelly urement (mass/volume)Ordered By: Ariel Perry on 01-26-2022 Glucose [Mass/Vol] 287 mg/dL 70-100 [facility] Comment on above: ADA recommended refe rence range Random Glucose Reference Range is dependent on time and content of last meal. Glucose of more than 200 mg/dL in a nonstressed, ambulatory subject supports the diagnosis of Diabetes Mellitus. Serum or plasma potassium me asurement (moles/volume)Ordered By: Ariel Perry on 01-26-2022 Potassium [Moles/Vol] 4.0 mmol/L 3.5-5.1 [facility] Serum or plasma sodium measu rement (moles/volume)Ordered By: Ariel Perry on 01-26-2022 Sodium [Moles/Vol] 137 mmol/L 136-146 [facility] Serum or plasma total carbon dioxide measurement (moles/volume)Ordered By: Ariel Perry on 01-26-2022 CO2 [Moles/Vol] 25.9 mmol/L 22.0-30.0 [facility] Serum or plasma urea nitroge n measurement (mass/volume)Ordered By: Ariel Perry on 01-26-2022 Urea nitrogen [Mass/Vol] 13 mg/dL 9-23 [facility] Troponin I.cardiac [Mass/vol ume] in Serum or Plasma by High sensitivity methodOrdered By: Bonilla Hall on 01-26-2022 Troponin I.cardiac High sensitivity method [Mass/Vol] 3 pg/mL 0-20 [facility] COVID-19 ANTIGENon 2 EUA Statement SEE BELOW Normal [facility] Comment on above: Result Comment: This [...] sooner. Performed By: #### D ATCVAG #### [facility] [address] [place] [address] Dr. Kaylen Hall SARS-CoV-2 (COVID-19) RNA NIKKI+probe Ql (Unsp spec) Negative Normal NEGATIVE [facility] Comment on above: Result Comment: Nega tive results are presumptive. They do not preclude infection and should not be used as the sole basis for treatment decisions. Additional confirmatory testing by a molecular method should be considered. Performed By: #### D ATCVAG #### [facility] [address] [place] [address] Dr. Kaylen Hall Covid-19 PCR ([facility])on SARS-CoV-2 (COVID-19) RNA NIKKI+probe Ql (Unsp spec) Not detected Normal NOT DETECTED [facility] Comment on above: Result Comment: This test is not yet approved or cleared by the [place] FDA. When there are no FDA-approved or cleared tests available, and other criteria are met, FDA can make tests available under an emergency access mechanism called an Emergency Use Authorization (EUA). The EUA for this test is supported by the Weaving Instructor of Health and Human Service's (HHS's) declaration [...] consistent with SARS-CoV-2. Performed By: #### C [facility] #### [facility] [address] [place] [address] Dr. Kaylen Hall Vital Signs Date Time Vital Sign Value Performing Clinician Facility 04-06-2024 15:57-0400 Body height 175.3 cm Vanna Shelbymor [employer] Work Phone: [facility] 04-06-2024 15:57-0400 Body mass index (BMI) [Ratio] 33.97 kg/m2 Vanna Gillmor [employer] E[employer] REPAIRER Work Phone: [facility] 04-06-2024 15:57-0400 Body weight 104.33 kg Vanna Gillmor [employer] EQUIPMENT REPAIRER Work Phone: [facility] 04-06-2024 15:57-0400 Diastolic blood pressure 82 mm[Hg] Vanna Gillmor [employer] EQU[employer]MENT REPAIRER Work Phone: [facility] 04-06-2024 15:57-0400 Systolic blood pressure 124 mm[Hg] Vanna Gillmor [employer] EQU[employer]MENT REPAIRER Work Phone: [facility] 03-09-2024 08:55-0400 Blood Pressure Location Judah NILL [facility] 03-09-2024 08:55-0400 Diastolic blood pressure 85 mm[Hg] Judha NILL [facility] 03-09-2024 08:55-0400 Heart rate 120 /min Judah NILL [facility] 03-09-2024 08:55-0400 Respiratory rate 16 /min Judah NILL [facility] 03-09-2024 08:55-0400 Systolic blood pressure 136 mm[Hg] Judah NILL [facility] 01-26-2022 19:50-0400 Body temperature 97.9 [degF] MD Irish Maldonado Work Phone: [facility] 01-26-2022 19:50-0400 Diastolic blood pressure 85 mm[Hg] MD Irish Maldonado Work Phone: [facility] 01-26-2022 19:50-0400 Heart rate 90 /min MD Irish Maldonado Work Phone: [facility] 01-26-2022 19:50-0400 Respiratory rate 16 /min MD Irish Maldonado Work Phone: [facility] 01-26-2022 19:50-0400 SaO2% (BldA) [Mass fraction] 96 % MD Irish Maldonado Work Phone: [facility] 01-26-2022 19:50-0400 Systolic blood pressure 140 mm[Hg] MD Irish Maldonado Work Phone: [facility] 01-26-2022 18:43-0400 Body height 170.18 cm MD Irish Maldonado Work Phone: [facility] 01-26-2022 18:43-0400 Body weight 90.5 kg MD Irish Maldonado Work Phone: [facility] Encounters Encounter Date Encounter Type Care Provider Facility Start: 04-06-2024 End: 04-06-2024 Office outpatient visit 25 minutes Vanna Patiño [employer] E[employer] REPAIRER Work Phone: [facility] Comment on above: Polyneuropathy (Prim jane Dx); Lumbosacral radiculopathy; Right arm weakness; Paresthesias Start: 04-06-2024 End: 04-06-2024 Bamboo flowsheet Vanna Patiño [employer] EQU[employer]MENT REPAIRER Work Phone: [facility] [employer] [facility] Start: 04-06-2024 End: 04-06-2024 Bamboo flowsheet Vanna Patiño [employer] E[employer] REPAIRER Work Phone: [facility] Start: 03-18-2024 End: 04-06-2024 Pre-admission assessment Judah WHITAKER [facility] Start: 03-15-2024 End: 03-15-2024 ambulatory [facility] Start: 03-15-2024 End: 03-15-2024 Encounter for other preprocedural examination [facility] Start: 03-09-2024 End: 03-09-2024 ambulatory Judah Leisa JULIANNE Facility:[facility] [place] Start: 03-09-2024 End: 03-09-2024 Patient encounter procedure Judah De La Fuente JULIANNE [facility] [place] Start: 03-02-2024 ambulatory Judah WHITAKER Facility:[facility] Start: 02-27-2024 ambulatory Judah WHITAKER Facility:[facility] Start: 08-02-2022 End: 08-03-2022 Emergency department patient visit Ariel Perry Facility:[facility] Start: 02-25-2022 End: 02-26-[address] IRISH MALDONADO Facility:[facility] Start: 02-07-2022 End: 02-08-[address] IRISH MALDONADO Facility:[facility] Start: 01-26-2022 End: 01-26-2022 Evaluation and management of inpatient MD Irish Maldonado Work Phone: [facility] Start: 07-14-2021 End: 07-15-2021 ambulatory [...] EST Office Visit [facility] [address] [facility] [address] [place] [address] Vanna Patiño NP [address] [place], [place] [facility] Start: 04-06-2024 End: 04-06-2024 Patient encounter procedure 04/06/2024 4:00 PM EDT Office Visit [facility] [address] [place] [phone] Vanna Patiño NP [address] [place], [place] [facility] Comment on above: Arrived Start: 01-26-2022 Hospital admission [facility] Work Phone: Start: 01-26-2022 [facility] Work Phone: Patient referral [facility] Work Phone: Payers Date Payer Category Payer Medicaid [facility] [id number] 2023 Medicaid [id number] 2022 Self-pay [id number] 2019 Unknown [id number] 1984 Unknown [id number] 1984 Unknown [id number] 1984 Unknown [id number] 1984 Unknown [id number] 1959 Self-pay [id number] 1959 Unknown [id number] Unknown Ramon BC/BS [id number] Unknown [id number] Unknown [id number] Social History Date Type Detail Facility Start: 01-26-2022 End: 04-06-2024 Tobacco smoking status SCIS Ex-smoker (finding) [facility] Start: 1985 Sex Assigned At Male F [facility] Tobacco smoking status Former sm okeless tobacco user, quit more than 30 days ago [facility] [place] Start: 02-19-2024 End: 04-06-[address] Male [facility] History of tobacco use Current smoker [facility] History of tobacco use Cigarette Smoker [facility] Start: 02-19-2024 End: 04-06-2024 Tobacco use and exposure Smokeless tobacco non-user [facility] Start: 02-19-2024 End: 04-06-2024 History of Social function [facility] Start: 01-19-2024 Gender identity Identifies as male gender (finding) [facility] Start: 01-19-2024 Sexual orientation Choose not to dis close [facility] Start: 04-06-2024 Alcoholic beverage intake Lifetime non-drinker (finding) [facility] Goals Date Patient Goal Desired Activity /State Functional Status Date Assessment Result Facility 03-09-2024 Functional Status N/A [facility] [place] Clinical Notes 01-26-2022 to 03-15-2024 Radiology Note [...] type, unspecified whether angina present, unspecified whether [place] or transplanted heart Diagnoses and all orders [...] type, unspecified whether angina present, unspecified whether [place]is[place] or transplanted heart - Treadmill Stress Myocardial [...] patient. Please do (more content not included)... [facility] 03-09-2024 Evaluation + Plan note Future Scheduled TestsMRI Cholangiogram Pancreatography (mrcp) 03/09/24 [facility] [place] 03-09-2024 Note General Surgery Offi ce/Clinic Note [...] Denies rectal pain or bleeding. Presented to [place] ED 02/23 with complaint of ABD pain. [...] Cardiomyopathy (I42.9: Cardiomyopathy, unspecified) cardiology evaluation Ordered: [facility] External Ambulatory Referral 6. Tachycardia (R00.0: Tachycardia, unspecified) cardiology eval (more content not included)... [facility] Comment on above: Result Comment: Elec tronically Signed By: JULIANNE MCARTHUR, Judah Ceron\Date and Time Signed: 03/09/24 09:44 EDT 01-26-2022 History and physical note Note Date/Time January 26, 2022 4:27pm [facility] [address] [place] [address] Hospitalist H&P Signed Patient: Ariel Ruvalcaba MR#: [id number] : 1985 Acct:[id number] Age/Sex: 36 / M Adm Date: 2 Loc: ER Room: Type: [facility] ER Attending Dr: Copies to: IrishMD Ariel [...] % (Auto) 34.4 % (.) 01/26/22 13:08 [place] % (Auto) 6.7 % (.) 01/26/22 13:08 Eos % (Auto) 2.0 % (.) 01/26/22 13:08 Baso % (Auto) 0.7 % (.) 01/26/22 13:08 Neut # (Auto) 4.2 x10E3/uL (1.8-7.7) 01/26/22 13:08 Lymph # (Auto) 2.6 x10E3/uL (1.00-4.8) 01/26/22 13:08 [place] # (Auto) 0.5 x10E3/uL (0.0-0.8) 01/26/22 13:08 [...] [facility] Work Phone: Evaluation note* Diagnosis Onset Date Resolution Status Angina pectoris, unstable ac [place] Chest pain acute Diabetes mellitus chronic [facility] Work Phone: Evaluation note* Diagnosis Polyneuropathy- Primary Unspecified hereditary and idiopathic peripheral neuropathy Lumbosacral radiculopathy Thoracic or lumbosacral neuritis or radiculitis, unspecified Right arm weakness Other musculoskeletal symptoms referable to limbs Paresthesias Disturbance of skin sensation documented in this encounter [facility] Author Bonilla Hall [facility] January 26, 2022 4:41pm Note Date/Time January 26, 2022 4: 27pm [facility] [address] [place] [address] Hospitalist H&P Signed Patient: Ariel Ruvalcaba MR#: [id number] : 1985 Acct:[id number] Age/Sex: 36 / M Adm Date: 2 Loc: ER Room: Type: [facility] ER Attending Dr: Copies to: MD Ariel [...] % (Auto) 34.4 % (.) 01/26/22 13:08 [place] % (Auto) 6.7 % (.) 01/26/22 13:08 Eos % (Auto) 2.0 % (.) 01/26/22 13:08 Baso % (Auto) 0.7 % (.) 01/26/22 13:08 Neut # (Auto) 4.2 x10E3/uL (1.8-7.7) 01/26/22 13:08 Lymph # (Auto) 2.6 x10E3/uL (1.00-4.8) 01/26/22 13:08 [place] # (Auto) 0.5 x10E3/uL (0.0-0.8) 01/26/22 13:08 [...] signed by Bonilla Hall MD> 01/26/[address] [facility] Work Phone: Hospital course Narrative No data available for this section [facility] [place] [facility] Discharge instructions No data available for this section [facility] [place] Progress note No data available for this section [facility] [place] Reason for referral (narrative) Referred by: JULIANNE MCARTHUR, Judah De La Fuente [facility] [place] Chief Complaint and Reason for Visit Chief [...] Irish Maldonado MD Primary Care Provider Active Single Stayer Operator 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 Specialty Start Date End Date Irish Maldonado MD [address] [place] [address] PCP - General Family Medicine 01/26/24 Single Stayer Operator 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 Specialty Start Date End Date Irish Maldonado MD [address] [place] [address] PCP - General Family Medicine 8/12/24 (unrecognized sect ion and content) No Status Records FoundNo Status Records FoundNo Status Records FoundNo Status Records Found INFORMATION SOURCE (unrecogn ized section and content) DATE CREATED AUTHOR 03/16/2022 [facility] DATE CREATED AUTHOR AUTHOR'S ORGANIZ ATION 03/11/2024 [facility] DATE CREATED AUTHOR AUTHOR'S ORGANIZ ATION 03/13/2024 [facility] DATE CREATED AUTHOR AUTHOR'S ORGANIZ ATION 03/21/2024 [facility] Reason for Visit (unrecogniz ed section and [...] BE BASED ON THE PRIMARY CLINICAL RECORDS. [employer] [facility]. provides no warranty or guarantee of the accuracy or completeness of information in this document.
--- OUTSIDE RECORDS SUMMARY | 2024-04-23 11:05 | XMS_ITS | CCD ---
Author Organization [facility] Care Team Providers Care 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 Member Name Role Phone MD Irish Maldonado Primary Care Provider [phone] DO Ariel Perry Emergency Provider MD Bonilla Luke Admit Provider MD Bonilla Hall Attending Provider MD Charles Owen Other Provider ERICA, DR COBURN Primary Care Unavailable SUZANNEY, DR [...] Care Unavailable SUZANNEY, DR COBURN Admitting Unavailable ERICA, DR COBURN Attending Unavailable ERICA, DR COBURN Consulting Unavailable Irish Maldonado Primary Care Physician Judah WHITAKER Attending Unavailable Irish Maldonado Referring Unavailable TREMAINE ROUSE Attending Unavailable Irish Maldonado MD Primary Care Provider [phone] Judah Fuentes Attending Unavailable Judah Fuentes Admitting Unavailable DO Judah Fuentes Attending Provider [phone] Allergies Allergy Classification Reported Allergen(s) Allergy Type Date of Onset Reaction(s) Facility (4 sources) Lisinopril; Translations: [lisinopril] Drug Allergy 4 Cough (finding) [facility] [place] (2 sources) Lisinopril Propensity to adverse reactions Cough [facility] Medications Current Medications Medication Drug Class(es) Dates Sig (Normalized) Sig (Original) aspirin 81 mg chewable tablet (5 sources) Platelet Aggregation Inhibitor, Nonsteroidal Anti-inflammatory Drug Start: 03-15-2024 End: 03-15-2025 aspirin 81 MG chewable tablet Chew 81 mg 03/15/2024 03/15/2025 Active Start: 06-19-2018 take 325 mg by mouth once brett y Aspirin Active 325 MG PO Daily June 19, 2018 12:00am diclofenac sodium 75 mg delayed release oral tablet (5 sources) Nonsteroidal Anti-inflammatory Drug Start: 02-18-2024 End: 04-06-2024 take 1 tablet by mouth twice daily diclofenac sodium 75 mg Oral EC Tab 75 mg = 1 tab(s), Oral, BID, Refills(s) 0 Start Date: 03/03/24 Status: Ordered docusate sodium 100 mg oral capsule (1 source) Start: 08-02-2022 take 1 capsule by mouth twice daily Docusate Sodium (Colace) 100 mg capsule Active 100 MG PO Twice daily 60 August 02, 2022 10:31pm DULoxetine 60 mg delayed release oral capsule [...] insulin aspart, human 100 unt/ml injectable solution (8 sources) Insulin Analog Start: 03-03-2024 NovoLOG 100 [...] Active 0 .ROUTE .COMPLEX June 19, 2018 12:00am SLIDING SCALE Start: 06-19-2018 Insulin Aspart U-100 Active 0 .ROUTE .COMPLEX June 19, 2018 1:00am SLIDING SCALE 3 ml insulin glargine 100 unt/ml pen injector (8 sources) Insulin Analog Start: 03-03-2024 Lantus Solosta r Pen 100 units/mL subcutaneous solution 36 unit(s), SubCutaneous, BID, Refills(s) 0 Start Date: 03/03/24 Status: Ordered Start: 06-19-2018 Lantus SoloSta r 100 UNIT/ML pen every 12 (twelve) hours 02/25/2023 Active irbesartan 150 mg oral tablet (5 sources) [...] 03/15/2025 Active nitroglycerin 0.4 mg sublingual tablet (3 sources) Nitrate Vasodilator Start: 06-22-2018 Nitroglycerin Active 0.4 MG SUBLINGUAL Q5M June 22, 2018 12:00am ondansetron 4 mg disintegrating oral tablet (2 [...] ONCE DAILY FOR 30 DAYS 02/09/2024 Active polyethylene glycol 3350 69335 mg powder for oral solution (1 source) Osmotic Laxative Start: 08-02-2022 Polyethylene Glycol 3350 (Miralax) 17 gram/dose powder Active 17 GM PO Daily August 02, 2022 12:00am mix into 4-8 oz. of any hot/cold/room temp. beverage; use immediately Psyllium Husk (Daily Fiber) 0.4 gram capsule (1 source) Start: 08-02-2022 Psyllium Husk (Daily Fiber) 0.4 gram capsule Active 0.4 GM PO Daily August 02, 2022 12:00am rosuvastatin calcium 20 mg oral tablet (2 [...] (Therapy completed) atorvastatin 20 mg oral tablet (3 sources) HMG-CoA Reductase Inhibitor Start: 06-22-2018 End: 06-17-2019 take 20 mg by mouth once daily in the evening Atorvastatin Discontinued 20 MG PO Every evening June 22, 2018 12:00am June 17, 2019 12:07am citalopram 20 mg oral tablet (6 sources) Serotonin Reuptake Inhibitor Start: 06-19-2018 End: 04-06-2024 take 1 tablet by mouth once daily citalopram (CeleXA) 20 MG tablet Take 20 mg by mouth Daily 12/06/2023 04/06/2024 Discontinued (Therapy completed) ergocalciferol 1.25 mg oral capsule (3 sources) Provitamin D2 Compound Start: 06-20-2018 End: 01-26-2022 take 1 capsule by mouth every week, then take 1 capsule by mouth every month Ergocalciferol (Vitamin D2) Discontinued 47287 UNIT PO As Directed June 20, 2018 12:00am January 26, 2022 12:04pm take one cap every week for 8 weeks, then one cap every months after that. hyoscyamine sulfate 0.125 mg oral tablet (3 sources) Start: 06-18-2023 End: 04-06-2024 hyoscyamine (Anaspaz,Levsin) 0.125 MG tablet TAKE 1 TABLET BY MOUTH NEEDED BEFORE MEAL(S) AND AT BEDTIME 06/18/2023 04/06/2024 Discontinued (Therapy completed) lisinopril 5 mg oral tablet (3 sources) Angiotensin Converting Enzyme Inhibitor Start: 06-22-2018 End: 06-17-2019 take 5 mg by mouth once daily Lisinopril Discontinued 5 MG PO Daily June 22, 2018 12:00am June 17, 2019 12:03am 24 hr nicotine 0.875 mg/hr transdermal system (3 sources) Cholinergic Nicotinic Agonist Start: 06-22-2018 End: 09-14-2018 apply 1 dose transdermal route every twenty-four hours Nicotine Discontinued 1 PATCH TRANSDERML Q24H June 22, 2018 12:00am September 13, 2018 11:02pm Problems Active Problems Problem Classification Problem Date Documented Da te Episodic/Chronic Abdominal pain (5 sources) Epigastric pain; Translations: [Epigastric pain] Onset: 4 Episodic Anxiety disorders (2 sources) Anxiety 03-03-2024 Chronic Biliary tract disease (3 sources) Cholelithiasis without obstruction; Translations: [Calculus of gallbladder without cholecystitis without obstruction] Onset: 4 Episodic Cardiac dysrhythmias (6 sources) Tachyarrhythmia ; Translations: [Tachycardia, unspecified] Onset: 4 Episodic Coronary atherosclerosis and other heart disease (10 sources) Preinfarction syndrome; Translations: [Unstable angina] Onset: 4 01-26-2022 Chronic Diabetes mellitus with complications (5 sources) Retinopathy due to diabetes mellitus; Translations: [Type 2 diabetes mellitus with unspecified diabetic retinopathy without macular edema] 06-20-2018 Chronic Diabetes mellitus without complication (10 sources) Latent autoimmune diabetes mellitus in adult; Translations: [Other specified diabetes mellitus without complications] 06-20-2018 Chronic Diabetes mellitus without complication (1 source) Glycosuria; Translations: [Glycosuria] 08-02-2022 Episodic Disorders of lipid metabolism (5 sources) Dyslipidemia; Translations: [Hyperlipidemia, unspecified] 06-20-2018 Chronic Esophageal disorders (5 sources) Gastroesophageal reflux disease without esophagitis; Translations: [Gastro-esophageal reflux disease without esophagitis] Onset: 4 Chronic Essential hypertension (2 sources) Hypertensive disorder 03-03-2024 Chronic Fluid and electrolyte disorders (2 sources) Hypovolemia; Translations: [Hypovolemia] 08-02-2022 Episodic Headache; including migraine (2 sources) Migraine 03-03-2024 Chronic Mood disorders (5 sources) Depressive disorder; Translations: [Depressive disorder] 06-20-2018 Chronic Nausea and vomiting (3 sources) Nausea and vomiting; Translations: [Nausea with vomiting, unspecified] Onset: 4 Episodic Nonspecific chest pain (17 sources) Chest pain; Translations: [Chest pain, unspecified] Onset: 2 06-20-2018 Episodic Nutritional deficiencies (5 sources) Vitamin D deficiency; Translations: [Vitamin D deficiency, unspecified] 06-20-2018 Chronic Other connective tissue disease (5 sources) Other symptoms and signs involving the musculoskeletal system; Translations: [Other musculoskeletal symptoms referable to limbs] Onset: 4 02-24-2024 Episodic Other gastrointestinal disorders (1 source) Constipation; Translations: [Constipation, unspecified] 08-02-2022 Episodic Other liver diseases (2 sources) Steatosis of liver 03-03-2024 Chronic Other lower respiratory disease (4 sources) Dyspnea; Translations: [Shortness of breath] Onset: 2 06-20-2018 Episodic Other lower respiratory disease (3 sources) Shortness of breath; Translations: [SHORTNESS OF BREATH] Onset: 2 Episodic Other nervous system disorders (2 sources) Polyneuropathy; Translations: [Polyneuropathy, unspecified] 04-06-2024 Chronic Other nervous system disorders (3 sources) Numbness; Translations: [Anesthesia of skin] Onset: 4 02-24-2024 Episodic Other nervous system disorders (2 [...] [ABNORM RESULT OT CV FUNCTION STUDY] Onset: 2 Episodic Gisselle-; endo-; and myocarditis; cardiomyopathy (except that caused by tuberculosis or sexually transmitted disease) (3 sources) Cardiomyopathy; Translations: [Cardiomyopathy, unspecified] Onset: 4 Chronic Residual codes; unclassified (3 sources) Tobacco user; Translations: [Tobacco use] 06-20-2018 Episodic Retinal detachments; defects; vascular occlusion; and retinopathy (2 sources) 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 Spondylosis; intervertebral disc disorders; other back problems (2 sources) Lumbosacral radiculopathy; Translations: [Radiculopathy, lumbosacral region] 04-06-2024 Episodic Unclassified (3 sources) CONTACT W/AND (SUSP) EXPOS COVID-19; Translations: [CONTACT W/AND (SUSP) EXPOS COVID-19] Onset: 2 Past or Other Problems Problem Classification Problem Date Documented Da te Episodic/Chronic Other upper respiratory infections (1 source) Acute recurrent frontal sinusitis; Translations: [ACUTE RECURRENT FRONTAL SINUSITIS] Onset: 05-24-2021 Episodic Unclassified (1 source) CONTACT W/AND (SUSP) EXPOS COVID-19; Translations: [CONTACT W/AND (SUSP) EXPOS COVID-19] Onset: 07-14-2021 Results Test Name Value Interpretation Reference Range Facility [facility] 04-19-2024 L Specimen: [id number] Received: 04/20/24 Status: [facility] Req Num: [id number] Spec Type: Surgical Subm Dr: Judah Fuentes DO Tissues: A Gallbladder (GALLBLADDER AND CONTENTS) Procedures: HE, Gross/Micro L3 Age/ Patient Sex Location Account Attending Physician Ariel Ruvalcaba 38/M LABELL [id number] Judah Fuentes DO SPEC NUM: [id number] RECD: 04/20/24 STATUS: [facility] NUM: [id number] DAI: 04/19/[address]: Judah Fuentes DO ENTERED: 04/20/[address] [facility] [address]: Yaz,Lab SPEC TYPE: Surgical DEPT: REHANA DONIS ENTERED BY: [id number] RECV BY: [id number] ORDERED: HE, Gross/Micro L3 ORDERED: HE, Gross/Micro L3 Pathological Diagnosis Gallbladder, cholecystectomy: Acute cholecystitis and cholelithiasis. Clinical Information Acute cholelithiasis Gross Description Received in formalin labeled gallbladder and contents is a collapsed gallbladder, 9 x 4 x 1.8 cm, with a 0.3 cm in diameter cystic duct. A periductal lymph node is not identified. The serosa is baron-blue, smooth and glistening; the hepatic bed is rough and irregular. The gallbladder is open to reveal numerous (at least 30), knight-brown, granular calculi (0.1 to 0.2 cm in greatest dimension), 2 x 1 x 0.3 cm in aggregate. The mucosa is knight-green and trabecular. The wall of the gallbladder ranges from 0.1 to 0.3 cm in thickness. Surgery Nurse sections are submitted in a single cassette. (1, ss, [id number]) JG CPT Codes 38964 Specimen: [id number] Received: 04/20/24 Status: [facility] Num: [id number] Spec Type: Surgical Subm Dr: Judah Fuentes DO Tissues: A Gallbladder (GALLBLADDER AND CONTENTS) Procedures: Aaron REYNOLDS/Paulina L3 Patient: Ariel Rvualcaba [id number] (Continued) Signed (signature on file) Flori Zamora MD 04/21/24 1801 Normal [facility] Office Visiton 03-15-2024 Follow-up visit [id number] Ariel Ruvalcaba A 1985 M Date Provider Department Center 03/15/2024 3848-TREMAINE ROUSE BH CARD [facility] Family History Problem Relation Age of Onset No Known Problems Mother No Known Problems Father Family Status - Relation Status Age at Mother Father Level of Service:84949 OR OFFICE/OUTPATIENT NEW MODERATE MDM 45 MINUTES Normal [facility] Ambulatory Visit Summaryon 0 03-09-2024 Ambulatory Visit Summary Ambulatory Visi t Summary ARIEL RUVALCABA :1985 Visit Date:03/09/2024 Ambulatory Visit Instructions Your Care Team Attending Physician - JULIANNE MCARTHUR, Judah De La Fuente Primary Care Physician - Erica MCARTHUR, Irish Referring Physician - Erica MCARTHUR, Irish This Is Your Medications List Contact prescribing [...] for choosing us for your care. Normal [facility] ECHOCARDIO M/2D COMPLETEon 0 02-25-2022 ECHOCARDIO M/2D COMPLETE Patient: ARIEL ALONZO. Exam Date: 02/25/2022 : 1985 Gender:M Ordering : DR IRISH MALDONADO . Admission #: [id number] Family : Order #: [id number] CLICK HERE TO VIEW EXAM ECHOCARDIOGRAM REPORT [...] Rodgers M.D. on 02/26/2022 at 12:57 Normal [facility] NM STRESS/REST MULTIon 02-07 NM STRESS/REST MULTI Patient: ARIEL RUVALCABA Exam Date: 02/07/2022 : 1985 Gender:M Ordering : DR IRISH MALDONADO . Admission #: [id number] Family : Order #: [id number] CLICK HERE TO VIEW EXAM RADIOLOGY REPORT [...] M.D. on 02/08/2022 at 12:12 Normal [facility] Activated partial thrombopla stin time (aPTT) in platelet poor plasma by coagulation aOrdered By: Ariel Perry on 01-26-2022 aPTT Coag (PPP) [Time] 29.9 s 25.1-36.5 [facility] Basophils Auto (Bld) [#/Vol] Ordered By: Ariel Perry on 01-26-2022 Basophils (Bld) [#/Vol] 0.1 10*3/uL 0.0-0.2 [facility] Basophils/100 WBC Auto (Bld) Ordered By: Ariel Perry on 01-26-2022 Basophils/100 WBC (Bld) 0.7 % . [facility] Blood hemoglobin measurement (mass/volume)Ordered By: Ariel Perry on 01-26-2022 Hemoglobin (Bld) [Mass/Vol] 14.8 g/dL 13.0-17.0 [facility] Blood leukocytes automated c ount (number/volume)Ordered By: Ariel Wesleyarthy on 01-26-2022 WBC (Bld) [#/Vol] 7.5 10*3/uL 4.5-11.0 [facility] COVID-19 Positive/NegativeOr dered By: Arielfederica Perry on 01-26-2022 SARS-CoV-2 (COVID-19) N gene NIKKI+probe Ql (Resp) Negative Negative [facility] Comment on above: Testing for SARS-CoV -2 by RT-PCR This test was developed and its performance characteristics determined by [employer] and validated at the [facility]. [...] or revoked sooner. COVID-19 SOFIAOrdered By: Kelli ttheber Perry on 01-26-2022 SARS-CoV+SARS-CoV-2 (COVID-19) Ag IA.rapid Ql (Resp) Negative Negative [facility] Comment on above: This is a duplicate Shirley SARS Antigen ([employer]) result to be used for statistical tracking purpose only. Creatine kinase [Enzymatic a ctivity/volume] in Serum or PlasmaOrdered By: Ariel Perry on 01-26-2022 CK [Catalytic activity/Vol] 108 U/L 22- [facility] Creatinine and Glomerular fi ltration rate.predicted panel (S/P/Bld)Ordered By: Ariel Perry on 01-26-2022 Creatinine [Mass/Vol] 0.81 mg/dL 0.64-1.27 [facility] Eosinophils Auto (Bld) [#/Vo l]Ordered By: [...] MDRD (S/P/Bld) [Vol rate/Area] > 60 mL/Min [facility] Glucose Glucometer (BldC) [M ass/Vol]Ordered By: Bonilla Hall on 01-26-2022 Glucose [Mass/Vol] 342 mg/dL [facility] Comment on above: Random Glucose [...] PT Coag (PPP) [Time] 9.3 s 9.0-12.9 [facility] - Hematology and Cell countsOrdered By: Ariel Perry on 01-26-2022 Nucleated RBC/100 WBC (Bld) [Ratio] 0.0 % 0-0.5 [facility] - Microbiology an d Antimicrobial susceptibilityOrdered By: Ariel Perry on 01-26-2022 SARS-CoV-2 (COVID-19) RNA NIKKI+probe Ql (Unsp spec) N/A [facility] Lymphocytes Auto (Bld) [#/Vo l]Ordered [...] 01-26-2022 MCHC (RBC) [Mass/Vol] 33.4 g/dL 32.5-35.6 [facility] MCV Auto (RBC) [Entitic vol] Ordered By: Ariel Perry on 01-26-2022 MCV (RBC) [Entitic vol] 90.4 fL 83.5-101 [facility] Monocytes Auto (Bld) [#/Vol] Ordered By: Ariel Perry on 01-26-2022 Monocytes (Bld) [#/Vol] 0.5 10*3/uL 0.0-0.8 [facility] Monocytes/100 WBC Auto (Bld) Ordered By: Ariel Perry on 01-26-2022 Monocytes/100 WBC (Bld) 6.7 % . [facility] Neutrophils Auto (Bld) [#/Vo l]Ordered [...] 139.01 [facility] SARS Antigen (LFIA) [facility] Platelet mean volume Auto (B ld) [Entitic [...] 01-26-2022 RBC (Bld) [#/Vol] 4.90 10*6/uL 3.90-5.60 [facility] Serum or plasma calcium kelly urement (mass/volume)Ordered By: Ariel Perry on 01-26-2022 Calcium [Mass/Vol] 9.4 mg/dL 8.2-10.2 [facility] Serum or plasma chloride nancy surement (moles/volume)Ordered By: Ariel Perry on 01-26-2022 Chloride [Moles/Vol] 100 mmol/L 95-114 [facility] Serum or plasma creatine kin ase MB (CKMB)/total creatine kinase (CK) ratio by calculaOrdered By: Ariel Perry on 01-26-2022 CK.MB Calc [Catalytic fraction] 1.7 % 0.00-2.50 [facility] Serum or plasma creatine kin ase MB measurement (mass/volume)Ordered By: Ariel Perry on 01-26-2022 CK.MB [Mass/Vol] 1.9 ng/mL 0.6-6.3 [facility] Serum or plasma glucose kelly urement (mass/volume)Ordered By: Ariel Perry on 01-26-2022 Glucose [Mass/Vol] 287 mg/dL 70-100 [facility] Comment on above: ADA recommended refe rence range Random Glucose Reference Range is dependent on time and content of last meal. Glucose of more than 200 mg/dL in a nonstressed, ambulatory subject supports the diagnosis of Diabetes Mellitus. Serum or plasma potassium me asurement (moles/volume)Ordered By: Ariel Perry on 01-26-2022 Potassium [Moles/Vol] 4.0 mmol/L 3.5-5.1 [facility] Serum or plasma sodium measu rement (moles/volume)Ordered By: Ariel Perry on 01-26-2022 Sodium [Moles/Vol] 137 mmol/L 136-146 [facility] Serum or plasma total carbon dioxide measurement (moles/volume)Ordered By: Ariel Perry on 01-26-2022 CO2 [Moles/Vol] 25.9 mmol/L 22.0-30.0 [facility] Serum or plasma urea nitroge n measurement (mass/volume)Ordered By: Ariel Perry on 01-26-2022 Urea nitrogen [Mass/Vol] 13 mg/dL 9-23 [facility] Troponin I.cardiac [Mass/vol ume] in Serum or Plasma by High sensitivity methodOrdered By: Bonilla Hall on 01-26-2022 Troponin I.cardiac High sensitivity method [Mass/Vol] 3 pg/mL 0-20 [facility] COVID-19 ANTIGENon 2 EUA Statement SEE BELOW Normal [facility] Comment on [...] sooner. Performed By: #### D ATCVAG #### [facility] [address] [place] [address] Dr. Kaylen Hall SARS-CoV-2 (COVID-19) RNA NKIKI+probe Ql (Unsp spec) Negative Normal NEGATIVE [facility] Comment on above: Result Comment: Nega tive results are presumptive. They do not preclude infection and should not be used as the sole basis for treatment decisions. Additional confirmatory testing by a molecular method should be considered. Performed By: #### D ATCVAG #### [facility] [address] [place] [address] Dr. Kaylen Hall Covid-19 PCR (CVDTB)on SARS-CoV-2 (COVID-19) RNA NIKKI+probe Ql (Unsp spec) Not detected Normal NOT DETECTED [facility] Comment on above: Result Comment: This test is not yet approved or cleared by the [place] FDA. When there are no FDA-approved or cleared tests available, and other criteria are met, FDA can make tests available under an emergency access mechanism called an Emergency Use Authorization (EUA). The EUA for this test is supported by the [place] of Health and Human Service's (HHS's) declaration [...] consistent with SARS-CoV-2. Performed By: #### C [facility] #### [facility] [address] [place] [address] Dr. Kaylen Hall Vital Signs Date Time Vital Sign Value Performing Clinician Facility 04-06-2024 15:57-0400 Body height 175.3 cm Vanna Patiño [employer] Work Phone: [facility] 04-06-2024 15:57-0400 Body mass index (BMI) [Ratio] 33.97 kg/m2 Vanna Shelbymor [employer] Work Phone: [facility] 04-06-2024 15:57-0400 Body weight 104.33 kg Vanna Pater [employer] Work Phone: [facility] 04-06-2024 15:57-0400 Diastolic blood pressure 82 mm[Hg] Vanna Ryanmor [employer] Work Phone: [facility] 04-06-2024 15:57-0400 Systolic blood pressure 124 mm[Hg] Vanna Shelbymor [employer] Work Phone: [facility] 03-09-2024 08:55-0400 Blood Pressure Location Judah WHITAKER [facility] [place] 03-09-2024 08:55-0400 Diastolic blood pressure 85 mm[Hg] Judah WHITAKER [facility] [place] 03-09-2024 08:55-0400 Heart rate 120 /min Judah WHITAKER [facility] [place] 03-09-2024 08:55-0400 Respiratory rate 16 /min Judah GREGORYDesiree [facility] 03-09-2024 08:55-0400 Systolic blood pressure 136 mm[Hg] Judah GREGORYDesiree [facility] 01-26-2022 19:50-0400 Body temperature 97.9 [degF] MD [...] Date Encounter Type Care Provider Facility Start: 04-19-2024 End: 04-19-2024 ambulatory Judah Fuentes Facility:[facility] Start: 04-19-2024 End: 04-19-2024 Departed Referred DO Judah Fuentes Work Phone: [facility] Start: 04-06-2024 End: 04-06-2024 Office outpatient visit 25 minutes Vanna Patiño [employer] Work Phone: [facility] Comment on above: Polyneuropathy (Prim jane Dx); Lumbosacral radiculopathy; Right arm weakness; Paresthesias Start: 04-06-2024 End: 04-06-2024 Bamboo flowsheet Vanna Patiño [employer] Work Phone: [facility] Start: 04-06-2024 End: 04-06-2024 Bamboo flowsheet Vanna Patiño [employer] Work Phone: [facility] Start: 03-18-2024 End: 04-06-2024 Pre-admission assessment Judah WHITAKER [facility] Start: 03-15-2024 End: 03-15-2024 ambulatory [facility] Start: 03-15-2024 End: 03-15-2024 Encounter for other preprocedural examination [facility] Start: 03-09-2024 End: 03-09-2024 ambulatory Judah WHITAKER Facility:[facility] Start: 03-09-2024 End: 03-09-2024 Patient encounter procedure Judah WHITAKER [facility] [place] Start: 03-05-2024 Non-patient / Non-visit DO Spencer Fuentes Work Phone[facility] Work Phone: Start: 03-02-2024 ambulatory Judah WHITAKER Facility:[facility] Start: 02-27-2024 ambulatory Judah WHITAKER Facility:[facility] Start: 02-25-2022 End: 02-26-[address] IRISH MALDONADO Facility:[facility] Start: 02-07-2022 End: 02-08-[address] IRISH MALDONADO Facility:[facility] Start: 01-26-2022 End: 01-26-2022 Evaluation and management of inpatient MD Irish Maldonado Work Phone: [facility] Start: 07-14-2021 End: 07-15-2021 ambulatory [...] procedure 07/13/2024 9:40 AM EST [facility] [address] [address] Vanna Patiño NP [address] [place] [address] [facility] Start: 04-06-2024 End: 04-06-2024 Patient encounter procedure 04/06/2024 4:00 PM EDT Office Visit [facility] [address] [place] [address] Vanna Patiño NP [address] [place] [address] Arrived [facility] Comment on above: Arrived Start: 01-26-2022 Hospital admission [facility] Work Phone: Start: 01-26-2022 Referral to health care / medical job titles [facility] Work Phone: Patient referral [facility] Work Phone: Payers Date Payer Category Payer Self-pay [id number] 2023 Medicaid [facility] [id number] 2023 Medicaid [id number] 2019 Unknown [id number] 1985 Unknown [id number] 1985 Unknown [id number] 1984 Unknown [id number] 1984 Unknown [id number] 1960 Self-pay [id number] 1960 Unknown [id number] Unknown [place] [employer]/[place] [id number] Unknown [id number] Unknown [id number] Social History Date Type Detail Facility Start: 01-26-2022 End: 04-06-2024 Tobacco smoking status NHIS Ex-smoker (finding) [facility] Start: 1985 Sex Assigned At Male [facility] Tobacco smoking status Former sm okeless tobacco user, quit more than 30 days ago [facility] Start: 02-19-2024 End: 04-06-2024 Sex Assigned At Male [facility] History of tobacco use [facility] smoker [facility] History of tobacco use Cigarette Smoker [facility] Start: 02-19-2024 End: 04-06-2024 Tobacco use and exposure Smokeless tobacco non-user [facility] Start: 02-19-2024 End: 04-06-2024 History of Social function [facility] Start: 01-19-2024 Gender identity Identifies as male gender (finding) [facility] Start: 01-19-2024 Sexual orientation Choose not to dis close [facility] Start: 04-06-2024 Alcoholic beverage intake Lifetime non-drinker (finding) [facility] Start: 08-02-2022 Tobacco smoking stat us VTIS Never smoked tobacco (finding) [facility] Goals Date Patient Goal Desired Activity /State Functional Status Date Assessment Result Facility 03-09-2024 Functional Status N/A [facility] Clinical Notes 01-26-2022 to 03-15-2024 Radiology Note [...] type, unspecified whether angina present, unspecified whether [place] or transplanted heart Diagnoses and all orders [...] type, unspecified whether angina present, unspecified whether [place] or transplanted heart - Treadmill Stress Myocardial [...] patient. Please do (more content not included)... [facility] 03-09-2024 Evaluation + Plan note Future Scheduled TestsMRI Cholangiogram Pancreatography (mrcp) 03/09/24 [facility] General Surgery [place] 03-09-2024 Note General Surgery Offi ce/Clinic Note [...] Denies rectal pain or bleeding. Presented to [place] ED 02/23 with complaint of ABD pain. [...] Cardiomyopathy (I42.9: Cardiomyopathy, unspecified) cardiology evaluation Ordered: [facility] External Ambulatory Referral 6. Tachycardia (R00.0: Tachycardia, unspecified) cardiology eval (more content not included)... [facility] Comment on above: Result Comment: Elec tronically Signed By: JULIANNE MCARTHUR, Judah Ceron\Date and Time Signed: 03/09/24 09:44 EDT 01-26-2022 History and physical note Note Date/Time January 26, 2022 4:27pm [facility] [address] [place] [address] Hospitalist H&P Signed Patient: Ariel Ruvalcaba MR#: [id number] : 1985 Acct:[id number] Age/Sex: 36 / M Adm Date: 2 Loc: ER Room: Type: [facility] ER Attending Dr: Copies to: [...] % (Auto) 34.4 % (.) 01/26/22 13:08 [place] % (Auto) 6.7 % (.) 01/26/22 13:08 Eos % (Auto) 2.0 % (.) 01/26/22 13:08 Baso % (Auto) 0.7 % (.) 01/26/22 13:08 Neut # (Auto) 4.2 x10E3/uL (1.8-7.7) 01/26/22 13:08 Lymph # (Auto) 2.6 x10E3/uL (1.00-4.8) 01/26/22 13:08 [place] # (Auto) 0.5 x10E3/uL (0.0-0.8) 01/26/22 13:08 [...] by Bonilla Hall MD> 01/26/22 1641 [facility] Work Phone: Evaluation note* Diagnosis Onset Date Resolution Status Angina pectoris, unstable ac rhianna Chest pain acute Diabetes mellitus chronic [facility] Work Phone: Evaluation note* Diagnosis Polyneuropathy- Primary Unspecified hereditary and idiopathic peripheral neuropathy Lumbosacral radiculopathy Thoracic or lumbosacral neuritis or radiculitis, unspecified Right arm weakness Other musculoskeletal symptoms referable to limbs Paresthesias Disturbance of skin sensation documented in this [facility] Work Phone: History and physical note Author Bonilla Hall [facility] January 26, 2022 4:41pm Note Date/Time January 26, 2022 4: 27pm [facility] [address] [place] [address] Hospitalist H&P Signed Patient: Ariel Ruvalcaba MR#: [id number] : 1985 Acct:[id number] Age/Sex: 36 / M Adm Date: 2 Loc: ER Room: Type: [facility] ER Attending Dr: Copies to: [...] % (Auto) 34.4 % (.) 01/26/22 13:08 [place] % (Auto) 6.7 % (.) 01/26/22 13:08 Eos % (Auto) 2.0 % (.) 01/26/22 13:08 Baso % (Auto) 0.7 % (.) 01/26/22 13:08 Neut # (Auto) 4.2 x10E3/uL (1.8-7.7) 01/26/22 13:08 Lymph # (Auto) 2.6 x10E3/uL (1.00-4.8) 01/26/22 13:08 [place] # (Auto) 0.5 x10E3/uL (0.0-0.8) 01/26/22 13:08 [...] signed by Bonilla Hall MD> 01/26/22 1641 [facility] Work Phone: Hospital course Narrative No data available for this section [facility] General Surgery [place] [facility] Discharge instructions No data available for this section [facility] Surgery [place] Progress note No data available for this section [facility] Surgery [place] Reason for referral (narrative) Referred by: JULIANNE MCARTHUR, Judah De La Fuente [facility] [place] Chief Complaint and Reason for Visit Chief Complaint chest pain Reason for Visit Angina pectoris, uns table Chest pain Diabetes mellitus Chief Complaint Unknown Advance Directives Advance Directive Response Recorded Date/ Time Advance Directives No June 19, 2018 8:25pm Advance Directive Response Recorded Date/ Time Advance Directives No June 19, 2018 7:25pm Summary Purpose Family History No Family History [...] Irish Maldonado MD Primary Care Provider Active 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 Member 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 Specialty Start Date End Date Irish Maldonado MD [address] [place] [address] PCP - General Family Medicine 01/26/24 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 Member 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 Specialty Start Date End Date Irish Maldonado MD [address] [place] [address] PCP - General Family Medicine 01/26/24 Team Status: Active Member Role Status Dates Irish Maldonado MD Primary Care Provider Active Start: March 05, 2024 Brian Dillard DO Attending Provider Active Sta rt: March 05, 2024 Team Status: Inactive Member Role Status Dates Judah Fuentes DO Attending Provider Active Start: April 19, 2024 End: April 19, 2024 (unrecognized sect ion and content) No Status Records FoundNo Status Records FoundNo Status Records FoundNo Status Records Found INFORMATION SOURCE (unrecogn ized section and content) DATE CREATED AUTHOR 03/16/2022 [facility] DATE CREATED AUTHOR AUTHOR'S ORGANIZ ATION 03/11/2024 [facility] DATE CREATED AUTHOR AUTHOR'S ORGANIZ ATION 03/21/2024 [facility] DATE CREATED AUTHOR AUTHOR'S ORGANIZ ATION 04/21/2024 [facility] Reason for Visit (unrecogniz ed section and content) Reason Comments Numbness Weakness, Gen BUE Goals (unrecognized section and content) Goals may be documented in a n alternate section FOR RECORDS PERTAINING TO PATIENTS WHO ARE [...] BE BASED ON THE PRIMARY CLINICAL RECORDS. [facility] [employer] [facility]. provides no warranty or guarantee of the accuracy or completeness of information in this document.
--- NOTE | 2024-04-26 15:47 | CM.DCFOLLOWU ---
1st attempt 04/26/24, no answer
== END 2024-04-20 13:53 | disposition home or self-care (01) | DRG 263 ==
LOC: ER 19:27 → MS 04-20 07:37
PROVIDERS: Surgery; Admitting Provider Family Medicine; Emergency Provider Student in an Organized Health Care Education/Training Program; PCP Family Medicine; Visit Provider Family Medicine
PROC: (CPT 790; principal; 2024-04-19 19:30)
DX: K80.00 Calculus of gallbladder with acute cholecystitis without obstruction (principal); K82.1 Hydrops of gallbladder; I10 Essential (primary) hypertension; I42.9 Cardiomyopathy, unspecified; D50.9 Iron deficiency anemia, unspecified; E11.311 Type 2 diabetes mellitus with unspecified diabetic retinopathy with macular edema; E11.65 Type 2 diabetes mellitus with hyperglycemia; E66.9 Obesity, unspecified; E78.00 Pure hypercholesterolemia, unspecified; F32.A Depression, unspecified; H54.8 Legal blindness, as defined in USA; K21.9 Gastro-esophageal reflux disease without esophagitis; K76.0 Fatty (change of) liver, not elsewhere classified; R00.0 Tachycardia, unspecified; R09.02 Hypoxemia; R06.03 Acute respiratory distress; Z68.33 Body mass index [BMI] 33.0-33.9, adult; Z87.891 Personal history of nicotine dependence; Z79.4 Long term (current) use of insulin; Z79.84 Long term (current) use of oral hypoglycemic drugs; Z79.82 Long term (current) use of aspirin; Z88.8 Allergy status to other drugs, medicaments and biological substances
CPT/HCPCS: 47562; 36415; 74177; 80053; 81001; 82948; 83605; 83690; 84484; 85025; 87040; 93005; 94667; 94761; 96361; 96365; 96368; 96372; 96375; 96376; 99285; G0378; J0330; J0500; J0665; J0696; J1290; J1836; J2250; J2270; J2405; J2704; J2710; J3010; Q9967

== ENCOUNTER 2024-05-24 15:12 | Outpatient (OUT) | payer MEDICAID, SELFPAY ==
--- NOTE | 2024-05-24 15:32 | XR_ITS ---
The [address] [address] Patient Name: ARIEL XIONG MRN: [id number] date: 1985 Sex: M Assigned Patient Location: LAB Current Patient Location: Accession/Order Number: [id number] Exam Date: 05/24/2024 15:35 Report Date: 05/25/2024 15:27 At the request of: IRISH MARTÍNEZ Procedure: XR chest 2V EXAM: XR chest 2V HISTORY: Acute Bronchitis COMPARISON: None. TECHNIQUE: Frontal and lateral views of the chest. FINDINGS: No focal consolidations or pleural effusions. Cardiomediastinal silhouette is unremarkable. No acute osseous abnormality. XR/XR chest 2V IMPRESSION: No acute disease. Electronically authenticated by: JOHN PENALOZA Date: 05/25/2024 15:27
[2024-05-24 15:42] LABS: Basophils Percent Auto 0.2 % (0.2-2.0); Eosinophils Absolute Auto 0.3 10^3/uL (0.0-0.7); Eosinophils Percent Auto 2.8 % (0.9-7.0); Hematocrit 39.3 % (42.0-54.0); Hemoglobin 13.3 g/dL (14.0-18.0); Immature Granulocytes Abs Auto 0.03 10^3/uL (0.00-0.03); Immature Granulocytes Pct Auto 0.3 % (0.0-0.5); Lymphocytes Absolute Auto 2.8 10^3/uL (1.2-3.8); Lymphocytes Percent Auto 27.6 % (20.5-60.0); Mean Corpuscular HGB Conc 33.8 g/dL (29.9-35.2); Mean Corpuscular Hemoglobin 29.8 pg (25.9-34.0); Mean Corpuscular Volume 88.1 fL (80.0-94.0); Mean Platelet Volume 9.3 fL (9.5-13.5); Monocytes Absolute Auto 0.7 10^3/uL (0.3-0.8); Monocytes Percent Auto 7.2 % (1.7-12.0); Neutrophils Absolute Auto 6.2 10^3/uL (1.4-6.5); Neutrophils Percent Auto 61.9 % (43.0-75.0); Platelet Count 361 10^3/uL (150-450); Red Blood Count 4.46 10^6/uL (4.70-6.10); Red Cell Distribution Width 12.1 % (11.0-15.0)
[2024-05-24 15:58] LABS: Alanine Aminotransferase 50 U/L (16-63); Albumin Globulin Ratio 0.8; Albumin Level 3.1 g/dL (3.4-5.0); Alkaline Phosphatase 125 U/L (46-116); Anion Gap 14.5; Aspartate Amino Transferase 22 U/L (15-37); BUN Creatinine Ratio 19.3; Bilirubin Total 0.5 mg/dL (0.2-1.0); Calcium 8.6 mg/dL (8.5-10.1); Carbon Dioxide 28.6 mmol/L (21.0-32.0); Chloride 100 mmol/L (98-107); Estimated GFR (African America >60 (>=60 mL/min/1.73m^2); Estimated GFR (Non-African Ame >60 (>=60 mL/min/1.73m^2); Globulin 3.8 g/dL; Glucose 174 mg/dL (74-106); Potassium 4.1 mmol/L (3.5-5.1); Sodium 139 mmol/L (136-145); Total Protein 6.9 g/dL (6.4-8.2)
== END 2024-05-24 15:13 | disposition home or self-care (01) ==
LOC: LAB 15:13
PROVIDERS: PCP Family Medicine; Visit Provider Family Medicine
DX: J20.9 Acute bronchitis, unspecified (principal)
CPT/HCPCS: 36415; 71046; 80053; 85025

== ENCOUNTER 2024-07-08 07:38 | Outpatient (OUT) | payer MEDICAID, SELFPAY ==
--- OUTSIDE RECORDS SUMMARY | 2024-07-08 07:42 | XMS_ITS | CCD ---
Author Organization [facility] Care Team Providers Care Physician Coder Name Role Phone MD Erick Maldonado Primary Care Provider [phone] DO Ariel Perry Emergency Provider MD Bonilla Luke Admit Provider MD Bonilla Hall Attending Provider MD Charles Owen Other Provider MAURICIO, DR COBURN Primary Care Unavailable MAURICIO, DR COBURN Admitting Unavailable HOY, DR COBURN Attending Unavailable HOY, DR COBURN Consulting Unavailable HOY, DR COBURN Consulting Unavailable SUZANNEY, DR COBURN Primary Care Unavailable HOY, DR COBURN Admitting Unavailable HOY, DR COBURN Attending Unavailable SUZANNEY, DR COBURN Primary Care Unavailable REQUEST, DR MASON LISTED Attending Unavaila ble REQUEST, DR MASON LISTED Consulting Unavaila ble REQUEST, DR MASON LISTED Admitting Unavaila ble HOY, DR COBURN Primary Care Unavailable HOY, DR COBURN Admitting Unavailable HOY, DR COBURN Attending Unavailable MAURICIO, DR COBURN Consulting Unavailable Erick Maldonado Primary Care Physician Judah WHITAKER Attending Unavailable Erick Maldonado Referring Unavailable Erick Maldonado MD Primary Care Provider [phone] Judah Friedman Attending Unavailable Judah Friedman Admitting Unavailable DO Judah Friedman Attending Provider [phone] Erick Maldonado MD Primary Care Provider [phone] JESS MCDOWELL Attending Unavailable ERICK MALDONADO Primary Care Unavailable TREMAINE ROUSE Attending Unavailable TREMAINE ROUSE Attending Unavailable Allergies Allergy Classification Reported Allergen(s) Allergy Type Date of Onset Reaction(s) Facility (6 sources) Lisinopril; Translations: [lisinopril] Drug Allergy 4 Cough (finding), Cough [facility] (5 sources) Lisinopril Propensity to adverse reactions 4 Cough [facility] Medications Current Medications Medication Drug Class(es) Dates Sig (Normalized) Sig (Original) aspirin 81 mg chewable tablet (9 sources) Platelet Aggregation Inhibitor, Nonsteroidal Anti-inflammatory Drug Start: 03-15-2024 End: 03-15-2025 aspirin 81 MG chewable tablet Chew 81 mg 03/15/2024 03/15/2025 Active Start: 06-19-2018 take 325 mg by mouth once brett y Aspirin Active 325 MG PO Daily June 19, 2018 12:00am carvedilol 6.25 mg oral tablet (3 sources) alpha-Adrenergic Kristin, beta-Adrenergic Kristin Start: 04-29-2024 End: 04-29-2025 take 1 tablet by mouth in the morning carvedilol (Coreg) 6.25 MG tablet Take 6.25 mg by mouth in the morning and 6.25 mg in the evening. Take with meals. 04/29/2024 04/29/2025 Active citalopram 20 mg oral tablet (15 sources) Serotonin Reuptake Inhibitor Start: 06-19-2018 End: 04-06-2024 take 1 tablet by mouth once daily citalopram (CeleXA) 20 MG tablet Take 20 mg by mouth Daily 12/06/2023 Active diclofenac sodium 75 mg delayed release oral tablet (14 sources) Nonsteroidal Anti-inflammatory Drug Start: 02-18-2024 End: 04-06-2024 take 1 tablet by mouth twice daily diclofenac sodium 75 mg Oral EC Tab 75 mg = 1 tab(s), Oral, BID, Refills(s) 0 Start Date: 03/03/24 Status: Ordered dicyclomine hydrochloride 20 mg oral tablet (3 sources) Anticholinergic Start: 03-03-2024 take 1 tablet by mouth four times daily as needed dicyclomine (Bentyl) 20 MG tablet Take 1 tablet by mouth 4 (four) times a day as needed 03/03/2024 Active docusate sodium 100 mg oral capsule (1 source) Start: 08-02-2022 take 1 capsule by mouth twice daily Docusate Sodium (Colace) 100 mg capsule Active 100 MG PO Twice daily 60 30 August 02, 2022 10:31pm DULoxetine 60 mg delayed release oral capsule (6 sources) Serotonin and Norepinephrine Reuptake Inhibitor take 2 capsules by mouth once daily DULoxetine (Cymbalta) [address] capsule Take 120 mg by mouth Daily Active take 1 capsule by mouth in the m orning DULoxetine (CYMBALTA) 60 mg capsule Take 1 capsule (60 mg total) by mouth in the morning. Active duloxetine 60 mg Cap-DR (2 sources) Start: 03-03-2024 take 1 capsule by mouth once daily duloxetine 60 mg Cap-DR = 1 cap(s), Oral, Daily, Refills(s) 0 Start Date: 03/03/24 Status: Ordered famotidine 40 mg oral tablet (8 sources) Histamine-2 Receptor Antagonist Start: 03-03-2024 take 1 tablet by mouth once daily Pepcid 40 mg Tab 40 mg = 1 tab(s), Oral, Daily, Refills(s) 0 Start Date: 03/03/24 Status: Ordered gabapentin 100 mg oral capsule (5 sources) Anti-epileptic Agent Start: 04-06-2024 End: 04-06-2025 [...] 04/06/2025 Active hydroCHLOROthiazide 25 mg oral tablet (6 sources) Thiazide Diuretic take 1 tablet by mouth in the morning hydroCHLOROthiazide (HYDRODiuril) 25 MG tablet Take 25 mg by mouth in the morning. Active insulin aspart, human 100 unt/ml injectable solution (17 sources) Insulin Analog Start: 03-03-2024 NovoLOG 100 [...] ml insulin glargine 100 unt/ml pen injector (17 sources) Insulin Analog Start: 03-03-2024 Lantus Solosta r Pen 100 units/mL subcutaneous solution 36 unit(s), SubCutaneous, BID, Refills(s) 0 Start Date: 03/03/24 Status: Ordered Start: 06-19-2018 Lantus SoloSta r 100 UNIT/ML pen every 12 (twelve) hours 02/25/2023 Active irbesartan 150 mg oral tablet (15 sources) Angiotensin 2 Receptor Kristin Start: 02-08-2024 take 1 tablet by mouth once daily irbesartan (Avapro) 150 MG tablet TAKE 1 TABLET BY MOUTH ONCE DAILY FOR 30 DAYS 02/08/2024 Active metFORMIN hydrochloride 500 mg oral tablet (15 sources) Biguanide Start: 01-28-2024 take 1 tablet by mouth twice daily at mealtime metFORMIN (Glucophage) 500 MG tablet TAKE 1 TABLET BY MOUTH TWICE DAILY WITH A MEAL FOR 30 DAYS 01/28/2024 Active 24 hr metoprolol succinate 50 mg extended release oral tablet (5 sources) beta-Adrenergic Kristin Start: 03-15-2024 End: 03-15-2025 take 1 tablet by mouth every twenty-four hours metoprolol succinate XL (Toprol-XL) 50 MG 24 hr tablet Take 50 mg by mouth 03/15/2024 03/15/2025 Active nitroglycerin 0.4 mg sublingual tablet (3 sources) Nitrate Vasodilator Start: 06-22-2018 Nitroglycerin Active 0.4 MG SUBLINGUAL Q5M June 22, 2018 12:00am ondansetron 4 mg disintegrating oral tablet (5 sources) Serotonin-3 Receptor Antagonist Start: 03-03-2024 take 1 tablet by mouth every eight hours as needed ondansetron ODT (Zofran-ODT) 4 MG disintegrating tablet Take 1 tablet by mouth every 8 (eight) hours if needed 03/03/2024 Active pantoprazole 40 mg delayed release oral tablet (12 sources) Proton Pump Inhibitor Start: 02-09-2024 take 1 tablet by mouth once daily pantoprazole (ProtoNix) 40 MG EC tablet TAKE 1 TABLET BY MOUTH ONCE DAILY FOR 30 DAYS 02/09/2024 Active polyethylene glycol 3350 77262 mg powder for oral solution (1 source) [...] 12:00am rosuvastatin calcium 20 mg oral tablet (6 sources) HMG-CoA Reductase Inhibitor Start: 03-15-2024 End: 03-15-2025 take 1 tablet by mouth at bedtime rosuvastatin (Crestor) 20 MG tablet Take 20 mg by mouth at bedtime 03/15/2024 03/15/2025 Active Completed/Discontinued Medications Medication Drug Class(es) Dates Sig (Normalized) Sig (Original) amitriptyline hydrochloride 50 mg oral tablet (9 sources) Tricyclic Antidepressant Start: 08-04-2023 End: 04-06-2024 [...] 22, 2018 12:00am June 17, 2019 12:07am ergocalciferol 1.25 mg oral capsule (3 sources) Provitamin D2 Compound Start: 06-20-2018 End: 01-26-2022 take 1 capsule by mouth every week, then take 1 capsule by mouth every month Ergocalciferol (Vitamin D2) Discontinued 98148 UNIT PO As Directed June 20, 2018 12:00am January 26, 2022 12:04pm take one cap every week for 8 weeks, then one cap every months after that. hyoscyamine sulfate 0.125 mg oral tablet (9 sources) Start: 06-18-2023 End: 04-06-2024 hyoscyamine (Anaspaz,Levsin) [...] pain; Translations: [Epigastric pain] Onset: 4 Episodic Administrative/social admission (2 sources) Patient encounter status; Translations: [Dietary counseling and surveillance] 07-06-2024 Episodic Anxiety disorders (2 sources) Anxiety 03-03-2024 Chronic Biliary tract disease (3 sources) Cholelithiasis without obstruction; Translations: [Calculus of gallbladder without cholecystitis without obstruction] Onset: 4 Episodic Cardiac dysrhythmias (6 sources) Tachyarrhythmia ; Translations: [Tachycardia, unspecified] Onset: 4 Episodic Coronary atherosclerosis and other heart disease (10 sources) Preinfarction syndrome; Translations: [Unstable angina] Onset: 4 01-26-2022 Chronic Diabetes mellitus with complications (9 sources) Retinopathy due to diabetes mellitus; Translations: [Type 2 diabetes mellitus with unspecified diabetic retinopathy without macular edema] 06-20-2018 Chronic Diabetes mellitus without complication (10 sources) Latent autoimmune diabetes mellitus in adult; Translations: [Other specified diabetes mellitus without complications] 06-20-2018 Chronic Diabetes mellitus without complication (1 source) Glycosuria; Translations: [Glycosuria] 08-02-2022 Episodic Disorders of lipid metabolism (7 sources) Dyslipidemia; Translations: [Hyperlipidemia, unspecified] 06-20-2018 Chronic Esophageal disorders (5 sources) Gastroesophageal reflux disease without esophagitis; Translations: [Gastro-esophageal reflux disease without esophagitis] Onset: 4 Chronic Essential hypertension (4 sources) Hypertensive disorder; Translations: [Essential hypertension] 03-03-2024 Chronic Fluid and electrolyte disorders (2 [...] unspecified] Onset: 2 06-20-2018 Episodic Nutritional deficiencies (7 sources) Vitamin D deficiency; Translations: [Vitamin D deficiency, unspecified] 06-20-2018 Chronic Other aftercare (2 sources) Long-term current use of insulin; 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] 07-06-2024 Episodic Other gastrointestinal disorders (1 source) Constipation; Translations: [Constipation, unspecified] 08-02-2022 Episodic Other liver diseases (2 sources) Steatosis of liver 03-03-2024 Chronic Other lower respiratory disease (4 sources) Dyspnea; Translations: [Shortness of breath] Onset: 2 06-20-2018 Episodic Other lower respiratory disease (3 sources) Shortness of breath; Translations: [SHORTNESS OF BREATH] Onset: 2 Episodic Other nervous system disorders (3 sources) Polyneuropathy; Translations: [Polyneuropathy, unspecified] 04-06-2024 Chronic Other nervous system disorders (4 sources) Paresthesia; Translations: [Paresthesia of skin] 04-06-2024 Episodic Other nutritional; endocrine; and metabolic disorders (2 sources) Body mass index 30+ - obesity 03-09-2024 Chronic Other nutritional; endocrine; and metabolic disorders (4 sources) Obesity caused by energy imbalance; Translations: [Class 1 obesity due to excess calories with serious comorbidity and body mass index (BMI) of 33.0 to 33.9 in adult] 03-03-2024 Chronic Other screening for suspected conditions (not mental disorders or infectious disease) (1 source) Abnormal result of other cardiovascular function study; Translations: [ABNORM RESULT [facility] CV FUNCTION STUDY] Onset: 2 Episodic Gisselle-; endo-; and myocarditis; cardiomyopathy (except that caused by tuberculosis or sexually transmitted disease) (3 sources) Cardiomyopathy; Translations: [Cardiomyopathy, unspecified] Onset: 4 Chronic Residual codes; unclassified (3 sources) Tobacco user; Translations: [Tobacco use] 06-20-2018 Episodic Residual codes; unclassified (1 source) Acquired absence of other specified parts of digestive tract; Translations: [Acquired absence of other specified parts of digestive tract] Onset: 4 Episodic Retinal detachments; defects; vascular occlusion; and retinopathy (2 sources) 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 Spondylosis; intervertebral disc disorders; other back problems (3 sources) Lumbosacral radiculopathy; Translations: [Radiculopathy, lumbosacral region] 04-06-2024 Episodic Unclassified (3 sources) CONTACT W/AND (SUSP) EXPOS COVID-19; Translations: [CONTACT W/AND (SUSP) EXPOS COVID-19] Onset: 2 Unclassified (1 source) POST-OP VISIT Onset: 4 Past or Other Problems Problem Classification Problem Date Documented Date Episodic/Chronic Other connective tissue disease (15 sources) Other symptoms and signs involving the musculoskeletal system; Translations: [Other musculoskeletal symptoms referable to limbs] Onset: 02-24-2024 02-24-2024 Episodic Other nervous system disorders (9 sources) Numbness; Translations: [Anesthesia of skin] Onset: 02-24-2024 02-24-2024 Episodic Other nervous system disorders (3 sources) Numbness and tingling sensation of skin; Translations: [Anesthesia of skin] 02-19-2024 Episodic Other upper respiratory infections (1 source) Acute recurrent frontal sinusitis; Translations: [ACUTE RECURRENT FRONTAL SINUSITIS] Onset: 05-24-2021 Episodic Unclassified (1 source) CONTACT W/AND (SUSP) EXPOS COVID-19; Translations: [CONTACT W/AND (SUSP) EXPOS COVID-19] Onset: 07-14-2021 Results Test Name Value Interpretation Reference Range Facility Office Visiton 04-29-2024 Follow-up visit [id number] JoshgiselKerry hornerfederica Worthington 1985 M Date Provider Department Center 04/29/2024 3848-TREMAINE ROUSE [facility] Family History Problem Relation Age of Onset No Known Problems Mother No Known Problems Father Family Status - Relation Status Age at Mother Father Level of Service:62045 [place] OFFICE/OUTPATIENT ESTABLISHED MOD MDM 30 MIN Normal [facility] No Panel Informationon 04-20 [facility] Jorge 04-19-2024 L Specimen: [id number] Received: 04/20/24 Status: RICKIE Victor Num: [id number] Spec Type: Surgical Subm Dr: Judah Friedman DO Tissues: A Gallbladder (GALLBLADDER AND CONTENTS) Procedures: HE, Gross/Micro L3 Age/ Patient Sex Location Account Attending Physician ConnorKerry hornerfederica Worthington 38/M LABELL [id number] Judah Friedman DO SPEC NUM: [id number] RECD: 04/20/24 STATUS: RICKIE VICTOR NUM: [id number] DAI: 04/19/[address]: Judah Friedman DO ENTERED: 04/20/[address]: Mary,Lab SPEC TYPE: Surgical DEPT: REHANA DONIS ENTERED BY: [id number] RECV BY: [id number] ORDERED: HE, Gross/Micro L3 ORDERED: HE, Gross/Micro [...] from 0.1 to 0.3 cm in thickness. Territory Outside Sales Manager sections are submitted in a single cassette. (1, , [id number]) CPT Codes 15793 Specimen: [id number] Received: 04/20/24 Status: RICKIE Valente Num: [id number] Spec Type: Surgical Subm Dr: Judah Friedman DO Tissues: A Gallbladder (GALLBLADDER AND CONTENTS) Procedures: Aaron REYNOLDS/Paulina Trinh Patient: Ariel Ruvalcaba [id number] (Continued) Signed (signature on file) Flori Zamora MD 04/21/24 1801 Normal [facility] Office Visiton 03-15-2024 Follow-up visit [id number] Ariel Ruvalcaba 1985 M Date Provider Department Center 03/15/2024 3848-TREMAINE ROUSE [facility] Family History Problem Relation Age of Onset No Known Problems Mother No Known Problems Father Family Status - Relation Status Age at Mother Father Level of Service:79123 [place] OFFICE/OUTPATIENT NEW MODERATE MDM 45 MINUTES Normal [facility] Ambulatory Visit Summaryon 0 03-09-2024 Ambulatory Visit Summary Ambulatory Visi t Summary ARIEL RUVALCABA :1985 Visit Date:03/09/2024 Ambulatory Visit Instructions Your Care Team Attending Physician - Judah WHITAKER MD Primary Care Physician - Erick Maldonado MD Referring Physician - Erick Maldonado MD This Is Your Medications List [...] for choosing us for your care. Normal [place] EMG 2 Extremitieson 02-25-20 24 EMG/NCS BLE Early sensory-motor polyneuropathy Mild left L5/S1 radic versus common peroneal neuroapthy [facility] NVC 9-10 Nerveson 02-25-2024 EMG/NCS BLE Early sensory-motor polyneuropathy Mild left L5/S1 radic versus common peroneal neuroapthy [facility] ALL THYROID STIM HORMONEon 0 02-19-2024 TSH Qn 1.516 m[IU]/L [facility] ECHOCARDIO M/2D COMPLETEon 0 02-25-2022 ECHOCARDIO M/2D COMPLETE Patient: ARIEL ALONZO Exam Date: 02/25/2022 : 1985 Gender:M Ordering : DR ERICK MALDONADO . Admission #: [id number] Family : Order #: [id number] CLICK HERE TO VIEW EXAM ECHOCARDIOGRAM REPORT [...] Rodgers M.D. on 02/26/2022 at 12:57 Normal [facility] NM STRESS/REST MULTIon 02-07 NM STRESS/REST MULTI Patient: ARIEL RUVALCABA Exam Date: 02/07/2022 : 1985 Gender:M Ordering : DR ERICK MALDONADO . Admission #: [id number] Family : Order #: [id number] CLICK HERE TO VIEW EXAM RADIOLOGY REPORT [...] Ward M.D. on 02/08/2022 at 12:12 Normal [facility] Activated partial thrombopla stin time (aPTT) in platelet poor plasma by coagulation aOrdered By: Ariel Wesleyarthy on 01-26-2022 aPTT Coag (PPP) [Time] 29.9 s 25.1-36.5 [facility] Basophils Auto (Bld) [#/Vol] Ordered By: Ariel Vicky on 01-26-2022 Basophils (Bld) [#/Vol] 0.1 10*3/uL 0.0-0.2 [facility] Basophils/100 WBC Auto (Bld) Ordered By: Ariel Perry on 01-26-2022 Basophils/100 WBC (Bld) 0.7 % . [facility] Blood hemoglobin measurement (mass/volume)Ordered By: Ariel Perry on 01-26-2022 Hemoglobin (Bld) [Mass/Vol] 14.8 g/dL 13.0-17.0 [facility] Blood leukocytes automated c ount (number/volume)Ordered By: Ariel Perry on 01-26-2022 WBC (Bld) [#/Vol] 7.5 10*3/uL 4.5-11.0 [facility] COVID-19 Positive/NegativeOr dered By: Ariel Perry on 01-26-2022 SARS-CoV-2 (COVID-19) N gene NIKKI+probe Ql (Resp) Negative Negative [facility] Comment on above: Testing for SARS-CoV -2 by RT-PCR This test was developed and its performance characteristics determined by [employer] ([employer]) and validated at the [facility]. This test has not been FDA cleared [...] revoked sooner. COVID-19 SOFIAOrdered By: Kelli chidi Vicky on 01-26-2022 SARS-CoV+SARS-CoV-2 (COVID-19) Ag IA.rapid Ql (Resp) Negative Negative [facility] Comment on above: This is a duplicate Shirley SARS Antigen (VIKTOR) result to be used for statistical tracking purpose only. Creatine kinase [Enzymatic a ctivity/volume] in Serum or PlasmaOrdered By: Ariel Perry on 01-26-2022 CK [Catalytic activity/Vol] 108 U/L 22-269 [facility] Creatinine and Glomerular fi ltration rate.predicted panel (S/P/Bld)Ordered By: Ariel Perry on 01-26-2022 Creatinine [Mass/Vol] 0.81 mg/dL 0.64-1.27 [facility] Eosinophils Auto (Bld) [#/Vo l]Ordered By: Ariel Perry on 01-26-2022 Eosinophils (Bld) [#/Vol] 0.2 10*3/uL 0.0-0.45 [facility] Eosinophils/100 WBC Auto (Bl d)Ordered By: Ariel Perry on 01-26-2022 Eosinophils/100 WBC (Bld) 2.0 % . [facility] Erythrocyte distribution wid th Auto (RBC) [Ratio]Ordered By: Ariel Perry on 01-26-2022 Erythrocyte distribution width (RBC) [Ratio] 13.0 % 12.0-14.8 [facility] Estimated glomerular filtrat ion rate (GFR) non- AmericanOrdered By: Ariel Perry on 01-26-2022 GFR/1.73 sq M.predicted among non-blacks MDRD (S/P/Bld) [Vol rate/Area] > 60 mL/Min [facility] Glucose Glucometer (BldC) [M ass/Vol]Ordered By: Bonilla Hall on 01-26-2022 Glucose [Mass/Vol] 342 mg/dL [facility] Comment on above: Random Glucose Refer ence Range is dependent on time and content of last meal. Glucose of more than 200 mg/dL in a nonstressed, ambulatory subject supports the diagnosis of Diabetes Mellitus. Hematocrit Auto (Bld) [Volum e fraction]Ordered By: Ariel Perry on 01-26-2022 Hematocrit (Bld) [Volume fraction] 44.3 % 38.8-50.0 [facility] Laboratory - Chemistry and C hemistry - challengeOrdered By: Ariel Perry on 01-26-2022 Natriuretic peptide B (Bld) [Mass/Vol] pg/mL 5-100 [facility] Laboratory - CoagulationOrde red By: Ariel Perry on 01-26-2022 PT Coag (PPP) [Time] 9.3 s 9.0-12.9 [facility] Laboratory - Hematology and Cell countsOrdered By: Ariel Perry on 01-26-2022 Nucleated RBC/100 WBC (Bld) [Ratio] 0.0 % 0-0.5 [facility] Laboratory - Microbiology an d Antimicrobial susceptibilityOrdered By: Ariel Perry on 01-26-2022 SARS-CoV-2 (COVID-19) RNA NIKKI+probe Ql (Unsp spec) N/A [facility] Lymphocytes Auto (Bld) [#/Vo l]Ordered By: Ariel Perry on 01-26-2022 Lymphocytes (Bld) [#/Vol] 2.6 10*3/uL 1.00-4.8 [facility] Lymphocytes/100 WBC Auto (Bl d)Ordered By: Ariel Perry on 01-26-2022 Lymphocytes/100 WBC (Bld) 34.4 % . [facility] MCH Auto (RBC) [Entitic mass ]Ordered By: Ariel Perry on 01-26-2022 MCH (RBC) [Entitic mass] 30.2 pg 27.5-35.2 [facility] MCHC Auto (RBC) [Mass/Vol]Or dered By: Ariel Perry on 01-26-2022 MCHC (RBC) [Mass/Vol] 33.4 g/dL 32.5-35.6 [facility] MCV Auto (RBC) [Entitic vol] Ordered By: Ariel Perry on 01-26-2022 MCV (RBC) [Entitic vol] 90.4 fL 83.5-101 [facility] Monocytes Auto (Bld) [#/Vol] Ordered By: Ariel Perry on 01-26-2022 Monocytes (Bld) [#/Vol] 0.5 10*3/uL 0.0-0.8 [facility] Monocytes/100 WBC Auto (Bld) Ordered By: Ariel Perry on 01-26-2022 Monocytes/100 WBC (Bld) 6.7 % . [facility] Neutrophils Auto (Bld) [#/Vo l]Ordered By: Ariel Perry on 01-26-2022 Neutrophils (Bld) [#/Vol] 4.2 10*3/uL 1.8-7.7 [facility] Neutrophils/100 WBC Auto (Bl d)Ordered By: Ariel Perry on 01-26-2022 Neutrophils/100 WBC (Bld) 56.2 % . [facility] No Panel InformationOrdered By: Ariel Perry on 01-26-2022 Estimated GFR () > 60 mL/Min [facility] Comment on above: GFR estimated refere nce range: According to KDOQI guidelines, <60 ml/min/1.73m2 is sufficient to diagnose a patient with chronic kidney disease. Pharmacy Creatinine Clearance (Chem 139.01 [facility] SARS Antigen (LFIA) [facility] Platelet mean volume Auto (B ld) [Entitic vol]Ordered By: Ariel Perry on 01-26-2022 Platelet mean volume (Bld) [Entitic vol] 8.2 fL 6.6-10.1 [facility] Platelet poor plasma interna tional normalized ratio (INR) by coagulation assay (relatOrdered By: Ariel Perry on 01-26-2022 INR Coag (PPP) [Relative time] 0.8 {INR} [facility] Comment on above: INR Therapeutic Rang e [...] 01-26-2022 Platelets (Bld) [#/Vol] 358 10*3/uL 150-450 [facility] RBC Auto (Bld) [#/Vol]Ordere d By: Ariel Perry on 01-26-2022 RBC (Bld) [#/Vol] 4.90 10*6/uL 3.90-5.60 [facility] Serum or plasma calcium kelly urement (mass/volume)Ordered By: Ariel Perry on 01-26-2022 Calcium [Mass/Vol] 9.4 mg/dL 8.2-10.2 [facility] Serum or plasma chloride nancy surement (moles/volume)Ordered By: Ariel Perry on 01-26-2022 Chloride [Moles/Vol] 100 mmol/L 95-114 [facility] Serum or plasma creatine kin ase MB (CKMB)/total creatine kinase (CK) ratio by calculaOrdered By: Ariel Perry on 01-26-2022 CK.MB Calc [Catalytic fraction] 1.7 % 0.00-2.50 [facility] Serum or plasma creatine kin ase MB measurement (mass/volume)Ordered By: Ariel Perry on 01-26-2022 CK.MB [Mass/Vol] 1.9 ng/mL 0.6-6.3 [facility] Serum or plasma glucose kelly urement (mass/volume)Ordered By: Ariel Perry on 01-26-2022 Glucose [Mass/Vol] 287 mg/dL 70-100 [facility] Comment on above: ADA recommended refe rence range Random Glucose Reference Range is dependent on time and content of last meal. Glucose of more than 200 mg/dL in a nonstressed, ambulatory subject supports the diagnosis of Diabetes Mellitus. Serum or plasma potassium me asurement (moles/volume)Ordered By: Ariel Perry on 01-26-2022 Potassium [Moles/Vol] 4.0 mmol/L 3.5-5.1 [facility] Serum or plasma sodium measu rement (moles/volume)Ordered By: Ariel Wesleyarthy on 01-26-2022 Sodium [Moles/Vol] 137 mmol/L 136-146 [facility] Serum or plasma total carbon dioxide measurement (moles/volume)Ordered By: Ariel Wesleyarthy on 01-26-2022 CO2 [Moles/Vol] 25.9 mmol/L 22.0-30.0 [facility] Serum or plasma urea nitroge n measurement (mass/volume)Ordered By: Arielfederica Perry on 01-26-2022 Urea nitrogen [Mass/Vol] 13 mg/dL - [facility] Troponin I.cardiac [Mass/vol ume] in Serum or Plasma by High sensitivity methodOrdered By: Bonilla Hall on 01-26-2022 Troponin I.cardiac High sensitivity method [Mass/Vol] 3 pg/mL 0-20 [facility] COVID-19 ANTIGENon 2 EUA Statement SEE BELOW Normal [facility] Comment on above: Result Comment: This [...] sooner. Performed By: #### D ATCVAG #### [facility] [address] [place] [address] Dr. Kaylen Hall SARS-CoV-2 (COVID-19) RNA NIKKI+probe Ql (Unsp spec) Negative Normal NEGATIVE [facility] Comment on above: Result Comment: Nega tive results are presumptive. They do not preclude infection and should not be used as the sole basis for treatment decisions. Additional confirmatory testing by a molecular method should be considered. Performed By: #### D ATCVAG #### [facility] [address] [place] [id number] Kaylen Hall Covid-19 PCR ([facility])on SARS-CoV-2 (COVID-19) RNA NIKKI+probe Ql (Unsp spec) Not detected Normal NOT DETECTED [facility] Comment on above: Result Comment: This test is not yet approved or cleared by the [place] FDA. When there are no FDA-approved or cleared tests available, and other criteria are met, FDA can make tests available under an emergency access mechanism called an Emergency Use Authorization (EUA). The EUA for this test is supported by the [place] of Health and Human Service's (HHS's) declaration [...] consistent with SARS-CoV-2. Performed By: #### C VDTB #### [facility] [address] [place] [id number] Kaylen Hall Vital Signs Date Time Vital Sign Value Performing Clinician Facility 07-06-2024 11:14050 Body height 175.3 cm Betito Arteaga MD Work Phone: [facility] 07-06-2024 11:14050 Body mass index (BMI) [Ratio] 33.23 kg/m2 Betito Arteaga MD Work Phone: [facility] 07-06-2024 11:14-050 Body weight 102.06 kg Betito Arteaga MD Work Phone: [facility] 04-28-2024 11:27-0500 Body height 175.3 cm Jess Mcdowell APRN-LIBIA Work Phone: [facility] 04-28-2024 11:27-0500 Body mass index (BMI) [Ratio] 33.08 kg/m2 Jses Mcdowell SAFE EXPERT-MILITARY SCIENCE INSTRUCTOR Work Phone: [facility] 04-28-2024 11:27-0500 Body weight 101.61 kg Jess Mcdowell SAFE EXPERT-MILITARY SCIENCE INSTRUCTOR Work Phone: [facility] 04-06-2024 15:57-0400 Body height 175.3 cm Vanna Shelbymor PORT SURVEYOR Work Phone: [facility] 04-06-2024 15:57-0400 Body mass index (BMI) [Ratio] 33.97 kg/m2 Vanna Shelbymor PORT SURVEYOR Work Phone: [facility] 04-06-2024 15:57-0400 Body weight 104.33 kg Vanna Shelbymor PORT SURVEYOR Work Phone: [facility] 04-06-2024 15:57-0400 Diastolic blood pressure 82 mm[Hg] Vanna Shelbymor PORT SURVEYOR Work Phone: [facility] 04-06-2024 15:57-0400 Systolic blood pressure 124 mm[Hg] Vanna Shelbymor PORT SURVEYOR Work Phone: [facility] 03-09-2024 08:55-0400 Blood Pressure Location Judah NILL [facility] 03-09-2024 08:55-0400 Diastolic blood pressure 85 mm[Hg] Judah NILL [facility] 03-09-2024 08:55-0400 Heart rate 120 /min Judah NILL [facility] 03-09-2024 08:55-0400 Respiratory rate 16 /min Judah NILL [facility] 03-09-2024 08:55-0400 Systolic blood pressure 136 mm[Hg] Judah NILL [facility] 02-19-2024 11:07-0400 Body height 175.3 cm Vikki Landry DO Work Phone: [facility] 02-19-2024 11:07-0400 Body mass index (BMI) [Ratio] 33.97 kg/m2 Vikki Landry DO Work Phone: [facility] 02-19-2024 11:07-0400 Body weight 104.33 kg Vikki Landry DO Work Phone: [facility] 02-19-2024 11:07-0400 Diastolic blood pressure 98 mm[Hg] Vikki Landry DO Work Phone: [facility] 02-19-2024 11:07-0400 Heart rate 121 /min Vikki Landry DO Work Phone: [facility] 02-19-2024 11:07-0400 SaO2% (BldA) [Mass fraction] 95 % Vikki Landry DO Work Phone: [facility] 02-19-2024 11:07-0400 Systolic blood pressure 136 mm[Hg] Vikki Landry DO Work Phone: [facility] 01-26-2022 19:50-0400 Body temperature 97.9 [degF] MD Erick Maldonado Work Phone: [facility] 01-26-2022 19:50-0400 Diastolic blood pressure 85 mm[Hg] MD Erick Maldonado Work Phone: [facility] 01-26-2022 19:50-0400 Heart rate 90 /min MD Erick Maldonado Work Phone: [facility] 01-26-2022 19:50-0400 Respiratory rate 16 /min MD Erick Maldonado Work Phone: [facility] 01-26-2022 19:50-0400 SaO2% (BldA) [Mass fraction] 96 % MD Erick Maldonado Work Phone: [facility] 01-26-2022 19:50-0400 Systolic blood pressure 140 mm[Hg] MD Erick Maldonado Work Phone: [facility] 01-26-2022 18:43-0400 Body height 170.18 cm MD Erick Maldonado Work Phone: [facility] 01-26-2022 18:43-0400 Body weight 90.5 kg MD Erick Maldonado Work Phone: [facility] Encounters Encounter Date Encounter Type Care Provider Facility Start: 07-06-2024 End: 07-06-2024 EasyLinkheet Betito Arteaga MD Work Phone: [facility] Start: 07-06-2024 End: 07-06-2024 EasyLinkheet Betito Arteaga MD Work Phone: [facility] Start: 07-06-2024 End: 07-06-2024 Office outpatient new 45 minutes Betito Arteaga MD Work Phone: [facility] Comment on above: Poor control type I diabetes mellitus (CMS/HCC) (Primary Dx); Insulin long-term use (CMS/HCC); Vitamin D deficiency; Hyperlipemia, mixed (CMS/HCC); Primary hypertension (CMS/HCC); Encounter for dietary consultation; Class 1 obesity due to excess calories with serious comorbidity and body mass index (BMI) of 33.0 to 33.9 in adult Start: 04-29-2024 End: 04-29-2024 ambulatory [facility] Start: 04-28-2024 End: 04-28-2024 Postop follow up visit related to original px Jess Mcdowell SAFE EXPERT-MILITARY SCIENCE INSTRUCTOR Work Phone: [facility] Comment on above: Status post laparosc opic cholecystectomy (Primary Dx) Start: 04-28-2024 End: 04-28-2024 [facility] JESS MCDOWELL [facility] Start: 04-22-2024 End: 04-23-2024 Orders Only Not In System Ref Prov [facility] Start: 04-19-2024 End: 04-19-2024 ambulatory Judah Friedman Facility:[facility] Start: 04-19-2024 End: 04-19-2024 Departed Referred DO Judah Friedman Work Phone: [facility] Start: 04-06-2024 End: 04-06-2024 Office outpatient visit 25 minutes Vanna Patiño PORT SURVEYOR Work Phone: [facility] Comment on above: Polyneuropathy (Prim jane Dx); Lumbosacral radiculopathy; Right arm weakness; Paresthesias Start: 04-06-2024 End: 04-06-2024 Bamboo flowsheet Vanna Patiño PORT SURVEYOR Work Phone: [facility] Start: 04-06-2024 End: 04-06-2024 Bamboo flowsheet Vanna Patiño PORT SURVEYOR Work Phone: [facility] Start: 03-18-2024 End: 04-06-2024 Pre-admission assessment Judah WHITAKER [facility] Start: 03-15-2024 End: 03-15-2024 ambulatory [facility] Start: 03-15-2024 End: 03-15-2024 Encounter for other preprocedural examination [facility] Start: 03-09-2024 End: 03-09-2024 ambulatory Judah WHITAKER Facility:[facility] Start: 03-09-2024 End: 03-09-2024 Patient encounter procedure Judah WHITAKER [facility] Start: 03-05-2024 Non-patient / Non-visit DO Spencer Friedman Work Phone: [facility] Work Phone: Start: 03-02-2024 ambulatory Judah JULIANNE Facility:[facility] Start: 02-27-2024 ambulatory Judah JULIANNE Facility:[facility] Start: 02-25-2024 End: 02-25-2024 Patient encounter procedure Vikki Landry DO Work Phone: [facility] Comment on above: Lumbosacral radiculo andressa (Primary Dx); Numbness and tingling; Polyneuropathy Start: 02-24-2024 End: 02-24-2024 Bamboo flowsheet Mae Cuevas OT Work Phone: [facility] Start: 02-24-2024 End: 02-24-2024 Bamboo flowsheet Mae Cuevas OT Work Phone: [facility] Start: 02-24-2024 End: 02-24-2024 ambulatory Mae Cuevas OT Work Phone: [facility] Comment on above: Right arm weakness ( Primary Dx); Numbness Start: 02-19-2024 End: 02-19-2024 Bamboo flowsheet Vikki Landry DO Work Phone: [facility] Start: 02-19-2024 End: 02-19-2024 Bamboo flowsheet Vikki Landry DO Work Phone: [facility] Start: 02-19-2024 End: 02-19-2024 Clinisync Result Encounter Vikki Landry DO Work Phone: [facility] Unsolicited Start: 02-19-2024 End: 02-19-2024 Office consultation new/estab patient 60 min Vikki Landry DO Work Phone: [facility] Comment on above: Numbness and tinglin g (Primary Dx); Weakness of left arm; Right arm weakness; Diabetic peripheral neuropathy (CMS/HCC); Paresthesias Start: 02-25-2022 End: 02-26-[address] ERICK MALDONADO Facility:[facility] Start: 02-07-2022 End: 02-08-[address] ERICK MALDONADO Facility:[facility] Start: 01-26-2022 End: 01-26-2022 Evaluation and management of inpatient MD Erick Maldonado Work Phone: [facility] Start: 07-14-2021 End: 07-15-[address] ERICK MALDONADO Facility:[facility] Start: 05-18-2021 End: 05-18-[address] ERICK MALDONADO Facility:[facility] Procedures Date Procedure Procedure Detail Performing Clinician Start: 04-20-2024 Level i surg pathology gross examination only Not In System Ref Prov Start: 04-20-2024 MULTIPLE LABS Not In System Ref Prov Start: 02-25-2024 End: 02-25-2024 Needle emg ea extremty w/paraspinl area complete Vikki Alatorre DO Work Phone: Start: 02-19-2024 ALL THYROID STIM HORMONE Vikki Landry D O Work Phone: Start: 01-26-2022 Plain chest X-ray MD Erick Maldonado Work Phone: Arthroscopy of knee Judah WHITAKER Cardiac catheterization Russ ael JULIANNE History of cholecystectomy Status post laparoscopic cholecystectomy Jess Mcdowell SAFE EXPERT-MILITARY SCIENCE INSTRUCTOR Work Phone: Ophthalmic surgery (qualifier value) Judah WHITAKER SARS Antigen (LFIA) MD Tal Maldonado Work Phone: Plan of Treatment Date Care Activity Detail Author Start: 04-28-2025 Adult [facility] Start: 04-28-2025 [facility] Start: 08-26-2024 End: 08-26-2024 Patient encounter procedure 08/26/2024 11:00 AM EDT Office Visit [facility] [address] [place] [address] Betito Arteaga MD [address] [place] [address] [facility] Start: 07-13-2024 End: 07-13-2024 Patient encounter procedure [facility] Start: 07-06-2024 End: 07-06-2025 25-hydroxyvitamin D3 [Mass/volume] in Serum or Plasma Vitamin D 25 hydroxy Total Lab Routine Poor control type I diabetes mellitus ([facility]) Expected: 07/06/2024 (Approximate), Expires: 07/06/2025 [facility] Comment on above: Expected: 07/06/2024 (Approximate), Expires: 07/06/2025 Start: 07-06-2024 End: 07-06-2025 C-peptide C-peptide Lab Routine Poor control type I diabetes mellitus ([facility]) Expected: 07/06/2024 (Approximate), Expires: 07/06/2025 [facility] Work Phone: Comment on above: Expected: 07/06/2024 (Approximate), Expires: 07/06/2025 Start: 07-06-2024 End: 07-06-2025 Lipid 1996 panel - Serum or Plasma Lipid panel Lab Routine Poor control type I diabetes mellitus ([facility]) Expected: 07/06/2024 (Approximate), Expires: 07/06/2025 [facility] Comment on above: Expected: 07/06/2024 (Approximate), Expires: 07/06/2025 Start: 07-06-2024 End: 07-06-2025 Microalbumin/Creatinin e panel in random Urine Microalbumin / creatinine urine ratio Lab Routine Poor control type I diabetes mellitus ([facility]) Expected: 07/06/2024 (Approximate), Expires: 07/06/2025 [facility] Comment on above: Expected: 07/06/2024 (Approximate), Expires: 07/06/2025 Start: 07-06-2024 End: 07-06-2025 Renal function panel Renal function panel Lab Routine Poor control type I diabetes mellitus ([facility]) Expected: 07/06/2024 (Approximate), Expires: 07/06/2025 [facility] Comment on above: Expected: 07/06/2024 (Approximate), Expires: 07/06/2025 Start: 07-06-2024 End: 07-06-2024 Patient encounter procedure 07/06/2024 11:10 AM EST Office Visit [facility] [address] [place] [address] Betito Arteaga MD [address] [place] [address] Arrived [facility] Comment on above: Arrived Start: 04-28-2024 End: 04-28-2024 Patient encounter procedure 04/28/2024 11:15 AM EST Office Visit [facility] [address] [place] [address] Jess Mcdowell, SAFE EXPERT-MILITARY SCIENCE INSTRUCTOR [address] [place] [address] [facility] Start: 04-06-2024 End: 04-06-2024 Patient encounter procedure [facility] Comment on above: Arrived Start: 02-25-2024 End: 02-25-2024 Patient encounter procedure 02/25/2024 9:00 AM EDT Procedure Visit [facility] [address] [address] [place] [id number] Vikki Alatorre DO [address] [place] [address] [facility] [address] [facility] Start: 02-24-2024 End: 02-24-2024 ambulatory [facility] Comment on above: Arrived Start: 02-19-2024 End: 02-18-2025 Cobalamin (Vitamin B12) [Mass/volume] in Serum or Plasma Vitamin B12 Lab Routine Numbness and tingling Expected: 02/19/2024 (Approximate), Expires: 02/18/2025 [facility] Comment on above: Expected: 02/19/2024 (Approximate), Expires: 02/18/2025 Start: 02-19-2024 End: 02-18-2025 EMG 2 Extremities EMG 2 Extremities Neurology Routine Numbness and tingling Expected: 02/19/2024 (Approximate), Expires: 02/18/2025 [facility] Comment on above: Expected: 02/19/2024 (Approximate), Expires: 02/18/2025 Start: 02-19-2024 End: 02-18-2025 Folate [Mass/volume] in Serum or Plasma Folate Lab Routine Numbness and tingling Expected: 02/19/2024 (Approximate), Expires: 02/18/2025 [facility] Comment on above: Expected: 02/19/2024 (Approximate), Expires: 02/18/2025 Start: 02-19-2024 End: 02-18-2025 NVC 9-10 Nerves NVC 9-10 Nerves Neurology Routine Numbness and tingling Expected: 02/19/2024 (Approximate), Expires: 02/18/2025 [facility] Work Phone: Comment on above: Expected: 02/19/2024 (Approximate), Expires: 02/18/2025 Start: 02-19-2024 End: 02-18-2025 Protein electrophoresis, serum Protein electrophoresis, serum Lab Routine Numbness and tingling Expected: 02/19/2024 (Approximate), Expires: 02/18/2025 [facility] Comment on above: Expected: 02/19/2024 (Approximate), Expires: 02/18/2025 Start: 02-19-2024 End: 02-18-2025 Thyrotropin [Units/volume] in Serum or Plasma TSH Lab Routine Numbness and tingling Expected: 02/19/2024 (Approximate), Expires: 02/18/2025 [facility] Comment on above: Expected: 02/19/2024 (Approximate), Expires: 02/18/2025 Start: 02-19-2024 End: 02-19-2024 Patient encounter procedure 02/19/2024 11:00 AM EDT Office Visit [facility] [place] [address] [place] [id number] Vikki Alatorre, DO [address] [place], [place] [id number] Arrived [facility] Comment on above: Arrived Start: 02-15-2024 Influenza vaccination Influenza Vacc ine [facility] Start: 01-26-2022 Hospital admission [facility] Work Phone: Start: 01-26-2022 Referral to towel distributor [facility] Work Phone: Start: 2003 DTaP,Tdap and Td Vaccines (1 - Tdap) DTaP,Tdap and Td Vaccines (1 - Tdap) [facility] Start: 2002 Adult BMI Follow Up Plan Adult BMI Follow Up Plan [facility] Start: 2002 Adult BMI Screening Adult BMI Screen ing [facility] Start: 1996 Depression Screening Depression Scre ening [facility] Start: 1996 Tobacco Screening Tobacco Screening [facility] Patient referral [facility] Work Phone: Payers Date Payer Category Payer Self-pay [id number] 2023 Medicaid [id number] 2023 Medicaid [id number] 2019 Unknown [id number] 1984 Unknown [id number] 1984 Unknown [id number] 1984 Unknown [id number] [id number] 1984 Unknown [id number] [id number] 1984 Unknown [id number] [id number] 1959 Self-pay [id number] 1959 Unknown [id number] Unknown [place] BC/BS [id number] Unknown [id number] Unknown [id number] [id number] Social History Date Type Detail Facility Start: 01-26-2022 End: 04-06-2024 Tobacco smoking status NHIS Ex-smoker (finding) [facility] Start: 1985 Sex Assigned At Male [facility] Tobacco smoking status Former sm okeless tobacco user, quit more than 30 days ago [facility] Start: 02-19-2024 End: 04-06-2024 Sex Assigned At Male [facility] Start: 03-16-2019 End: 06-16-1998 History of tobacco use Current smoker [facility] Start: 03-16-2019 End: 06-16-1998 History of tobacco use Cigarette Smoker [facility] Start: 02-19-2024 End: 04-06-2024 Tobacco use and exposure Smokeless tobacco non-user [facility] Start: 02-19-2024 End: 04-06-2024 History of Social function [facility] Start: 01-19-2024 Gender identity Identifies as male gender (finding) [facility] Start: 01-19-2024 Sexual orientation Choose not to dis close [facility] Start: 04-06-2024 End: 05-10-2024 Alcoholic beverage intake Lifetime non-drinker (finding) [facility] Start: 08-02-2022 Tobacco smoking stat [facility] Never smoked tobacco (finding) [facility] Tobacco smoking stat [facility] Tobacco smoking consumption unknown [facility] Start: 1984 Sex assigned at Not on file [facility] Start: 01-19-2015 Sex [facility] (finding) [facility] Start: 04-28-2024 Alcoholic beverage intake Ex-drinker (finding) [facility] Medical Equipment Procedure Code Equipment Code Equipment Origin al Text Equipment Identifier Dates Inject 1 each un jeanine the skin 6 (six) times a day Start: 03-15-2024 Goals Date Patient Goal Desired Activity /State Functional Status Date Assessment Result Facility 03-09-2024 Functional Status N/A [facility] Clinical Notes 01-26-2022 to 07-06-2024 Betito Arteaga MD - 07/06/2024 11:10 AM Dante Mcdowell, SAFE EXPERT-MILITARY SCIENCE INSTRUCTOR - 04/28/2024 11:15 AM ESTRadiologMyron Arboleda, ARRT - 02/25/2024 9:00 AM EDTCourtsadie Xaviergerald, OT - 02/24/2024 1:00 PM EDT Note Date & Type Note Facility 07-06-2024 History of Present illness Narrative Ariel Ruvalcaba is a 39 y.o. male Betito Arteaga MD presents with chief complaint of No chief complaint on file. HPI: HPI 06/2024 New patient sent from Dr. Erick Maldonado for uncontrolled diabetes, he has type 1 since 6 years old, he is on currently metformin 500 twice a day, Lantus 36 twice a day, NovoLog average 20-30 units every meal, rotate between different part of the body, never have insulin pump before, he said last A1c around 8. SUBJECTIVE: MEDICATIONS: Current Outpatient Medications Medication Instructions aspirin 81 mg carvedilol (COREG) 6.25 mg, 2 times daily with meals citalopram (CeleXA) 20 MG tablet 1 tablet, Oral, Daily diclofenac (Voltaren) 75 MG EC tablet 1 tablet, Oral, 2 times daily, Do not crush, chew, or split. dicyclomine (Bentyl) 20 MG tablet 1 tablet, 4 times daily PRN DULoxetine (CYMBALTA) 120 mg, Daily famotidine (Pepcid) 40 MG tablet TAKE 1 TABLET BY MOUTH ONCE DAILY FOR 30 DAYS gabapentin (NEURONTIN) 100 mg, Oral, 3 times daily hydroCHLOROthiazide (HYDRODIURIL) 25 mg, Every morning irbesartan (Avapro) 150 MG tablet TAKE 1 TABLET BY MOUTH ONCE DAILY FOR 30 DAYS Lantus SoloStar 100 UNIT/ML pen Every 12 hours metFORMIN (Glucophage) 500 MG tablet TAKE 1 TABLET BY MOUTH TWICE DAILY WITH A MEAL FOR 30 DAYS metoprolol succinate XL (TOPROL-XL) 50 mg NovoLOG FlexPen ReliOn 100 UNIT/ML pen INJECT 15 UNITS SUBCUTANEOUSLY 4 TIMES DAILY, 1 UNIT PER 15 CARBS PLUS 1 UNIT FOR EVERY 50 OVER 150. MAX DAILY USE OF 120 UNITS PER DAY ondansetron ODT (Zofran-ODT) 4 MG disintegrating tablet 1 tablet, Every 8 hours PRN pantoprazole (ProtoNix) 40 MG EC tablet TAKE 1 TABLET BY MOUTH ONCE DAILY FOR 30 DAYS ReliOn Pen Deputy 31G X 6 MM misc 1 each, 6 times daily rosuvastatin (CRESTOR) 20 mg, Nightly ALLERGIES: Allergies Allergen Reactions Lisinopril Cough Past Medical History: Diagnosis Date Acute bronchiolitis Anxiety Arm paresthesia, right Cardiomyopathy (CMS/HCC) Chest pain Cholelithiasis Depression (CMS/HCC) Diabetes mellitus (CMS/HCC) Diabetic retinopathy (CMS/HCC) Fatty liver Former smoker started 2000 quit 03/16/2019 GERD (gastroesophageal reflux disease) HTN (hypertension) (CMS/HCC) Macular edema Migraine (CMS/HCC) Neuropathy in diabetes (CMS/HCC) Recurrent sinusitis RLQ abdominal pain 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, bilateral (CMS/HCC) Type 1 diabetes mellitus without complication (CMS/HCC) Past Surgical History: Procedure Laterality Date CHOLECYSTECTOMY 2023 EYE SURGERY 2021 and 2022 HEART CATH 06/19/2018 KNEE SURGERY Right arthroscopy REVIEW OF SYMPTOMS: 14 POINT OF SYSTEM REVIEWED AND NEGATIVE OBJECTIVE: Constitutional: Afebrile @ home; no weakness or night sweats SKIN: No change in skin color; no itching, rash or lesions; no hair loss; HEENT: No HAs or injury; no dizziness; No difficulty with vision; no eye pain, discharge or lesions; no hearing loss or difficulty; no nasal discharge, NECK: No pain, limitation of motion, lumps or swollen glands RESP: No cough, wheezing or difficulty breathing. No CP with breathing; CARDIO: No CP , SOB or fatigue, No edema, palpitations or dyspnea with exertion GI: No N/V/D or abd. pain; good appetite with no recent change. No heart burn, liver or gallbladder disease; no rectal bleeding or pain : No urinary pain , frequency or odor. MUSCULOSKELETAL: No muscle pain or cramps; no extremity weakness.No joint pain, stiffness, swelling or limitation of movement NEUROLOGY: No H/O seizures, stroke or fainting. No weakness, tremors. Hematology: No bleeding problems or excessive bruising ENDOCRINE: No increase in hunger, thirst or urination; admits compliance to medical management plan Feet: numbness tingling yes, ulcers or skin break no Visit Vitals Ht 5' 9 Wt 225 lb BMI 33.23 kg/m Smoking Status Former BSA 2.23 m ASSESSMENT AND PLAN: Assessment/Plan Diagnoses and all orders for this visit: Poor control type I diabetes mellitus (CMS/HCC) - C-peptide; Future - Vitamin D 25 hydroxy Total; Future - Microalbumin / creatinine urine ratio; Future - Lipid panel; Future - Renal function panel; Future We will continue with Lantus 35 units twice a day, change NovoLog to insulin carb ratio 1:5, and in sensitivity 1:20 a.m., instruction given continue with metformin 500 twice a day, we will check lab including C-peptide, we will start him on insulin pump process on T slim. Insulin long-term use (CMS/HCC) Vitamin D deficiency Hyperlipemia, mixed (CMS/HCC) Primary hypertension (CMS/HCC) Encounter for dietary consultation Diet and exercise reviewed with the patient Class 1 obesity due to excess calories with serious comorbidity and body mass index (BMI) of 33.0 to 33.9 in adult Follow up in about 6 weeks (around 08/17/2024). documented in this encounter [facility] 04-29-2024 Note Cardiology Clinic No te Chief Complaint: [...] type, unspecified whether angina present, unspecified whether [place] or transplanted heart Pre-op evaluation Patient adamantly [...] care discussed with patient. All questions were answ (more content not included)... [facility] 04-28-2024 History of Present illness Narrative Images from the original note were not included. Subjective Ariel Ruvalcaba is a 38 y.o. male status post robotic assisted laparoscopic cholecystectomy on 04/19/2024. He presents today with his . He is doing well after surgery. He denies any further right upper quadrant pain. He reports some pain at the incision sites. He states his blood sugars have also improved since surgery. He denies fever and chills. He is tolerating oral intake and having bowel movements. He is still having intermittent bloating. He was having this prior to surgery. This is worse with dairy products such as milk and cheese. Objective There were no vitals filed for this visit. Physical Exam Abdominal: General: There is no distension. Palpations: Abdomen is soft. Tenderness: There is no abdominal tenderness. Comments: Abdomen round, baseline. Skin: General: Skin is warm and dry. Findings: No bruising or erythema. Comments: Lap sites clean, dry and intact. No signs of infection. Assessment Ariel Ruvalcaba is a 38 y.o.male postop laparoscopic cholecystectomy. Plan Light activity for another month. For bloating, discussed keeping food log to pinpoint aggravating foods, avoiding carbonated beverages and weight loss. Follow up as needed. Status post laparoscopic cholecystectomy [Z90.49] SEEMA VERDUGO [facility] General Surgery [place] This note was created with the assistance of a speech recognition program. While intending to generate a timely document that accurately reflects the content of the visit, no guarantee can be provided that every grammatical or spelling mistake has been or will be identified or corrected. Thank you for your understanding. SEEMA Verdugo 04/28/24 1224 documented in this encounter [facility] 03-15-2024 Note Cardiology Clinic No te Chief [...] type, unspecified whether angina present, unspecified whether [place] or transplanted heart Diagnoses and all orders [...] type, unspecified whether angina present, unspecified whether [place] or transplanted heart - Treadmill Stress Myocardial [...] patient. Please do (more content not included)... [facility] 03-09-2024 Evaluation + Plan note Future Scheduled TestsMRI Cholangiogram Pancreatography (mrcp) 03/09/24 [facility] [place] 03-09-2024 Note General Surgery Offi ce/Clinic Note [...] Denies rectal pain or bleeding. Presented to [place] [facility] 02/23 with complaint of ABD pain. [...] Cardiomyopathy (I42.9: Cardiomyopathy, unspecified) cardiology evaluation Ordered: [facility] [place] Ambulatory Referral 6. Tachycardia (R00.0: Tachycardia, unspecified) cardiology eval (more content not included)... [place] Comment on above: Result Comment: Elec tronically Signed By: JULIANNE MCARTHUR, Judah Ceron\Date and Time Signed: 03/09/24 09:44 EDT 02-25-2024 History of Present illness Narrative Images from the original note were not included. Reason for Appointment: EMG Patient: Ariel Ruvalcaba : 1985 EMG Computer: [employer] Referring Physician: Dr. Vikki Alatorre EMG: [facility] food science technician: Garcia Arboleda RT(R) Office Location: [place] Reason for EMG: c/o numbness/tingling in bilateral lower legs/feet, low back pain. Hx of surgery to right knee. Hx of DM. Not on blood thinners. Comments: Procedure was explained to the patient & female drug safety specialist who expressed understanding. Patient appeared to have tolerated the test well despite some discomfort due to the nature of the test. documented in this encounter [facility] 02-24-2024 History of Present illness Narrative Occupational Therapy Occupational Therapy Evaluation Visit Patient Name: Ariel Ruvalcaba Today's Date: 02/24/2024 Linked Episodes Type: Episode: Status: Noted: Resolved: Last update: Updated by: Occupational Therapy Leisa REIS weakness Active 02/24/2024 02/24/2024 2:08 PM Mae Cuevas OT Comments: Visit number: 1 Subjective Interim History: 38 y/o male presents with chief complaint of R arm pain/ weakness. Pt states It really just tingles now. It comes and goes. Mainly just my ring/pinky finger now . Also reports weakness leading him to get evaluation with neuro. He did have an EMG of the bilateral upper extremity that was within normal limits. No evidence of carpal tunnel syndrome radiculopathy or ulnar neuropathy. Per neuro they suspect he may be occasionally compressing the ulnar nerve. Pain: Pain described as tingling . Never goes fully numb. Does radiate up the forearm and into the shoulder at times Imaging:EMG bilateral upper extremity was done on 02/03/2024 and was normal Prior Level of Function: I with all self-care and functional mobility. Does not work. Precautions: Diabetes Objective Quick Dash: 31.81% Motor: LUE 5/5 RUE 5/5 LLE 5/5 RLE 5/5 Tone: Physiologic, no tremor, bradykinesia or rigidity DTR: Bilateral Biceps 2/4 Bilateral BR 2/4 No spasticity R base filler strength: 35# LP: 9# L base filler strength: 95# LP: 13# Sensitive to palpation at the LE. Treatment: Education: HEP education with demonstration, Educated on Eval Findings and POC Manual Therapy: Passive ROM, Joint mobilization, Soft Tissue Mobilization, Myofascial Release, Muscle Energy Technique, Neural Mobilization, Myofascial Cupping, Dry Needling, IASTM, and Scar mobilization Therapeutic Exercise: Strength, Endurance, Flexibility, ROM, HEP, and Power Therapeutic Activity: Exercises to improve dynamic activities, functional tasks, functional mobility to return to prior activity level Neuromuscular re-education: Muscle Facilitation, Dynamic Stability, and Blood Flow Restriction Training (BFRT) Modalities: Heat, Ice, Electrical Stimulation, Ultrasound, Iontophoresis, and Fluidotherapy Today: IDN complete to cubital tunnel/ LE secondary to pain. Tolerated session well. No adverse reaction. HEP established for UE strengthening and ulnar nerve glides. Written handout provided. Pt verbalizes understanding of all education. Assessment/Plan Short Term Goals: Pt will be independent with home exercise program for nerve glides and light strengthening at discharge. Maintenance Carpenter Goals: Quick Dash < 20% ( IE: 31%) Pt to increase base filler strength by 10# and LP by 2# pain free at discharge. Pt will be able to use right UE in light daily activities. Pt will report normalized sensation in R UE at discharge. Pt will benefit from skilled OT to address the above impairments for 2x/week for 4 weeks. I hereby deem this POC medically necessary. Please sign below. Date: documented in this encounter [facility] 02-19-2024 History of Present illness Narrative Images from the original note were not included. Chief Complaint Patient presents with Numbness Pain Subjective Ariel Ruvalcaba, 38 y.o., male who is being seen in outpatient neurological consultation after request of Dr Maldonado for Hand and arm weakness/numbness. The patient states that his symptoms started about 2 1/2 months ago. He c/o pain in the elbow that radiates to the forearm and along side of the outer hand. Pain is now moving up his arm into his shoulder. He has Numbness and tingling in the hand. Can be positional. Weakness in the arm and decreased base filler. Symptoms on the right side only. He denies any neck pain. No vision change and not trouble swallowing. He has not symptoms into his legs. Trying to reposition his hand can help the symptoms. Using it more can make it worse. He denies any injury or trauma. This comes and goes. He does admit that he sits more than he is up and active He has some diabetic PN in the BLE. He has loss of vision bilaterally peripherally from diabetic retinopathy. He is not working at this time. 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 He is on Elavil for anxiety. He has DM that has been hard to control. His last A1c was 8.7 He thinks it has been higher he has had DM since he was 5. Past Medical History: Diagnosis Date Anxiety Depression (CMS/HCC) Diabetes mellitus (CMS/HCC) No past surgical history on file. Family History Problem Relation Name Age of Onset Depression Mother Diabetes Father Social History Tobacco Use Smoking status: Former Types: Cigarettes Smokeless tobacco: Never Substance Use Topics Alcohol use: Not on file Allergies: Patient has no known allergies. General: No fever or chills HEENT: No nasal congestion or runny nose Pulmonary: No shortness of breath or cough Cardiovascular: No chest pain or palpitations GI: No nausea or vomiting : No dysuria or hematuria Musculoskeletal: No new aches or pains or muscle weakness Infectious: no recurrent fevers or infections Dermatologic: No rashes or skin lesions Neurologic: No new headaches or dizziness Vitals: 02/19/24 1107 BP: (!) 136/98 Pulse: (!) 121 SpO2: 95% Body mass index is 33.97 kg/m . weight: 230 lb Neurologic exam: General: overweight, cooperative, pleasant Mental status: Awake, alert to person, place and time. Recent and remote memory are intact. Attention and concentration are normal. Fund of knowledge is appropriate for level of education. HEENT: NC/AT Cranial nerves: CN II: Visual murdock full to confrontation. No loss of vision CN III, IV, : pupils equal round and reactive to light. Extraocular movements intact. No ptosis present. CN V: Facial sensation is normal. CN VII: Full and symmetric facial movement. CN VIII: Hearing is normal CN IX and X: Palate elevates symmetrically. CN XI: Shoulder shrug is normal bilaterally. CN XII: Tongue is midline without atrophy or fasciculation. Speech: Clear and fluent no aphasia or dysarthria Pronator drift: Negative bilateral upper extremity Coordination: Intact, no signs of dysmetria Good finger to nose and rapid alternating movements Sensory: Patient has some decreased sensation in his right upper extremity more in the medial aspect of the hand and ulnar distribution area some patchy other areas in the right upper extremity distally of off sensation Left upper extremity is within normal limits and sensation Patient has decreased pinprick and vibratory sensation in distal bilateral lower extremity in a stocking distribution Motor: LUE 5/5 RUE 5/5 LLE 5/5 RLE 5/5 Tone: Physiologic, no tremor, bradykinesia or rigidity DTR: Bilateral Biceps 2/4 Bilateral BR 2/4 Bilateral Patellar 1/4 No spasticity Gait: Slightly off-balance, hard time doing tandem gait Romberg's Positive Review and summary of old records: Assessment/Plan 38-year-old male with right upper extremity numbness tingling and subjective weakness more into the distal extremity and more medially in the ulnar distribution. He did have an EMG of the bilateral upper extremity that was within normal limits. No evidence of carpal tunnel syndrome radiculopathy or ulnar neuropathy. I suspect he may be occasionally compressing his ulnar nerve and even though it is not causing true damage is causing some of his symptoms. He does sit a lot. He does have underlying diabetes that he has had since he was 5 years old. They state it is type 1 but he is on metformin so that is unclear. This however could make his nerves more sensitive. It appears that he has what appears to be a bilateral lower extremity diabetic neuropathy. He has decreased peripheral vision bilaterally from a known diabetic retinopathy. Plan EMG bilateral upper extremity was done on 02/03/2024 and was normal I will order an electromyograph evaluation of the lower extremities to assess for nerve damage such as lumbar radiculopathy, lumbar plexopathy, or peripheral neuropathy. We will order some lab work that could be contributing to numbness and tingling Occupational therapy to the right upper extremity for the weakness Control the diabetes as best possible Do not lean on the right arm as I suspect he may be intermittently compressing his ulnar nerve Could use an ulnar nerve brace or volleyball knee pads on his elbow area to help prevent compression of the ulnar nerve The diagnosis was all discussed with the patient. All questions were answered and they agreed with the treatment plan. Patient will call if there are any new issues or questions. Pt has been fully educated on their diagnosis and treatment Return to clinic: 3 weeks documented in this encounter [facility] 01-26-2022 History and physical note Note Date/Time January 26, 2022 4:27pm [facility] [address] [place] [address] Hospitalist H&P Signed Patient: Ariel Ruvalcaba MR#: [id number] : 1985 Acct:[id number] Age/Sex: 36 / M Adm Date: 2 Loc: ER Room: Type: [facility] ER Attending Dr: Copies to: MD Ariel [...] % (Auto) 34.4 % (.) 01/26/22 13:08 [place] % (Auto) 6.7 % (.) 01/26/22 13:08 Eos % (Auto) 2.0 % (.) 01/26/22 13:08 Baso % (Auto) 0.7 % (.) 01/26/22 13:08 Neut # (Auto) 4.2 x10E3/uL (1.8-7.7) 01/26/22 13:08 Lymph # (Auto) 2.6 x10E3/uL (1.00-4.8) 01/26/22 13:08 [place] # (Auto) 0.5 x10E3/uL (0.0-0.8) 01/26/22 13:08 [...] signed by Bonilla Hall MD> 01/26/22 1641 [facility] Work Phone: Evaluation note* Diagnosis Onset Date Resolution Status Angina pectoris, unstable ac [place] Chest pain acute Diabetes mellitus chronic [facility] Work Phone: Evaluation note* Diagnosis Polyneuropathy- Primary Unspecified hereditary and idiopathic peripheral neuropathy Lumbosacral radiculopathy Thoracic or lumbosacral neuritis or radiculitis, unspecified Right arm weakness Other musculoskeletal symptoms referable to limbs Paresthesias Disturbance of skin sensation documented in this encounter [facility] noteNo assessment information available[facility] Work Phone: Evaluation note* Diagnosis Status post laparoscopic cholecystectomy- Primary Other postprocedural status [facility] Diagnosis Numbness and tingling- Primary Disturbance of skin sensation Weakness of left arm Other musculoskeletal symptoms referable to limbs Right arm weakness Other musculoskeletal symptoms referable to limbs Diabetic peripheral neuropathy ([facility]/HCC) Type II or unspecified type diabetes mellitus with neurological manifestations, not stated as uncontrolled Paresthesias Disturbance of skin sensation documented [facility]* Diagnosis Right arm weakness- Primary Other musculoskeletal symptoms referable to limbs Numbness Disturbance of skin sensation documented [facility]* Diagnosis Lumbosacral radiculopathy- Primary Thoracic or lumbosacral neuritis or radiculitis, unspecified Numbness and tingling Disturbance of skin sensation Polyneuropathy Unspecified hereditary and idiopathic peripheral neuropathy documented [facility]* Diagnosis Poor control type I diabetes mellitus (CMS/HCC)- Primary Type I (juvenile type) diabetes mellitus without mention of complication, uncontrolled Insulin long-term use ([facility]) Encounter for long-term (current) use of insulin Vitamin D deficiency Hyperlipemia, mixed (CMS/HCC) Mixed hyperlipidemia Primary hypertension ([facility]/HCC) Unspecified essential hypertension Encounter for dietary consultation Class 1 obesity due to excess calories with serious comorbidity and body mass index (BMI) of 33.0 to 33.9 in adult documented in this encounter [facility] Author Bonilla Hall [facility] January 26, 2022 4:41pm Note Date/Time January 26, 2022 4: 27pm [facility] [address] [place] [address] Hospitalist H&P Signed Patient: Ariel Ruvalcaba MR#: [id number] : 1985 Acct:[id number] Age/Sex: 36 / M Adm Date: 2 Loc: ER Room: Type: [facility] ER Attending Dr: Copies to: MD Ariel [...] % (Auto) 34.4 % (.) 01/26/22 13:08 [place] % (Auto) 6.7 % (.) 01/26/22 13:08 Eos % (Auto) 2.0 % (.) 01/26/22 13:08 Baso % (Auto) 0.7 % (.) 01/26/22 13:08 Neut # (Auto) 4.2 x10E3/uL (1.8-7.7) 01/26/22 13:08 Lymph # (Auto) 2.6 x10E3/uL (1.00-4.8) 01/26/22 13:08 [place] # (Auto) 0.5 x10E3/uL (0.0-0.8) 01/26/22 13:08 [...] 1626 Signed By: <Electronically signed by Bonilla Hlal MD> 01/26/22 1641 [facility] Work Phone: Hospital course Narrative No data available for this section [facility] Discharge instructions No data available for this section [facility] [place] InstructionsNot on filedocumented in this encounter [facility] filedocumented in this [facility] No data available for this section [facility] [place] Reason for referral (narrative) Referred by: JULIANNE MCARTHUR, Judah De La Fuente [facility] [place] Chief Complaint and Reason for Visit Chief [...] Team Status: Inactive Member Role Status Dates Erick Maldonado MD Primary Care Provider Active Ariel Perry DO Emergency Provider Active Bonilla Hall MD Admit Provider, Attending Provider Active Charles Owen MD Other Provider Active Team Status: Active Member Role Status Dates Erick Maldonado MD Primary Care Provider Active Physician Coder 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 Specialty Start Date End Date Erick Maldonado MD [address] [place] [address] PCP - General Family Medicine 01/26/24 Physician Coder 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 Specialty Start Date End Date Erick Maldonado MD [address] [place] [address] PCP - General Family Medicine 01/26/24 Team Status: Active Member Role Status Dates Erick Maldonado MD Primary Care Provider Active Start: March 05, 2024 Brian Dillard DO Attending Provider Active Sta rt: March 05, 2024 Team Status: Inactive Member Role Status Dates Judah Friedman DO Attending Provider Active Start: April 19, 2024 End: April 19, 2024 Physician Coder 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 Specialty Start Date End Date Erick Maldonado MD [address] [place] [address] PCP - General Family Medicine 04/20/24 Physician Coder 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 Specialty Start Date End Date Erick Maldonado MD [address] [place] [address] PCP - General Family Medicine 04/20/24 Physician Coder 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 Specialty Start Date End Date Erick Maldonado MD [address] [facility] [place] [address] PCP - General Family Medicine 01/26/24 Physician Coder 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 Specialty Start Date End Date Erick Maldonado MD [address] [facility] [place] [address] PCP - General Family Medicine 01/26/24 Physician Coder 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 Specialty Start Date End Date Erick Maldonado MD [address] [facility] [place] [address] PCP - General Family Medicine 01/26/24 Physician Coder 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 Specialty Start Date End Date Erick Maldonado MD [address] [facility] [place] [address] PCP - General Family Medicine 01/26/24 Physician Coder 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 Specialty Start Date End Date Erick Maldonado MD [address] [facility] [place] [address] PCP - General Family Medicine 01/26/24 Physician Coder 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 Specialty Start Date End Date Erick Maldonado MD [address] [facility] [place] [address] PCP - General Family Medicine 01/26/24 Physician Coder 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 Specialty Start Date End Date Erick Maldonado MD [address] [facility] [place] [address] PCP - General Family Medicine 8/12/24 (unrecognized sect ion and content) No Status Records FoundNo Status Records FoundNo Status Records FoundNo Status Records FoundNo Status Records Found INFORMATION SOURCE (unrecogn ized section and content) DATE CREATED AUTHOR 03/16/2022 [facility] DATE CREATED AUTHOR AUTHOR'S ORGANIZ ATION 03/11/2024 [facility] DATE CREATED AUTHOR AUTHOR'S ORGANIZ ATION 04/21/2024 [facility] DATE CREATED AUTHOR AUTHOR'S ORGANIZ ATION 04/30/2024 [facility] DATE CREATED AUTHOR AUTHOR'S ORGANIZ ATION 05/01/2024 [facility] Reason for Visit (unrecogniz ed section and content) Reason Comments Numbness Weakness, Gen BUE Reason Comments POST-OP VISIT POST OP CHOLECYSTECT JUDY AT [facility] DR FRIEDMAN Reason Comments Numbness Pain Specialty Diagnoses / Procedures Referred By Contac t Referred To Contact Neurology Diagnoses Paresthesia of skin Weakness Procedures [place] OFFICE/OUTPATIENT [facility] 30 MINUTES Erick Maldonado MD [address] [place] [facility] [address] Cruzito Ayala MD [address] [place] [address] Referral ID Status Reason Start Date Expiration Date V isits Requested Visits Authorized [id number] Closed Consult and Treat 01/28/2024 07/26/2024 1 1 Specialty Diagnoses / Procedures Referred By Contac t Referred To Contact Occupational Therapy / Physical Therapy Diagnoses Pain of upper extremity, weakness of right arm Procedures [place] OCCUPATIONAL THERAPY EVALUATION Vikki Alatorre DO [address] [place] [address] Mae Cuevas, OT [address] [facility] [address] [place] [address] Referral ID Status Reason Start Date Expiration Date V isits Requested Visits Authorized [id number] Pending Review 02/24/2024 08/22/2024 1 1 Goals (unrecognized section and content) Goals may [...] BE BASED ON THE PRIMARY CLINICAL RECORDS. [facility]. provides no warranty or guarantee of the accuracy or completeness of information in this document.
[2024-07-08 08:46] LABS: Creatinine Urine Random 76.11 mg/dL (20.00-300.00); Microalbum Creatinine Ratio Ur 31.5 mg/g (0.0-29.9); Microalbumin Urine Random 2.4 mg/dL (<=30.0)
[2024-07-08 08:58] LABS: Albumin Level 3.2 g/dL (3.4-5.0); Anion Gap 10.9; BUN Creatinine Ratio 19.1; Calcium 8.8 mg/dL (8.5-10.1); Carbon Dioxide 30.6 mmol/L (21.0-32.0); Chloride 101 mmol/L (98-107); Chol HDL Ratio 2.6; Cholesterol 104 mg/dL (<=200); Estimated GFR (African America >60 (>=60 mL/min/1.73m^2); Estimated GFR (Non-African Ame >60 (>=60 mL/min/1.73m^2); Glucose 246 mg/dL (74-106); HDL Cholesterol 40 mg/dL (40-60); LDL Cholesterol Calculated 39.8 mg/dL; Phosphorus 3.5 mg/dL (2.6-4.7); Potassium 4.5 mmol/L (3.5-5.1); Sodium 138 mmol/L (136-145); Triglycerides 121 mg/dL (<=150); VLDL CHOLESTEROL 24.2 mg/dL
[2024-07-09 04:13] LABS: C-Peptide, Serum <0.1 ng/mL (1.1-4.4)
== END 2024-07-08 07:39 | disposition home or self-care (01) ==
LOC: LAB 07:39
PROVIDERS: PCP Family Medicine; Visit Provider Internal Medicine
DX: E10.65 Type 1 diabetes mellitus with hyperglycemia (principal)
CPT/HCPCS: 36415; 80061; 80069; 82043; 82306; 82570; 84681

== ENCOUNTER 2024-08-26 07:38 | Outpatient (OUT) | payer MEDICAID, SELFPAY ==
--- OUTSIDE RECORDS SUMMARY | 2024-08-26 07:43 | XMS_ITS | CCD ---
Author Organization [facility] Care Team Providers Care Glass Edger Name Role Phone MD Erick Maldonado Primary Care Provider [phone] DO Ariel Perry Emergency Provider MD Bonilla Luke Admit Provider MD Bonilla Hall Attending Provider [phone] MD Charles Owen Other Provider [phone] MAURICIO, DR COBURN Primary Care Unavailable MAURICIO, DR COBURN Admitting Unavailable SUZANNEY, DR COBURN Attending Unavailable HOY, DR COBURN Consulting Unavailable SUZANNEY, DR COBURN Consulting Unavailable MAURICIO, DR COBURN Primary Care Unavailable SUZANNEY, DR COBURN Admitting Unavailable HORafa, DR COBURN Attending Unavailable MAURICIO, DR COBURN Primary Care Unavailable REQUEST, DR [...] Unavailable Erick Maldonado MD Primary Care Provider [phone] Judah Friedman Attending Unavailable Judah Friedman Admitting Unavailable DO Judah Friedman Attending Provider JESS MCDOWELL Attending Unavailable ERICK MALDONADO Primary Care Unavailable TREMAINE ROUSE Attending Unavailable TREMAINE ROUSE Attending Unavailable Erick Maldonado MD Primary Care Provider [phone] Allergies Allergy Classification Reported Allergen(s) Allergy Type Date of Onset Reaction(s) Facility (6 sources) Lisinopril; Translations: [lisinopril] Drug Allergy 4 Cough (finding), Cough [facility] [place] (6 sources) Lisinopril Propensity to adverse reactions 4 Cough [facility] Medications Current Medications Medication Drug Class(es) Dates Sig (Normalized) Sig (Original) aspirin 81 mg chewable tablet (10 sources) Platelet Aggregation Inhibitor, Nonsteroidal Anti-inflammatory Drug Start: 03-15-2024 End: 03-15-2025 aspirin 81 MG chewable tablet Chew 81 mg 03/15/2024 03/15/2025 Active Start: 06-19-2018 take 325 mg by mouth once brett y Aspirin Active 325 MG PO Daily June 19, 2018 12:00am carvedilol 6.25 mg oral tablet (4 sources) alpha-Adrenergic Kristin, beta-Adrenergic Kristin Start: 04-29-2024 End: 04-29-2025 take 1 tablet by mouth in the morning carvedilol (Coreg) 6.25 MG tablet Take 6.25 mg by mouth in the morning and 6.25 mg in the evening. Take with meals. 04/29/2024 04/29/2025 Active citalopram 20 mg oral tablet (16 sources) Serotonin Reuptake Inhibitor Start: 06-19-2018 End: 04-06-2024 take 1 tablet by mouth once daily citalopram (CeleXA) 20 MG tablet Take 20 mg by mouth Daily 12/06/2023 Active diclofenac sodium 75 mg delayed release oral tablet (15 sources) Nonsteroidal Anti-inflammatory Drug Start: 02-18-2024 End: 04-06-2024 take 1 tablet by mouth twice daily diclofenac sodium 75 mg Oral EC Tab 75 mg = 1 tab(s), Oral, BID, Refills(s) 0 Start Date: 03/03/24 Status: Ordered dicyclomine hydrochloride 20 mg oral tablet (4 sources) Anticholinergic Start: 03-03-2024 take 1 tablet [...] DULoxetine 60 mg delayed release oral capsule (7 sources) Serotonin and Norepinephrine Reuptake Inhibitor take [...] Status: Ordered famotidine 40 mg oral tablet (9 sources) Histamine-2 Receptor Antagonist Start: 03-03-2024 take 1 tablet by mouth once daily Pepcid 40 mg Tab 40 mg = 1 tab(s), Oral, Daily, Refills(s) 0 Start Date: 03/03/24 Status: Ordered gabapentin 100 mg oral capsule (6 sources) Anti-epileptic Agent Start: 04-06-2024 End: 04-06-2025 [...] 04/06/2025 Active hydroCHLOROthiazide 25 mg oral tablet (7 sources) Thiazide Diuretic take 1 tablet by mouth in the morning hydroCHLOROthiazide (HYDRODiuril) 25 MG tablet Take 25 mg by mouth in the morning. Active insulin aspart, human 100 unt/ml injectable solution (19 sources) Insulin Analog Start: 08-10-2024 Insulin Aspart (NovoLOG) 100 UNIT/ML solution Indications: Type 1 diabetes mellitus with hyperglycemia (HCC) ([facility]/HCC) Inject 80 Units as directed continuously WITH INSULIN PUMP 80 mL 3 08/10/2024 Active Start: 03-03-2024 NovoLOG 100 un its/mL injectable solution as directed, Refills(s) 0 Start [...] ml insulin glargine 100 unt/ml pen injector (18 sources) Insulin Analog Start: 03-03-2024 Lantus Solosta r Pen 100 units/mL subcutaneous solution 36 unit(s), SubCutaneous, BID, Refills(s) 0 Start Date: 03/03/24 Status: Ordered Start: 06-19-2018 Lantus SoloSta r 100 UNIT/ML pen every 12 (twelve) hours 02/25/2023 Active irbesartan 150 mg oral tablet (16 sources) Angiotensin 2 Receptor Kristin Start: 02-08-2024 take 1 tablet by mouth once daily irbesartan (Avapro) 150 MG tablet TAKE 1 TABLET BY MOUTH ONCE DAILY FOR 30 DAYS 02/08/2024 Active metFORMIN hydrochloride 500 mg oral tablet (16 sources) Biguanide Start: 01-28-2024 take 1 tablet by mouth twice daily at mealtime metFORMIN (Glucophage) 500 MG tablet TAKE 1 TABLET BY MOUTH TWICE DAILY WITH A MEAL FOR 30 DAYS 01/28/2024 Active 24 hr metoprolol succinate 50 mg extended release oral tablet (6 sources) beta-Adrenergic Kristin Start: 03-15-2024 End: 03-15-2025 take 1 tablet by mouth every twenty-four hours metoprolol succinate XL (Toprol-XL) 50 MG 24 hr tablet Take 50 mg by mouth 03/15/2024 03/15/2025 Active nitroglycerin 0.4 mg sublingual tablet (3 sources) Nitrate Vasodilator Start: 06-22-2018 Nitroglycerin Active 0.4 MG SUBLINGUAL Q5M June 22, 2018 12:00am ondansetron 4 mg disintegrating oral tablet (6 sources) Serotonin-3 Receptor Antagonist Start: 03-03-2024 take 1 tablet by mouth every eight hours as needed ondansetron ODT (Zofran-ODT) 4 MG disintegrating tablet Take 1 tablet by mouth every 8 (eight) hours if needed 03/03/2024 Active pantoprazole 40 mg delayed release oral tablet (13 sources) Proton Pump Inhibitor Start: 02-09-2024 take 1 tablet by mouth once daily pantoprazole (ProtoNix) 40 MG EC tablet TAKE 1 TABLET BY MOUTH ONCE DAILY FOR 30 DAYS 02/09/2024 Active polyethylene glycol 3350 06833 mg powder for oral solution (1 source) [...] 12:00am rosuvastatin calcium 20 mg oral tablet (7 sources) HMG-CoA Reductase Inhibitor Start: 03-15-2024 End: [...] mouth every month Ergocalciferol (Vitamin D2) Discontinued 52672 UNIT PO As Directed June 20, 2018 [...] 4 01-26-2022 Chronic Diabetes mellitus with complications (10 sources) Retinopathy due to diabetes mellitus; Translations: [Type 2 diabetes mellitus with unspecified diabetic retinopathy without macular edema] Onset: 5 06-20-2018 Chronic Diabetes mellitus without complication (10 [...] sources) Long-term current use of insulin; Translations: [supervisor intermediates (current) use of insulin] 07-06-2024 Episodic Other [...] other cardiovascular function study; Translations: [ABNORM RESULT [facility] CV FUNCTION STUDY] Onset: 2 Episodic Gisselle-; [...] Documented Date Episodic/Chronic Other connective tissue disease (16 sources) Other symptoms and signs involving the musculoskeletal system; Translations: [Other musculoskeletal symptoms referable to limbs] Onset: 02-24-2024 02-24-2024 Episodic Other nervous system disorders (10 sources) Numbness; Translations: [Anesthesia of skin] Onset: [...] Range Facility Office Visiton 04-29-2024 Follow-up visit [id number] Ariel Ruvalcaba 1985 M Date Provider Department Center 04/29/2024 3848-TREMAINE ROUSE [facility] Family History Problem Relation Age of Onset No Known Problems Mother No Known Problems Father Family Status - Relation Status Age at Mother Father Level of Service:93476 NE OFFICE/OUTPATIENT ESTABLISHED MOD MDM 30 MIN Normal [facility] No Panel Informationon 04-20 [facility] 04-19-2024 L Specimen: [id number] Received: 04/20/24 Status: RICKIE Victor Num: [id number] Spec Type: Surgical Subm Dr: Judah Friedman DO Tissues: A Gallbladder (GALLBLADDER AND CONTENTS) Procedures: HE, Gross/Micro L3 Age/ Patient Sex Location Account Attending Physician Ariel Ruvalcaba 38/M LABELL [id number] Judah Friedman DO SPEC NUM: [id number] RECD: 04/20/24 STATUS: RICKIE VICTOR NUM: [id number] DAI: 04/19/[address]: Judah Friedman DO ENTERED: 04/20/[address]: Mary,Lab SPEC TYPE: Surgical DEPT: REHANA DONIS ENTERED BY: [id number] RECV BY: [id number] ORDERED: HE, Gross/Micro L3 ORDERED: HE, Gross/Micro [...] from 0.1 to 0.3 cm in thickness. Express Clerk sections are submitted in a single cassette. (1, , [id number]) CPT Codes 25900 Specimen: [id number] Received: 04/20/24 Status: RICKIE Victor Num: [id number] Spec Type: Surgical Subm Dr: Judah Friedman DO Tissues: A Gallbladder (GALLBLADDER AND CONTENTS) Procedures: RODOLFO, Gross/Paulina L3 Patient: Ariel Ruvalcaba [id number] (Continued) Signed (signature on file) Flori Zamora MD 04/21/24 1801 Normal [facility] Office Visiton 03-15-2024 Follow-up visit [id number] ConnorevensAriel Worthington 1985 M Date Provider Department Center 03/15/2024 3848-TREMAINE ROUSE [facility] Family History Problem Relation Age of Onset No Known Problems Mother No Known Problems Father Family Status - Relation Status Age at Mother Father Level of Service:83033 NE OFFICE/OUTPATIENT NEW MODERATE MDM 45 MINUTES Normal [facility] Ambulatory Visit Summaryon 0 03-09-2024 Ambulatory Visit Summary Ambulatory Visi t Summary CONNOREVENS ARIEL :1985 Visit Date:03/09/2024 Ambulatory Visit Instructions Your Care Team Attending Physician - JULIANNE MCARTHUR, Judah De La Fuente Primary Care Physician - Erick Maldonado MD [...] for choosing us for your care. 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 Admission #: [id number] Family : Order #: [id number] CLICK HERE TO VIEW EXAM ECHOCARDIOGRAM REPORT [...] Rodgers M.D. on 02/26/2022 at 12:57 Normal [facility] STRESS/REST MULTIon 02-07 NM STRESS/REST MULTI Patient: ARIEL RUVALCABA Exam Date: 02/07/2022 : 1985 Gender:M Ordering : DR ERICK MALDONADO . Admission #: [id number] Family : Order #: [id number] CLICK HERE TO VIEW EXAM RADIOLOGY REPORT [...] M.D. on 02/08/2022 at 12:12 Normal [facility] Activated partial thrombopla stin time (aPTT) in platelet poor plasma by coagulation aOrdered By: Ariel Perry on 01-26-2022 aPTT Coag (PPP) [Time] 29.9 s 25.1-36.5 [facility] Basophils Auto (Bld) [#/Vol] Ordered By: Ariel Perry on 01-26-2022 Basophils (Bld) [#/Vol] 0.1 10*3/uL 0.0-0.2 [facility] Basophils/100 WBC Auto (Bld) Ordered By: Ariel Perry on 01-26-2022 Basophils/100 WBC (Bld) 0.7 % . [facility] Blood hemoglobin measurement (mass/volume)Ordered By: Ariel Perry on 01-26-2022 Hemoglobin (Bld) [Mass/Vol] 14.8 g/dL 13.0-17.0 [facility] Blood leukocytes automated c ount (number/volume)Ordered By: Ariel ePrry on 01-26-2022 WBC (Bld) [#/Vol] 7.5 10*3/uL 4.5-11.0 [facility] COVID-19 Positive/NegativeOr dered By: Ariel Perry on 01-26-2022 SARS-CoV-2 (COVID-19) N gene NIKKI+probe Ql (Resp) Negative Negative [facility] Comment on above: Testing for SARS-CoV -2 by RT-PCR This test was developed and its performance characteristics determined by [employer]) and validated at the [facility]. This test has not been [...] (COVID-19) Ag IA.rapid Ql (Resp) Negative Negative [facility] Comment on above: This is a duplicate Shirley SARS Antigen (VIKTOR) result to be used for statistical tracking purpose only. Creatine kinase [Enzymatic a ctivity/volume] in Serum or PlasmaOrdered By: Ariel Perry on 01-26-2022 CK [Catalytic activity/Vol] 108 U/L 22-269 [facility] Creatinine and Glomerular fi ltration rate.predicted panel (S/P/Bld)Ordered By: Ariel Perry on 01-26-2022 Creatinine [Mass/Vol] 0.81 mg/dL 0.64-1.27 [facility] Eosinophils Auto (Bld) [#/Vo l]Ordered By: Ariel Perry on 01-26-2022 Eosinophils (Bld) [#/Vol] 0.2 10*3/uL 0.0-0.45 [facility] Eosinophils/100 WBC Auto (Bl d)Ordered By: Ariel Perry on 01-26-2022 Eosinophils/100 WBC (Bld) 2.0 % . [facility] Erythrocyte distribution wid th Auto (RBC) [Ratio]Ordered By: Ariel Perry on 01-26-2022 Erythrocyte distribution width (RBC) [Ratio] 13.0 % 12.0-14.8 [facility] Estimated glomerular filtrat ion rate (GFR) non- AmericanOrdered By: Ariel Perry on 01-26-2022 GFR/1.73 sq M.predicted among non-blacks MDRD (S/P/Bld) [Vol rate/Area] > 60 mL/Min [facility] Glucose Glucometer (BldC) [M ass/Vol]Ordered By: Bonilla Hall on 01-26-2022 Glucose [Mass/Vol] 342 mg/dL [facility] Comment on above: Random Glucose Refer ence Range is dependent on time and content of last meal. Glucose of more than 200 mg/dL in a nonstressed, ambulatory subject supports the diagnosis of Diabetes Mellitus. Hematocrit Auto (Bld) [Volum e fraction]Ordered By: Ariel Perry on 01-26-2022 Hematocrit (Bld) [Volume fraction] 44.3 % 38.8-50.0 [facility] - Chemistry and C hemistry - challengeOrdered By: Ariel Perry on 01-26-2022 Natriuretic peptide B (Bld) [Mass/Vol] pg/mL 5-100 [facility] - CoagulationOrde red By: Ariel Perry on 01-26-2022 PT Coag (PPP) [Time] 9.3 s 9.0-12.9 [facility] - Hematology and Cell countsOrdered By: Ariel Perry on 01-26-2022 Nucleated RBC/100 WBC (Bld) [Ratio] 0.0 % 0-0.5 [facility] - Microbiology an d Antimicrobial susceptibilityOrdered By: Ariel Perry on 01-26-2022 SARS-CoV-2 (COVID-19) RNA NIKKI+probe Ql (Unsp spec) N/A [facility] Lymphocytes Auto (Bld) [#/Vo l]Ordered By: Ariel Perry on 01-26-2022 Lymphocytes (Bld) [#/Vol] 2.6 10*3/uL 1.00-4.8 [facility] Lymphocytes/100 WBC Auto (Bl d)Ordered By: Ariel Perry on 01-26-2022 Lymphocytes/100 WBC (Bld) 34.4 % . [facility] MCH Auto (RBC) [Entitic mass ]Ordered By: Ariel Perry on 01-26-2022 MCH (RBC) [Entitic mass] 30.2 pg 27.5-35.2 [facility] MCHC Auto (RBC) [Mass/Vol]Or dered By: Ariel Perry on 01-26-2022 MCHC (RBC) [Mass/Vol] 33.4 g/dL 32.5-35.6 [facility] MCV Auto (RBC) [Entitic vol] Ordered By: Ariel Perry on 01-26-2022 MCV (RBC) [Entitic vol] 90.4 fL 83.5-101 [facility] Monocytes Auto (Bld) [#/Vol] Ordered By: Ariel Perry on 01-26-2022 Monocytes (Bld) [#/Vol] 0.5 10*3/uL 0.0-0.8 [facility] Monocytes/100 WBC Auto (Bld) Ordered By: Ariel Perry on 01-26-2022 Monocytes/100 WBC (Bld) 6.7 % . [facility] Neutrophils Auto (Bld) [#/Vo l]Ordered By: Ariel Perry on 01-26-2022 Neutrophils (Bld) [#/Vol] 4.2 10*3/uL 1.8-7.7 [facility] Neutrophils/100 WBC Auto (Bl d)Ordered By: Ariel Perry on 01-26-2022 Neutrophils/100 WBC (Bld) 56.2 % . [facility] No Panel InformationOrdered By: Ariel Perry on 01-26-2022 Estimated GFR () > 60 mL/Min [facility] Comment on above: GFR estimated refere nce range: According to KDOQI guidelines, <60 ml/min/1.73m2 is sufficient to diagnose a patient with chronic kidney disease. Pharmacy Creatinine Clearance (Chem 139.01 [facility] SARS Antigen (LFIA) [facility] Platelet mean volume Auto (B ld) [Entitic vol]Ordered By: Ariel Perry on 01-26-2022 Platelet mean volume (Bld) [Entitic vol] 8.2 fL 6.6-10.1 [facility] Platelet poor plasma interna tional normalized ratio (INR) by coagulation assay (relatOrdered By: Ariel Perry on 01-26-2022 INR Coag (PPP) [Relative time] 0.8 {INR} [facility] Comment on above: INR Therapeutic [...] 01-26-2022 Platelets (Bld) [#/Vol] 358 10*3/uL 150-450 [facility] RBC Auto (Bld) [#/Vol]Ordere d By: Ariel Perry on 01-26-2022 RBC (Bld) [#/Vol] 4.90 10*6/uL 3.90-5.60 [facility] Serum or plasma calcium kelly urement (mass/volume)Ordered By: Ariel Perry on 01-26-2022 Calcium [Mass/Vol] 9.4 mg/dL 8.2-10.2 [facility] Serum or plasma chloride nancy surement (moles/volume)Ordered By: Ariel Perry on 01-26-2022 Chloride [Moles/Vol] 100 mmol/L 95-114 [facility] Serum or plasma creatine kin ase MB (CKMB)/total creatine kinase (CK) ratio by calculaOrdered By: Ariel Perry on 01-26-2022 CK.MB Calc [Catalytic fraction] 1.7 % 0.00-2.50 [facility] Serum or plasma creatine kin ase MB measurement (mass/volume)Ordered By: Ariel Perry on 01-26-2022 CK.MB [Mass/Vol] 1.9 ng/mL 0.6-6.3 [facility] Serum or plasma glucose kelly urement (mass/volume)Ordered By: Ariel Perry on 01-26-2022 Glucose [Mass/Vol] 287 mg/dL 70-100 [facility] Comment on above: ADA recommended refe rence range Random Glucose Reference Range is dependent on time and content of last meal. Glucose of more than 200 mg/dL in a nonstressed, ambulatory subject supports the diagnosis of Diabetes Mellitus. Serum or plasma potassium me asurement (moles/volume)Ordered By: Ariel Perry on 01-26-2022 Potassium [Moles/Vol] 4.0 mmol/L 3.5-5.1 [facility] Serum or plasma sodium measu rement (moles/volume)Ordered By: Ariel Perry on 01-26-2022 Sodium [Moles/Vol] 137 mmol/L 136-146 [facility] Serum or plasma total carbon dioxide measurement (moles/volume)Ordered By: Ariel Perry on 01-26-2022 CO2 [Moles/Vol] 25.9 mmol/L 22.0-30.0 [facility] Serum or plasma urea nitroge n measurement (mass/volume)Ordered By: Ariel Perry on 01-26-2022 Urea nitrogen [Mass/Vol] 13 mg/dL 9- [facility] Troponin I.cardiac [Mass/vol ume] in Serum or Plasma by High sensitivity methodOrdered By: Bonilla Hall on 01-26-2022 Troponin I.cardiac High sensitivity method [Mass/Vol] 3 pg/mL 0-20 [facility] COVID-19 ANTIGENon 2 EUA Statement SEE BELOW Normal [facility] Comment on above: Result Comment: This test [...] sooner. Performed By: #### D ATCVAG #### [facility] [address] [place] [address] Dr. Kaylen Hall SARS-CoV-2 (COVID-19) RNA NIKKI+probe Ql (Unsp spec) Negative Normal NEGATIVE [facility] Comment on above: Result Comment: Nega tive results are presumptive. They do not preclude infection and should not be used as the sole basis for treatment decisions. Additional confirmatory testing by a molecular method should be considered. Performed By: #### D ATCVAG #### [facility] [address] [place] [id number] [address] Kaylen Hall Covid-19 PCR ([facility])on SARS-CoV-2 (COVID-19) RNA NIKKI+probe Ql (Unsp spec) Not detected Normal NOT DETECTED [facility] Comment on above: Result Comment: This test is not yet approved or cleared by the [place] FDA. When there are no FDA-approved or cleared tests available, and other criteria are met, FDA can make tests available under an emergency access mechanism called an Emergency Use Authorization (EUA). The EUA for this test is supported by the [place] of Health and Human Service's (HHS's) declaration [...] SARS-CoV-2. Performed By: #### C VDTB #### [facility] [address] [place], [place] [address] Dr. Kaylen Hall Vital Signs Date Time Vital Sign Value Performing Clinician Facility 07-06-2024 11:14050 Body height 175.3 cm Betito Arteaga MD Work Phone: [facility] 07-06-2024 11:14050 Body mass index (BMI) [Ratio] 33.23 kg/m2 Betito Arteaga MD Work Phone: [facility] 07-06-2024 11:14-0500 Body weight 102.06 kg Betito Arteaga MD Work Phone: [facility] 04-28-2024 11:27-0500 Body height 175.3 cm Jess Mcdowell ASSEMBLER [employer]ING [employer]ONG TABLE-MANAGEMENT LEAD Work Phone: [facility] 04-28-2024 11:27-0500 Body mass index (BMI) [Ratio] 33.08 kg/m2 Jess Mcdowell ASSEMBLER [employer]ING [employer] TABLE-MANAGEMENT LEAD Work Phone: [facility] 04-28-2024 11:27-0500 Body weight 101.61 kg Jess Mcdowell ASSEMBLER [employer]ING [employer] TABLE-MANAGEMENT LEAD Work Phone: [facility] 04-06-2024 15:57-0400 Body height 175.3 cm Vanna Shelbymor IMMUNOLOGY TEACHER Work Phone: [facility] 04-06-2024 15:57-0400 Body mass index (BMI) [Ratio] 33.97 kg/m2 Vanna Gillmor IMMUNOLOGY TEACHER Work Phone: [facility] 04-06-2024 15:57-0400 Body weight 104.33 kg Vanna Gillmor IMMUNOLOGY TEACHER Work Phone: [facility] 04-06-2024 15:57-0400 Diastolic blood pressure 82 mm[Hg] Avnna Gillmor IMMUNOLOGY TEACHER Work Phone: [facility] 04-06-2024 15:57-0400 Systolic blood pressure 124 mm[Hg] Vanna Gillmor IMMUNOLOGY TEACHER Work Phone: [facility] 03-09-2024 08:55-0400 Blood Pressure Location Judah WHITAKER [facility] 03-09-2024 08:55-0400 Diastolic blood pressure 85 mm[Hg] Judah WHITAKER [facility] 03-09-2024 08:55-0400 Heart rate 120 /min Judah WHITAKER [facility] 03-09-2024 08:55-0400 Respiratory rate 16 /min Judah WHITAKER [facility] 03-09-2024 08:55-0400 Systolic blood pressure 136 mm[Hg] Judah WHITAKER [facility] 02-19-2024 11:07-0400 Body height 175.3 cm Vikki Landry DO Work Phone: [facility] 02-19-2024 11:07-0400 Body mass index (BMI) [Ratio] 33.97 kg/m2 Vikki Landry DO Work Phone: [facility] 02-19-2024 11:07-0400 Body weight 104.33 kg Vikki Landry DO Work Phone: [facility] 02-19-2024 11:07-0400 Diastolic blood pressure 98 mm[Hg] Vikki Landry DO Work Phone: [facility] 02-19-2024 11:07-0400 Heart rate 121 /min Vikki Landry DO Work Phone: [facility] 02-19-2024 11:07-0400 SaO2% (BldA) [Mass fraction] 95 % Vikki Landry DO Work Phone: [facility] 02-19-2024 11:07-0400 Systolic blood pressure 136 mm[Hg] Vikki Landry DO Work Phone: [facility] 01-26-2022 19:50-0400 Body temperature 97.9 [degF] MD Erick Maldonado Work Phone: [facility] 01-26-2022 19:50-0400 Diastolic blood pressure 85 mm[Hg] MD Erick Maldonado Work Phone: [facility] 01-26-2022 19:50-0400 Heart rate 90 /min MD Erick Maldonado Work Phone: [facility] 01-26-2022 19:50-0400 Respiratory rate 16 /min MD Erick Maldonado Work Phone: [facility] 01-26-2022 19:50-0400 SaO2% (BldA) [Mass fraction] 96 % MD Erick Maldonado Work Phone: [facility] 01-26-2022 19:50-0400 Systolic blood pressure 140 mm[Hg] MD Erick Maldonado Work Phone: [facility] 01-26-2022 18:43-0400 Body height 170.18 cm MD Erick Maldonado Work Phone: [facility] 01-26-2022 18:43-0400 Body weight 90.5 kg MD Erick Maldonado Work Phone: [facility] Encounters Encounter Date Encounter Type Care Provider Facility Start: 08-11-2024 End: 08-12-2024 Telephone encounter Betito Arteaga MD Work Phone: [facility] Comment on above: Medication Problem Start: 07-06-2024 End: 07-06-2024 Bamboo flowsheet Betito Arteaga MD Work Phone: [facility] Start: 07-06-2024 End: 07-06-2024 Bamboo flowsheet Betito Arteaga MD Work Phone: [facility] Start: 07-06-2024 End: 07-06-2024 Office outpatient new 45 minutes Betito Arteaga MD Work Phone: [facility] Comment on above: Poor control type I diabetes mellitus (CMS/HCC) (Primary Dx); Insulin long-term use (CMS/HCC); Vitamin D deficiency; Hyperlipemia, mixed (CMS/HCC); Primary hypertension (CMS/HCC); Encounter for dietary consultation; Class 1 obesity due to excess calories with serious comorbidity and body mass index (BMI) of 33.0 to 33.9 in adult Start: 04-29-2024 End: 04-29-2024 ambulatory [facility] Start: 04-28-2024 End: 04-28-2024 Postop follow up visit related to original px Jess Mcdowell ASSEMBLER PING PONG TABLE-MANAGEMENT LEAD Work Phone: [facility] Comment on above: Status post laparosc opic cholecystectomy (Primary Dx) Start: 04-28-2024 End: 04-28-2024 ambulatory JESS MCDOWELL [facility] Amb[facility] Start: 04-22-2024 End: 04-23-2024 Orders Only Not In System Ref Prov [facility] Start: 04-19-2024 End: 04-19-2024 ambulatory Judah Friedman Facility:[facility] Start: 04-19-2024 End: 04-19-2024 Departed Referred DO Judah Friedman Work Phone: [facility] Start: 04-06-2024 End: 04-06-2024 Office outpatient visit 25 minutes Vanna Patiño IMMUNOLOGY TEACHER Work Phone: [facility] Comment on above: Polyneuropathy (Prim jane Dx); Lumbosacral radiculopathy; Right arm weakness; Paresthesias Start: 04-06-2024 End: 04-06-2024 Bamboo flowsheet Vanna Patiño IMMUNOLOGY TEACHER Work Phone: [facility] Start: 04-06-2024 End: 04-06-2024 Bamboo flowsheet Vanna Patiño IMMUNOLOGY TEACHER Work Phone: [facility] Start: 03-18-2024 End: 04-06-2024 Pre-admission assessment Judah WHITAKER [facility] Start: 03-15-2024 End: 03-15-2024 ambulatory [facility] Start: 03-15-2024 End: 03-15-2024 Encounter for other preprocedural examination [facility] Start: 03-09-2024 End: 03-09-2024 ambulatory Judah WHITAKER Facility:[facility] Start: 03-09-2024 End: 03-09-2024 Patient encounter procedure Judah WHITAKER [facility] Surgery [place] Start: 03-05-2024 Non-patient / Non-visit DO Spencer Friedman Work Phone: [facility] Work Phone: Start: 03-02-2024 ambulatory Judah WHITAKER Facility:[facility] Start: 02-27-2024 ambulatory Judah WHITAKER Facility:[facility] Start: 02-25-2024 End: 02-25-2024 Patient encounter procedure Vikki Alatorre DO Work Phone: [facility] Comment on [...] Start: 02-19-2024 End: 02-19-2024 Bamboo flowsheet Vikki Alatorre DO Work Phone: [facility] [place] [facility] Start: 02-19-2024 End: 02-19-2024 Bamboo flowsheet Vikki Alatorre DO Work Phone: [facility] [place] [facility] Start: 02-19-2024 End: 02-19-2024 Clinisync Result Encounter Vikki Alatorre DO Work Phone: [facility] External Department Unsolicited Start: 02-19-2024 End: 02-19-2024 Office consultation new/estab patient 60 min Vikki Landry DO Work Phone: [facility] [facility] Comment on above: Numbness and tinglin g (Primary Dx); Weakness of left arm; Right arm weakness; Diabetic peripheral neuropathy (CMS/HCC); Paresthesias Start: 02-25-2022 End: 02-26-[address] ERICK MALDONADO Facility:[facility] Start: 02-07-2022 End: 02-08-[address] ERICK MALDONADO Facility:[facility] Start: 01-26-2022 End: 01-26-2022 Evaluation and management of inpatient MD Erick Maldonado Work Phone: [facility] [place] [facility] Start: 07-14-2021 End: 07-15-[address] ERICK MALDONADO Facility:[facility] Start: 05-18-2021 End: 05-18-[address] ERICK MALDONADO Facility:[facility] Procedures Date Procedure Procedure Detail Performing Clinician Start: 04-20-2024 Level i surg pathology gross examination only Not In System Ref Prov Start: 04-20-2024 MULTIPLE LABS Not In System Ref Prov Start: 02-25-2024 End: 02-25-2024 Needle emg ea extremty w/paraspinl area complete Vikki Landry DO Work Phone: Start: 02-19-2024 ALL THYROID STIM HORMONE Vikki Alatorre D O Work Phone: Start: 01-26-2022 Plain chest X-ray MD Erick Maldonado Work Phone: Arthroscopy of knee Judah WHITAKER Cardiac catheterization Russ aedeb WHITAKER History of cholecystectomy Status post laparoscopic cholecystectomy Jess Mcdowell ASSEMBLER PING PONG TABLE-MANAGEMENT LEAD Work Phone: Ophthalmic surgery (qualifier value) Judah WHITAKER SARS Antigen (LFIA) MD Tal Maldonado Work Phone: Plan of Treatment Date Care Activity Detail Author Start: 04-28-2025 Adult BMI Screening Adult BMI Screen [facility] Start: 04-28-2025 Tobacco Screening Tobacco Screening [facility] Start: 08-26-2024 End: 08-26-2024 Patient encounter procedure 08/26/2024 11:00 AM EDT Office Visit [facility] [address] [place] [phone] Betito Arteaga MD [address] [place] [address] [facility] Start: 07-13-2024 End: 07-13-2024 Patient encounter procedure [facility] Start: 07-06-2024 End: 07-06-2025 25-hydroxyvitamin D3 [Mass/volume] in Serum or Plasma Vitamin D 25 hydroxy Total Lab Routine Poor control type I diabetes mellitus (CMS/HCC) Expected: 07/06/2024 (Approximate), Expires: 07/06/2025 [facility] Comment on above: Expected: 07/06/2024 (Approximate), Expires: 07/06/2025 Start: 07-06-2024 End: 07-06-2025 C-peptide C-peptide Lab Routine Poor control type I diabetes mellitus ([facility]/HCC) Expected: 07/06/2024 (Approximate), Expires: 07/06/2025 [facility] Work Phone: Comment on above: Expected: 07/06/2024 (Approximate), Expires: 07/06/2025 Start: 07-06-2024 End: 07-06-2025 Lipid 1996 panel - Serum or Plasma Lipid panel Lab Routine Poor control type I diabetes mellitus (CMS/HCC) Expected: 07/06/2024 (Approximate), Expires: 07/06/2025 [facility] Comment on above: Expected: 07/06/2024 (Approximate), Expires: 07/06/2025 Start: 07-06-2024 End: 07-06-2025 Microalbumin/Creatinin e panel in random Urine Microalbumin / creatinine urine ratio Lab Routine Poor control type I diabetes mellitus (CMS/HCC) Expected: 07/06/2024 (Approximate), Expires: 07/06/2025 [facility] Comment on above: Expected: 07/06/2024 (Approximate), Expires: 07/06/2025 Start: 07-06-2024 End: 07-06-2025 Renal function panel Renal function panel Lab Routine Poor control type I diabetes mellitus ([facility]) Expected: 07/06/2024 (Approximate), Expires: 07/06/2025 [facility] Comment on above: Expected: 07/06/2024 (Approximate), Expires: 07/06/2025 Start: 07-06-2024 End: 07-06-2024 Patient encounter procedure 07/06/2024 11:10 AM EST Office Visit [facility] [address] [place] [address] Betito Arteaga MD [address] [place] [address] Arrived [facility] Comment on above: Arrived Start: 04-28-2024 End: 04-28-2024 Patient encounter procedure 04/28/2024 11:15 AM EST Office Visit [facility] [address] [place] [address] Jess Mcdowell, ASSEMBLER PING PONG TABLE-MANAGEMENT LEAD [address] [place] [address] [facility] Start: 04-06-2024 End: 04-06-2024 Patient encounter procedure [facility] Comment on above: Arrived Start: 02-25-2024 End: 02-25-2024 Patient encounter procedure 02/25/2024 9:00 AM EDT Procedure Visit [facility] [address] [place] [phone] Vikki Alatorre DO [address] [place], [place] [phone] [facility] Start: 02-24-2024 End: 02-24-2024 ambulatory [facility] Comment on above: Arrived Start: 02-19-2024 End: 02-18-2025 Cobalamin (Vitamin B12) [Mass/volume] in Serum or Plasma Vitamin B12 Lab Routine Numbness and tingling Expected: 02/19/2024 (Approximate), Expires: 02/18/2025 [facility] Comment on above: Expected: 02/19/2024 (Approximate), Expires: 02/18/2025 Start: 02-19-2024 End: 02-18-2025 EMG 2 Extremities EMG 2 Extremities Neurology Routine Numbness and tingling Expected: 02/19/2024 (Approximate), Expires: 02/18/2025 [facility] Comment on above: Expected: 02/19/2024 (Approximate), Expires: 02/18/2025 Start: 02-19-2024 End: 02-18-2025 Folate [Mass/volume] in Serum or Plasma Folate Lab Routine Numbness and tingling Expected: 02/19/2024 (Approximate), Expires: 02/18/2025 [facility] Comment on above: Expected: 02/19/2024 (Approximate), Expires: 02/18/2025 Start: 02-19-2024 End: 02-18-2025 NVC 9-10 Nerves NVC 9-10 Nerves Neurology Routine Numbness and tingling Expected: 02/19/2024 (Approximate), Expires: 02/18/2025 [facility] Work Phone: Comment on above: Expected: 02/19/2024 (Approximate), Expires: 02/18/2025 Start: 02-19-2024 End: 02-18-2025 Protein electrophoresis, serum Protein electrophoresis, serum Lab Routine Numbness and tingling Expected: 02/19/2024 (Approximate), Expires: 02/18/2025 [facility] Comment on above: Expected: 02/19/2024 (Approximate), Expires: 02/18/2025 Start: 02-19-2024 End: 02-18-2025 Thyrotropin [Units/volume] in Serum or Plasma TSH Lab Routine Numbness and tingling Expected: 02/19/2024 (Approximate), Expires: 02/18/2025 [facility] Comment on above: Expected: 02/19/2024 (Approximate), Expires: 02/18/2025 Start: 02-19-2024 End: 02-19-2024 Patient encounter procedure 02/19/2024 11:00 AM EDT Office Visit [facility] [address] [place] [address] Vikki Alatorre DO [address] [place] [id number] Arrived [facility] Comment on above: Arrived Start: 02-15-2024 Influenza vaccination Influenza Vacc ine [facility] Start: 01-26-2022 Hospital admission [facility] Work Phone: Start: 01-26-2022 Referral to clinical science consultant [facility] Work Phone: Start: 2003 DTaP,Tdap and Td Vaccines (1 - Tdap) DTaP,Tdap and Td Vaccines (1 - Tdap) [facility] Start: 2002 Adult BMI Follow Up Plan Adult BMI Follow Up Plan [facility] Start: 2002 Adult BMI Screening Adult BMI Screen ing [facility] Start: 1996 Depression Screening Depression Scre ening [facility] Start: 1996 Tobacco Screening Tobacco Screening [facility] Patient referral [facility] Work Phone: Payers Date Payer Category Payer Self-pay [id number] 2023 Medicaid [id number] 2023 Medicaid [id number] 2019 Unknown [id number] 1984 Unknown [id number] [id number] [id number] 1984 Unknown [id number] 2.16.84 [id number] 1984 Unknown [id number] 2.16.84 [id number] 1984 Unknown [id number] 2.16.8 [id number] 1984 Unknown [id number] 2.16.8 [id number] 1959 Self-pay [id number] 1959 Unknown [id number] Unknown [place] BC/BS [id number] Unknown [id number] [id number] [id number] Unknown [id number] 2.16.8 [id number] Social History Date Type Detail Facility Start: 01-26-2022 End: 04-06-2024 Tobacco smoking status [facility] Ex-smoker (finding) [facility] Start: 1985 Sex Assigned At Male [facility] Tobacco smoking status Former sm okeless tobacco user, quit more than 30 days ago [facility] General Surgery [place] Start: 02-19-2024 End: 04-06-2024 Sex Assigned At Male [facility] Start: 03-16-2019 End: 06-16-1998 History of [...] [facility] Start: 08-02-2022 Tobacco smoking stat [facility] Never smoked tobacco (finding) [facility] Tobacco smoking stat [facility] Tobacco smoking consumption unknown [facility] Start: 1985 Sex assigned at Not on file [facility] Start: 01-19-2015 Sex Male (finding) [facility] Start: 04-28-2024 Alcoholic beverage intake [facility] Procedure Code Equipment Code Equipment Origin al Text Equipment Identifier Dates Inject 1 each un jeanine the skin 6 (six) times a day Start: 03-15-2024 Goals Date Patient Goal Desired Activity /State Functional Status Date Assessment Result Facility 03-09-2024 Functional Status N/A [facility] General Surgery [place] Clinical Notes 01-26-2022 to 08-11-2024 Telephone Encounter - Tyler Perry - 08/11/2024 3:33 PM ESTTelephone Encounter - Tyler Perry - 08/11/2024 3:33 PM Andie Arteaga MD - 07/06/2024 11:10 AM ESTRadiology Note Date & Type Note Facility 08-11-2024 Telephone encounter Note Pt needs PA for vial insulin. Pharmacist states we denied it. Pump training Friday. Please advise. Thanks! [facility] 08-11-2024 Miscellaneous Notes Pt needs PA for vial insulin. Pharmacist states we denied it. Pump training Friday. Please advise. Thanks! documented in this encounter [facility] 07-06-2024 History of Presen t illness Narrative Ariel Ruvalcaba is a 39 [...] ONCE DAILY FOR 30 DAYS ReliOn Pen [place] 31G X 6 MM misc 1 each, [...] visit: Poor control type I diabetes mellitus ([facility]) - C-peptide; Future - Vitamin D 25 [...] D deficiency Hyperlipemia, mixed (CMS/HCC) Primary hypertension ([facility]/HCC) Encounter for dietary consultation Diet and exercise reviewed with the patient Class 1 obesity due to excess calories with serious comorbidity and body mass index (BMI) of 33.0 to 33.9 in adult Follow up in about 6 weeks (around 08/17/2024). documented in this encounter [facility] 04-29-2024 Note Cardiology Clinic No te Chief [...] Radiology: No image results found. Assessment/Plan: Assessment/Plan: Airel Ruvalcaba is a 38 y.o. male with Sinus tachycardia Coronary artery disease, unspecified vessel or lesion type, unspecified whether angina present, unspecified whether gambell or transplanted heart Pre-op evaluation Patient adamantly [...] questions were answ (more content not included)... [facility] 04-28-2024 History of Presen t illness Narrative Images from the original note [...] as needed. Status post laparoscopic cholecystectomy [Z90.49] JESS MCDOWELL, ASSEMBLER PING PONG TABLE-MANAGEMENT LEAD [facility] [place] This note was created with the assistance of a speech recognition program. While intending to generate a timely document that accurately reflects the content of the visit, no guarantee can be provided that every grammatical or spelling mistake has been or will be identified or corrected. Thank you for your understanding. SEEMA Wetzel 04/28/24 1224 documented in this encounter [facility] 03-15-2024 Note Cardiology Clinic No te Chief [...] type, unspecified whether angina present, unspecified whether gambell or transplanted heart Diagnoses and all orders [...] type, unspecified whether angina present, unspecified whether gambell or transplanted heart - Treadmill Stress Myocardial [...] patient. Please do (more content not included)... [facility] 03-09-2024 Evaluation + Plan note Future Scheduled TestsMRI Cholangiogram Pancreatography (mrcp) 03/09/24 [facility] General Surgery [place] 03-09-2024 Note General Surgery Offi ce/Clinic Note [...] Denies rectal pain or bleeding. Presented to [facility] ED 02/23 with complaint of ABD pain. [...] Cardiomyopathy (I42.9: Cardiomyopathy, unspecified) cardiology evaluation Ordered: [facility] External Ambulatory Referral 6. Tachycardia (R00.0: Tachycardia, unspecified) cardiology eval (more content not included)... [facility] Comment on above: Result Comment: Elec tronically Signed By: JULIANNE MCARTHUR, Judah Ceron\Date and Time Signed: 03/09/24 09:44 EDT 02-25-2024 History of Presen t illness Narrative Images from the original note were not included. Reason for Appointment: EMG Patient: Ariel Ruvalcaba : 1985 EMG Computer: Wooshii Referring Physician: Dr. Vikki Alatorre EMG: BLE advisor advocate angel co founder: Garcia Arboleda RT(R) Office Location: [place] Reason for EMG: c/o numbness/tingling in bilateral lower legs/feet, low back pain. Hx of surgery to right knee. Hx of DM. Not on blood thinners. Comments: Procedure was explained to the patient & female switch cleaner who expressed understanding. Patient appeared to have tolerated the test well despite some discomfort due to the nature of the test. documented in this encounter [facility] 02-24-2024 History of Presen t illness Narrative Occupational Therapy Occupational Therapy Evaluation Visit Patient Name: Ariel Ruvalcaba Today's Date: 02/24/2024 Linked Episodes Type: Episode: Status: Noted: Resolved: Last update: Updated by: Occupational Therapy R UE weakness Active 02/24/2024 02/24/2024 2:08 PM Mae [...] 2/4 Bilateral BR 2/4 No spasticity R peanut farmer strength: 35# LP: 9# L peanut farmer strength: 95# LP: 13# Sensitive to palpation [...] nerve glides and light strengthening at discharge. Intermediate Goals: Quick Dash < 20% ( IE: 31%) Pt to increase peanut farmer strength by 10# and LP by 2# [...] sign below. Date: documented in this encounter [facility] 02-19-2024 History of Presen t illness Narrative Images from the original note [...] positional. Weakness in the arm and decreased peanut farmer. Symptoms on the right side only. 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 He is on Elavil for anxiety. He has DM that has been hard to control. His last A1c was 8.7 He thinks it has been higher he has had DM since he was 5. Past Medical History: Diagnosis Date Anxiety Depression ([facility]) Diabetes mellitus ([facility]) No past surgical history on file. Family [...] clinic: 3 weeks documented in this encounter [facility] 01-26-2022 History and physical note Note Date/Time January 26, 2022 4:27pm [facility] [address] [place] [address] Hospitalist H&P Signed Patient: Areil Ruvalcaba MR#: [id number] : 1985 Acct:[id number] Age/Sex: 36 / M Adm Date: 2 Loc: ER Room: Type: [facility] ER Attending Dr: Copies to: MD Ariel [...] Psych Appearance: grossly normal SIMI Risk Score SMII Risk Score Predictor Historical: 3 or more [...] % (Auto) 34.4 % (.) 01/26/22 13:08 Falls % (Auto) 6.7 % (.) 01/26/22 13:08 Eos % (Auto) 2.0 % (.) 01/26/22 13:08 Baso % (Auto) 0.7 % (.) 01/26/22 13:08 Neut # (Auto) 4.2 x10E3/uL (1.8-7.7) 01/26/22 13:08 Lymph # (Auto) 2.6 x10E3/uL (1.00-4.8) 01/26/22 13:08 Falls # (Auto) 0.5 x10E3/uL (0.0-0.8) 01/26/22 13:08 [...] signed by Bonilla Hall MD> 01/26/22 1641 [facility] Work Phone: Evaluation note* Diagnosis Onset Date Resolution Status Angina pectoris, unstable ac rhianna Chest pain acute Diabetes mellitus chronic [facility] Work Phone: Evaluation note* Diagnosis Polyneuropathy- Primary Unspecified hereditary and idiopathic peripheral neuropathy Lumbosacral radiculopathy Thoracic or lumbosacral neuritis or radiculitis, unspecified Right arm weakness Other musculoskeletal symptoms referable to limbs Paresthesias Disturbance of skin sensation documented in this encounter [facility] Healthcare[facility] noteNo assessment information availableRiverview [facility] Institute Work Phone: Evaluation note* Diagnosis Numbness and tingling- Primary Disturbance of skin sensation Weakness of left arm Other musculoskeletal symptoms referable to limbs Right arm weakness Other musculoskeletal symptoms referable to limbs Diabetic peripheral neuropathy ([facility]) Type II or unspecified type diabetes mellitus [...] idiopathic peripheral neuropathy documented in this encounter [facility] note* Diagnosis Poor control type I diabetes mellitus ([facility])- Primary Type I (juvenile type) diabetes mellitus without mention of complication, uncontrolled Insulin long-term use ([facility]) Encounter for long-term (current) use of insulin Vitamin D deficiency Hyperlipemia, mixed ([facility]) Mixed hyperlipidemia Primary hypertension ([facility]) Unspecified essential hypertension Encounter for dietary consultation Class 1 obesity due to excess calories with serious comorbidity and body mass index (BMI) of 33.0 to 33.9 in adult documented in this encounter [facility] Healthcare[facility] note* Diagnosis Status post laparoscopic cholecystectomy- Primary Other postprocedural status documented [facility] Author Bonilla Hall [facility] January 26, 2022 4:41pm Note Date/Time January 26, 2022 4: 27pm [facility] [address] [place] [address] Hospitalist H&P Signed Patient: Ariel Ruvalcaba MR#: [id number] : 1985 Acct:[id number] Age/Sex: 36 / M Adm Date: 2 Loc: ER Room: Type: [facility] ER Attending Dr: Copies to: MD Ariel [...] % (Auto) 34.4 % (.) 01/26/22 13:08 Falls % (Auto) 6.7 % (.) 01/26/22 13:08 Eos % (Auto) 2.0 % (.) 01/26/22 13:08 Baso % (Auto) 0.7 % (.) 01/26/22 13:08 Neut # (Auto) 4.2 x10E3/uL (1.8-7.7) 01/26/22 13:08 Lymph # (Auto) 2.6 x10E3/uL (1.00-4.8) 01/26/22 13:08 Falls # (Auto) 0.5 x10E3/uL (0.0-0.8) 01/26/22 13:08 [...] signed by Bonilla Hall MD> 01/26/22 1641 [facility] Work Phone: Hospital course Narrative No data available for this section [facility] [place] [facility] Discharge instructions No data available for this section [facility] InstructionsNot on filedocumented in this encounter [facility]ructionsNot on filedocumented in this encounter [facility] No data available for this section [facility] Reason for referral (narrative) Referred by: Judah WHITAKER MD [facility] Chief Complaint and Reason for Visit Chief [...] Erick Maldonado MD Primary Care Provider Active Glass Edger 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 Specialty Start Date End Date Erick Maldonado MD [address] [place] [address] PCP - General Family Medicine 01/26/24 Glass Edger 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 Specialty Start Date End Date Erick Maldonado MD [address] [place] [address] PCP - General Family Medicine 01/26/24 Team Status: Active Member Role Status Dates Erick Maldonado MD Primary Care Provider Active Start: March 05, 2024 Brian Dillard DO Attending Provider Active Sta rt: March 05, 2024 Team Status: Inactive Member Role Status Dates Judah Friedman DO Attending Provider Active Start: April 19, 2024 End: April 19, 2024 Glass Edger 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 Specialty Start Date End Date Erick Maldonado MD [address] [place] [phone] PCP - General Family Medicine 01/26/24 Glass Edger 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 Specialty Start Date End Date Erick Maldonado MD [address] [phone] PCP - General Family Medicine 01/26/24 Glass Edger 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 Specialty Start Date End Date Erick Maldonado MD [address] [phone] PCP - General Family Medicine 01/26/24 Glass Edger 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 Specialty Start Date End Date Erick Maldonado MD [address] [place] [address] PCP - General Family Medicine 01/26/24 Glass Edger 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 Specialty Start Date End Date Erick Maldonado MD [address] [place] [address] PCP - General Family Medicine 01/26/24 Glass Edger 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 Specialty Start Date End Date Erick Maldonado MD [address] [place] [address] PCP - General Family Medicine 01/26/24 Glass Edger 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 Specialty Start Date End Date Erick Maldonado MD [address] [facility] [place] [address] PCP - General Family Medicine 01/26/24 Glass Edger 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 Specialty Start Date End Date Erick Maldonado MD [address] [facility] [place] [address] PCP - General Family Medicine 04/20/24 Glass Edger 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 Specialty Start Date End Date Erick Maldonado MD [address] [facility] [place] [address] PCP - General Family Medicine 04/20/24 Glass Edger 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 Specialty Start Date End Date Erick Maldonado MD [address] [facility] [place] [address] PCP - General Family Medicine 01/26/24 (unrecognized sect ion and content) No Status Records FoundNo Status Records FoundNo Status Records FoundNo Status Records FoundNo Status Records Found INFORMATION SOURCE (unrecogn ized section and content) DATE CREATED AUTHOR 03/16/2022 [facility] DATE CREATED AUTHOR AUTHOR'S ORGANIZ ATION 03/11/2024 [facility] DATE CREATED AUTHOR AUTHOR'S ORGANIZ ATION 04/21/2024 [facility] DATE CREATED AUTHOR AUTHOR'S ORGANIZ ATION 04/30/2024 [facility] DATE CREATED AUTHOR AUTHOR'S ORGANIZ ATION 05/01/2024 [facility] Reason for Visit (unrecogniz ed section and content) Reason Comments Numbness Weakness, Gen BUE Reason Comments Numbness Pain Specialty Diagnoses / Procedures Referred By Meena haque Referred To Contact Neurology Diagnoses Paresthesia of skin Weakness Procedures NE OFFICE/OUTPATIENT NEW LOW MDM 30 MINUTES Erick Maldonado MD [address] [facility] [place] [address] Cruzito Ayala MD [address] [place] [address] Referral ID Status Reason Start Date Expiration Date V isits Requested Visits Authorized [id number] Closed Consult and Treat 01/28/2024 07/26/2024 1 1 Specialty Diagnoses / Procedures Referred By Contac t Referred To Contact Occupational Therapy / Physical Therapy Diagnoses Pain of upper extremity, weakness of right arm Procedures NE OCCUPATIONAL THERAPY EVALUATION Vikki Alatorre DO [address] [place] [address] Mae Cuevas, OT [address] [place] [address] Referral ID Status Reason Start Date Expiration Date V isits Requested Visits Authorized [id number] Pending Review 02/24/2024 08/22/2024 1 1 Reason Comments POST-OP VISIT POST OP CHOLECYSTECT JUDY AT [facility] DR FRIEDMAN Reason Onset Date Comments Medication Problem 08/11/2024 Goals (unrecognized section and content) Goals may [...] BE BASED ON THE PRIMARY CLINICAL RECORDS. [employer] provides no warranty or guarantee of the accuracy or completeness of information in this document.
[2024-08-26 08:03] LABS: Basophils Absolute Auto 0.1 10^3/uL (0.0-0.1); Basophils Percent Auto 0.5 % (0.2-2.0); Eosinophils Absolute Auto 0.2 10^3/uL (0.0-0.7); Eosinophils Percent Auto 1.8 % (0.9-7.0); Hematocrit 43.2 % (42.0-54.0); Hemoglobin 14.4 g/dL (14.0-18.0); Immature Granulocytes Abs Auto 0.03 10^3/uL (0.00-0.03); Immature Granulocytes Pct Auto 0.3 % (0.0-0.5); Mean Corpuscular HGB Conc 33.3 g/dL (29.9-35.2); Mean Corpuscular Hemoglobin 29.6 pg (25.9-34.0); Mean Corpuscular Volume 88.9 fL (80.0-94.0); Monocytes Percent Auto 9.6 % (1.7-12.0); Neutrophils Absolute Auto 5.8 10^3/uL (1.4-6.5); Neutrophils Percent Auto 57.8 % (43.0-75.0); Platelet Count 430 10^3/uL (150-450); Red Blood Count 4.86 10^6/uL (4.70-6.10); Red Cell Distribution Width 12.3 % (11.0-15.0); White Blood Count 10.1 10^3/uL (4.0-11.0)
[2024-08-26 08:32] LABS: Alanine Aminotransferase 38 U/L (16-63); Albumin Globulin Ratio 0.9; Albumin Level 3.3 g/dL (3.4-5.0); Alkaline Phosphatase 106 U/L (46-116); Anion Gap 10.1; Aspartate Amino Transferase 19 U/L (15-37); BUN Creatinine Ratio 12.8; Bilirubin Total 0.5 mg/dL (0.2-1.0); Chloride 100 mmol/L (98-107); Estimated GFR (African America >60 (>=60 mL/min/1.73m^2); Estimated GFR (Non-African Ame >60 (>=60 mL/min/1.73m^2); Globulin 3.8 g/dL; Glucose 202 mg/dL (74-106); Potassium 4.1 mmol/L (3.5-5.1); Sodium 136 mmol/L (136-145); Total Protein 7.1 g/dL (6.4-8.2)
== END 2024-08-26 07:39 | disposition home or self-care (01) ==
LOC: LAB 07:39
PROVIDERS: PCP Family Medicine; Visit Provider Family Medicine
DX: R60.9 Edema, unspecified (principal)
CPT/HCPCS: 36415; 80053; 83880; 85025

== ENCOUNTER 2024-12-20 09:50 | Outpatient (OUT) | payer MEDICAID, SELFPAY ==
--- OUTSIDE RECORDS SUMMARY | 2024-04-29 10:34 | XMS_ITS ---
Author Name [employer] [facility] Care Team Providers Care Purchasing Contracting Clerk Name Role Phone CANDIS GUZMÁN Attending Unavailable CANDIS GUZMÁN Attending Unavailable Irish Maldonado Referring Unavailable Judah WHITAKER Attending Unavailable Judah Fuentes Attending Unavailable Judah Fuentes Admitting Unavailable JOSEPH MCDOWELL Attending Unavailable IRISH MALDONADO Primary Care Unavailable PROBLEMS DATE TYPE CONDITION / CODE ATTENDING STATUS [facility] 04/28/2024 Unknown Acquired absence of other specified parts of digestive tract / Z90.49(ICD-10) JOSEPH MCDOWELL Active [facility] 04/28/2024 Unknown POST-OP VISIT / FREETEXT(AOF) JOSEPH MCDOWELL Active [facility] 03/15/2024 Admitting Diagnosis Tachycardia, unspecified / R00.0(ICD-10) CANDIS GUZMÁN Active [facility] 03/15/2024 Admitting Diagnosis Other chest pain / R07.89(ICD-10) CANDIS GUZMÁN Active [facility] 03/15/2024 Admitting Diagnosis Encounter for other preprocedural examination / Z01.818(ICD-10) CANDIS GUZMÁN Active [facility] 03/15/2024 Admitting Diagnosis Atherosclerotic heart disease of [place] coronary artery without angina pectoris / I25.10(ICD-10) CANDIS GUZMÁN Active [facility] PROCEDURES No Procedure Records Found RESULTS PROGRESS Observed: 04/29/2024 9:40 AM Status: COMPLETED Source: [facility] Cardiology Clinic Note Chief Complaint: perioperative risk stratification HPI: Ariel Ruvalcaba is a 38 y.o. male Medical history of nonobstructive CAD, hypertension, hyperlipidemia, diabetes mellitus. Patient presents to cardiology for perioperative risk stratification. Patient had a cardiac cath several years ago. At the time, he was noted to have nonobstructive disease of the LAD. He was referred to our office for perioperative restratification. Due to unclear functional status, Lexiscan myocardial perfusion stress test was performed. This was low risk without evidence of ischemia. He presents today for follow-up. He is doing well. He denies any cardiac complaints or concerns. He denies any chest pain or shortness of breath. He denies any lower extremity edema, orthopnea, or paroxysmal nocturnal dyspnea. He had gallbladder surgery recently, which Was done urgently, and he feels better since that time. No complications from surgery, as per his report. He quit taking his metoprolol as he believes it made him feel unwell. He is willing to try alternative medication. ROS 10 point ROS is performed and is negative unless otherwise specified in HPI Past Medical History He has no past medical history on file. Surgical History He has a past surgical history that includes Knee surgery and Cardiac catheterization. Social History He reports that he has quit smoking. His smoking use included cigarettes. He has a 40 pack-year smoking history. He has quit using smokeless tobacco. His smokeless tobacco use included chew. He reports that he does not drink alcohol. No history on file for drug use. Family History Family History Problem Relation Name Age of Onset No Known Problems Mother No Known Problems Father Medications Current Outpatient Medications on File Prior to Visit Medication Sig Dispense Refill aspirin 81 mg chewable tablet Chew 1 tablet (81 mg) once daily as directed. 90 tablet 3 DULoxetine (Cymbalta) [address] capsule Take [...] mg tablet Take 500 mg by mouth. rosuvastatin (Crestor) 20 mg tablet Take 1 tablet (20 mg) by mouth at bedtime. 90 tablet 3 metoprolol succinate XL (Toprol-XL) 50 mg 24 hr tablet Take 1 tablet (50 mg) by mouth once daily as directed. Do not crush or chew. (Patient not taking: Reported on 04/29/2024) 90 tablet 3 No current facility-administered medications on file prior to visit. Allergies Lisinopril Physical Exam VITAL SIGNS: BP 122/80 Pulse (!) 126 Ht 1.753 m (5' 9 ) Wt 95.3 kg (210 lb) SpO2 97% BMI 31.01 kg/m??? Constitutional: Well developed, Well nourished, No [...] months Radiology: No image results found. Assessment/Plan: Assessment/Plan: Ariel Ruvalcaba is a 38 y.o. male with Sinus tachycardia Coronary artery disease, unspecified vessel or lesion type, unspecified whether angina present, unspecified whether [place] or transplanted heart Pre-op evaluation Patient adamantly denies any chest pain or shortness of breath. No signs/symptoms of decompensated heart failure or ACS. Cardiac testing reviewed. Patient is moderate risk for surgery. May proceed without additional cardiac testing at this time. Given CAD and inability to tolerate metoprolol, will attempt carvedilol. Will start patient on carvedilol 6.25 mg twice daily. Continue statin and Aspirin Optimize medical management Aggressive risk factor modification Plan of care discussed with patient. All questions were answered. Patient voices understanding and is agreeable with current plan. Patient was educated on red flag symptoms. Strict return precautions were provided. Patient verbalizes understanding Follow-up in cardiology clinic in 3 months, or sooner as needed Candis Guzmán MD Interventional Cardiology [facility] OFFICE VISIT Observed: 04/29/2024 9:40 AM Status: COMPLETED Source: [facility] [id number] Ariel Ruvalcaba 1985 M Date Provider Department Center 04/29/2024 3848-CANDIS GUZMÁN [facility] Family History Problem Relation Age of Onset No Known Problems Mother No Known Problems Father Family Status - Relation Status Age at Mother Father Level of Service:13767 MT OFFICE/OUTPATIENT ESTABLISHED MOD MDM 30 MIN L Observed: 04/19/2024 9:30 PM Status: F Source: [facility] Specimen: [id number] Received: 04/20/24 Status: RICKIE Victor Num: [id number] Spec Type: Surgical Subm Dr: Judah Fuentes DO Tissues: A Gallbladder (GALLBLADDER AND CONTENTS) Procedures: HE, Gross/Micro L3 Age/ Patient Sex Location Account Attending Physician Ariel Ruvalcaba 38/M LABELL [id number] Judah Fuentes DO SPEC NUM: [id number] RECD: 04/20/24 STATUS: RICKIE VICTOR NUM: [id number] DAI: 04/19/[address]: Judah Fuentes DO ENTERED: 04/20/[address]: [facility] SPEC TYPE: Surgical DEPT: REHANA DONIS ENTERED BY: [id number] RECV BY: [id number] ORDERED: HE, Gross/Micro L3 ORDERED: HE, Gross/Micro [...] 0.3 cm in aggregate. The mucosa is knight- green and trabecular. The wall of the gallbladder ranges from 0.1 to 0.3 cm in thickness. Software [employer] Manager sections are submitted in a single cassette. (1, , [id number]) CPT Codes 26865 ----- ------- ----- ------- Specimen: [id number] Received: 04/20/24 Status: RICKIE Victor Num: [id number] Spec Type: Surgical Subm Dr: Judah Fuentes, Tissues: A Gallbladder (GALLBLADDER AND CONTENTS) Procedures: HE, Gross/Micro L3 ----- ------- Patient: Ariel Ruvalcaba [id number] (Continued) ----- ------- Signed (signature on file) Flori Zamora MD 04/21/24 180 PROGRESS Observed: 03/15/2024 3:00 PM Status: COMPLETED Source: [facility] Cardiology Clinic Note Chief Complaint: perioperative risk stratification HPI: Ariel [...] type, unspecified whether angina present, unspecified whether [place] or transplanted heart Diagnoses and all orders [...] type, unspecified whether angina present, unspecified whether [place] or transplanted heart - Treadmill Stress Myocardial [...] the care of your patient. Please do not hesitate to contact cardiology with any questions or concerns. Candis Guzmán MD Interventional Cardiology [facility] OFFICE VISIT Observed: 03/15/2024 3:00 PM Status: COMPLETED Source: [facility] [id number] ConnorAriel horner Ander 1985 M Date Provider Department Center 03/15/2024 3848-CANDIS GUZMÁN [facility] Family History Problem Relation Age of Onset No Known Problems Mother No Known Problems Father Family Status - Relation Status Age at Mother Father Level of Service:51773 MT OFFICE/OUTPATIENT NEW MODERATE MDM 45 MINUTES GENERAL SURGERY OFFICE/CLINI C NOTE Observed: 03/09/2024 9:44 AM Status: F Source: [facility] General Surgery Office/Clini c Note Chief Complaint consultation for abdominal pain, N/V HPI Staff 38 year old male presents on consultation from Dr. Maldonado for epigastric pain, nausea and vomiting. Reports 2 month history of generalized abdominal pain with intermittent nausea and vomiting as well as bloating. Reports symptoms are primarily postprandial. Denies bowel changes. Denies rectal pain or bleeding. Presented to [place] ED 02/23 with complaint of ABD pain. [...] Cardiomyopathy (I42.9: Cardiomyopathy, unspecified) cardiology evaluation Ordered: [facility] External Ambulatory Referral 6. Tachycardia (R00.0: Tachycardia, unspecified) cardiology evaluation Ordered: [facility] External Ambulatory Referral Follow-up No qualifying data available Problem List/Past Medical History Ongoing Anxiety BMI 32.0-32.9,adult Cardiomyopathy Cholelithiasis Chronic GERD Depressive disorder Dyslipidemia Epigastric pain Fatty liver GERD (gastroesophageal reflux disease) Hypertension Macular edema Migraines Nausea and vomiting in adult Obesity due to excess calories Retinopathy due to diabetes mellitus Tachycardia Type 1 diabetes Vitamin D deficiency Historical No qualifying data Procedure/Surgical History Arthroscopy of knee, Cardiac catheterization, Eye surgery. Medications diclofenac sodium 75 mg Oral EC Tab, 75 mg= 1 tab(s), Oral, BID duloxetine 60 mg Cap-DR, 1 cap(s), Oral, Daily irbesartan 150 mg Tab, 150 mg= 1 tab(s), Oral, Daily Lantus Solostar Pen 100 units/mL subcutaneous solution, 36 unit(s), SubCutaneous, BID metformin 500 mg Tab, 500 mg= 1 tab(s), Oral, BID NovoLOG 100 units/mL injectable solution, as directed ondansetron 4 mg Dis Tab, 4 mg= 1 tab(s), Oral, q8hr, PRN Pepcid 40 mg Tab, 40 mg= 1 tab(s), Oral, Daily Allergies lisinopril (Cough) Social History Alcohol - Denies Alcohol Use, 03/09/2024 Substance Abuse - Denies Substance Abuse, 03/09/2024 Tobacco Former smoker, quit more than 30 days ago Tobacco Use:. Former smokeless tobacco user, quit more than 30 days ago Smokeless Tobacco Use:. Cigarettes, Oral, 2.5 per day. Started age 13.0 Years. Stopped age 29 Years., 03/09/2024 Family History Diabetes mellitus type 2: Father. Result Comment: Electronical ly Signed By: JULIANNE MCARTHUR, Judah Ceron\Date and Time Signed: 03/09/24 09:44 EDT AMBULATORY VISIT SUMMARY Observed: 03/09 9:25 AM Status: F Source: [facility] Ambulatory Visit Summary ARIEL RUVALCABA :1985 Visit Date:03/09/2024 Ambulatory Visit Instructions Your Care Team Attending Physician - Judah WHITAKER MD Primary Care Physician - Irish Maldonado MD [...] you for choosing us for your care. ALLERGIES DATE TYPE / CODE NAME / CODE REACTION SEVERITY SOURCE 03/15/2024 DRUG INGREDI~NON-CBO RD/185729563(SN OMED CT) LISINOPRIL Cough [facility] 03/15/2024 DRUG INGREDI/7320169 03(SNOMED CT) LISINOPRIL Cough [facility] 08/02/2022 Drug Allergy/0866125 02(SNOMED CT) No Known Allergies/K535014972( RXNORM) Unknown [facility] /[id number](SN OMED CT) lisinopril [id number] [facility] ENCOUNTERS ADMIT/DISCHARGE ACCOUNT NUMBER ADMITTING ENCOUNTER CLASS LOCATION SOURCE 04/29/2024/04/29/20 [id number] Ambulatory Building:[facility] 04/28/2024/04/28/20 [id number] Ambulatory Buildin [address] [facility] 04/19/2024/04/19/20 [id number] [facility] 03/15/2024/03/15/20 [id number] Ambulatory Building:[facility] 03/09/2024/03/09/20 24 [id number] Ambulatory Leeuiash ing: Vipinm: [id number] [facility] 03/02/2024 [id number] Ambulatory NorDimitriuild ing: Luis A [facility] 02/27/2024 [id number] Ambulatory [place] ding:[facility] PAYERS ENCOUNTER GUARANTOR PAYER SUBSCRIBER SOURCE 04/29/2024 Primary Insurance:[facility] MEDICAIDPolicy Number: [id number] Date:2023-03-16 ARIEL ANSARIB: [id number] [address] [address] [facility] 04/28/2024 ARIEL A COTYB: [address] [address]Nju: (HP) Primary Insurance:[place] MEDICAIDPolicy Number: [id number] Date:2023-03-16 ARIEL A COTYB: [id number] [address] [address]Lox: (HP) [facility] 04/19/2024 Ariel Ander MorenoArudwxw913 [address] [address]Exa: (HP) Primary Insurance:Self PayPolicy Number: Effective Date:2024-04-19 [facility]24 Primary Insurance:[facility] MEDICAIDPolicy Number: [id number] Date:2023-03-16 ARIEL ANSARIB: [id number] [address] [address] [facility] 03/09/2024 ARIEL FUNG: [place] [address]Tel: ~(30 [phone] (HP) Primary Insurance:MedicaidPoli cy Number: [id number] Date:[id number] [address]OI: ARIEL BARRAGAN [facility]
--- OUTSIDE RECORDS SUMMARY | 2024-12-20 09:53 | XMS_ITS | Clinical Summary ---
Author Organization [facility] Address [address] [address] Care Team Providers Care Research Group Director Name Role Phone Erick Maldonado MD Primary Care Provider Allergies Active Allergy Reactions Criticality Noted Date Comments Lisinopril Cough 03/15/2024 Medications Lantus Solostar U-100 Insulin 100 unit/mL (3 mL) injection pen Inject under the skin two times daily. 9 Active insulin aspart (NovoLOG U-100 Insulin aspart) 100 unit/mL injection vial as directed, Refills(s) 0 4 Active irbesartan (Avapro) 150 mg tablet 150 mg. Active hydroCHLOROthiaz dylan (HYDRODiuril) 25 mg tablet 25 mg. 4 Active metFORMIN (Glucophage) 500 mg tablet Take 500 mg by mouth. 4 Active DULoxetine (Cymbalta) [address] capsule Take 120 mg by mouth two times daily. 4 Active aspirin 81 mg chewable tabletIndication s:Coronary artery disease, unspecified vessel or lesion type, unspecified whether angina present, unspecified whether dry creek or transplanted heart Chew 1 tablet (81 mg) once daily as directed. 90 tablet 3 4 03/15/20 25 Active metoprolol succinate XL (Toprol-XL) 50 mg 24 hr tabletIndication s:Sinus tachycardia Take 1 tablet (50 mg) by mouth once daily as directed. Do not crush or chew. 90 tablet 3 4 03/15/20 25 Active Additional Information Patient not taking.Reported on 04/29/2024 rosuvastatin (Crestor) 20 mg tabletIndication s:Coronary artery disease, unspecified vessel or lesion type, unspecified whether angina present, unspecified whether dry creek or transplanted heart Take 1 tablet (20 mg) by mouth at bedtime. 90 tablet 3 4 03/15/20 25 Active carvedilol (Coreg) 6.25 mg tabletIndication s:Essential hypertension Take 1 tablet (6.25 mg) by mouth with breakfast and with evening meal. 180 tablet 3 4 04/29/20 25 Active Family History Medical History Relation Name Comments No Known Problems Father No Known Problems Mother Relation Name Status Comments Father Mother Social History Tobacco Use Types Packs/Day Years Used Date Smoking Tobacco: Former Cigarettes 2 20 Smokeless Tobacco: Former Chew Tobacco Cessation:Counseling Given: Not Answered Alcohol Use Standard Drinks/Week Comments Never 0 (1 standard drink = 0.6 oz pur e alcohol) [place] Safety & Environment Answer Date Rec orded Fear of Current or Ex-Partner Not on file Emotionally Abused Not on file 08/07/2023 Physically Abused Not on file 08/07/2023 Sexually Abused Not on file 08/07/2023 Physically or Sexually Abused Not on file Sex and Gender Information Value Date Recorded Sex Assigned at Not on file Legal Sex Male 6:06 PM EST Gender Identity Not on file Sexual Orientation Not on file Last Filed Vital Signs Vital Sign Reading Time Taken Comments Blood Pressure 122/80 04/29/2024 10:00 AM EST Pulse 126 04/29/2024 10:00 AM EST Temperature - - Respiratory Rate - - Oxygen Saturation 97% 04/29/2024 10:00 AM EST Inhaled Oxygen Concentration - - Weight 95.3 kg (210 lb) 04/29/2024 10:00 AM EST Height 175.3 cm (5' 9 ) 04/29/2024 10:00 AM EST Body Mass Index 31.01 04/29/2024 10:00 AM EST Plan of Treatment Health Maintenance Due Date Last Done Comments Diabetes: Hemoglobin A1C 1984 Diabetes: Retinopathy Screening 1994 Depression Screening 1996 Varicella Vaccines (1 of 2 - 13+ 2-dose series) 1997 Diabetes: Urine Protein Screening 2003 Hepatitis B Vaccines (1 of 3 - 19+ 3-dose series) 2003 Pneumococcal Vaccine: Pediat rics (0 to 5 Years) and At-Risk Patients (6 to 64 Years) (1 of 2 - PCV) 2003 Adult Tetanus 2006 COVID-19 Vaccine (1 - 2023-2 5 season) 2024 Influenza Vaccine (#1) 2025 Zoster Vaccines (1 of 2) 2034 HIB Vaccines Aged Out No longer eligi ble based on patient's age to complete this topic HPV Vaccines Aged Out No longer eligi ble based on patient's age to complete this topic IPV Vaccines Aged Out No longer eligi ble based on patient's age to complete this topic Meningococcal B Vaccine Aged Out No l onger eligible based on patient's age to complete this topic Meningococcal Vaccine Aged Out No shanda jo-ann eligible based on patient's age to complete this topic Rotavirus Vaccines Aged Out No longer eligible based on patient's age to complete this topic Insurance [facility] MED[facility] Care Teams Research Group Director 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 Specialty Start Date End Date Erick Maldonado MD [address] [facility] [address] [address] PCP - General 03/15/24
--- OUTSIDE RECORDS SUMMARY | 2024-12-20 09:53 | XMS_ITS | Clinical Summary ---
Author Organization [facility] Address [id number] [address] [place] [address] Care Team Providers Care Roentgenology Teacher Name Role Phone Erick Maldonado MD Primary Care Provider [phone] Allergies Active Allergy Reactions Criticality Noted Date Comments Lisinopril Cough 03/15/2024 Medications aspirin 81 mg chewable tablet Chew 1 tablet (81 mg total) and swallow in the morning. 03/15/2024 Active famotidine (PEPCID) 40 mg tablet Take 1 tablet (40 mg total) by mouth. Active hydroCHLOROthia zide (HYDRODIURIL) 25 mg tablet Take 1 tablet (25 mg total) by mouth daily. Active metFORMIN (GLUCOPHAGE) 500 mg tablet Take 1 tablet (500 mg total) by mouth in the morning and 1 tablet (500 mg total) before bedtime. Active irbesartan (AVAPRO) 150 mg tablet Take 1 tablet (150 mg total) by mouth nightly. Active rosuvastatin (CRESTOR) 20 mg tablet Take 1 tablet (20 mg total) by mouth in the morning. Active DULoxetine (CYMBALTA) 60 mg capsule Take 1 capsule (60 mg total) by mouth in the morning. Active Active Problems No known active problems Family History Medical History Relation Name Comments Cancer Maternal Grandfather Bryant Diabetes Maternal Grandfather Bryant Emphysema Maternal Grandfather Bryant Lung cancer Maternal Grandfather Bryant Emphysema Paternal Grandfather Lung cancer Paternal Grandfather Relation Name Status Comments Father Alive Maternal Grandfather Bryant Mother Alive Paternal Grandfather Social History Tobacco Use Types Packs/Day Years Used Date Smoking Tobacco: Former Cigarettes 1 5.8 1 1998 Smokeless Tobacco: Never Alcohol Use Standard Drinks/Week Comments Not Currently 0 (1 standard drink = 0.6 oz pur e alcohol) Childcare Answer Date Recorded Childcare Unknown 11/25/2018 Employment Answer Date Recorded Employment Unknown 11/25/2018 Sex and Gender Information Value Date Recorded Sex Assigned at Not on file Legal Sex Male 12:01 PM EDT Gender Identity Not on file Sexual Orientation Not on file Last Filed Vital Signs Vital Sign Reading Time Taken Comments Blood Pressure - - Pulse - - Temperature - - Respiratory Rate - - Oxygen Saturation - - Inhaled Oxygen Concentration - - Weight 101.6 kg (224 lb) 04/28/2024 11:27 AM EST Height 175.3 cm (5' 9 ) 04/28/2024 11:27 AM EST Body Mass Index 33.08 04/28/2024 11:27 AM EST Plan of Treatment Health Maintenance Due Date Last Done Comments Depression Screening 1996 Adult BMI Follow Up Plan 2002 DTaP,Tdap and Td Vaccines (1 - Tdap) 2003 Influenza Vaccine 02/14/2025 Adult BMI Screening 04/28/2025 04/28/2024 Tobacco Screening 04/28/2025 04/28/2024 Medical Devices Not on file Insurance [employer] MEDICA[employer] Care Teams Roentgenology Teacher 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 Specialty Start Date End Date Erick Maldonado MD [address] [place] [address] PCP - General Family Medicine 04/20/24
--- OUTSIDE RECORDS SUMMARY | 2024-12-20 09:53 | XMS_ITS | Clinical Summary ---
Author Organization [facility] Address [address] [place] [address] Care Team Providers Care Fur Blower Operator Name Role Phone Erick Maldonado MD Primary Care Provider [phone] Allergies Active Allergy Reactions Criticality Noted Date Comments Lisinopril Cough 03/15/2024 Medications NovoLOG FlexPen ReliOn 100 UNIT/ML pen INJECT 15 UNITS SUBCUTANEOUSLY 4 TIMES DAILY, 1 UNIT PER 15 CARBS PLUS 1 UNIT FOR EVERY 50 OVER 150. MAX DAILY USE OF 120 UNITS PER DAY 02/09/20 24 Active Lantus SoloStar 100 UNIT/ML pen every 12 (twelve) hours 02/26/20 23 Active irbesartan (Avapro) 150 MG tablet TAKE 1 TABLET BY MOUTH ONCE DAILY FOR 30 DAYS 02/08/20 24 Active metFORMIN (Glucophage) 500 MG tablet 01/28/20 24 Active pantoprazole (ProtoNix) 40 MG EC tablet TAKE 1 TABLET BY MOUTH ONCE DAILY FOR 30 DAYS 02/09/20 24 Active hydroCHLOROthiazi de (HYDRODiuril) 25 MG tablet Take 25 mg by mouth in the morning. Active aspirin 81 MG chewable tablet Chew 81 mg 03/15/20 24 2024 Active metoprolol succinate XL (Toprol-XL) 50 MG 24 hr tablet Take 50 mg by mouth 03/15/20 24 2024 Active famotidine (Pepcid) 40 MG tablet Active rosuvastatin (Crestor) 20 MG tablet Take 20 mg by mouth at bedtime 03/15/20 24 2024 Active DULoxetine (Cymbalta) [address] capsule Take 120 mg by mouth Daily Active gabapentin (Neurontin) 100 MG capsuleIndication s:Polyneuropathy Take 1 capsule (100 mg) by mouth in the morning and 1 capsule (100 mg) in the evening and 1 capsule (100 mg) before bedtime. 30 capsule 2 04/06/20 24 2024 Active Additional Information Patient not taking.Reported on 11/25/2024 carvedilol (Coreg) 6.25 MG tablet Take 6.25 mg by mouth in the morning and 6.25 mg in the evening. Take with meals. 04/29/20 24 2024 Active dicyclomine (Bentyl) 20 MG tablet Take 1 tablet by mouth 4 (four) times a day as needed 03/03/20 24 Active ReliOn Pen [place] 31G X 6 MM misc Inject 1 each under the skin 6 (six) times a day 03/15/20 24 Active ondansetron ODT (Zofran-ODT) 4 MG disintegrating tablet Take 1 tablet by mouth every 8 (eight) hours if needed 03/03/20 24 Active citalopram (CeleXA) 20 MG tablet Take 1 tablet by mouth Daily Active diclofenac (Voltaren) 75 MG EC tablet Take 1 tablet by mouth in the morning and 1 tablet before bedtime. Do not crush, chew, or split.. Active ergocalciferol (Vitamin D2) 1.25 MG (27123 UT) capsuleIndication s:Vitamin D deficiency Take 1 capsule by mouth once a week 12 capsule 09/30/19 25 Active sacubitril-valsar knight (Entresto) 97-103 MG tablet Take 1 tablet by mouth in the morning and 1 tablet before bedtime. Active Insulin Aspart (NovoLOG) 100 UNIT/ML solutionIndicatio ns:Type 1 diabetes mellitus with hyperglycemia (HCC) Inject 80 Units as directed continuously WITH INSULIN PUMP 80 mL 3 11/26/19 25 Active Insulin Aspart (NovoLOG) 100 UNIT/ML solutionIndicatio ns:Type 1 diabetes mellitus with hyperglycemia (HCC) Inject 80 Units as directed continuously WITH INSULIN PUMP 80 mL 3 08/19/19 25 2024 Discontin ued(Reord er) Insulin Infusion Pump Supplies (Sure T Infusion Set 32 /8mm) miscIndications:P oor control type I diabetes mellitus (HCC),Insulin pump in place,Encounter for fitting or adjustment of insulin pump 1 kit in the morning and 1 kit before bedtime. 45 each 1 08/27/19 25 2024 Active Problems Problem Noted Date Diagnosed Date Poor control type I diabetes mellitus 08/04/2024 Numbness 02/24/2024 Right arm weakness 02/24/2024 Encounters Date Type Department Care Team Description 11/25/2024 10:40 AM EDT Office Visit [facility] [address] [place] [address] Betito Arteaga MD Type 1 diabetes mellitus with hyperglycemia (HCC) (Primary Dx); Insulin long-term use (HCC); Vitamin D deficiency; Hyperlipemia, mixed ; Insulin pump in place; Encounter for fitting and adjustment of insulin pump; Microalbuminuria 11/25/2024 Bamboo flowsheet [facility] [address] [place] [address] Betito Arteaga MD 11/18/2024 Travel 09/28/2024 Refill [facility] [address] [place] [address] Betito Arteaga MD Vitamin D deficiency from Last 3 Months Family History Medical History Relation Name Comments Diabetes Father Depression Mother Anxiety disorder Sister x 3 Asthma Sister x 3 Relation Name Status Comments Father Alive Mother Alive Sister x 3 Alive Social History Tobacco Use Types Packs/Day Years Used Date Smoking Tobacco: Former Cigarettes 2 20 Smokeless Tobacco: Never Tobacco Cessation:Counseling Given: Not Answered Alcohol Use Standard Drinks/Week Comments Never 0 (1 standard drink = 0.6 oz pur e alcohol) Sex and Gender Information Value Date Recorded Sex Assigned at Male 01/19/2024 11:27 AM EDT Legal Sex Male 1:30 PM EDT Gender Identity Male 01/19/2024 11:27 AM EDT Sexual Orientation Choose not to disclose 2023 11:27 AM EDT Last Filed Vital Signs Vital Sign Reading Time Taken Comments Blood Pressure 124/80 11/25/2024 10:34 AM EDT Pulse 119 11/25/2024 10:34 AM EDT Temperature - - Respiratory Rate 16 11/25/2024 10:34 AM EDT Oxygen Saturation 98% 11/25/2024 10:34 AM EDT Inhaled Oxygen Concentration - - Weight 97.1 kg (214 lb) 11/25/2024 10:34 AM EDT Height 175.3 cm (5' 9 ) 11/25/2024 10:34 AM EDT Body Mass Index 31.6 11/25/2024 10:34 AM EDT Plan of Treatment Upcoming Encounters Date Type Department Care Team (Late st Contact Info) Description 02/24/2025 10:10 AM EDT Office Visit [facility] [address] [place] [address] Betito Arteaga MD [address] [place] [address] Procedures Procedure Name Priority Date/Time Associated Diagnosis Comments POCT GLUCOSE Routine 11/25/2024 10:48 AM EDT Type 1 diabetes mellitus with hyperglycemia (HCC) POCT GLYCOSYLATED HEMOGLOBIN (HGB A1C) Routine 11/25/2024 10:48 AM EDT Type 1 diabetes mellitus with hyperglycemia (HCC) from Last 3 Months Results * POCT glycosylated hemoglobin (Hb A1C) docked device (11/25/2024 10:48 AM EDT) Hemoglobin A1C 6.2 Blood Venous blood specimen / Unknown 11/25/2024 10:48 AM EDT us Betito Arteaga MD POINT OF CARE TEST ENTER/EDIT ORDERABLES Final Result * (ABNORMAL) POCT glucose manually resulted (11/25/2024 10:48 AM EDT) Glucose Blood, POC 174 mg/dL Blood Capillary blood specimen / Unknown 11/25/2024 10:48 AM EDT us Betito Arteaga MD POINT OF CARE TEST ENTER/EDIT ORDERABLES Final Result from Last 3 Months Insurance [facility] MEDICAID [place] Care Teams Fur Blower Operator 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 Specialty Start Date End Date Erick Maldonado MD PCP - General Family Medicine 01/26/24
--- OUTSIDE RECORDS SUMMARY | 2024-12-20 09:53 | XMS_ITS | Clinical Summary ---
Author Organization [facility] Address [address] [place] [address] Phone Care Team Providers Care Accounting Recruiter Name Role Phone Unavailable Primary Care Provider Unavailabl e Social History Tobacco Use Types Packs/Day Years Used Date Smoking Tobacco: Never Assessed Sex and Gender Information Value Date Recorded Sex Assigned at Not on file Legal Sex Male 6:14 AM EST Gender Identity Not on file Sexual Orientation Not on file Plan of Treatment Not on file
--- NOTE | 2024-12-20 10:00 | US_ITS ---
The [address] [address] Patient Name: ARIEL XIONG MRN: [id number] date: 1985 Sex: M Assigned Patient Location: US Current Patient Location: US Accession/Order Number: [id number] Exam Date: 12/20/2024 11:58 Report Date: 12/20/2024 12:03 At the request of: IRISH MARTÍNEZ MD Procedure: US abdomen complete LIMITED ABDOMINAL ULTRASOUND CLINICAL HISTORY: Bloating and swelling for the past 6 months. Prior cholecystectomy. COMPARISON: CT 04/19/2024 The gallbladder is surgically absent. No intra- or extrahepatic biliary dilatation is evident. The common duct measures 2 - 3 mm. The liver is normal in echogenicity. No intrahepatic masses are seen. There is appropriate hepatopetal flow within the main portal vein. The pancreas shows no significant sonographic abnormality. The spleen is normal in size and echogenicity measuring 9.6 x 4.4 x 10.1 cm in size. The right kidney measures 11.0 cm and the left 10.6 cm in craniocaudal dimension. No hydronephrosis or renal mass lesions are seen. The IVC is patent. No aortic aneurysm is identified. There is no ascites. US/US abdomen complete IMPRESSION: PRIOR CHOLECYSTECTOMY. NO ACUTE ABDOMINAL FINDINGS. Impression dictated by: Bernice Smith M.D. 12/20/2024 12:03 PM Dictation Location: [place] [address] Electronically authenticated by: [id number] Date: 12/20/2024 12:03
== END 2024-12-20 09:51 | disposition home or self-care (01) ==
LOC: US 09:50
PROVIDERS: PCP Family Medicine; Visit Provider Family Medicine
DX: R14.0 Abdominal distension (gaseous) (principal); R60.0 Localized edema; Z90.49 Acquired absence of other specified parts of digestive tract
CPT/HCPCS: 76700; 93970